=== PATIENT | female | born 1940 | race Caucasian/White ===

== ENCOUNTER 2018-05-23 08:50 | Observation (INO) | payer MEDICARE, SELFPAY ==
[2018-05-23] VITALS (12 sets, daily range): BP systolic 120–147; BP diastolic 65–86; PULSE 77–96; RESP 16–20; TEMP 36.4–36.7; O2SAT 96–100; BMI 34.3; BMI 37.3; BMI 37.7
--- NOTE | 2018-05-23 09:03 | EKG12_ITS ---
Test Reason : FALL Blood Pressure : / mmHG Vent. Rate : 099 BPM Atrial Rate : 099 BPM P-R Int : 174 ms QRS Dur : 080 ms QT Int : 334 ms P-R-T Axes : 058 045 013 degrees QTc Int : 428 ms Normal sinus rhythm with sinus arrhythmia Nonspecific T wave abnormality Abnormal ECG Confirmed by JOYCE WILSON ([id number]), senior editor GOLDIE WEEKS ([id number]) on 05/28/2018 9:00:21 AM Referred By: VICTOR MANUEL Confirmed By:JOYCE WILSON
--- NOTE | 2018-05-23 09:31 | RAD_ITS ---
STUDY: X-RAY - PELVIS AND RIGHT HIP REASON FOR EXAM: Female, 77 years old. Right hip pain following a fall. TECHNIQUE: Radiological exam, hip, unilateral, with pelvis when performed; 2 or 3 views. COMPARISON: None. FINDINGS: There is a non-specific bowel gas pattern. There are atherosclerotic vascular calcifications of the pelvic arteries. A filter is seen in the inferior vena cava. Normal bilateral iliac wings, sacroiliac joints and visualized sacrum. Normal bilateral superior and inferior pubic rami. Normal pubic symphysis. Normal bilateral ischial tuberosities. Normal visualized femoral head. There is osteoarthritic spur formation of the acetabular rim. There is moderate articular joint space narrowing of the hip. RAD/HIP, UNI W/ Pelvis 2-3 Views IMPRESSION: Osteoarthritis of the right hip. No fracture or dislocation is seen. Electronically Signed: Guero Pelaez MD at 10:38 EDT Tel [phone], Service support ,
--- NOTE | 2018-05-23 09:31 | CT_ITS ---
STUDY: CT CHEST WITHOUT CONTRAST REASON FOR EXAM: Female, 77 years old. Left-sided chest wall pain following a fall. The patient has a history of Sjogren syndrome. RADIATION DOSAGE (If Supplied By Facility): CTDIvol = ( 19.72 ) mGy, DLP = ( 689.78 ) mGycm TECHNIQUE: Transaxial imaging was performed without the administration of intravenous contrast material. Multiplanar coronal and sagittal images were reformatted. Individualized dose optimization techniques were used for this CT. COMPARISON: Comparison is made with prior study dated May 08, 2017. FINDINGS: There is evidence of volume loss in the right hemithorax. There now is evidence of increased linear markings with areas of confluence in the right mid lung suggestive of a scarring. Increased markings are also seen at both lung bases suggestive of scarring with mild degree of pleural thickening. There is no demonstrated pleural abnormality. There are calcifications of the coronary arteries. There are multiple small lymph nodes within the mediastinum, which are normal in size and morphology most compatible with reactive lymph hyperplasia. Normal hilar regions. Normal unenhanced pulmonary arteries. There is atherosclerotic calcification of the aortic arch. There are multi-level degenerative changes of the thoracic spine. Increased kyphosis. A colostomy is seen in the left upper quadrant. CT/Chest without Contrast IMPRESSION: Volume loss in the right hemithorax with increased linear markings with areas of confluence in the right midlung and both lower lobes suggestive of scarring. Electronically Signed: Guero Pelaez MD at 10:37 EDT Tel [phone], Service support ,
--- NOTE | 2018-05-23 09:34 | ED.VISSUMM ---
- ER Visit Summary Date of Service: 05/23/18 Chief Complaint: Fall History of Present Illness: The patient is a 77 F who states that at 040 0 hours this morning she was attempting to get out of bed when she fell. She is not exactly sure why she fell. She reports that her assisted her up. He left to go get coffee which is his normal routine and she developed worsening pain in the left back into her left chest and called the ambulance. Fire department states that when they entered the house the carbon monoxide detectors were going off as was the patient's. She reports that she has been nauseated all week. She denies any headache. She states her has not had any complaints. Once family arrives they confirmed that they have spoken with the fire department and are investigating appropriately and a new heater will be being installed today.. Patient did not complain of any other injuries to me but did tell family that she had right hip pain. Patient is currently lying on her right hip. She does not believe she hit her head but is not sure. Physical Examination: Afebrile vital signs are stable noted HR 96 and Bp 147/86 Gen: Well-nourished well-developed obese patient appears nauseated holding an emesis bag Head: Normocephalic atraumatic Eyes: Perrl EOMI ENT: TMs clear no rhinorrhea moist mucous membranes (specifically no giraldo red lips) Neck: Supple no lymphadenopathy no JVD nontender CVS: Regular rate rhythm no murmurs normal S1-S2 Respiratory: No distress clear to auscultation bilaterally left anterior mid to lower chest wall tenderness. Abdomen: Soft nontender nondistended normal bowel sounds no masses Back: Left mid thoracic ecchymosis along the ribs. Extremity: Nontender no edema Skin: Normal color no rash Neuro: alert orientated ?3 CN II-XII intact normal strength sensation reflexes gait cerebellar Psych: Normal affect normal mood Test Results: Carbon monoxide level was at 9. Slight elevation of troponin at 0.17. CT the chest demonstrates 3 nondisplaced rib fractures on the left. No associated pneumo or hemothorax. Emergency Department Course and Treatment: Patient has been receiving supplemental oxygen. Nausea is improving. The patient received pain medication. I think the bump in troponin is most likely due to the carbon monoxide displacing oxygen and its subsequent delivery to the heart. Our plan is admission into the hospital. Trend troponins. Pain management. Cardiology evaluation. Impression: 1. Mechanical fall at home 2. Left rib fractures x3 3. Carbon monoxide poisoning This note was generated with [employer] dictation software. It may contain incorrect words, spelling, and punctuation that were not noted in review of the chart prior to signing ED Disposition - Plan for ED Patient: Chief Complaint: Fall Referrals: Zayda Peace PA [Primary Care Provider] -
[2018-05-23] MEDS: Ondansetron 4 MG/2 ML Vial IV (09:49)
[2018-05-23] MEDS: Morphine 2 MG/ML Syringe IV ×4 (09:49→22:20)
[2018-05-23 10:37] LABS: Absolute Lymphocyte Count 1.33 X10^3/ul (0.83-4.51); Absolute Neutrophil Count 4.9 X10^3/uL (2.0-7.7); Basophil# 0.02 X10^3/uL; Basophil% 0.3 % (0-1); Eosinophil# 0.03 X10^3/uL; Eosinophils% 0.4 % (0-5); Hematocrit 41.9 % (37-47); Hemoglobin 13.6 g/dl (12.0-15.0); Lymphocyte # 1.33 X10^3/ul (4.0); Lymphocyte % 19.7 % (19-41); Mean Corp Hgb Conc 32.5 g/gl (32-36); Mean Corpuscular Hgb 29.7 pg (27.0-32.0); Mean Corpuscular Volume 91.5 fL (81-99); Mean Platelet Vol. 10.8 fl (6.2-12.0); Monocyte# 0.47 X10^3/uL; Neutrophil # 4.88 X10^3/uL (2.7-7.7); Neutrophil % 72.3 % (47-70); Platelet Count 172 K/mm3 (150-450); RBC Distribution Width CV 13.2 % (11.6-14.6); RBC Distribution Width SD 43.9 fl (35.1-43.9); Red Blood Count 4.58 M/mm3 (4.2-5.4); White Blood Count 6.8 K/mm3 (4.4-11.0)
[2018-05-23 10:39] LABS: POSITIVE COUNT NO; POSITIVE DIFFERENTIAL NO; POSITIVE MORPHOLOGY NO
[2018-05-23 10:59] LABS: CPK Total, Creatine Kinase 99 U/L (26-192)
[2018-05-23 11:01] LABS: AST(SGOT) 23 U/L (15-37); Alanine Aminotransfer ALT/SGPT 16 U/L (13-56); Albumin, Serum 2.9 g/dL (3.2-5.0); Alkaline Phosphatase 86 U/L (45-117); Anion Gap 8 (5-15); BUN 11 mg/dL (7-18); BUN/Creat Ratio 10.3 RATIO (10-20); Calcium,Total 8.6 mg/dL (8.5-10.1); Chloride 108 mmol/L (98-107); Creatinine, Serum 1.07 mg/dL (0.55-1.02); EST Glomerular Filtration Rate 53 mL/min (>60); Est Glom Filt Rate - Afr Amer 64 mL/min (>60); Estimated Creatinine Clearance 42.53 ml/min; Glucose 120 mg/dL (74-106); Potassium 3.9 mmol/L (3.5-5.1); Protein, Total 5.9 g/dL (6.4-8.2); Sodium Level 138 mmol/L (136-145)
[2018-05-23] MEDS: Morphine 4 MG/ML Syringe IV (12:25)
--- NOTE | 2018-05-23 12:38 | ED.RN ---
ATTEMPTED TO GET PT'S MEDICATION LIST FROM PT'S PHARMACY, [facility]. NO ANSWER, STAFF CURRENTLY ON LUNCH BREAK.
--- NOTE | 2018-05-23 13:30 | VDLE_ITS ---
[id number] VL^VDU^Venous Duplex US - Rickey Extrem [id number] [facility] Venous Doppler [address] [place] [address] Ordering Physician: Chaz Morris TAG_ENDED TAG_START Name: JENNIFER TREJO Study Date: 05/23/2018 02:21 PM Patient Location: U^[id number]^1 : 1940 Gender: Female Age: 77 yrs TAG_ENDED Reason For Study: LEG SWELLING RIGHT LEFT GSV is normal. GSV is normal. CFV is compressible, spontaneous, phasic, CFV is compressible, spontaneous, phasic, competent and demonstrates normal competent, and demonstrates normal augmentation. augmentation. FV is compressible, spontaneous, phasic, FV is compressible, spontaneous, phasic, competent and demonstrates normal competent and demonstrates normal augmentation. augmentation. POP V is compressible, spontaneous, phasic, POP V is compressible, spontaneous, phasic, competent and demonstrates normal competent and demonstrates normal augmentation. augmentation. T/P Trunk is compressible. T/P Trunk is compressible. PTV is compressible. PTV is compressible. RT PerV is compressible. LT PerV is compressible. Procedure Exam performed portable in patient room. A preliminary report was called and/or faxed to [facility]. <> Interpretation Summary No evidence for acute deep venous thrombosis bilateral lower extremities with patent and compressible bilateral great saphenous veins. [facility] TAG_ENDED Ordering Physician: Chaz Morris Referring Physician: Alli Peace Performed By: Anastasiya Salazar RVT
--- NOTE | 2018-05-23 13:34 | EKG12_ITS ---
Test Reason : ADMISSION Blood Pressure : / mmHG Vent. Rate : 075 BPM Atrial Rate : 075 BPM P-R Int : 174 ms QRS Dur : 086 ms QT Int : 416 ms P-R-T Axes : 048 009 027 degrees QTc Int : 464 ms Normal sinus rhythm Nonspecific T wave abnormality Abnormal ECG When compared with ECG of 23-MAY-2018 09:15, MANUAL COMPARISON REQUIRED, DATA IS UNCONFIRMED Confirmed by JOYCE WILSON ([id number]), editor city GOLDIE WEEKS ([id number]) on 05/28/2018 12:47:04 PM Referred By: FRANSISCO Confirmed By:JOYCE WILSON
--- NOTE | 2018-05-23 13:34 | ECHOD_ITS ---
[id number] ECHO^ECHOD^Echo Complete [id number] [facility] Echocardiogram [facility] [id number] Ordering Physician: Chaz Morris TAG_ENDED TAG[facility]START Name: JENNIFER TREJO Study Date: 05/23/2018 03:07 PM BP: 141/67 mmHg Patient Location: [facility]^[id number]^1 BSA: 1.8 m2 : 1940 Gender: Female Height: 61 in Age: 77 yrs Weight: 175 lb History: CAD, HLD, Raynaud's Syndrome, Dyspnea, GERD, TIA, lupus TAG_ENDED Reason For Study: ELEVATED TROPONIN Procedure This was a 2D Doppler, Color Flow transthoracic echocardiogram. The study was technically difficult. Pt was in supine position. Pt has broken ribs on left side and could not tolerate any pressure for imaging. Parasternal images acquired from subcostal window. Exam performed portable in patient room. Left Ventricle Based upon the 2D echocardiographic images obtained there appears to be grossly normal left ventricular size, wall motion, and systolic function. The estimated ejection fraction is 60 %. Unable to assess diastolic dysfunction. TAG_START TAG_ENDED Right Ventricle Based upon the 2D echocardiographic images obtained there appears to be grossly normal right ventricular size and systolic function. Atria Normal left atrium. Normal right atrium. No doppler evidence for ASD. Mitral Valve There is no mitral annular calcification. Normal mitral valve. Trivial mitral valve insufficiency. Tricuspid Valve The tricuspid valve is not well visualized. Aortic Valve The aortic valve is not well visualized. Trivial aortic valve insufficiency. Pulmonic Valve The pulmonic valve is not well visualized. Great Vessels Borderline enlarged aortic root. Pericardium/Pleural No pericardial effusion. MMode/2D Measurements & Calculations Ao root diam: 3.8 cm LVAd ap4: 30.8 cm2 SV(MOD-sp4): 58.9 ml EDV(MOD-sp4): 92.9 ml EDV(sp4-el): 96.5 ml LVAs ap4: 16.3 cm2 ESV(MOD-sp4): 34.0 ml ESV(sp4-el): 35.0 ml EF(MOD-sp4): 63.4 % EF(sp4-el): 63.8 % SV(sp4-el): 61.5 ml Doppler Measurements & Calculations MV E max andres: 58.2 cm/sec MV dec time: 0.33 sec Ao V2 max: 120.8 cm/sec MV A max andres: 75.6 cm/sec Ao max P.8 mmHg MV E/A: 0.77 AI max andres: 462.4 cm/sec AI max P.5 mmHg AI dec slope: 372.6 cm/sec2 AI P1/2t: 363.5 msec Pediatric Measurements & Calculations Lat Peak E' Andres: 8.1 cm/sec Med Peak E' Andres: 4.6 cm/sec Interpretation Summary The study was technically difficult. Based upon the 2D echocardiographic images obtained there appears to be grossly normal left ventricular size, wall motion, and systolic function. The estimated ejection fraction is 60 %. Trivial mitral valve insufficiency. Trivial aortic valve insufficiency. Borderline enlarged aortic root. Unable to assess diastolic dysfunction. TAG_START TAG_ENDED Ordering Physician: Chaz Morris Referring Physician: TATIANA BELLO Performed By: Camila Delgado RDCS, RVT
--- NOTE | 2018-05-23 13:43 | PCM.HP.STD ---
Problem List (1) Chest pain Status: Acute Qualifiers: Chest pain type: chest pain on breathing Qualified Code(s): R07.1 - Chest pain on breathing; R07.81 - Pleurodynia (2) Carbon monoxide poisoning Status: Acute Qualifiers: Encounter type: initial encounter Injury intent: accidental or unintentional Qualified Code(s): T58.91XA - Toxic effect of carbon monoxide from unspecified source, accidental (unintentional), initial encounter (3) Rib fractures Status: Acute Qualifiers: Encounter type: initial encounter Laterality: left (4) Elevated troponin Status: Acute (5) Pneumothorax Status: Acute Qualifiers: Pneumothorax type: traumatic Encounter type: initial encounter Qualified Code(s): S27.0XXA - Traumatic pneumothorax, initial encounter (6) Conjunctivitis Status: Acute Qualifiers: Conjunctivitis type: acute Acute conjunctivitis type: bacterial Laterality: bilateral Qualified Code(s): H10.33 - Unspecified acute conjunctivitis, bilateral (7) CAD (coronary artery disease) Status: Acute Qualifiers: Coronary Disease-Associated Artery/Lesion type: seminole artery [place] vs. transplanted heart: seminole heart Associated angina: with unspecified angina Qualified Code(s): I25.119 - Atherosclerotic heart disease of seminole coronary artery with unspecified angina pectoris (8) Raynauds disease Status: Chronic Qualifiers: Raynaud?s-associated gangrene presence: without gangrene Qualified Code(s): I73.00 - Raynaud's syndrome without gangrene (9) Hyperlipidemia Status: Chronic Qualifiers: Hyperlipidemia type: unspecified Qualified Code(s): E78.5 - Hyperlipidemia, unspecified (10) Benign essential hypertension Status: Chronic (11) GERD (gastroesophageal reflux disease) Status: Chronic Qualifiers: Esophagitis presence: esophagitis presence not specified Qualified Code(s): K21.9 - Gastro-esophageal reflux disease without esophagitis (12) History of pulmonary embolism Status: Chronic (13) Rheumatoid arthritis Status: Chronic Qualifiers: Rheumatoid factor presence: unspecified presence (14) Sjogren's syndrome Status: Chronic Qualifiers: Sjogren's organ involvement: unspecified organ involvement Qualified Code(s): M35.00 - Sicca syndrome, unspecified (15) Fibromyalgia Status: Chronic (16) S/P IVC filter Status: Chronic (17) Systemic lupus erythematosus Status: Chronic Qualifiers: Systemic lupus erythematosus type: unspecified History of Present Illness Date of Admission: 05/23/18 Chief Complaint: Chest pain headaches nausea no vomiting The patient is a 77 year old F [is a 77-year-old female with known history of hypertension, chronic kidney disease, DVT PE with an IVC filter, connective tissue disorders with SLE and raynaud's rheumatoid arthritis, Sjogrens syndrome chronically on steroids who for the past 24 hours after their carbon monoxide detector went off, patient's family has been having headaches nausea she has not vomited due to a Haroldo fundoplication, and fell earlier today. Patient fell striking her left side and was gotten up by her who then proceeded to get coffee, patient had increasing pain shortness of breath headaches nausea and activated EMS. While in the [facility] CT showed patient had a rib fracture of the sixth and seventh on the left side with a small pneumothorax, elevated carboxyhemoglobin, and elevated troponin. Patient is not still in extreme amount of pain currently 8 out of 10 constant increases with deep breaths decreases with pain medications only. Patient has no dyspnea on exertion no diaphoresis, also complains of lower extremity swelling, but no other events at this time. We are asked to admit for further evaluation and care of patient's elevated troponins chest pain carbon monoxide poisoning. 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 Past Medical History Past Medical History (Chronic Problems): Chronic Problems (Last Updated 05/23/18 @ 13:54 by Chaz Morris MD) Raynauds disease (Chronic) Hyperlipidemia (Chronic) Benign essential hypertension (Chronic) GERD (gastroesophageal reflux disease) (Chronic) History of pulmonary embolism (Chronic) Restless legs (Chronic) Rheumatoid arthritis (Chronic) Sjogren's syndrome (Chronic) Fibromyalgia (Chronic) S/P IVC filter (Chronic) Systemic lupus erythematosus (Chronic) History of TIAs (Chronic) Medical History: Medical History (Last Updated 05/23/18 @ 13:54 by Chaz Morris MD) Raynauds disease (Chronic) I73.00 Hyperlipidemia (Chronic) E78.5 Dyspnea (Acute) R06.00 Chest pain (Acute) R07.9 Benign essential hypertension (Chronic) I10 GERD (gastroesophageal reflux disease) (Chronic) K21.9 History of pulmonary embolism (Chronic) Z86.711 Restless legs (Chronic) Rheumatoid arthritis (Chronic) M06.9 Sjogren's syndrome (Chronic) M35.00 Fibromyalgia (Chronic) Systemic lupus erythematosus (Chronic) M32.9 Acute right hemiparesis (Resolved) G81.90 Acute ischemic stroke (Suspected) I63.9 History of TIAs (Chronic) Ileostomy in place Z93.2 Alzheimer's dementia G30.9 History of echocardiogram Onset Date: ~04/2017 Z92.89 EF 65% Dementia F03.90 History of deep vein thrombosis Z86.718 History of hysterectomy Z98.890, Z90.710 Raynaud's phenomenon (Inactive) Allergies ampicillin Allergy (Verified 05/08/17 15:18) Rash buprenorphine HCl [From Buprenex] Allergy (Verified 05/08/17 15:18) Other codeine Allergy (Verified 05/08/17 15:18) Anaphylaxis gold Au 198 Allergy (Verified 05/08/17 15:18) Rash guaifenesin Allergy (Verified 05/08/17 15:18) Other promethazine HCl [From Phenergan] Allergy (Verified 05/08/17 15:18) Shortness of breath Sulfa (Sulfonamide Antibiotics) Allergy (Verified 05/08/17 15:18) Rash sulindac [From Clinoril] Allergy (Verified 05/08/17 15:18) Rash tetracycline [Tetracycline] Allergy (Verified 05/08/17 15:18) Rash thiopental Allergy (Verified 05/08/17 15:18) Rash trimethoprim [From Proloprim] Allergy (Verified 05/08/17 15:18) Rash oxycodone HCl [From OxyContin] Adverse Reaction (Verified 05/08/17 15:18) Other NALDECON Allergy (Uncoded 05/08/17 15:18) Rash SULPHATED OIL Allergy (Uncoded 05/08/17 15:18) Other TAPE Allergy (Uncoded 05/08/17 15:18) Rash Home Medications: Ambulatory Orders Medication Instructions Recorded Atorvastatin Calcium [Lipitor] 40 mg PO QHS 06/10/16 Cholecalciferol (VIT D3) [Vitamin 2,000 unit PO DAILY 06/10/16 D3] Duloxetine HCl 90 mg PO DAILY 06/10/16 Melatonin 5 mg PO QHS 06/10/16 Potassium Chloride [K-Tab ER] 20 meq PO DAILY 06/10/16 Sucralfate 1 gm PO ACHS 06/10/16 traZODone [Desyrel] 100 mg PO QHS 06/10/16 Oxybutynin [Ditropan] 5 mg PO DAILY 05/08/17 Prednisone 5 mg PO DAILY 05/08/17 Albuterol Inhaler [Ventolin Hfa] 1 - 2 puff INHALATION Q4H PRN PRN 05/10/17 #1 inhaler Aspirin [Aspirin, Baby] 81 mg PO DAILY@0800 #30 tab.chew 05/10/17 Nitroglycerin [Nitrostat] 0.4 mg SUBLINGUAL Q5M PRN #10 tab 05/10/17 omeprazole 20 mg capsule,delayed 40 mg PO QDAY cap 07/11/17 release amlodipine 5 mg tablet 5 mg PO DAILY #90 tab 02/27/18 Surgical History: Surgical History (Last Updated 05/23/18 @ 13:54 by Chaz Morris MD) S/P IVC filter (Chronic) Z95.828 History of Krish fundoplication Z98.890 History of appendectomy Z98.890, Z90.49 History of cardiac catheterization Onset Date: ~04/2017 Z98.890 Mild CAD History of cholecystectomy Z98.890, Z90.49 History of herniorrhaphy Z98.890, Z87.19 Surgical History: appendectomy, cholecystectomy, herniorrhaphy, hysterectomy, - - Ileostomy bag in place Psychiatric History: No pertinent psych hx [employer] History: No pertinent [employer] history Smoking Status: Never smoker Alcohol: None Drugs: None - *Family History Maternal History Items: Diabetes, Hypertension Paternal History Items: Hypertension, No pertinent history Review of Systems Constitutional: Reports: Malaise, Weakness, Fatigue. Denies: Anorexia, Chills, Fever, Night Sweats, Weight Change Eyes: Reports: Blurred vision, Conjunctivae Inflammation, Eyelid Inflammation. Denies: Cataracts, Double vision, Drainage, Pain, Redness, Vision Change HEENT: Reports: Head Aches. Denies: Sinus Congestion, Sinus Drainage Cardiovascular: Reports: Edema. Denies: Palpitations Respiratory: Reports: Shortness of Breath. Denies: Cough, Sputum production Gastrointestinal: Denies: Abdominal Pain, Nausea, Vomiting Genitourinary: Denies: Dysuria Musculoskeletal: Denies: Joint Pain, Joint Tenderness Skin: Reports: Dryness Neurological: Denies: Numbness, Tingling, Focal weakness Psychiatric: Denies: Anxiety, Depression, Homicidal Ideations, Suicidal Ideations Hematologic/ Lymphatic: Denies: Easy Bruising, Easy Bleeding VTE Information - Inpt Only VTE Present on Admission: Yes VTE Mechan Device Prophylaxis: SCD's VTE Pharm Prophylaxis ordered?: Yes Patient Problems: Active and Suspected Problems (Last Updated 05/23/18 @ 13:54 by Chaz Morris MD) Carbon monoxide poisoning (Acute) Rib fractures (Acute) Elevated troponin (Acute) Pneumothorax (Acute) Conjunctivitis (Acute) Subjective: Patient is a morbidly obese white female in no apparent respiratory distress - Physical Exam General: Alert, Oriented x3, Cooperative HEENT: Atraumatic, PERRLA, EOMI, - - Conjunctivitis right eye left greater than left Oral: Moist Mucosa, No Gingival or Mucosal Lesions/ Ulcerations Neck: No JVD, Negative Carotid Bruits, Trachea Midline Lungs: No rhonchi, No wheeze, Diminished, - - Decreased ability to take a deep breath secondary to pain, pain on palpitation diminished at bilateral bases Cardiovascular: Regular rate, Normal S1, Normal S2, Murmur - Systolic, - - Redness to palpation on the fifth 6 intercostal space patient will not allow further examination Abdomen: Soft, Non Tender, Non-Distended, - - As of ileostomy with gas Extremities: No clubbing, No cyanosis, Edema Skin: No rashes, - - Appears to be red and flushed Musculoskeletal: No Tenderness to Palpation of Joints or Extremities Lymphatic: No Cervical, Supraclavicular, or Inguinal Adenopathy Neurological: Cranial nerves II-XII grossly intact, Neuro grossly intact Psych/Mental Status: Normal Affect, Appropriate, Alert and oriented to time, place, person, mood and affect Vital Signs Temp Pulse Resp BP Pulse Ox 97.5 F L 88 16 141/67 H 98 05/23/18 08:50 05/23/18 13:10 05/23/18 13:10 05/23/18 13:10 05/23/18 13:10 Oxygen Flow Rate (L/min) 3 Oxygen Delivery Method Room Air Weight: 89.5 kg Body Mass Index (BMI) 37.3 Finger Stick Blood Glucose 114 Laboratory Tests Past 24 Hrs 10/25/18 10/25/18 10/25/18 10:30 10:30 10:30 WBC 6.8 RBC 4.58 Hgb 13.6 Hct 41.9 MCV 91.5 MCH 29.7 MCHC 32.5 RDW 13.2 RDW Differential 43.9 Plt Count 172 MPV 10.8 Immature Gran % (Auto) 0.300 Neut % (Auto) 72.3 H Lymph % (Auto) 19.7 [place] % (Auto) 7.0 Eos % (Auto) 0.4 Baso % (Auto) 0.3 Absolute Neuts (auto) 4.9 Absolute Lymphs (auto) 1.33 Total Counted Not Reportable VBG Carboxyhemoglobin Sodium 138 Potassium 3.9 Chloride 108 H Carbon Dioxide 22.0 Anion Gap 8 BUN 11 Creatinine 1.07 H Estim Creat Clear Calc 42.53 Est GFR (MDRD) Af Amer 64 Est GFR (MDRD) Non-Af 53 L BUN/Creatinine Ratio 10.3 Glucose 120 H Calcium 8.6 Total Bilirubin 0.50 AST 23 ALT 16 Alkaline Phosphatase 86 Total Creatine Kinase 99 Troponin I 0.174 H Total Protein 5.9 L Albumin 2.9 L Globulin 3.0 Albumin/Globulin Ratio 1.0 05/23/18 10:30 WBC RBC Hgb Hct MCV MCH MCHC RDW RDW Differential Plt Count MPV Immature Gran % (Auto) Neut % (Auto) Lymph % (Auto) [place] % (Auto) Eos % (Auto) Baso % (Auto) Absolute Neuts (auto) Absolute Lymphs (auto) Total Counted VBG Carboxyhemoglobin 9.0 H Sodium Potassium Chloride Carbon Dioxide Anion Gap BUN Creatinine Estim Creat Clear Calc Est GFR (MDRD) Af Amer Est GFR (MDRD) Non-Af BUN/Creatinine Ratio Glucose Calcium Total Bilirubin AST ALT Alkaline Phosphatase Total Creatine Kinase Troponin I Total Protein Albumin Globulin Albumin/Globulin Ratio Assessment/Plan All Active Problems (Last Updated 05/23/18 @ 13:54 by Chaz Morris MD) CAD (coronary artery disease) (Acute) Diastolic dysfunction (Acute) Carbon monoxide poisoning (Acute) Rib fractures (Acute) Elevated troponin (Acute) Pneumothorax (Acute) Conjunctivitis (Acute) Dyspnea (Acute) Chest pain (Acute) Acute right hemiparesis (Resolved) (1) Chest pain Patient is a 77-year-old with chest pain history of connective tissue disorder and elevated troponin with carbon monoxide poisoning. Given these 3 factors will have to treat as possible cardiac even though there is rib fractures, will check cardiac enzymes times 3-week EKGs, get echocardiogram, give aspirin oxygen nitro morphine as needed for the pain, will hold off on full anticoagulation as there is no reasonable explanation for patient's chest pain i.e. rib fractures and trend troponins. Will consult cardiology if troponins continue upward trend may need to anticoagulate. Will check a lipid profile in the a.m. await cardiology's recommendations. (2) Carbon monoxide poisoning Patient was already given high flow oxygen upon entering in the [facility], will continue oxygen check a carboxyhemoglobin in the evening to make sure the trend is going down and monitor. Primary problem of furnace being taken care of. (3) Rib fractures She has left hip rib fractures will give incentive spirometry, and pain medications has tolerated oxycodone in the past (4) Elevated troponin Ischemia? We will trend out, patient was having chest pain only after she fell, unclear if this is cardiac in nature versus secondary to trauma versus some other etiology as above. (5) Pneumothorax Small pneumothorax seen on CT Will repeat chest x-ray in the a.m., continue oxygen therapy (6) Conjunctivitis We will give erythromycin and eyedrops (7) CAD (coronary artery disease) Unclear patient had a normal echocardiogram last year about this time be aware patient does have a history of connective tissue disorders, postmenopausal, and chronic steroids outside the room possibility. Monitor. (8) Raynauds disease Continue steroids (9) Hyperlipidemia Check lipid profile continue Lipitor (10) Benign essential hypertension PRN labetalol reassess once patient is further out of initiating event. (11) GERD (gastroesophageal reflux disease) Continue PPI (12) History of pulmonary embolism Be aware checking lower extremity Dopplers (13) Rheumatoid arthritis Be aware continue steroid (14) Sjogren's syndrome be Aware (15) Fibromyalgia Be aware (16) S/P IVC filter Be aware (17) Systemic lupus erythematosus Be aware CODE STATUS full DVT prophylaxis heparin and SCDs Disposition patient admitted to the hospital for further evaluation and care, unclear if patient is having demand ischemia versus traumatic elevation in troponin monitor recommendations of cardiology Chart is dictated with rotating field assembler software. Errors may occur in dictation that may change providers meaning. This note was generated with [employer] dictation software. It may contain incorrect words, spelling, and punctuation that were not noted in checking the note before signing. Code Visit Inpatient E&M: 77929 Init Hosp L3
--- NOTE | 2018-05-23 13:47 | HP.PCM_ITS ---
Problem List (1) Chest pain Status: Acute Qualifiers: Chest pain type: chest pain on breathing Qualified Code(s): R07.1 - Chest pain on breathing; R07.81 - Pleurodynia (2) Carbon monoxide poisoning Status: Acute Qualifiers: Encounter type: initial encounter Injury intent: accidental or unintentional Qualified Code(s): T58.91XA - Toxic effect of carbon monoxide from unspecified source, accidental (unintentional), initial encounter (3) Rib fractures Status: Acute Qualifiers: Encounter type: initial encounter Laterality: left (4) Elevated troponin Status: Acute (5) Pneumothorax Status: Acute Qualifiers: Pneumothorax type: traumatic Encounter type: initial encounter Qualified Code(s): S27.0XXA - Traumatic pneumothorax, initial encounter (6) Conjunctivitis Status: Acute Qualifiers: Conjunctivitis type: acute Acute conjunctivitis type: bacterial Laterality: bilateral Qualified Code(s): H10.33 - Unspecified acute con junctivitis, bilateral (7) CAD (coronary artery disease) Status: Acute Qualifiers: Coronary Disease-Associated Artery/Lesion type: [place] artery [place] vs. transplanted heart: [place] heart Associated angina: with unspecified angina Qualified Code(s): I25.119 - Atherosclerotic heart disease of [place] coronary artery with unspecified angina pectoris (8) Raynauds disease Status: Chronic Qualifiers: Raynaud?s-associated gangrene presence: without gangrene Qualified Code(s): I73.00 - Raynaud's syndrome without gangrene (9) Hyperlipidemia Status: Chronic Qualifiers: Hyperlipidemia type: unspecified Qualified Code(s): E78.5 - Hyperlipidemia, unspecified (10) Benign essential hypertension Status: Chronic (11) GERD (gastroesophageal reflux disease) Status: Chronic Qualifiers: Esophagitis presence: esophagitis presence not specified Qualified Code(s): K21.9 - Gastro-esophageal reflux disease without esophagitis (12) History of pulmonary embolism Status: Chronic (13) Rheumatoid arthritis Status: Chronic Qualifiers: Rheumatoid factor presence: unspecified presence (14) Sjogren's syndrome Status: Chronic Qualifiers: Sjogren's organ involvement: unspecified organ involvement Qualified Code(s): M35.00 - Sicca syndrome, unspecified (15) Fibromyalgia Status: Chronic (16) S/P IVC filter Status: Chronic (17) Systemic lupus erythematosus Status: Chronic Qualifiers: Systemic lupus erythematosus type: unspecified History of Present Illness Date of Admission: 05/23/18 Chief Complaint: Chest pain headaches nausea no vomiting The patient is a 77 year old F [is a 77-year-old female with known history of hypertension, chronic kidney disease, DVT PE with an IVC filter, connective tissue disorders with SLE and raynaud's rheumatoid arthritis, Sjogrens syndrome chronically on steroids who for the past 24 hours after their carbon monoxide detector went off, patient's family has been having headaches nausea she has not vomited due to a Haroldo fundoplication, and fell earlier today. Patient fell striking her left side and was gotten up by her who then proceeded to get coffee, patient had increasing pain shortness of breath headaches nausea and activated EMS. While in the [facility] CT showed patient had a rib fracture of the sixth and seventh on the left side with a small pneumothorax, elevated carboxyhemoglobin, and elevated troponin. Patient is not still in extreme amount of pain currently 8 out of 10 constant increases with deep breaths decreases with pain medications only. Patient has no dyspnea on exertion no diaphoresis, also complains of lower extremity swelling, but no other events at this time. We are asked to admit for further evaluation and care of patient's elevated troponins chest pain carbon monoxide poisoning. 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 Past Medical History Past Medical History (Chronic Problems): Chronic Problems (Last Updated 05/23/18 @ 13:54 by Chaz Morris MD) Raynauds disease (Chronic) Hyperlipidemia (Chronic) Benign essential hypertension (Chronic) GERD (gastroesophageal reflux disease) (Chronic) History of pulmonary embolism (Chronic) Restless legs (Chronic) Rheumatoid arthritis (Chronic) Sjogren's syndrome (Chronic) Fibromyalgia (Chronic) S/P IVC filter (Chronic) Systemic lupus erythematosus (Chronic) History of TIAs (Chronic) Medical History: Medical History (Last Updated 05/23/18 @ 13:54 by Chaz Morris MD) Raynauds disease (Chronic) I73.00 Hyperlipidemia (Chronic) E78.5 Dyspnea (Acute) R06.00 Chest pain (Acute) R07.9 Benign essential hypertension (Chronic) I10 GERD (gastroesophageal reflux disease) (Chronic) K21.9 History of pulmonary embolism (Chronic) Z86.711 Restless legs (Chronic) Rheumatoid arthritis (Chronic) M06.9 Sjogren's syndrome (Chronic) M35.00 Fibromyalgia (Chronic) Systemic lupus erythematosus (Chronic) M32.9 Acute right hemiparesis (Resolved) G81.90 Acute ischemic stroke (Suspected) I63.9 History of TIAs (Chronic) Ileostomy in place Z93.2 Alzheimer's dementia G30.9 History of echocardiogram Onset Date: ~04/2017 Z92.89 EF 65% Dementia F03.90 History of deep vein thrombosis Z86.718 History of hysterectomy Z98.890, Z90.710 Raynaud's phenomenon (Inactive) Allergies ampicillin Allergy (Verified 05/08/17 15:18) Rash buprenorphine HCl [From Buprenex] Allergy (Verified 05/08/17 15:18) Other codeine Allergy (Verified 05/08/17 15:18) Anaphylaxis gold Au 198 Allergy (Verified 05/08/17 15:18) Rash guaifenesin Allergy (Verified 05/08/17 15:18) Other promethazine HCl [From Phenergan] Allergy (Verified 05/08/17 15:18) Shortness of breath Sulfa (Sulfonamide Antibiotics) Allergy (Verified 05/08/17 15:18) Rash sulindac [From Clinoril] Allergy (Verified 05/08/17 15:18) Rash tetracycline [Tetracycline] Allergy (Verified 05/08/17 15:18) Rash thiopental Allergy (Verified 05/08/17 15:18) Rash trimethoprim [From Proloprim] Allergy (Verified 05/08/17 15:18) Rash oxycodone HCl [From OxyContin] Adverse Reaction (Verified 05/08/17 15:18) Other NALDECON Allergy (Uncoded 05/08/17 15:18) Rash SULPHATED OIL Allergy (Uncoded 05/08/17 15:18) Other TAPE Allergy (Uncoded 05/08/17 15:18) Rash Home Medications: Ambulatory Orders Medication Instructions Recorded Atorvastatin Calcium [Lipitor] 40 mg PO QHS 06/10/16 Cholecalciferol (VIT D3) [Vitamin 2,000 unit PO DAILY 06/10/16 D3] Duloxetine HCl 90 mg PO DAILY 06/10/16 Melatonin 5 mg PO QHS 06/10/16 Potassium Chloride [K-Tab ER] 20 meq PO DAILY 06/10/16 Sucralfate 1 gm PO ACHS 06/10/16 traZODone [Desyrel] 100 mg PO QHS 06/10/16 Oxybutynin [Ditropan] 5 mg PO DAILY 05/08/17 Prednisone 5 mg PO DAILY 05/08/17 Albuterol Inhaler [Ventolin Hfa] 1 - 2 puff INHALATION Q4H PRN PRN 05/10/17 #1 inhaler Aspirin [Aspirin, Baby] 81 mg PO DAILY@0800 #30 tab.chew 05/10/17 Nitroglycerin [Nitrostat] 0.4 mg SUBLINGUAL Q5M PRN #10 tab 05/10/17 omeprazole 20 mg capsule,delayed 40 mg PO QDAY cap 07/11/17 release amlodipine 5 mg tablet 5 mg PO DAILY #90 tab 02/27/18 Surgical History: Surgical History (Last Updated 05/23/18 @ 13:54 by Chaz Morris MD) S/P IVC filter (Chronic) Z95.828 History of Krish fundoplication Z98.890 History of appendectomy Z98.890, Z90.49 History of cardiac catheterization Onset Date: ~04/2017 Z98.890 Mild CAD History of cholecystectomy Z98.890, Z90.49 History of herniorrhaphy Z98.890, Z87.19 Surgical History: appendectomy, cholecystectomy, herniorrhaphy, hysterectomy, - - Ileostomy bag in place Psychiatric History: No 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 Denies: Anorexia, Chills, Fever, Night Sweats, Weight Change Eyes: Reports: Blurred vision, Conjunctivae Inflammation, Eyelid Inflammation. Denies: Cataracts, Double vision, Drainage, Pain, Redness, Vision Change HEENT: Reports: Head Aches. Denies: Sinus Congestion, Sinus Drainage Cardiovascular: Reports: Edema. Denies: Palpitations Respiratory: Reports: Shortness of Breath. Denies: Cough, Sputum production Gastrointestinal: Denies: Abdominal Pain, Nausea, Vomiting Genitourinary: Denies: Dysuria Musculoskeletal: Denies: Joint Pain, Joint Tenderness Skin: Reports: Dryness Neurological: Denies: Numbness, Tingling, Focal weakness Psychiatric: Denies: Anxiety, Depression, Homicidal Ideations, Suicidal Ideations Hematologic/ Lymphatic: Denies: Easy Bruising, Easy Bleeding VTE Information - Inpt Only VTE Present on Admission: Yes VTE Mechan Device Prophylaxis: SCD's VTE Pharm Prophylaxis ordered?: Yes Patient Problems: Active and Suspected Problems (Last Updated 05/23/18 @ 13:54 by Chaz Morris MD) Carbon monoxide poisoning (Acute) Rib fractures (Acute) Elevated troponin (Acute) Pneumothorax (Acute) Conjunctivitis (Acute) Subjective: Patient is a morbidly obese white female in no apparent respiratory distress - Physical Exam General: Alert, Oriented x3, Cooperative HEENT: Atraumatic, PERRLA, EOMI, - - Conjunctivitis right eye left greater than left Oral: Moist Mucosa, No Gingival or Mucosal Lesions/ Ulcerations Neck: No JVD, Negative Carotid Bruits, Trachea Midline Lungs: No rhonchi, No wheeze, Diminished, - - Decreased ability to take a deep breath secondary to pain, pain on palpitation diminished at bilateral bases Cardiovascular: Regular rate, Normal S1, Normal S2, Murmur - Systolic, - - Redness to palpation on the fifth 6 intercostal space patient will not allow further examination Abdomen: Soft, Non Tender, Non-Distended, - - As of ileostomy with gas Extremities: No clubbing, No cyanosis, Edema Skin: No rashes, - - Appears to be red and flushed Musculoskeletal: No Tenderness to Palpation of Joints or Extremities Lymphatic: No Cervical, Supraclavicular, or Inguinal Adenopathy Neurological: Cranial nerves II-XII grossly intact, Neuro grossly intact Psych/Mental Status: Normal Affect, Appropriate, Alert and oriented to time, place, person, mood and affect Vital Signs Temp Pulse Resp BP Pulse Ox 97.5 F L 88 16 141/67 H 98 05/23/18 08:50 05/23/18 13:10 05/23/18 13:10 05/23/18 13:10 05/23/18 13:10 Oxygen Flow Rate (L/min) 3 Oxygen Delivery Method Room Air Weight: 89.5 kg Body Mass Index (BMI) 37.3 Finger Stick Blood Glucose 114 Laboratory Tests Past 24 Hrs 05/23/18 05/23/1805/23/18 10:30 10:30 10:30 WBC 6.8 RBC 4.58 Hgb 13.6 Hct 41.9 MCV 91.5 MCH 29.7 MCHC 32.5 RDW 13.2 RDW Differential 43.9 Plt Count 172 MPV 10.8 Immature Gran % (Auto) 0.300 Neut % (Auto) 72.3 H Lymph % (Auto) 19.7 Hood % (Auto) 7.0 Eos % (Auto) 0.4 Baso % (Auto) 0.3 Absolute Neuts (auto) 4.9 Absolute Lymphs (auto) 1.33 Total Counted Not Reportable VBG Carboxyhemoglobin Sodium 138 Potassium 3.9 Chloride 108 H Carbon Dioxide 22.0 Anion Gap 8 BUN 11 Creatinine 1.07 H Estim Creat Clear Calc 42.53 Est GFR (MDRD) Af Amer 64 Est GFR (MDRD) Non-Af 53 L BUN/Creatinine Ratio 10.3 Glucose 120 H Calcium 8.6 Total Bilirubin 0.50 AST 23 ALT 16 Alkaline Phosphatase 86 Total Creatine Kinase 99 Troponin I 0.174 H Total Protein 5.9 L Albumin 2.9 L Globulin 3.0 Albumin/Globulin Ratio 1.0 05/23/18 10:30 WBC RBC Hgb Hct MCV MCH MCHC RDW RDW Differential Plt Count MPV Immature Gran % (Auto) Neut % (Auto) Lymph % (Auto) Hood % (Auto) Eos % (Auto) Baso % (Auto) Absolute Neuts (auto) Absolute Lymphs (auto) Total Counted VBG Carboxyhemoglobin 9.0 H Sodium Potassium Chloride Carbon Dioxide Anion Gap BUN Creatinine Estim Creat Clear Calc Est GFR (MDRD) Af Amer Est GFR (MDRD) Non-Af BUN/Creatinine Ratio Glucose Calcium Total Bilirubin AST ALT Alkaline Phosphatase Total Creatine Kinase Troponin I Total Protein Albumin Globulin Albumin/Globulin Ratio Assessment/Plan All Active Problems (Last Updated 05/23/18 @ 13:54 by Chaz Morris MD) CAD (coronary artery disease) (Acute) Diastolic dysfunction (Acute) Carbon monoxide poisoning (Acute) Rib fractures (Acute) Elevated troponin (Acute) Pneumothorax (Acute) Conjunctivitis (Acute) Dyspnea (Acute) Chest pain (Acute) Acute right hemiparesis (Resolved) (1) Chest pain Patient is a 77-year-old with chest pain history of connective tissue disorder and elevated troponin with carbon monoxide poisoning. Given these 3 factors will have to treat as possible cardiac even though there is rib fractures, will check cardiac enzymes times 3-week EKGs, get echocardiogram, give aspirin oxygen nitro morphine as needed for the pain, will hold off on full anticoagulation as there is no reasonable explanation for patient's chest pain i.e. rib fractures and trend troponins. Will consult cardiology if troponins continue upward trend may need to anticoagulate. Will check a lipid profile in the a.m. await cardiology's recommendations. (2) Carbon monoxide poisoning Patient was already given high flow oxygen upon entering in the EC, will continue oxygen check a carboxyhemoglobin in the evening to make sure the trend is going down and monitor. Primary problem of furnace being taken care of. (3) Rib fractures She has left hip rib fractures will give incentive spirometry, and pain medications has tolerated oxycodone in the past (4) Elevated troponin Ischemia? We will trend out, patient was having chest pain only after she fell, unclear if this is cardiac in nature versus secondary to trauma versus some other etiology as above. (5) Pneumothorax Small pneumothorax seen on CT Will repeat chest x-ray in the a.m., continue oxygen therapy (6) Conjunctivitis We will give erythromycin and eyedrops (7) CAD (coronary artery disease) Unclear patient had a normal echocardiogram last year about this time be aware patient does have a history of connective tissue disorders, postmenopausal, and chronic steroids outside the room possibility. Monitor. (8) Raynauds disease Continue steroids (9) Hyperlipidemia Check lipid profile continue Lipitor (10) Benign essential hypertension PRN labetalol reassess once patient is further out of initiating event. (11) GERD (gastroesophageal reflux disease) Continue PPI (12) History of pulmonary embolism Be aware checking lower extremity Dopplers (13) Rheumatoid arthritis Be aware continue steroid (14) Sjogren's syndrome be Aware (15) Fibromyalgia Be aware (16) S/P IVC filter Be aware (17) Systemic lupus erythematosus Be aware CODE STATUS full DVT prophylaxis heparin and SCDs Disposition patient admitted to the hospital for further evaluation and care, unclear if patient is having demand ischemia versus traumatic elevation in troponin monitor recommendations of cardiology Chart is dictated with first officer and flight instructor software. Errors may occur in dictation that may change providers meaning. This note was generated with [employer] dictation software. It may contain incorrect words, spelling, and punctuation that were not noted in checking the note before signing. Code Visit Inpatient E&M: 70306 Init Hosp L3
[2018-05-23] MEDS: 0.9% Normal Saline 1,000 ML 125 ML IV (14:38)
[2018-05-23] MEDS: Heparin Injection (Vial) 5,000 UNIT/ML VIAL 5000 UNIT SC ×2 (15:26→21:34)
--- NOTE | 2018-05-23 16:08 | NURSING ---
Patient's peripheral IV infiltrated. This RN spoke with Dr. Beckwith and yonatan senior MD to place midline. Spoke to patient and granddaughter both parties are agreeable.
[2018-05-23] MEDS: oxyCODONE 5 MG Tablet PO ×2 (16:36→20:38)
[2018-05-23] MEDS: Erythromycin Base 1 OPTH.TUBE 1 APPLIC EACH EYE ×2 (16:46→21:30)
[2018-05-23] MEDS: Sucralfate 1 GM Tablet PO ×2 (16:49→21:31)
[2018-05-23 17:00] LABS: Bedside Glucose 107 mg/dL (70-110)
--- NOTE | 2018-05-23 19:34 | EKG12_ITS ---
Test Reason : SCHEDULED Blood Pressure : / mmHG Vent. Rate : 085 BPM Atrial Rate : 085 BPM P-R Int : 150 ms QRS Dur : 078 ms QT Int : 358 ms P-R-T Axes : -10 012 -08 degrees QTc Int : 426 ms Normal sinus rhythm Nonspecific T wave abnormality Abnormal ECG When compared with ECG of 23-MAY-2018 15:02, MANUAL COMPARISON REQUIRED, DATA IS UNCONFIRMED Confirmed by JOYCE WILSON ([id number]), editor book GOLDIE WEEKS ([id number]) on 05/28/2018 12:47:43 PM Referred By: CRYSTAL Confirmed By:JOYCE WILSON
[2018-05-23] MEDS: MELATONIN 10 MG TABLET 5 MG PO (21:30)
[2018-05-23] MEDS: traZODone 100 MG Tablet PO (21:31)
[2018-05-23] MEDS: Atorvastatin Calcium 40 MG Tablet PO (21:34)
[2018-05-23 21:45] LABS: Bedside Glucose 122 mg/dL (70-110)
[2018-05-24] VITALS (10 sets, daily range): BP systolic 103–133; BP diastolic 43–66; PULSE 66–118; RESP 17–18; TEMP 36.4–36.8; O2SAT 95–99
[2018-05-24] MEDS: 0.9% Normal Saline 1,000 ML 125 ML IV ×2 (00:24→08:44)
--- NOTE | 2018-05-24 04:00 | EKG12_ITS ---
Test Reason : MORNING EKG Blood Pressure : / mmHG Vent. Rate : 078 BPM Atrial Rate : 078 BPM P-R Int : 154 ms QRS Dur : 074 ms QT Int : 406 ms P-R-T Axes : -11 019 043 degrees QTc Int : 462 ms Sinus rhythm with Premature atrial complexes Nonspecific T wave abnormality Abnormal ECG When compared with ECG of 23-MAY-2018 19:33, MANUAL COMPARISON REQUIRED, DATA IS UNCONFIRMED Confirmed by JOYCE WILSON ([id number]), videotape editor GOLDIE WEEKS ([id number]) on 05/28/2018 12:49:04 PM Referred By: CRYSTAL Confirmed By:JOYCE WILSON
[2018-05-24] MEDS: Morphine 2 MG/ML Syringe IV ×2 (04:04→16:22)
--- NOTE | 2018-05-24 05:35 | RAD_ITS ---
STUDY: X-RAY CHEST REASON FOR EXAM: Female, 77 years old. Chest pain. TECHNIQUE: Single AP portable view of the chest. COMPARISON: Comparison is made with prior study dated May 08, 2017. FINDINGS: EKG electrodes are seen. Mild degree of increased markings at the left lung base with blunting of left costophrenic angle. This may represent either atelectasis and/or early infiltrate. Follow-up is recommended. There is borderline cardiomegaly. Normal mediastinum and regina. Normal visualized pulmonary arteries. There is atherosclerotic calcification of the aortic arch with tortuosity. Normal visualized thoracic spine. Prior left rotator cuff surgery. There is no demonstrated abnormality of the visualized soft tissue structures of the upper abdomen. RAD/Chest 1 View (Portable) IMPRESSION: Increased markings at the left lung base with blunting of left costophrenic angle. Follow-up is recommended. Electronically Signed: Guero Pelaez MD at 9:50 EDT Tel [phone], Service support ,
[2018-05-24] MEDS: Aspirin 81 MG TAB.CHEW PO (05:59)
[2018-05-24] MEDS: amLODIPine 5 MG Tablet PO (05:59)
[2018-05-24] MEDS: 0.9% NaCl Peripheral Flush Adult/Peds IV ×3 (05:59→16:23)
[2018-05-24] MEDS: Sucralfate 1 GM Tablet PO ×4 (05:59→20:27)
[2018-05-24 06:51] LABS: Bedside Glucose 84 mg/dL (70-110)
[2018-05-24 07:45] LABS: Hematocrit 37.3 % (37-47); Hemoglobin 11.8 g/dl (12.0-15.0); Mean Corp Hgb Conc 31.6 g/gl (32-36); Mean Corpuscular Hgb 29.7 pg (27.0-32.0); Mean Platelet Vol. 12.2 fl (6.2-12.0); Platelet Count 170 K/mm3 (150-450); RBC Distribution Width SD 43.5 fl (35.1-43.9); Red Blood Count 3.97 M/mm3 (4.2-5.4); White Blood Count 5.2 K/mm3 (4.4-11.0)
[2018-05-24 07:46] LABS: Prothrombin Time (Protime)PT. 13.6 SECONDS (11.7-14.9)
[2018-05-24 07:47] LABS: Partial Thromboplast Time 32.8 Seconds (24.1-36.2)
[2018-05-24 07:59] LABS: Scan Indicated on CBC? Y/N NO
[2018-05-24 08:12] LABS: Anion Gap 7 (5-15); BUN 13 mg/dL (7-18); BUN/Creat Ratio 12.7 RATIO (10-20); Calcium,Total 7.8 mg/dL (8.5-10.1); Chloride 107 mmol/L (98-107); Cholesterol 76 mg/dL (200); Creatinine, Serum 1.02 mg/dL (0.55-1.02); EST Glomerular Filtration Rate 56 mL/min (>60); Est Glom Filt Rate - Afr Amer 68 mL/min (>60); Estimated Creatinine Clearance 35.96 ml/min; Glucose 93 mg/dL (74-106); High Density Lipoprotein 34 mg/dL; Magnesium 1.4 mg/dL (1.6-2.6); Phosphorus 4.1 mg/dL (2.5-4.9); Potassium 3.8 mmol/L (3.5-5.1); Sodium Level 138 mmol/L (136-145); Triglycerides 101 mg/dL; Very Low Density Lipoprotein 20 mg/dL (5-40)
[2018-05-24] MEDS: oxyCODONE 5 MG Tablet PO ×3 (08:39→20:27)
--- NOTE | 2018-05-24 10:26 | NURSING ---
Was consulted to see pt for ileostomy. Pt is currently off the unit.
[2018-05-24] MEDS: DULoxetine Hcl 30 MG Capsule 90 MG PO (12:26)
[2018-05-24] MEDS: Polyethylene Glycol 3350 17 GM PACKET PO (12:26)
[2018-05-24] MEDS: Pantoprazole Sodium 40 MG Tablet PO (12:27)
[2018-05-24] MEDS: predniSONE 5 MG Tablet PO (12:27)
[2018-05-24] MEDS: Tolterodine Tartrate 2 MG CAP.SA PO (12:27)
[2018-05-24] MEDS: Erythromycin Base 1 OPTH.TUBE 1 APPLIC EACH EYE ×2 (12:28→16:38)
--- NOTE | 2018-05-24 12:49 | STRESSREP ---
Stress Test Report Date: 05/24/2018 Procedure: Pharmacologic stress nuclear imaging study Indications: Chest pain; abnormal cardiac enzymes Consent: Per the patient Procedure: The patient underwent pharmacologic (Regadenoson) evaluation with a peak heart rate of 93 beats per minute (64 predicted maximal heart rate) and a peak blood pressure of 108/60 mmHg. The baseline ECG demonstrated normal sinus rhythm. The peak pharmacologic ECG demonstrated no obvious ECG changes. There were no cardiac dysrhythmias pretest, during pharmacologic infusion, or recovery. There was no complaint of chest discomfort during pharmacologic infusion or recovery. The examination was discontinued secondary to completion of protocol. Impression: 1. Pharmacologic (Regadenoson) evaluation 2. Peak pharmacologic ECG with no obvious ECG changes. 3. There were no cardiac dysrhythmias pretest, during pharmacologic infusion, or recovery. 4. Nuclear images pending Myocardial perfusion imaging study: Technique: The patient was injected with 14.1 millicuries of technetium 99m Cardiolite and subsequently rest SPECT Cardiolite nuclear imaging was obtained in the horizontal long, vertical long, and short axis views. The patient underwent pharmacologic (Regadenoson) evaluation with a peak heart rate of 93 beats per minute (64 % percent predicted maximal heart rate) and a peak blood pressure of 108/60 mmHg. The patient was injected with 44.2 millicuries of technetium 99m Cardiolite and subsequently stress SPECT Cardiolite nuclear imaging was obtained in the horizontal long, vertical long, and short axis views. A gated Cardiolite study at peak stress was obtained. Interpretation: Rest and stress SPECT Cardiolite nuclear imaging status post realignment, normalization, pre-attenuation correction, and post attenuation correction demonstrate on pre-attenuation correction images the appearance of diminished absence of myocardial perfusion/tracer uptake in the basal to distal inferior segments without significant change between rest and stress. Status post attenuation correction the resting images demonstrate an area of diminished tracer uptake in the distal anterior and anteroapical segments which subsequently status post stress appears to improve and/or normalize. The post attenuation stress images demonstrate relative uniform tracer uptake and myocardial perfusion appearing within normal limits. There is end systolic thickening and brightening. The gated Cardiolite study demonstrates myocardial thickening and inward wall motion. The reported LVEF is 74 %. Impression: 1. Rest and stress SPECT currently nuclear imaging pre-attenuation correction demonstrate myocardial perfusion changes potentially compatible with an area of previous myocardial injury/infarction involving portions of the basal to distal inferior segments, although, contribution from soft tissue attenuation/artifact cannot necessarily be excluded. Status post attenuation correction there is notation of diminished tracer uptake in the distal anterior and anteroapical segments at rest which appear to improve/normalize following stress appearing compatible shifting soft tissue attenuation/artifact. There are no myocardial perfusion changes considered diagnostic for associated stress-induced myocardial ischemia. 2. The gated Cardiolite study reports an LVEF of 74 %. This note was generated with [employer] software. It may contain incorrect words, spelling, and punctuation that were not noted in checking the note before signing.
[2018-05-24 12:51] LABS: Bedside Glucose 78 mg/dL (70-110)
--- NOTE | 2018-05-24 15:11 | CASEMGMT ---
ODIN ZHANG INITIAL REVIEW ASSESSMENT D/C PLAN: Home w/[facility] shelter, PT and OT. Face to Face with patient for initial transition planning/care coordination assessment. ODIN ZHANG introduced self and role at [facility]. Care providers, pharmacy, and demographics verified. PCP: lAli Peace Specialists: Sees kidney specialist and accreditation manager. Unsure of names. Preferred Pharmacy: [facility], [facility] in [place] Insurance: [employer] [facility] Prescription Benefit: [place] [facility] H[facility] Living Will/HPOA: has both LW and HPOA. HPOA is her , Missael. Copies not found on e-chart. LNOK: Living Arrangements: Lives with in a one-story house. 3 steps to enter. has a basement in the home but she does not go down into the basement. Pt states prior to becoming ill this past week, she was able to do all of her own personal ADL's, meals, and some light housekeeping. Sates she has cd mixer helper to come with cleaning. Granddaughter, Anu, @ bedside and states she is moving in with pt and her grandfather soon. Transportation: DME: Pt has shower chair/tub bench, raised toilet seat, cane, lift chair, rails/grab bars, hand held shower, walker, W/C, and medical alert button. Pt denies needing any other DME. HHC: Pt has used [facility] in the past and is agreeable them again. Call placed to ABHIJIT Mckeon, @ [facility] and referral made. Linda states they are able to accept pt with Start of Care being Sunday. Pt, , and granddaughter all made aware start of care would be Sunday and they are all agreeable. SNF: Has never been to a SNF and states does not want to go to a SNF. Pt's plans on D/C: Wishes to return home w/[facility]. Pt and family deny having any further questions or concerns at this time. CM to follow for any further discharge planning needs that may arise. Alexa BENZ RN, CM
[2018-05-24] MEDS: Heparin Injection (Vial) 5,000 UNIT/ML VIAL 5000 UNIT SC (16:21)
--- NOTE | 2018-05-24 16:58 | DCINST_ITS ---
- Discharge Diagnoses Current Active Problems: Current Active and Chronic Problems (Last Updated 05/23/18 @ 13:54 by Chaz Morris MD) Carbon monoxide poisoning (Acute) Rib fractures (Acute) Elevated troponin (Acute) Pneumothorax (Acute) Conjunctivitis (Acute) You will use the following diet at home:: Cardiac Your food should be the consistency of: Regular Your liquids should be the consistency of: Regular/Thin Discharge Activity: Return to Normal Activity May resume sexual activity in: No Restrictions Call your doctor if you observe: Fever of 101 or Higher, Shortness of breath, Dizziness, Fainting spells, Chest pain Allergies/Adverse Reactions: Allergies ampicillin Allergy (Verified 05/08/17 15:18) Rash buprenorphine HCl [From Buprenex] Allergy (Verified 05/08/17 15:18) Other codeine Allergy (Verified 05/08/17 15:18) Anaphylaxis gold Au 198 Allergy (Verified 05/08/17 15:18) Rash guaifenesin Allergy (Verified 05/08/17 15:18) Other promethazine HCl [From Phenergan] Allergy (Verified 05/08/17 15:18) Shortness of breath Sulfa (Sulfonamide Antibiotics) Allergy (Verified 05/08/17 15:18) Rash sulindac [From Clinoril] Allergy (Verified 05/08/17 15:18) Rash tetracycline [Tetracycline] Allergy (Verified 05/08/17 15:18) Rash thiopental Allergy (Verified 05/08/17 15:18) Rash trimethoprim [From Proloprim] Allergy (Verified 05/08/17 15:18) Rash oxycodone HCl [From OxyContin] Adverse Reaction (Verified 05/08/17 15:18) Other NALDECON Allergy (Uncoded 05/08/17 15:18) Rash SULPHATED OIL Allergy (Uncoded 05/08/17 15:18) Other TAPE Allergy (Uncoded 05/08/17 15:18) Rash Medications to take at Discharge RX: Atorvastatin Calcium [Lipitor] 40 mg PO QHS 06/10/16 RX: Cholecalciferol (VIT D3) [Vitamin D3] 2,000 unit PO DAILY 06/10/16 RX: Duloxetine HCl 90 mg PO DAILY 06/10/16 RX: Melatonin 5 mg PO QHS 06/10/16 RX: Potassium Chloride [K-Tab ER] 20 meq PO DAILY 06/10/16 RX: Sucralfate 1 gm PO ACHS 06/10/16 RX: traZODone [Desyrel] 100 mg PO QHS 06/10/16 RX: Oxybutynin [Ditropan] 5 mg PO DAILY 05/08/17 RX: Albuterol Inhaler [Ventolin Hfa] 1 - 2 puff INHALATION Q4H PRN PRN #1 inhaler 05/10/17 RX: Aspirin [Aspirin, Baby] 81 mg PO DAILY@0800 #30 tab.chew 05/10/17 omeprazole 20 mg capsule,delayed release 40 mg PO QDAY cap 07/11/17 amlodipine 5 mg tablet 5 mg PO DAILY #90 tab 02/27/18 Primary Care Physician: Zayda Peace PA [Primary Care Provider] - Please follow up with your Primary Care Physician in: 1 week Test Results: Test results from this visit will be discussed in further detail at your follow- up appointment, if applicable.
--- NOTE | 2018-05-24 17:02 | PCM.DC.SUM ---
Discharge Date and Diagnosis - Problem List Patient Problems: Active and Suspected Problems (Last Updated 05/23/18 @ 13:54 by Chaz Morris MD) Carbon monoxide poisoning (Acute) Rib fractures (Acute) Elevated troponin (Acute) Pneumothorax (Acute) Conjunctivitis (Acute) Date of Admission: 05/23/18 Date of Discharge: 05/24/18 - Primary Discharge Diagnosis Active and Suspected Problems (Last Updated 05/23/18 @ 13:54 by Chaz Morris MD) Carbon monoxide poisoning (Acute) Rib fractures (Acute) Elevated troponin (Acute) Pneumothorax (Acute) Conjunctivitis (Acute) - Secondary Discharge Diagnosis Chronic Problems (Last Updated 05/23/18 @ 13:54 by Chaz Morris MD) Raynauds disease (Chronic) Hyperlipidemia (Chronic) Benign essential hypertension (Chronic) GERD (gastroesophageal reflux disease) (Chronic) History of pulmonary embolism (Chronic) Restless legs (Chronic) Rheumatoid arthritis (Chronic) Sjogren's syndrome (Chronic) Fibromyalgia (Chronic) S/P IVC filter (Chronic) Systemic lupus erythematosus (Chronic) History of TIAs (Chronic) Hospital Course and Treatment Imaging Results: 05/24/18 09:09 Nuclear Stress Test - Chemical [NM] Routine 05/25/18 05:55 Chest 1 View (Portable) [RAD] AM (NON MEDS) atient Name: JENNIFER TREJO Date of : 1940 Patient Status: Observation Attending Provider: Chaz Morris Date: 05/24/18 12:49 Initialization Date: 05/24/18 12:49 Stress Test Report Date: 05/24/2018 Procedure: Pharmacologic stress nuclear imaging study Indications: Chest pain; abnormal cardiac enzymes Consent: Per the patient Procedure: The patient underwent pharmacologic (Regadenoson) evaluation with a peak heart rate of 93 beats per minute (64 predicted maximal heart rate) and a peak blood pressure of 108/60 mmHg. The baseline ECG demonstrated normal sinus rhythm. The peak pharmacologic ECG demonstrated no obvious ECG changes. There were no cardiac dysrhythmias pretest, during pharmacologic infusion, or recovery. There was no complaint of chest discomfort during pharmacologic infusion or recovery. The examination was discontinued secondary to completion of protocol. Impression: 1. Pharmacologic (Regadenoson) evaluation 2. Peak pharmacologic ECG with no obvious ECG changes. 3. There were no cardiac dysrhythmias pretest, during pharmacologic infusion, or recovery. 4. Nuclear images pending Myocardial perfusion imaging study: Technique: The patient was injected with 14.1 millicuries of technetium 99m Cardiolite and subsequently rest SPECT Cardiolite nuclear imaging was obtained in the horizontal long, vertical long, and short axis views. The patient underwent pharmacologic (Regadenoson) evaluation with a peak heart rate of 93 beats per minute (64 % percent predicted maximal heart rate) and a peak blood pressure of 108/60 mmHg. The patient was injected with 44.2 millicuries of technetium 99m Cardiolite and subsequently stress SPECT Cardiolite nuclear imaging was obtained in the horizontal long, vertical long, and short axis views. A gated Cardiolite study at peak stress was obtained. Interpretation: Rest and stress SPECT Cardiolite nuclear imaging status post realignment, normalization, pre-attenuation correction, and post attenuation correction demonstrate on pre-attenuation correction images the appearance of diminished absence of myocardial perfusion/tracer uptake in the basal to distal inferior segments without significant change between rest and stress. Status post attenuation correction the resting images demonstrate an area of diminished tracer uptake in the distal anterior and anteroapical segments which subsequently status post stress appears to improve and/or normalize. The post attenuation stress images demonstrate relative uniform tracer uptake and myocardial perfusion appearing within normal limits. There is end systolic thickening and brightening. The gated Cardiolite study demonstrates myocardial thickening and inward wall motion. The reported LVEF is 74 %. Impression: 1. Rest and stress SPECT currently nuclear imaging pre-attenuation correction demonstrate myocardial perfusion changes potentially compatible with an area of previous myocardial injury/infarction involving portions of the basal to distal inferior segments, although, contribution from soft tissue attenuation/artifact cannot necessarily be excluded. Status post attenuation correction there is notation of diminished tracer uptake in the distal anterior and anteroapical segments at rest which appear to improve/normalize following stress appearing compatible shifting soft tissue attenuation/artifact. There are no myocardial perfusion changes considered diagnostic for associated stress-induced myocardial ischemia. 2. The gated Cardiolite study reports an LVEF of 74 %. This note was generated with [employer]ogen[employer] software. It may contain incorrect words, spelling, and punctuation that were not noted in checking the note before signing. [facility] Cardiovascular Services [address] [place] [id number] Echo Complete 05/23/18 0546 MR#: [id number] Acct: [id number] Name: JENNIFER TREJO Rep #: [id number] : 1940 77 From: Chaz Camejo MD Attending Dr: Chaz Morris MD Status: ADM IN Ordering Dr: Chaz Morris MD Date: 05/23/18 Location: [facility] Sex: F C Admitted: 05/23/18 [id number] ECHO^ECHOD^Echo Complete [id number] TAG_START Cardiovascular Services Echocardiogram [address] [place], [place] [id number] Ordering Physician: Chaz Morris TAG_ENDED TAG_START Name: JENNIFER TREJO Study Date: 05/23/2018 03:07 PM BP: 141/67 mmHg Patient Location: [facility]^[id number]^1 BSA: 1.8 m2 : 1940 Gender: Female Height: 61 in Age: 77 yrs Weight: 175 lb History: CAD, HLD, Raynaud's Syndrome, Dyspnea, GERD, TIA, lupus TAG_ENDED Reason For Study: ELEVATED TROPONIN Procedure This was a 2D Doppler, Color Flow transthoracic echocardiogram. The study was technically difficult. Pt was in supine position. Pt has broken ribs on left side and could not tolerate any pressure for imaging. Parasternal images acquired from subcostal window. Exam performed portable in patient room. Left Ventricle Based upon the 2D echocardiographic images obtained there appears to be grossly normal left ventricular size, wall motion, and systolic function. The estimated ejection fraction is 60 %. Unable to assess diastolic dysfunction. TAG_START TAG_ENDED Right Ventricle Based upon the 2D echocardiographic images obtained there appears to be grossly normal right ventricular size and systolic function. Atria Normal left atrium. Normal right atrium. No doppler evidence for ASD. Mitral Valve There is no mitral annular calcification. Normal mitral valve. Trivial mitral valve insufficiency. Tricuspid Valve The tricuspid valve is not well visualized. Aortic Valve The aortic valve is not well visualized. Trivial aortic valve insufficiency. Pulmonic Valve The pulmonic valve is not well visualized. Great Vessels Borderline enlarged aortic root. Pericardium/Pleural No pericardial effusion. MMode/2D Measurements & Calculations Ao root diam: 3.8 cm LVAd ap4: 30.8 cm2 SV(MOD-sp4): 58.9 ml EDV(MOD-sp4): 92.9 ml EDV(sp4-el): 96.5 ml LVAs ap4: 16.3 cm2 ESV(MOD-sp4): 34.0 ml ESV(sp4-el): 35.0 ml EF(MOD-sp4): 63.4 % EF(sp4-el): 63.8 % SV(sp4-el): 61.5 ml Doppler Measurements & Calculations MV E max andres: 58.2 cm/sec MV dec time: 0.33 sec Ao V2 max: 120.8 cm/sec MV A max andres: 75.6 cm/sec Ao max P.8 mmHg MV E/A: 0.77 AI max andres: 462.4 cm/sec AI max P.5 mmHg AI dec slope: 372.6 cm/sec2 AI P1/2t: 363.5 msec Pediatric Measurements & Calculations Lat Peak E' Andres: 8.1 cm/sec Med Peak E' Andres: 4.6 cm/sec Interpretation Summary The study was technically difficult. Based upon the 2D echocardiographic images obtained there appears to be grossly normal left ventricular size, wall motion, and systolic function. The estimated ejection fraction is 60 %. Trivial mitral valve insufficiency. Trivial aortic valve insufficiency. Borderline enlarged aortic root. Unable to assess diastolic dysfunction. TAG_START TAG_ENDED Ordering Physician: Chaz Morris Referring Physician: TATIANA PEACE Performed By: Camila Delgado, RDCS, RVT 05/23/18 1800 Date Chaz Camejo MD CC: Zayda Peace; Chaz Morris MD ~ Date Dictated: 05/23/18 1507 Date Transcribed: 05/23/181799 Electrical Designer Drafter: Signed Consultations 05/23/18 13:30 Consult: Onc/Wound/rn icu Routine Comment: Operations: None Procedures: 2-D Echocardiogram, Stress test Summary of Care Provided: The patient is a 77-year-old female with known history of hypertension, chronic kidney disease, DVT PE with an IVC filter, connective tissue disorders with SLE and raynaud's rheumatoid arthritis, Sjogrens syndrome chronically on steroids who for the past 24 hours after their carbon monoxide detector went off, patient's family has been having headaches nausea she has not vomited due to a Haroldo fundoplication, and fell earlier today. Patient fell striking her left side and was gotten up by her who then proceeded to get coffee, patient had increasing pain shortness of breath headaches nausea and activated EMS. Patient has rib fractures which likely caused chest pain however also had elevated troponins that trended downward discussed with signaler Dr. George wished a dobutamine stress test which was done please see above. Did also echocardiogram, patient's pain has alleviated and will discharge patient's patient is hypomagnesemic will give magnesium for 4 g, patient also had a furnace replaced at home. Patient has been tolerating oxycodone and morphine while here. Follow-up with PCP as possible Medications reviewed with the patient. Risks, benefits, alternatives, side effects, potential complications and dangers of medications discussed. Patient wishes to utilize these agents despite risk. A signed medical consent/advisement form regarding narcotic medications and a side medication agreement are located in the patient's chart. Chart is dictated with supervisor audit clerks software. Errors may occur in dictation that may change providers meaning. This note was generated with [employer] (formerly [employer]) dictation software. It may contain incorrect words, spelling, and punctuation that were not noted in checking the note before signing. Patient Problems: Active and Suspected Problems (Last Updated 05/23/18 @ 13:54 by Chaz Morris MD) Carbon monoxide poisoning (Acute) Rib fractures (Acute) Elevated troponin (Acute) Pneumothorax (Acute) Conjunctivitis (Acute) Subjective: Patient doing well no nausea patient pain is controlled with oxycodone, patient wishes to be discharged home to talk to case management will send patient home with home health. - Physical Exam General: Alert, Oriented x3, Cooperative HEENT: Atraumatic, PERRLA, EOMI, - - Positive conjunctivitis Oral: Moist Mucosa, No Gingival or Mucosal Lesions/ Ulcerations Neck: Supple, No JVD, Trachea Midline Lungs: No rhonchi, No wheeze, No rales, - - Palpable wall pain Cardiovascular: Regular rate, Normal S1, Normal S2 Abdomen: Soft, Non Tender, Non-Distended Extremities: No clubbing, No cyanosis, No edema Skin: No rashes, No breakdown Musculoskeletal: No Tenderness to Palpation of Joints or Extremities, No Muscle Wasting Lymphatic: No Cervical, Supraclavicular, or Inguinal Adenopathy Neurological: Cranial nerves II-XII grossly intact, Neuro grossly intact Psych/Mental Status: Normal Affect, Appropriate, Alert and oriented to time, place, person, mood and affect Vital Signs Temp Pulse Resp BP Pulse Ox 97.5 F L 79 17 115/43 L 96 05/24/18 16:15 05/24/18 16:15 05/24/18 16:15 05/24/18 16:15 05/24/18 16:15 Oxygen Flow Rate (L/min) 2 Oxygen Delivery Method Room Air Weight: 89.5 kg Body Mass Index (BMI) 37.3 Finger Stick Blood Glucose 114 Intake and Output for Last 24 Hours 05/22/18 05/23/18 05/24/18 23:59 23:59 23:59 Intake Total 1251 / 1251 1058 / 1058 Output Total 500 / 500 Balance 751 / 751 1058 / 1058 Laboratory Tests Past 24 Hrs 05/23/18 05/23/18 05/23/18 16:11 18:20 18:20 WBC RBC Hgb Hct MCV MCH MCHC RDW RDW Differential Plt Count MPV PT INR APTT VBG Carboxyhemoglobin 4.0 H Sodium Potassium Chloride Carbon Dioxide Anion Gap BUN Creatinine Estim Creat Clear Calc Est GFR (MDRD) Af Amer Est GFR (MDRD) Non-Af BUN/Creatinine Ratio Glucose Calcium Phosphorus Magnesium Troponin I 0.106 H 0.173 H Triglycerides Cholesterol LDL Cholesterol VLDL Cholesterol HDL Cholesterol 05/24/18 05/24/18 05/24/18 06:22 06:22 06:22 WBC 5.2 RBC 3.97 L Hgb 11.8 L Hct 37.3 MCV 94.0 MCH 29.7 MCHC 31.6 L RDW 13.0 RDW Differential 43.5 Plt Count 170 MPV 12.2 H PT 13.6 INR 1.0 APTT 32.8 VBG Carboxyhemoglobin Sodium 138 Potassium 3.8 Chloride 107 Carbon Dioxide 24.0 Anion Gap 7 BUN 13 Creatinine 1.02 Estim Creat Clear Calc 35.96 Est GFR (MDRD) Af Amer 68 Est GFR (MDRD) Non-Af 56 L BUN/Creatinine Ratio 12.7 Glucose 93 Calcium 7.8 L Phosphorus 4.1 Magnesium 1.4 L Troponin I Triglycerides 101 Cholesterol 76 LDL Cholesterol 22 VLDL Cholesterol 20 HDL Cholesterol 34 L POC Glucose 05/24/18 05/24/18 05/23/18 12:41 06:39 21:28 POC Glucose 78 84 122 H Discharge Diet: No Restrictions - Cardiac diet Discharge Activity: Return to Normal Activity May resume sexual activity in: No Restrictions Call your doctor if you observe: Fever of 101 or Higher, Shortness of breath, Dizziness, Fainting spells, Chest pain Home Medications: Medications to take at Discharge RX: Atorvastatin Calcium [Lipitor] 40 mg PO QHS 06/10/16 RX: Cholecalciferol (VIT D3) [Vitamin D3] 2,000 unit PO DAILY 06/10/16 RX: Duloxetine HCl 90 mg PO DAILY 06/10/16 RX: Melatonin 5 mg PO QHS 06/10/16 RX: Potassium Chloride [K-Tab ER] 20 meq PO DAILY 06/10/16 RX: Sucralfate 1 gm PO ACHS 06/10/16 RX: traZODone [Desyrel] 100 mg PO QHS 06/10/16 RX: Oxybutynin [Ditropan] 5 mg PO DAILY 05/08/17 RX: Albuterol Inhaler [Ventolin Hfa] 1 - 2 puff INHALATION Q4H PRN PRN #1 inhaler 05/10/17 RX: Aspirin [Aspirin, Baby] 81 mg PO DAILY@0800 #30 tab.chew 05/10/17 omeprazole 20 mg capsule,delayed release 40 mg PO QDAY cap 07/11/17 amlodipine 5 mg tablet 5 mg PO DAILY #90 tab 02/27/18 RX: Docusate Sodium [Colace] 200 mg PO BID PRN PRN #60 capsule 05/24/18 RX: Erythromycin Ophthalmic 1 applic EACH EYE 4X/DAY 7 Days #1 opth.tube 05/24/18 RX: Oxycodone [Oxyir] 5 mg PO Q4H PRN PRN 7 Days #10 tablet 05/24/18 Following Prescrptions Were Given to Patient: RX: Oxycodone [Oxyir] 5 mg PO Q4H PRN PRN 7 Days #10 tablet PRN Reason: Severe Pain (6-05/08) RX: Docusate Sodium [Colace] 200 mg PO BID PRN PRN #60 capsule PRN Reason: Constipation RX: Erythromycin Ophthalmic 1 applic EACH EYE 4X/DAY 7 Days #1 opth.tube Primary Care Physician: Zayda Peace PA [Primary Care Provider] - Please follow up with your Primary Care Physician in: 1 week Disposition: Home with Home Health Patient Condition:: Good Medical Necessity - Tobacco Use Smoking Status: Never smoker Meaningful Use Info Meaningful Use Diagnoses (Choose all that apply): None applicable Code Visit Inpatient E&M: 41735 Disch Hosp
[2018-05-24 17:05] LABS: Bedside Glucose 122 mg/dL (70-110)
--- NOTE | 2018-05-24 17:07 | DS.PCM_ITS ---
Discharge Date and Diagnosis - Problem List Patient Problems: Active and Suspected Problems (Last Updated 05/23/18 @ 13:54 by Chaz Morris MD) Carbon monoxide poisoning (Acute) Rib fractures (Acute) Elevated troponin (Acute) Pneumothorax (Acute) Conjunctivitis (Acute) Date of Admission: 05/23/18 Date of Discharge: 05/24/18 - Primary Discharge Diagnosis Active and Suspected Problems (Last Updated 05/23/18 @ 13:54 by Chaz Morris MD) Carbon monoxide poisoning (Acute) Rib fractures (Acute) Elevated troponin (Acute) Pneumothorax (Acute) Conjunctivitis (Acute) - Secondary Discharge Diagnosis Chronic Problems (Last Updated 05/23/18 @ 13:54 by Chaz Morris MD) Raynauds disease (Chronic) Hyperlipidemia (Chronic) Benign essential hypertension (Chronic) GERD (gastroesophageal reflux disease) (Chronic) History of pulmonary embolism (Chronic) Restless legs (Chronic) Rheumatoid arthritis (Chronic) Sjogren's syndrome (Chronic) Fibromyalgia (Chronic) S/P IVC filter (Chronic) Systemic lupus erythematosus (Chronic) History of TIAs (Chronic) Hospital Course and Treatment Imaging Results: 05/24/18 09:09 Nuclear Stress Test - Chemical [NM] Routine 05/25/18 05:55 Chest 1 View (Portable) [RAD] AM (NON MEDS) atient Name: JENNIFER TREJO Date of : 1940 Patient Status: Observation Attending Provider: Chaz Morris Date: 05/24/18 12:49 Initialization Date: 05/24/18 12:49 Stress Test Report Date: 05/24/2018 Procedure: Pharmacologic stress nuclear imaging study Indications: Chest pain; abnormal cardiac enzymes Consent: Per the patient Procedure: The patient underwent pharmacologic (Regadenoson) evaluation with a peak heart rate of 93 beats per minute (64 predicted maximal heart rate) and a peak blood pressure of 108/60 mmHg. The baseline ECG demonstrated normal sinus rhythm. The peak pharmacologic ECG demonstrated no obvious ECG changes. There were no cardiac dysrhythmias pretest, during pharmacologic infusion, or recovery. There was no complaint of chest discomfort during pharmacologic infusion or recovery. The examination was discontinued secondary to completion of protocol. Impression: 1. Pharmacologic (Regadenoson) evaluation 2. Peak pharmacologic ECG with no obvious ECG changes. 3. There were no cardiac dysrhythmias pretest, during pharmacologic infusion, or recovery. 4. Nuclear images pending Myocardial perfusion imaging study: Technique: The patient was injected with 14.1 millicuries of technetium 99m Cardiolite and subsequently rest SPECT Cardiolite nuclear imaging was obtained in the horizontal long, vertical long, and short axis views. The patient underwent pharmacologic (Regadenoson) evaluation with a peak heart rate of 93 beats per minute (64 % percent predicted maximal heart rate) and a peak blood pressure of 108/60 mmHg. The patient was injected with 44.2 millicuries of technetium 99m Cardiolite and subsequently stress SPECT Cardiolite nuclear imaging was obtained in the horizontal long, vertical long, and short axis views. A gated Cardiolite study at peak stress was obtained. Interpretation: Rest and stress SPECT Cardiolite nuclear imaging status post realignment, normalization, pre-attenuation correction, and post attenuation correction demonstrate on pre-attenuation correction images the appearance of diminished absence of myocardial perfusion/tracer uptake in the basal to distal inferior segments without significant change between rest and stress. Status post at tenuation correction the resting images demonstrate an area of diminished tracer uptake in the distal anterior and anteroapical segments which subsequently status post stress appears to improve and/or normalize. The post attenuation stress images demonstrate relative uniform tracer uptake and myocardial perfusion appearing within normal limits. There is end systolic thickening and brightening. The gated Cardiolite study demonstrates myocardial thickening and inward wall motion. The reported LVEF is 74 %. Impression: 1. Rest and stress SPECT currently nuclear imaging pre-attenuation correction demonstrate myocardial perfusion changes potentially compatible with an area of previous myocardial injury/infarction involving portions of the basal to distal inferior segments, although, contribution from soft tissue attenuation/artifact cannot necessarily be excluded. Status post attenuation correction there is notation of diminished tracer uptake in the distal anterior and anteroapical segments at rest which appear to improve/normalize following stress appearing compatible shifting soft tissue attenuation/artifact. There are no myocardial perfusion changes considered diagnostic for associated stress-induced myocardial ischemia. 2. The gated Cardiolite study reports an LVEF of 74 %. This note was generated with eBureauation software. It may contain incorrect words, spelling, and punctuation that were not noted in checking the note before signing. [facility] Cardiovascular Services [address] [place] [address] Echo Complete 05/23/18 1507 MR#: [id number] Acct: [id number] Name: JENNIFER TREJO Rep #: [id number] : 1940 77 From: Chaz Camejo MD Attending Dr: Chaz Morris MD Status: ADM IN Ordering Dr: Chaz Morris MD Date: 05/23/18 Location: [facility] Sex: F C Admitted: 05/23/18 [id number] ECHO^ECHOD^Echo Complete [id number] TAG_START Cardiovascular Services Echocardiogram [address] [place], [place] [address] Ordering Physician: Chaz Morris TAG_ENDED TAG_START Name: JENNIFER TREJO Study Date: 05/23/2018 03:07 PM BP: 141/67 mmHg Patient Location: [facility]^[id number] BSA: 1.8 m2 : 1940 Gender: Female Height: 61 in Age: 77 yrs Weight: 175 lb History: CAD, HLD, Raynaud's Syndrome, Dyspnea, GERD, TIA, lupus TAG_ENDED Reason For Study: ELEVATED TROPONIN Procedure This was a 2D Doppler, Color Flow transthoracic echocardiogram. The study was technically difficult. Pt was in supine position. Pt has broken ribs on left side and could not tolerate any pressure for imaging. Parasternal images acquired from subcostal window. Exam performed portable in patient room. Left Ventricle Based upon the 2D echocardiographic images obtained there appears to be grossly normal left ventricular size, wall motion, and systolic function. The estimated ejection fraction is 60 %. Unable to assess diastolic dysfunction. TAG_START TAG_ENDED Right Ventricle Based upon the 2D echocardiographic images obtained there appears to be grossly normal right ventricular size and systolic function. Atria Normal left atrium. Normal right atrium. No doppler evidence for ASD. Mitral Valve There is no mitral annular calcification. Normal mitral valve. Trivial mitral valve insufficiency. Tricuspid Valve The tricuspid valve is not well visualized. Aortic Valve The aortic valve is not well visualized. Trivial aortic valve insufficiency. Pulmonic Valve The pulmonic valve is not well visualized. Great Vessels Borderline enlarged aortic root. Pericardium/Pleural No pericardial effusion. MMode/2D Measurements & Calculations Ao root diam: 3.8 cm LVAd ap4: 30.8 cm2 SV(MOD-sp4): 58.9 ml EDV(MOD-sp4): 92.9 ml EDV(sp4-el): 96.5 ml LVAs ap4: 16.3 cm2 ESV(MOD-sp4): 34.0 ml ESV(sp4-el): 35.0 ml EF(MOD-sp4): 63.4 % EF(sp4-el): 63.8 % SV(sp4-el): 61.5 ml Doppler Measurements & Calculations MV E max andres: 58.2 cm/sec MV dec time: 0.33 sec Ao V2 max: 120.8 cm/sec MV A max andres: 75.6 cm/sec Ao max P.8 mmHg MV E/A: 0.77 AI max andres: 462.4 cm/sec AI max P.5 mmHg AI dec slope: 372.6 cm/sec2 AI P1/2t: 363.5 msec Pediatric Measurements & Calculations Lat Peak E' Andres: 8.1 cm/sec Med Peak E' Andres: 4.6 cm/sec Interpretation Summary The study was technically difficult. Based upon the 2D echocardiographic images obtained there appears to be grossly normal left ventricular size, wall motion, and systolic function. The estimated ejection fraction is 60 %. Trivial mitral valve insufficiency. Trivial aortic valve insufficiency. Borderline enlarged aortic root. Unable to assess diastolic dysfunction. 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 Patient fell striking her left side and was gotten up by her who then proceeded to get coffee, patient had increasing pain shortness of breath headaches nausea and activated EMS. Patient has rib fractures which likely caused chest pain however also had elevated troponins that trended downward discussed with manager basketball Dr. George wished a dobutamine stress test which was done please see above. Did also echocardiogram, patient's pain has alleviated and will discharge patient's patient is hypomagnesemic will give magnesium for 4 g, patient also had a furnace replaced at home. Patient has been tolerating oxycodone and morphine while here. Follow-up with PCP as possible Medications reviewed with the patient. Risks, benefits, alternatives, side effects, potential complications and dangers of medications discussed. Patient wishes to utilize these agents despite risk. A signed medical consent/advisement form regarding narcotic medications and a side medication agreement are located in the patient's chart. Chart is dictated with senior process engineer software. Errors may occur in dictation that may change providers meaning. This note was generated with LanternCRM dictation software. It may contain incorrect words, spelling, and punctuation that were not noted in checking the note before signing. Patient Problems: Active and Suspected Problems (Last Updated 05/23/18 @ 13:54 by Chaz Morris MD) Carbon monoxide poisoning (Acute) Rib fractures (Acute) Elevated troponin (Acute) Pneumothorax (Acute) Conjunctivitis (Acute) Subjective: Patient doing well no nausea patient pain is controlled with oxycodone, patient wishes to be discharged home to talk to case management will send patient home with home health. - Physical Exam General: Alert, Oriented x3, Cooperative HEENT: Atraumatic, PERRLA, EOMI, - - Positive conjunctivitis Oral: Moist Mucosa, No Gingival or Mucosal Lesions/ Ulcerations Neck: Supple, No JVD, Trachea Midline Lungs: No rhonchi, No wheeze, No rales, - - Palpable wall pain Cardiovascular: Regular rate, Normal S1, Normal S2 Abdomen: Soft, Non Tender, Non-Distended Extremities: No clubbing, No cyanosis, No edema Skin: No rashes, No breakdown Musculoskeletal: No Tenderness to Palpation of Joints or Extremities, No Muscle Wasting Lymphatic: No Cervical, Supraclavicular, or Inguinal Adenopathy Neurological: Cranial nerves II-XII grossly intact, Neuro grossly intact Psych/Mental Status: Normal Affect, Appropriate, Alert and oriented to time, place, person, mood and affect Vital Signs Temp Pulse Resp BP Pulse Ox 97.5 F L 79 17 115/43 L 96 05/24/18 16:15 05/24/18 16:15 05/24/18 16:15 05/24/18 16:15 05/24/18 16:15 Oxygen Flow Rate (L/min) 2 Oxygen Delivery Method Room Air Weight: 89.5 kg Body Mass Index (BMI) 37.3 Finger Stick Blood Glucose 114 Intake and Output for Last 24 Hours 05/22/18 05/23/18 05/24/18 23:59 23:59 23:59 Intake Total 1251 / 1251 1058 / 1058 Output Total 500 / 500 Balance 751 / 751 1058 / 1058 Laboratory Tests Past 24 Hrs 05/23/18 05/23/18 05/23/18 16:11 18:20 18:20 WBC RBC Hgb Hct MCV MCH MCHC RDW RDW Differential Plt Count MPV PT INR APTT VBG Carboxyhemoglobin 4.0 H Sodium Potassium Chloride Carbon Dioxide Anion Gap BUN Creatinine Estim Creat Clear Calc Est GFR (MDRD) Af Amer Est GFR (MDRD) Non-Af BUN/Creatinine Ratio Glucose Calcium Phosphorus Magnesium Troponin I 0.106 H 0.173 H Triglycerides Cholesterol LDL Cholesterol VLDL Cholesterol HDL Cholesterol 05/24/18 05/24/18 05/24/18 06:22 06:22 06:22 WBC 5.2 RBC 3.97 L Hgb 11.8 L Hct 37.3 MCV 94.0 MCH 29.7 MCHC 31.6 L RDW 13.0 RDW Differential 43.5 Plt Count 170 MPV 12.2 H PT 13.6 INR 1.0 APTT 32.8 VBG Carboxyhemoglobin Sodium 138 Potassium 3.8 Chloride 107 Carbon Dioxide 24.0 Anion Gap 7 BUN 13 Creatinine 1.02 Estim Creat Clear Calc 35.96 Est GFR (MDRD) Af Amer 68 Est GFR (MDRD) Non-Af 56 L BUN/Creatinine Ratio 12.7 Glucose 93 Calcium 7.8 L Phosphorus 4.1 Magnesium 1.4 L Troponin I Triglycerides 101 Cholesterol 76 LDL Cholesterol 22 VLDL Cholesterol 20 HDL Cholesterol 34 L POC Glucose 05/24/18 05/24/18 05/23/18 12:41 06:39 21:28 POC Glucose 78 84 122 H Discharge Diet: No Restrictions - Cardiac diet Discharge Activity: Return to Normal Activity May resume sexual activity in: No Restrictions Call your doctor if you observe: Fever of 101 or Higher, Shortness of breath, Dizziness, Fainting spells, Chest pain Home Medications: Medications to take at Discharge RX: Atorvastatin Calcium [Lipitor] 40 mg PO QHS 06/10/16 RX: Cholecalciferol (VIT D3) [Vitamin D3] 2,000 unit PO DAILY 06/10/16 RX: Duloxetine HCl 90 mg PO DAILY 06/10/16 RX: Melatonin 5 mg PO QHS 06/10/16 RX: Potassium Chloride [K-Tab ER] 20 meq PO DAILY 11/12/16 RX: Sucralfate 1 gm PO ACHS 06/10/16 RX: traZODone [Desyrel] 100 mg PO QHS 06/10/16 RX: Oxybutynin [Ditropan] 5 mg PO DAILY 05/08/17 RX: Albuterol Inhaler [Ventolin Hfa] 1 - 2 puff INHALATION Q4H PRN PRN #1 inhaler 05/10/17 RX: Aspirin [Aspirin, Baby] 81 mg PO DAILY@0800 #30 tab.chew 05/10/17 omeprazole 20 mg capsule,delayed release 40 mg PO QDAY cap 07/11/17 amlodipine 5 mg tablet 5 mg PO DAILY #90 tab 02/27/18 RX: Docusate Sodium [Colace] 200 mg PO BID PRN PRN #60 capsule 05/24/18 RX: Erythromycin Ophthalmic 1 applic EACH EYE 4X/DAY 7 Days #1 opth.tube 05/24/18 RX: Oxycodone [Oxyir] 5 mg PO Q4H PRN PRN 7 Days #10 tablet 05/24/18 Following Prescrptions Were Given to Patient: RX: Oxycodone [Oxyir] 5 mg PO Q4H PRN PRN 7 Days #10 tablet PRN Reason: Severe Pain (6-05/08) RX: Docusate Sodium [Colace] 200 mg PO BID PRN PRN #60 capsule PRN Reason: Constipation RX: Erythromycin Ophthalmic 1 applic EACH EYE 4X/DAY 7 Days #1 opth.tube Primary Care Physician: Zayda Peace PA [Primary Care Provider] - Please follow up with your Primary Care Physician in: 1 week Disposition: Home with Home Health Patient Condition:: Good Medical Necessity - Tobacco Use Smoking Status: Never smoker Meaningful Use Info Meaningful Use Diagnoses (Choose all that apply): None applicable Code Visit Inpatient E&M: 94081 Disch Hosp
[2018-05-24] MEDS: traZODone 100 MG Tablet PO (20:27)
[2018-05-24] MEDS: Atorvastatin Calcium 40 MG Tablet PO (20:27)
[2018-05-24] MEDS: MELATONIN 10 MG TABLET 5 MG PO (20:27)
--- NOTE | 2018-05-27 13:12 | CASEMGMT ---
Patient was set up with [facility], but they are out of network. SW called patient's daughter, Brenda as SW could not get a hold of patient or her and no option to leave messages. MENDOZA explained [facility] was set up, but they are out of network so SW is going to call [facility] with referral. She thanked SW for the call and assistance. MENDOZA called [facility] and spoke with Darcy. They will take the referral. MENDOZA faxed information. Plan: [facility] was canceled as they are out of network with patient's insurance. Home health was set up through [facility]. Edwina JONES MSW
== END 2018-05-24 20:40 | disposition home health service (06) ==
LOC: ED 09:38 → PCU 14:59
PROVIDERS: Admitting Provider Internal Medicine; Emergency Provider Emergency Medicine; Family Provider Physician Assistant; PCP Physician Assistant; Visit Provider Internal Medicine
DX: T58.91XA Toxic effect of carbon monoxide from unspecified source, accidental (unintentional), initial encounter (principal); S22.42XA Multiple fractures of ribs, left side, initial encounter for closed fracture; W06.XXXA Fall from bed, initial encounter; Y93.89 Activity, other specified; Y92.009 Unspecified place in unspecified non-institutional (private) residence as the place of occurrence of the external cause; R11.0 Nausea; R07.1 Chest pain on breathing; H10.33 Unspecified acute conjunctivitis, bilateral; I25.119 Atherosclerotic heart disease of native coronary artery with unspecified angina pectoris; I73.00 Raynaud's syndrome without gangrene; K21.9 Gastro-esophageal reflux disease without esophagitis; E78.5 Hyperlipidemia, unspecified; M35.00 Sjogren syndrome, unspecified; M32.9 Systemic lupus erythematosus, unspecified; M06.9 Rheumatoid arthritis, unspecified; M79.7 Fibromyalgia; I12.9 Hypertensive chronic kidney disease with stage 1 through stage 4 chronic kidney disease, or unspecified chronic kidney disease; N18.9 Chronic kidney disease, unspecified; Z79.52 Long term (current) use of systemic steroids; Z79.899 Other long term (current) drug therapy; Z79.82 Long term (current) use of aspirin; G25.81 Restless legs syndrome; Z86.711 Personal history of pulmonary embolism; Z86.718 Personal history of other venous thrombosis and embolism; G30.9 Alzheimer's disease, unspecified; F02.80 Dementia in other diseases classified elsewhere, unspecified severity, without behavioral disturbance, psychotic disturbance, mood disturbance, and anxiety; E66.01 Morbid (severe) obesity due to excess calories; Z68.37 Body mass index [BMI] 37.0-37.9, adult; Z71.3 Dietary counseling and surveillance
CPT/HCPCS: 36415; 71045; 71250; 73502; 78452; 80048; 80053; 80061; 82375; 82550; 82962; 83735; 84100; 84484; 85025; 85027; 85610; 85730; 93005; 93017; 93306; 93970; 96361; 96372; 96374; 96375; 96376; 97162; 97165; 99218; 99285; A9500; J7030; A4216; G0378; G8978; G8979; G8987; G8988; J2405; J2785

== ENCOUNTER 2018-11-29 16:43 | Observation (INO) | payer MEDICARE, SELFPAY ==
[2018-11-29] VITALS (7 sets, daily range): BP systolic 150–174; BP diastolic 74–92; PULSE 63–91; RESP 16–22; TEMP 36.4–36.5; O2SAT 96–98; BMI 34.0; BMI 34.4
--- NOTE | 2018-11-29 17:06 | CT_ITS ---
STUDY: CT BRAIN WITHOUT CONTRAST REASON FOR EXAM: Female, 78 years old. Headache RADIATION DOSAGE (If Supplied By Facility): CTDIvol = ( 44.99 ) mGy, DLP = ( 745.49 ) mGycm TECHNIQUE: Transaxial CT imaging of the brain was performed without administration of intravenous contrast material. Individualized dose optimization techniques were used for this CT. COMPARISON: 06/10/2016 FINDINGS: There is no acute bleed or infarct. There are stable chronic ischemic and atrophic changes. The ventricles are normal in configuration. There is no hydrocephalus. The visualized paranasal sinuses are clear. The mastoid air cells are well aerated. There is no skull fracture. CT/Brain/Head without Contrast IMPRESSION: Stable chronic ischemic and atrophic changes. No acute intracranial abnormality. Electronically Signed: Damian Laureano, at 18:23 EDT Tel , Service support ,
--- NOTE | 2018-11-29 17:06 | EKG12_ITS ---
Test Reason : CP Blood Pressure : / mmHG Vent. Rate : 064 BPM Atrial Rate : 064 BPM P-R Int : 168 ms QRS Dur : 086 ms QT Int : 456 ms P-R-T Axes : 049 017 018 degrees QTc Int : 470 ms Normal sinus rhythm Nonspecific T wave abnormality Prolonged QT Abnormal ECG Confirmed by CATRACHITA ARROYO, RADHA ([id number]), multimedia editor NOLVIA MARTÍNEZ ([id number]) on 12/03/2018 1:20:47 PM Referred By: Marlo Rios Confirmed By:RADHA DOMÍNGUEZ MD
--- NOTE | 2018-11-29 17:13 | ED.VISSUMM ---
- ER Visit Summary Date of Service: 11/29/18 Chief Complaint: General weakness and fatigue History of Present Illness: The patient is a 78 F who presents with general weakness and fatigue that began today. Patient states she has had a headache for approximately 3 weeks. Patient states her headache started as a throbbing sensation over the right temporal area then progressed to the frontal area and then to the occipital area. Patient admits to some blurred vision over the past couple weeks. Patient states today she feels weak all over. Patient states she was having difficulty writing today. Patient states she feels fatigued with minimal exertion. Physical Examination: Vital signs are stable. Patient is afebrile. Patient is in acute distress. Cranial nerves II through XII are intact. Strength is 5/5 bilaterally in the upper and lower extremities. There are no sensory deficits noted. Pupils are equal, round, and reactive to light bilaterally. There is a mild effusion behind the right tympanic membrane. There is no erythema. The left tympanic membrane is clear. Neck is supple. Trachea is midline. There is no JVD noted. Heart was regular rate and rhythm. Lungs are clear and equal bilaterally. Abdomen is soft. Bowel sounds are normal. There is no tenderness. Test Results: EKG showed normal sinus rhythm with a rate of 72. There are no acute ST or T wave changes. This was unchanged compared to previous EKG dated 05/24/2018. CBC was normal. Potassium was slightly low at 3.3. Urinalysis does show evidence of urinary tract infection. Troponin was 0.064. CT scan of the brain does not show any acute intracranial abnormality. Chest x-ray does not show any acute cardiopulmonary process. Urine culture was ordered. Emergency Department Course and Treatment: Patient was given aspirin. Patient was started on Rocephin for the urinary tract infection. Patient states she was still feeling weak. Case was discussed with the hospitalist. Patient will be admitted for elevated troponin and urinary tract infection. Patient and family understood and were agreeable with the plan. All questions were answered. Disposition: Admit to hospital Impression: 1. Elevated troponin 2. Urinary tract infection This note was generated with Amvonaation software. It may contain incorrect words, spelling, and punctuation that were not noted in review of the chart prior to signing ED Disposition - Plan for ED Patient: Disposition: Acute Care Hospital [facility] Diagnosis: Elevated troponin, Urinary tract infection Referrals: Zayda Peace PA [Primary Care Provider] -
--- NOTE | 2018-11-29 17:14 | PCA ---
NO OLD EKG
--- NOTE | 2018-11-29 17:17 | ED.DCSUM_ITS ---
- ER Visit Summary Date of Service: 11/29/18 Chief Complaint: General weakness and fatigue History of Present Illness: The patient is a 78 F who presents with general weakness and fatigue that began today. Patient states she has had a headache for approximately 3 weeks. Patient states her headache started as a throbbing sensation over the right temporal area then progressed to the frontal area and then to the occipital area. Patient admits to some blurred vision over the past couple weeks. Patient states today she feels weak all over. Patient states she was having difficulty writing today. Patient states she feels fatigued with minimal exertion. Physical Examination: Vital signs are stable. Patient is afebrile. Patient is in acute distress. Cranial nerves II through XII are intact. Strength is 5/5 bilaterally in the upper and lower extremities. There are no sensory deficits noted. Pupils are equal, round, and reactive to light bilaterally. There is a mild effusion behind the right tympanic membrane. There is no erythema. The left tympanic membrane is clear. Neck is supple. Trachea is midline. There is no JVD noted. Heart was regular rate and rhythm. Lungs are clear and equal bilaterally. Abdomen is soft. Bowel sounds are normal. There is no te nderness. Test Results: EKG showed normal sinus rhythm with a rate of 72. There are no acute ST or T wave changes. This was unchanged compared to previous EKG dated 05/24/2018. CBC was normal. Potassium was slightly low at 3.3. Urinalysis does show evidence of urinary tract infection. Troponin was 0.064. CT scan of the brain does not show any acute intracranial abnormality. Chest x-ray does not show any acute cardiopulmonary process. Urine culture was ordered. Emergency Department Course and Treatment: Patient was given aspirin. Patient was started on Rocephin for the urinary tract infection. Patient states she was still feeling weak. Case was discussed with the hospitalist. Patient will be admitted for elevated troponin and urinary tract infection. Patient and family understood and were agreeable with the plan. All questions were answered. Disposition: Admit to hospital Impression: 1. Elevated troponin 2. Urinary tract infection This note was generated with LinguaNext dictation software. It may contain incorrect words, spelling, and punctuation that were not noted in review of the chart prior to signing ED Disposition - Plan for ED Patient: Disposition: Acute Care Hospital [facility] Diagnosis: Elevated troponin, Urinary tract infection Referrals: Zayda Peace PA [Primary Care Provider] -
[2018-11-29 17:44] LABS: Red Blood Cells-Urine 0 SEEN /hpf (0-5)
[2018-11-29 17:45] LABS: Color, Urine Yellow (Yellow); Glucose, Dipstick Normal (Normal); Ketone-Dipstick 5 mg/dl (Negative); Leukocyte Esterase-Dipstick 500 /ul (Negative); Nitrite-Dipstick Positive (Negative); Occult Blood-Urine 10 /ul (Negative); Protein-Dipstick 30 mg/dl (Negative); Urine Clarity Sl. Cloudy (Clear); Urine Urobilinogen 1 mg/dl (Normal)
[2018-11-29 17:49] LABS: Urine Bilirubin Dipstick 1 mg/dL (Negative)
[2018-11-29 18:06] LABS: Bacteria 1+ /hpf (None Seen); Hyaline Cast 0-5 SEEN /lpf (0-5); Mucous, Urine 1+ /hpf (<or=2+); Renal Epithelial Cells 10-25 SEEN /hpf (0-5); Squamous Epithelial Cells - UA 0-5 SEEN /hpf (5-10); White Blood Cells 25-50 SEEN /hpf (0-5)
[2018-11-29 18:07] LABS: Absolute Lymphocyte Count 1.64 X10^3/ul (0.83-4.51); Absolute Neutrophil Count 4.1 X10^3/uL (2.0-7.7); Basophil# 0.03 X10^3/uL; Basophil% 0.5 % (0-1); Eosinophil# 0.12 X10^3/uL; Eosinophils% 1.8 % (0-5); Hematocrit 38.5 % (37-47); Hemoglobin 12.5 g/dl (12.0-15.0); Lymphocyte # 1.64 X10^3/ul (4.0); Lymphocyte % 25.1 % (19-41); Mean Corp Hgb Conc 32.5 g/gl (32-36); Mean Corpuscular Hgb 29.8 pg (27.0-32.0); Mean Corpuscular Volume 91.9 fL (81-99); Mean Platelet Vol. 11.1 fl (6.2-12.0); Monocyte# 0.57 X10^3/uL; Monocyte% 8.7 % (0-10); Neutrophil # 4.13 X10^3/uL (2.7-7.7); Neutrophil % 63.3 % (47-70); Platelet Count 185 K/mm3 (150-450); RBC Distribution Width CV 14.1 % (11.6-14.6); RBC Distribution Width SD 46.7 fl (35.1-43.9); Red Blood Count 4.19 M/mm3 (4.2-5.4); White Blood Count 6.5 K/mm3 (4.4-11.0)
--- NOTE | 2018-11-29 18:07 | RAD_ITS ---
STUDY: X-RAY CHEST REASON FOR EXAM: Female, 78 years old. Weakness TECHNIQUE: Frontal and lateral views of the chest COMPARISON: 05/24/2018 FINDINGS: The lungs are clear. There are no pleural effusions. There is no pneumothorax. The heart is stable in size. The visualized osseous structures are within normal limits. RAD/Chest PA and Lateral IMPRESSION: No acute thoracic pathology. Electronically Signed: Damian Laureano, at 18:24 EDT Tel , Service support ,
--- NOTE | 2018-11-29 18:07 | ED.RN ---
julissa rubin, called [facility] for pt's med list, she only had 3 recent medications on file, and pt's doctors office is closed.
[2018-11-29 18:08] LABS: POSITIVE COUNT NO; POSITIVE DIFFERENTIAL NO; POSITIVE MORPHOLOGY NO
[2018-11-29 18:23] LABS: ALB/GLOB Ratio 1.1 RATIO (0.9-2.4); AST(SGOT) 18 U/L (15-37); Alanine Aminotransfer ALT/SGPT 12 U/L (13-56); Albumin, Serum 3.4 g/dL (3.2-5.0); Alkaline Phosphatase 98 U/L (45-117); Anion Gap 7 (5-15); BUN 17 mg/dL (7-18); BUN/Creat Ratio 14.5 RATIO (10-20); Calcium,Total 8.7 mg/dL (8.5-10.1); Chloride 110 mmol/L (98-107); Creatinine, Serum 1.17 mg/dL (0.55-1.02); EST Glomerular Filtration Rate 48 mL/min (>60); Est Glom Filt Rate - Afr Amer 58 mL/min (>60); Estimated Creatinine Clearance 30.87 ml/min; Globulin 3.2 g/dL (2.2-4.2); Glucose 111 mg/dL (74-106); Potassium 3.3 mmol/L (3.5-5.1); Protein, Total 6.6 g/dL (6.4-8.2); Sodium Level 141 mmol/L (136-145)
--- NOTE | 2018-11-29 19:28 | PCM.HP.STD ---
Problem List (1) Generalized weakness Status: Acute (2) Stroke-like symptoms Status: Acute (3) Headache Status: Acute (4) Acute cystitis Status: Acute History of Present Illness Date of Admission: 11/29/18 Chief Complaint: clumpsy feeling of left hand The patient is a 78 year old F with a significant history of hypertension; fibromyalgia; SLE; rheumatic arthritis; multiple TIAs; who presented to the emergency department with clumsiness of her left hand. 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 She reported that she has had problem grasping/holding papers a problem on the same day of presentation. Associated with her symptoms is tingling of the left hand. She reports blurry vision going for a couple of days. Associated with her symptoms is nausea. Further, she reports ongoing generalized weakness that worsened on the same day of admission. Further she reports of a headache going on for about 3 weeks. Headache was initially at the right temporal area but it moved across the entire head. The headache is a continuous with episodic increase in intensity. The headache can go as high as 10 out of 10. She has been taking some ibuprofen at home. Ibuprofen take the edge off but it does not take her pain away completely. Also she has a chronic low back pain which has increased on the same day of admission. At the emergency department troponin was found to be elevated in the intermediate range. EKG was unchanged from a previous. Her urine was found to be abnormal but she denies any urinal symptoms. Past Medical History Past Medical History (Chronic Problems): Chronic Problems (Last Reviewed 11/29/18 @ 20:31 by Marlo Rios MD) Raynauds disease (Chronic) Hyperlipidemia (Chronic) Benign essential hypertension (Chronic) GERD (gastroesophageal reflux disease) (Chronic) History of pulmonary embolism (Chronic) Restless legs (Chronic) Rheumatoid arthritis (Chronic) Sjogren's syndrome (Chronic) Fibromyalgia (Chronic) S/P IVC filter (Chronic) Systemic lupus erythematosus (Chronic) History of TIAs (Chronic) Medical History: Medical History (Last Reviewed 11/29/18 @ 20:31 by Marlo Rios MD) Raynauds disease (Chronic) I73.00 Hyperlipidemia (Chronic) E78.5 Dyspnea (Acute) R06.00 Chest pain (Acute) R07.9 Benign essential hypertension (Chronic) I10 GERD (gastroesophageal reflux disease) (Chronic) K21.9 History of pulmonary embolism (Chronic) Z86.711 Restless legs (Chronic) Rheumatoid arthritis (Chronic) M06.9 Sjogren's syndrome (Chronic) M35.00 Fibromyalgia (Chronic) Systemic lupus erythematosus (Chronic) M32.9 Acute right hemiparesis (Resolved) G81.90 Acute ischemic stroke (Suspected) I63.9 History of TIAs (Chronic) Alzheimer's dementia G30.9 History of echocardiogram Onset Date: ~04/2017 Z92.89 EF 65% Ileostomy in place Z93.2 Dementia F03.90 History of deep vein thrombosis Z86.718 History of hysterectomy Z98.890, Z90.710 Raynaud's phenomenon (Inactive) Allergies ampicillin Allergy (Verified 11/29/18 16:45) Rash buprenorphine HCl [From Buprenex] Allergy (Verified 11/29/18 16:45) Other codeine Allergy (Verified 11/29/18 16:45) Anaphylaxis gold Au 198 Allergy (Verified 11/29/18 16:45) Rash guaifenesin Allergy (Verified 11/29/18 16:45) Other promethazine HCl [From Phenergan] Allergy (Verified 11/29/18 16:45) Shortness of breath Sulfa (Sulfonamide Antibiotics) Allergy (Verified 11/29/18 16:45) Rash sulindac [From Clinoril] Allergy (Verified 11/29/18 16:45) Rash tetracycline [Tetracycline] Allergy (Verified 11/29/18 16:45) Rash thiopental Allergy (Verified 11/29/18 16:45) Rash trimethoprim [From Proloprim] Allergy (Verified 11/29/18 16:45) Rash oxycodone HCl [From OxyContin] Adverse Reaction (Verified 11/29/18 16:45) Other NALDECON Allergy (Uncoded 11/29/18 16:45) Rash SULPHATED OIL Allergy (Uncoded 11/29/18 16:45) Other TAPE Allergy (Uncoded 11/29/18 16:45) Rash Home Medications: Ambulatory Orders Medication Instructions Recorded Docusate Sodium [Colace] 200 mg PO BID PRN PRN #60 capsule 05/24/18 Magnesium Oxide [Mag-Ox 400] 400 mg PO DAILY 11/29/18 Prednisone 5 mg PO DAILY 05/03/19 Ranitidine [Zantac] 150 mg PO BID 11/29/18 Surgical History: Surgical History (Last Reviewed 11/29/18 @ 20:31 by Marlo Rios MD) S/P IVC filter (Chronic) Z95.828 History of Krish fundoplication Z98.890 History of appendectomy Z98.890, Z90.49 History of cardiac catheterization Onset Date: ~04/2017 Z98.890 Mild CAD History of cholecystectomy Z98.890, Z90.49 History of herniorrhaphy Z98.890, Z87.19 Surgical History: appendectomy, cholecystectomy, herniorrhaphy, hysterectomy, - - Ileostomy bag in place Psychiatric History: No pertinent psych hx USED [employer] History: No 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 Denies: Chills, Fever, Weight Change HEENT: Denies: Head Aches, Sinus Congestion, Sinus Drainage Cardiovascular: Denies: Chest Pain, Palpitations Respiratory: Denies: Cough, Shortness of breath at rest, Sputum production Gastrointestinal: Reports: Nausea. Denies: Abdominal Pain, Vomiting Genitourinary: Denies: Dysuria Musculoskeletal: Denies: Joint Pain, Joint Tenderness Skin: Denies: Rash, Wounds Neurological: Reports: Headaches, Tingling - Left hand. Denies: Focal weakness, Numbness Psychiatric: Denies: Anxiety, Depression, Homicidal Ideations, Suicidal Ideations Hematologic/ Lymphatic: Denies: Easy Bruising, Easy Bleeding VTE Information - Inpt Only VTE Present on Admission: No VTE Mechan Device Prophylaxis: None VTE Pharm Prophylaxis ordered?: Yes Patient Problems: Active and Suspected Problems (Last Reviewed 11/29/18 @ 20:31 by Marlo Rios MD) Elevated troponin (Acute) Urinary tract infection (Acute) Generalized weakness (Acute) Stroke-like symptoms (Acute) Headache (Acute) Acute cystitis (Acute) - Physical Exam General: Alert, Oriented x3, Cooperative HEENT: Atraumatic, PERRLA, EOMI, Normocephalic Neck: Supple, No JVD, Negative Carotid Bruits Lungs: Clear to auscultation, Normal air movement Cardiovascular: Regular rate, No murmurs Abdomen: Bowel Sounds Present, Soft, Non Tender, - - Ileostomy pouch in place. Extremities: No edema, Capillary Refill Less than 3 Seconds Skin: No rashes, No breakdown Musculoskeletal: No Tenderness to Palpation of Joints or Extremities Neurological: Cranial nerves II-XII grossly intact, - - Left upper and left lower extremity strength 4 out of 5. Strength in right extremities 5 out of 5. No dysmetria. Deep tendon reflexes are not hyperactive. Psych/Mental Status: Normal Affect, Appropriate Vital Signs Temp Pulse Resp BP Pulse Ox 97.7 F L 75 22 H 150/77 H 97 11/29/18 16:45 11/29/18 17:36 11/29/18 17:36 11/29/18 17:36 11/29/18 17:36 Oxygen Delivery Method Room Air Weight: 81.647 kg Body Mass Index (BMI) 34.0 Finger Stick Blood Glucose 114 Laboratory Tests Past 24 Hrs 11/29/18 11/29/18 11/29/18 17:30 17:55 17:55 WBC 6.5 RBC 4.19 L Hgb 12.5 Hct 38.5 MCV 91.9 MCH 29.8 MCHC 32.5 RDW 14.1 RDW Differential 46.7 H Plt Count 185 MPV 11.1 Immature Gran % (Auto) 0.600 Neut % (Auto) 63.3 Lymph % (Auto) 25.1 [place] % (Auto) 8.7 Eos % (Auto) 1.8 Baso % (Auto) 0.5 Absolute Neuts (auto) 4.1 Absolute Lymphs (auto) 1.64 Total Counted Not Reportable Sodium 141 Potassium 3.3 L Chloride 110 H Carbon Dioxide 24.0 Anion Gap 7 BUN 17 Creatinine 1.17 H Estim Creat Clear Calc 30.87 Est GFR (MDRD) Af Amer 58 L Est GFR (MDRD) Non-Af 48 L BUN/Creatinine Ratio 14.5 Glucose 111 H Calcium 8.7 Total Bilirubin 0.60 AST 18 ALT 12 L Alkaline Phosphatase 98 Troponin I 0.064 H Total Protein 6.6 Albumin 3.4 Globulin 3.2 Albumin/Globulin Ratio 1.1 Urine Color Yellow Urine Clarity Sl. Cloudy Urine pH 5.0 Ur Specific [place] 1.020 Urine Protein 30 H Urine Glucose (UA) Normal Urine Ketones 5 H Urine Occult Blood 10 H Urine Nitrite Positive H Urine Bilirubin 1 H Urine Urobilinogen 1 H Ur Leukocyte Esterase 500 H Urine RBC 0 SEEN Urine WBC 25-50 SEEN Ur Squamous Epith Cells 0-5 SEEN Ur Renal Epithelial Cell 10-25 SEEN Urine Bacteria 1+ Hyaline Casts 0-5 SEEN Urine Mucus 1+ Assessment/Plan All Active Problems (Last Reviewed 11/29/18 @ 20:31 by Marlo Rios MD) CAD (coronary artery disease) (Acute) Diastolic dysfunction (Acute) Carbon monoxide poisoning (Acute) Rib fractures (Acute) Elevated troponin (Acute) Pneumothorax (Acute) Conjunctivitis (Acute) Urinary tract infection (Acute) Generalized weakness (Acute) Stroke-like symptoms (Acute) Headache (Acute) Acute cystitis (Acute) Dyspnea (Acute) Chest pain (Acute) Acute right hemiparesis (Resolved) The patient is a 78 year old F with a significant history of hypertension; fibromyalgia; SLE; rheumatic arthritis; multiple TIAs; who presented to the emergency department with clumsiness of her left hand; headache; increase in her lower back pain back; increase in her generalized weakness; and was found to have mild decreased strength in her left extremities; abnormal urinalysis; and elevated troponin. Strokelike symptoms CT of the head was unremarkable -Check Hba1c, Lipid level Physical therapy, occupational therapy and speech therapy to work with patient. N.p.o. until bedside swallow eval. Daily aspirin. Permissive hypertension for 24 hours ending 11/30/2018 at 1159. Control blood pressure with labetalol for systolic blood pressure of more than 220 or diastolic blood pressure of more than 120. MRI/MRA of head; brain; and neck. Echocardiogram ordered. Headache PRN tylenol ordered. CT head unremarkable MRI/MRA of head and neck per stroke protocol ordered. Acute cystitis Patient with no urinary symptoms. However because of a presenting symptoms of weakness and strokelike symptoms we will continue Rocephin that was started at the emergency department. Urine culture ordered from ED; follow. Hypokalemia Replaced Trend BMP Generalized weakness Likely due to debility or cystitis PT and OT to work with patient TSH ordered. Treatment for cystitis. Elevated troponin Troponin on admission was 0.064 EKG showed SR with QTc mild prolong at 475 Probable demand ischemia; no chest pain; Trend troponin Of note her previous troponin on 05/23/2018 was elevated at 0.174 (highest) Low back pain PRN Tylenol ordered. Ileostomy Patient with an ileostomy. Wound Nurse consult. DVT prophylaxis Subcutaneous heparin. Code Visit OBSV E&M: 65043 Initial observation care L3
[2018-11-29] MEDS: Ceftriaxone 1 GM/50 ML BAG IV (20:13)
[2018-11-29] MEDS: Aspirin 81 MG TAB.CHEW 324 MG PO (20:14)
--- NOTE | 2018-11-29 21:15 | EKG12_ITS ---
Test Reason : NUMB/TING Blood Pressure : / mmHG Vent. Rate : 072 BPM Atrial Rate : 072 BPM P-R Int : 154 ms QRS Dur : 086 ms QT Int : 434 ms P-R-T Axes : 045 006 015 degrees QTc Int : 475 ms Normal sinus rhythm Nonspecific T wave abnormality Prolonged QT Abnormal ECG Confirmed by CATRACHITA ARROYO, RADHA ([id number]), food expeditor NOLVIA MARTÍNEZ ([id number]) on 12/03/2018 1:21:54 PM Referred By: Marlo Rios Confirmed By:RADHA DOMÍNGUEZ MD
--- NOTE | 2018-11-29 22:01 | ECHOD_ITS ---
Reason For Study: TIA/CVA Procedure This was a 2D Doppler, Color Flow transthoracic echocardiogram. The study was technically difficult. PT scanned is supine positon, unable to lie in left lateral decubitus position. Exam performed portable in patient room. Left Ventricle Normal size and thickness. The estimated ejection fraction is 60 %. Stage 2 diastolic dysfunction. Right Ventricle Normal right ventricle. Atria The left atrium is mildly enlarged. Normal right atrium. Mitral Valve The mitral valve is structurally normal. No prolapse or stenosis seen. Mild (1+) mitral valve insufficiency. Tricuspid Valve Normal tricuspid valve. Aortic Valve Not well visulaized in short axis. Mild (1+) aortic valve insufficiency. Pulmonic Valve The pulmonic valve is not well visualized. Great Vessels Not well visualized. Pericardium/Pleural No pericardial effusion. MMode/2D Measurements & Calculations LVIDd: 4.2 cm IVSd: 0.95 cm Ao root diam: 2.7 cm LVIDs: 2.8 cm LVPWd: 0.97 cm RVDd: 3.0 cm FS: 32.4 % LAV(MOD-bp): 66.7 ml LA A4 area: 19.3 cm2 RA A4 area: 8.2 cm2 LAV(MOD-bp) Indexed: 36.9 ml/m2 LAV(MOD-sp2): 68.9 ml LAV(MOD-sp4): 61.2 ml Time Measurements MV dec time: 0.17 sec Doppler Measurements & Calculations MV E max andres: 79.5 cm/sec Lat Peak E' Andres: 3.8 cm/sec Med Peak E' Andres: 6.2 cm/sec MV A max andres: 105.2 cm/sec E/E' lat: 21.0 E/E' med: 12.8 MV E/A: 0.76 Ao V2 max: 150.2 cm/sec AI max andres: 456.3 cm/sec LV V1 max: 108.1 cm/sec Ao max P.0 mmHg AI max P.3 mmHg LV V1 max P.7 mmHg AI dec slope: 252.6 cm/sec2 AI P1/2t: 529.0 msec TR max andres: 233.4 cm/sec TR max P.8 mmHg Interpretation Summary The estimated ejection fraction is 60 %. Stage 2 diastolic dysfunction. Mild (1+) mitral valve insufficiency. Mild (1+) aortic valve insufficiency. Ordering Physician: Marlo Rios Referring Physician: Alli Peace Performed By: Elizabeth Denise, YESENIA, RVT
[2018-11-29 22:48] LABS: Thyroid Stim Hormone (TSH) 3.13 uIU/mL (0.358-3.74)
[2018-11-29] MEDS: Rizatriptan Benzoate 10 MG Tablet PO (23:42)
[2018-11-29] MEDS: Famotidine 20 MG Tablet PO (23:43)
[2018-11-29] MEDS: Heparin Injection (Vial) 5,000 UNIT/ML VIAL 5000 UNIT SC (23:48)
[2018-11-30] VITALS (14 sets, daily range): BP systolic 133–162; BP diastolic 70–95; PULSE 56–104; RESP 16–18; TEMP 36.3–36.9; O2SAT 94–99; BMI 34.4
[2018-11-30 07:07] LABS: Hemoglobin A1c 5.7 % (4.2-6.3)
[2018-11-30 07:11] LABS: Anion Gap 7 (5-15); BUN 13 mg/dL (7-18); BUN/Creat Ratio 12.4 RATIO (10-20); Calcium,Total 8.6 mg/dL (8.5-10.1); Chloride 114 mmol/L (98-107); Cholesterol 124 mg/dL (200); Creatinine, Serum 1.05 mg/dL (0.55-1.02); EST Glomerular Filtration Rate 54 mL/min (>60); Est Glom Filt Rate - Afr Amer 66 mL/min (>60); Glucose 86 mg/dL (74-106); High Density Lipoprotein 35 mg/dL; Potassium 3.8 mmol/L (3.5-5.1); Sodium Level 144 mmol/L (136-145); Triglycerides 125 mg/dL; Very Low Density Lipoprotein 25 mg/dL (5-40)
--- NOTE | 2018-11-30 07:25 | MRI_ITS ---
STUDY: MRI BRAIN WITHOUT CONTRAST REASON FOR EXAM: Female, 78 years old. CVA -- saleem, left sided weakness started yesterday. TECHNIQUE: Standardized multiplanar fat and water weighted pulse sequences were obtained. COMPARISON: 11/29/2018 CT of the head FINDINGS: There is mild cerebral atrophy with widening of the extra-axial spaces and ventricular dilatation. There are a limited number of small white matter hyperintensities, distributed throughout the deep white matter tracts of the cerebral hemispheres, consistent with mild chronic white matter ischemic changes. There is 1 cm right cerebellar restricted diffusion with drop in signal on the ABC map, consistent acute infarct. There corresponds FLAIR hyperintensity, suggesting greater than 6 hours duration. There is corresponds to hypodensity on the prior CT. Normal bilateral basal ganglia. Normal thalami. There is no extra-axial fluid accumulation. Normal flow voids within the major intracranial circulation suggesting patency by spin echo criteria. Normal sella turcica, pituitary gland, infundibular stalk, optic chiasm and hypothalamus. Normal tectal plate and pineal gland. Normal midbrain, adán and medulla. Normal cerebellum. Normal basal cisterns. MRI/Brain without Contrast IMPRESSION: Acute small right cerebellar infarct. N.B. : The above information has been verbally conveyed by Adonay Deleon MD to Yolanda Rhodes RN, on 11/30/2018 14:40:13 (ET). Electronically Signed: Adonay Deleon MD at 14:48 EDT Tel , Service support ,
--- NOTE | 2018-11-30 07:26 | MRI_ITS ---
STUDY: MRA NECK WITHOUT CONTRAST REASON FOR EXAM: Female, 78 years old. CVA -- saleem, left sided weakness started yesterday. TECHNIQUE: Source images were obtained, MIPs were performed. The study was performed unenhanced. COMPARISON: None. FINDINGS: RIGHT CAROTID ARTERIES: Antegrade flow within the right common carotid artery (CCA). Antegrade flow within the right carotid bulb. Antegrade flow within the right internal carotid (ICA) artery. Antegrade flow within the visualized cervical portion of the right internal carotid artery. LEFT CAROTID ARTERIES: Antegrade flow within the left common carotid artery (CCA). Antegrade flow within the left common carotid bulb. Antegrade flow within the origin of the left internal carotid (ICA) artery. Antegrade flow within the visualized cervical portion of the left internal carotid artery. VERTEBRAL ARTERIES: Antegrade flow within the bilateral vertebral artery. MRI/MRA Neck without Contrast IMPRESSION: No demonstrated occlusion or significant stenosis Electronically Signed: Adonay Deleon MD at 15:06 EDT Tel , Service support ,
--- NOTE | 2018-11-30 07:26 | MRI_ITS ---
STUDY: MRA OF THE HEAD WITHOUT CONTRAST REASON FOR EXAM: Female, 78 years old. CVA -- saleem, left sided weakness started yesterday. TECHNIQUE: 3-D [id number] (TOF) imaging was performed with MIPs. The study was performed unenhanced. COMPARISON: None. FINDINGS: Normal bilateral petrous carotid arteries. Normal right cavernous carotid artery with a normal supraclinoid bifurcation. Normal left cavernous carotid artery with a normal supraclinoid bifurcation. Normal right A1 segments of the anterior cerebral artery. Normal left A1 segments of the anterior cerebral artery. Normal intact anterior communicating artery (ACOM). Normal bilateral A2 segments of the anterior cerebral arteries. Normal right M1 and M2 segments of the middle cerebral arteries, with a normal M1 bifurcation. Normal left M1 and M2 segments of the middle cerebral arteries, with a normal M1 bifurcation. There is a persistent origin of the right posterior cerebral artery with absence of the P1 segment of the right posterior cerebral artery. There is a persistent origin of the left posterior cerebral artery with absence of the P1 segment of the left posterior cerebral artery. Small bilateral vertebral arteries. Small basilar artery with a normal basilar bifurcation. Normal bilateral posterior cerebral arteries. MRI/MRA Head ONLY without Contrast IMPRESSION: No demonstrated occlusion or significant stenosis. Electronically Signed: Adonay Deleon MD at 14:21 EDT Tel , Service support ,
[2018-11-30] MEDS: Magnesium Oxide 400 MG Tablet PO (09:11)
[2018-11-30] MEDS: Heparin Injection (Vial) 5,000 UNIT/ML VIAL 5000 UNIT SC ×2 (09:12→21:29)
[2018-11-30] MEDS: Aspirin 81 MG TAB.CHEW PO (09:12)
[2018-11-30] MEDS: predniSONE 5 MG Tablet PO (09:12)
[2018-11-30] MEDS: Famotidine 20 MG Tablet PO ×2 (09:12→21:30)
[2018-11-30] MEDS: Acetaminophen/Butalbital/Caffe 1 Tablet 2 TABLET PO (12:00)
[2018-11-30] MEDS: Clopidogrel Bisulfate 75 MG Tablet PO (16:44)
--- NOTE | 2018-11-30 17:40 | PCM.PROGNOTE ---
Patient Problems: Active and Suspected Problems (Last Reviewed 11/29/18 @ 20:31 by Marlo Rios MD) Acute right cerebellar stroke (Acute) Urinary tract infection (Acute) Generalized weakness (Acute) Stroke-like symptoms (Acute) Headache (Acute) Acute cystitis (Acute) Subjective: Patient was seen and examined today, I spent some time talking with the patient and her and granddaughter who was in the room today. Patient's imaging studies finally resulted this afternoon-MRI of the brain shows an acute right cerebellar stroke which is small. Patient states that she had a history of TIAs in the past but stopped taking aspirin. Patient's echocardiogram showed a normal EF and no evidence of thrombus today. PT and OT notes indicate the patient would benefit from continued physical therapy. I contacted neurology concerning the patient and they will probably see her tomorrow, I have placed the patient on Lipitor 80 mg nightly and Plavix daily in addition to her baby aspirin. - Physical Exam General: Alert, Oriented x3, Cooperative, No apparent distress, Well developed HEENT: Atraumatic, PERRLA, EOMI, Normocephalic Oral: Moist Mucosa Neck: Supple, No JVD, Negative Carotid Bruits, Trachea Midline, Thyroid Normal Size and Texture Lungs: Clear to auscultation, Normal air movement, No rhonchi, No wheeze, No rales Cardiovascular: Regular rate, Regular Rhythm, Normal S1, Normal S2, No murmurs, No Ectopic Activity, PMI Normal, No rub noted, No Gallop Abdomen: Bowel Sounds Present, Soft, Non Tender, Non-Distended, No hernias noted Extremities: No clubbing, No cyanosis, No edema, Capillary Refill Less than 3 Seconds Skin: No rashes, No breakdown Musculoskeletal: No Tenderness to Palpation of Joints or Extremities Neurological: Cranial nerves II-XII grossly intact, Neuro grossly intact, Sensory exam intact to light touch and pain, Coordination normal Psych/Mental Status: Normal Affect, Appropriate, Alert and oriented to time, place, person, mood and affect Vital Signs Temp Pulse Resp BP Pulse Ox 98.0 F 80 16 151/75 H 96 11/30/18 13:30 11/30/18 15:00 11/30/18 13:30 11/30/18 13:30 11/30/18 13:30 Oxygen Delivery Method Room Air Weight: 82.7 kg Body Mass Index (BMI) 34.4 Finger Stick Blood Glucose 114 Intake and Output for Last 24 Hours 11/28/18 11/29/18 11/30/18 23:59 23:59 23:59 Intake Total 360 / 360 Balance 360 / 360 Microbiology Past 72 Hours 11/29/18 17:30 Urine Culture - Preliminary Urine, Clean Catch Gram negative michael Laboratory Tests Past 24 Hrs 11/29/18 11/29/18 11/29/18 17:30 17:55 17:55 WBC 6.5 RBC 4.19 L Hgb 12.5 Hct 38.5 MCV 91.9 MCH 29.8 MCHC 32.5 RDW 14.1 RDW Differential 46.7 H Plt Count 185 MPV 11.1 Immature Gran % (Auto) 0.600 Neut % (Auto) 63.3 Lymph % (Auto) 25.1 [place] % (Auto) 8.7 Eos % (Auto) 1.8 Baso % (Auto) 0.5 Absolute Neuts (auto) 4.1 Absolute Lymphs (auto) 1.64 Total Counted Not Reportable Sodium 141 Potassium 3.3 L Chloride 110 H Carbon Dioxide 24.0 Anion Gap 7 BUN 17 Creatinine 1.17 H Estim Creat Clear Calc 30.87 Est GFR (MDRD) Af Amer 58 L Est GFR (MDRD) Non-Af 48 L BUN/Creatinine Ratio 14.5 Glucose 111 H Hemoglobin A1c Calcium 8.7 Total Bilirubin 0.60 AST 18 ALT 12 L Alkaline Phosphatase 98 Troponin I 0.064 H Total Protein 6.6 Albumin 3.4 Globulin 3.2 Albumin/Globulin Ratio 1.1 Triglycerides Cholesterol LDL Cholesterol VLDL Cholesterol HDL Cholesterol TSH Urine Color Yellow Urine Clarity Sl. Cloudy Urine pH 5.0 Ur Specific [place] 1.020 Urine Protein 30 H Urine Glucose (UA) Normal Urine Ketones 5 H Urine Occult Blood 10 H Urine Nitrite Positive H Urine Bilirubin 1 H Urine Urobilinogen 1 H Ur Leukocyte Esterase 500 H Urine RBC 0 SEEN Urine WBC 25-50 SEEN Ur Squamous Epith Cells 0-5 SEEN Ur Renal Epithelial Cell 10-25 SEEN Urine Bacteria 1+ Hyaline Casts 0-5 SEEN Urine Mucus 1+ 11/29/18 11/29/18 11/30/18 17:55 22:22 01:30 WBC RBC Hgb Hct MCV MCH MCHC RDW RDW Differential Plt Count MPV Immature Gran % (Auto) Neut % (Auto) Lymph % (Auto) [place] % (Auto) Eos % (Auto) Baso % (Auto) Absolute Neuts (auto) Absolute Lymphs (auto) Total Counted Sodium Potassium Chloride Carbon Dioxide Anion Gap BUN Creatinine Estim Creat Clear Calc Est GFR (MDRD) Af Amer Est GFR (MDRD) Non-Af BUN/Creatinine Ratio Glucose Hemoglobin A1c Calcium Total Bilirubin AST ALT Alkaline Phosphatase Troponin I 0.069 H 0.058 H Total Protein Albumin Globulin Albumin/Globulin Ratio Triglycerides Cholesterol LDL Cholesterol VLDL Cholesterol HDL Cholesterol TSH 3.13 Urine Color Urine Clarity Urine pH Ur Specific [place] Urine Protein Urine Glucose (UA) Urine Ketones Urine Occult Blood Urine Nitrite Urine Bilirubin Urine Urobilinogen Ur Leukocyte Esterase Urine RBC Urine WBC Ur Squamous Epith Cells Ur Renal Epithelial Cell Urine Bacteria Hyaline Casts Urine Mucus 11/30/18 11/30/18 05:40 05:40 WBC RBC Hgb Hct MCV MCH MCHC RDW RDW Differential Plt Count MPV Immature Gran % (Auto) Neut % (Auto) Lymph % (Auto) [place] % (Auto) Eos % (Auto) Baso % (Auto) Absolute Neuts (auto) Absolute Lymphs (auto) Total Counted Sodium 144 Potassium 3.8 Chloride 114 H Carbon Dioxide 23.0 Anion Gap 7 BUN 13 Creatinine 1.05 H Estim Creat Clear Calc 34.40 Est GFR (MDRD) Af Amer 66 Est GFR (MDRD) Non-Af 54 L BUN/Creatinine Ratio 12.4 Glucose 86 Hemoglobin A1c 5.7 Calcium 8.6 Total Bilirubin AST ALT Alkaline Phosphatase Troponin I Total Protein Albumin Globulin Albumin/Globulin Ratio Triglycerides 125 Cholesterol 124 LDL Cholesterol 64 VLDL Cholesterol 25 HDL Cholesterol 35 L TSH Urine Color Urine Clarity Urine pH Ur Specific [place] Urine Protein Urine Glucose (UA) Urine Ketones Urine Occult Blood Urine Nitrite Urine Bilirubin Urine Urobilinogen Ur Leukocyte Esterase Urine RBC Urine WBC Ur Squamous Epith Cells Ur Renal Epithelial Cell Urine Bacteria Hyaline Casts Urine Mucus Medical Necessity - Tobacco Use Smoking Status: Never smoker Tobacco Use: Non-smoker Assessment/Plan All Active Problems (Last Reviewed 11/29/18 @ 20:31 by Marlo Rios MD) Acute right cerebellar stroke (Acute) Carbon monoxide poisoning (Resolved) Rib fractures (Resolved) Pneumothorax (Resolved) Conjunctivitis (Resolved) Urinary tract infection (Acute) Generalized weakness (Acute) Stroke-like symptoms (Acute) Headache (Acute) Acute cystitis (Acute) Dyspnea (Resolved) Chest pain (Resolved) Acute right hemiparesis (Resolved) #1 acute right cerebellar ischemic stroke-again patient will be kept on Plavix, baby aspirin, and atorvastatin 80 mg daily, she will continue to be seen by PT and OT, neurology will see the patient tomorrow #2 acute cystitis-patient was changed to oral Keflex today, urine culture is growing out a gram-negative michael #3 restless leg syndrome-I placed the patient on a small dose of Neurontin at bedtime, she complains that she used to be on medicine for restless leg syndrome but she does not recall the name of the medication, she complained of restless leg syndrome last night. #4 cephalgia-patient complains of cephalgia located across her forehead and radiating from her neck forward, I think this is most likely a muscle tension headache, I gave the patient Fioricet this afternoon and it provided some relief, I have decided to try the patient on Flexeril as needed for headache. #5 hypokalemia-resolved #6 stage III chronic kidney disease #7 chronically elevated troponins-etiology unclear #8 history of rheumatoid arthritis #9 history of lupus #10 coronary artery disease-felt to be minimal by cardiology-underwent cardiac catheterization on 05/09/2017, [place] multivessel coronary artery disease with mild luminal irregularities Code Visit OBSV E&M: 46982 Subsequent observation care L3
[2018-11-30] MEDS: Atorvastatin Calcium 80 MG Tablet PO (21:29)
[2018-11-30] MEDS: Cephalexin 500 MG Capsule PO (21:29)
[2018-11-30] MEDS: Gabapentin 100 MG Capsule 200 MG PO (21:29)
[2018-12-01] VITALS (8 sets, daily range): BP systolic 144–188; BP diastolic 65–85; PULSE 52–83; RESP 16–18; TEMP 36.6–36.7; O2SAT 92–98; BMI 34.4
[2018-12-01] MEDS: Cephalexin 500 MG Capsule PO (05:31)
[2018-12-01] MEDS: Aspirin 81 MG TAB.CHEW PO (09:39)
[2018-12-01] MEDS: predniSONE 5 MG Tablet PO (09:39)
[2018-12-01] MEDS: Heparin Injection (Vial) 5,000 UNIT/ML VIAL 5000 UNIT SC (09:40)
[2018-12-01] MEDS: Clopidogrel Bisulfate 75 MG Tablet PO (09:42)
[2018-12-01] MEDS: Famotidine 20 MG Tablet PO (09:43)
[2018-12-01] MEDS: Magnesium Oxide 400 MG Tablet PO (09:43)
--- NOTE | 2018-12-01 12:24 | PCM.CONS.GEN ---
Reason for Consult Date of Consultation: 12/01/18 Reason for Consultation: stroke History of Present Illness: The patient is a 78 year old reports 3 weeks of nonspecific weakness, fevers, difficulty walking. now reports tired. unable to specify sx further per admit note:The patient is a 78 year old F with a significant history of hypertension; fibromyalgia; SLE; rheumatic arthritis; multiple TIAs; who presented to the emergency department with clumsiness of her left hand. 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 She reported that she has had problem grasping/holding papers a problem on the same day of presentation. Associated with her symptoms is tingling of the left hand. She reports blurry vision going for a couple of days. Associated with her symptoms is nausea. Further, she reports ongoing generalized weakness that worsened on the same day of admission. Further she reports of a headache going on for about 3 weeks. Headache was initially at the right temporal area but it moved across the entire head. The headache is a continuous with episodic increase in intensity. The headache can go as high as 10 out of 10. She has been taking some ibuprofen at home. Ibuprofen take the edge off but it does not take her pain away completely. Also she has a chronic low back pain which has increased on the same day of admission. At the emergency department troponin was found to be elevated in the intermediate range. EKG was unchanged from a previous. Her urine was found to be abnormal but she denies any urinal symptoms. Past Medical History Past Medical History (Chronic Problems): Chronic Problems (Last Reviewed 12/01/18 @ 12:26 by Andrews Louis MD) CAD (coronary artery disease) (Chronic) Diastolic dysfunction (Chronic) Elevated troponin (Chronic) Raynauds disease (Chronic) Hyperlipidemia (Chronic) Benign essential hypertension (Chronic) GERD (gastroesophageal reflux disease) (Chronic) History of pulmonary embolism (Chronic) Restless legs (Chronic) Rheumatoid arthritis (Chronic) Sjogren's syndrome (Chronic) Fibromyalgia (Chronic) S/P IVC filter (Chronic) Systemic lupus erythematosus (Chronic) History of TIAs (Chronic) Medical History: Medical History (Last Reviewed 12/01/18 @ 12:26 by Andrews Louis MD) Raynauds disease (Chronic) I73.00 Hyperlipidemia (Chronic) E78.5 Dyspnea (Resolved) R06.00 Chest pain (Resolved) R07.9 Benign essential hypertension (Chronic) I10 GERD (gastroesophageal reflux disease) (Chronic) K21.9 History of pulmonary embolism (Chronic) Z86.711 Restless legs (Chronic) Rheumatoid arthritis (Chronic) M06.9 Sjogren's syndrome (Chronic) M35.00 Fibromyalgia (Chronic) Systemic lupus erythematosus (Chronic) M32.9 Acute right hemiparesis (Resolved) G81.90 Acute ischemic stroke (Suspected) I63.9 History of TIAs (Chronic) Alzheimer's dementia G30.9 History of echocardiogram Onset Date: ~04/2017 Z92.89 EF 65% Ileostomy in place Z93.2 Dementia F03.90 History of deep vein thrombosis Z86.718 History of hysterectomy Z98.890, Z90.710 Raynaud's phenomenon (Inactive) Allergies ampicillin Allergy (Verified 11/29/18 16:45) Rash buprenorphine HCl [From Buprenex] Allergy (Verified 11/29/18 16:45) Other codeine Allergy (Verified 11/29/18 16:45) Anaphylaxis gold Au 198 Allergy (Verified 11/29/18 16:45) Rash guaifenesin Allergy (Verified 11/29/18 20:14) Rash promethazine HCl [From Phenergan] Allergy (Verified 11/29/18 16:45) Shortness of breath Sulfa (Sulfonamide Antibiotics) Allergy (Verified 11/29/18 16:45) Rash sulindac [From Clinoril] Allergy (Verified 11/29/18 16:45) Rash tetracycline [Tetracycline] Allergy (Verified 11/29/18 16:45) Rash thiopental Allergy (Verified 11/29/18 16:45) Rash trimethoprim [From Proloprim] Allergy (Verified 11/29/18 16:45) Rash oxycodone HCl [From OxyContin] Adverse Reaction (Verified 11/29/18 16:45) Other NALDECON Allergy (Uncoded 11/29/18 16:45) Rash SULPHATED OIL Allergy (Uncoded 11/29/18 16:45) Other TAPE Allergy (Uncoded 11/29/18 16:45) Rash Home Medications: Ambulatory Orders Medication Instructions Recorded Docusate Sodium [Colace] 200 mg PO BID PRN PRN #60 capsule 05/24/18 Magnesium Oxide [Mag-Ox 400] 400 mg PO DAILY 11/29/18 Prednisone 5 mg PO DAILY 11/29/18 Ranitidine [Zantac] 150 mg PO BID 11/29/18 Surgical History: Surgical History (Last Reviewed 12/01/18 @ 12:26 by Andrews Louis MD) S/P IVC filter (Chronic) Z95.828 History of Krish fundoplication Z98.890 History of appendectomy Z98.890, Z90.49 History of cardiac catheterization Onset Date: ~04/2017 Z98.890 Mild CAD History of cholecystectomy Z98.890, Z90.49 History of herniorrhaphy Z98.890, Z87.19 Surgical History: appendectomy, cholecystectomy, herniorrhaphy, hysterectomy, - - Ileostomy bag in place Psychiatric History: No pertinent psych hx 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 Lives: Spouse/ Significant Other Smoking Status: Never smoker Tobacco Use: Non-smoker Alcohol: Occasional - *Family History Maternal History Items: Diabetes, Hypertension Paternal History Items: Hypertension, No pertinent history Review of Systems Constitutional: Reports: Fever Eyes: Reports: Double vision Respiratory: Reports: Cough, Shortness of Breath Gastrointestinal: Denies: Abdominal Pain, Nausea, Vomiting Genitourinary: Denies: Dysuria Musculoskeletal: Reports: Back Pain Skin: Denies: Rash, Wounds Neurological: Reports: Double vision Patient Problems: Active and Suspected Problems (Last Reviewed 12/01/18 @ 12:26 by Andrews Louis MD) Acute right cerebellar stroke (Acute) Urinary tract infection (Acute) Generalized weakness (Acute) Stroke-like symptoms (Acute) Headache (Acute) Acute cystitis (Acute) - Physical Exam General: Alert, Oriented x3, Cooperative, No apparent distress HEENT: PERRLA, EOMI Neurological: Cranial nerves II-XII grossly intact Psych/Mental Status: Normal Affect, Alert and oriented to time, place, person, mood and affect Vital Signs Temp Pulse Resp BP Pulse Ox 36.7 C 79 18 155/65 H 98 12/01/18 09:20 12/01/18 09:20 12/01/18 09:20 12/01/18 09:20 12/01/18 09:20 Oxygen Delivery Method Room Air Weight: 82.7 kg Body Mass Index (BMI) 34.4 Finger Stick Blood Glucose 114 Intake and Output for Last 24 Hours 11/29/18 11/30/1812/01/19 23:59 23:59 23:59 Intake Total 720 / 720 120 / 120 Balance 720 / 720 120 / 120 Microbiology Past 72 Hours 11/29/18 17:30 Urine Culture - Preliminary Urine, Clean Catch Gram negative michael Current Home Med List Medication Instructions Recorded Confirmed Type Docusate Sodium [Colace] 200 mg PO BID PRN PRN #60 capsule 05/24/18 11/29/18 Rx Magnesium Oxide [Mag-Ox 400] 400 mg PO DAILY 11/29/18 11/29/18 History Prednisone 5 mg PO DAILY 11/29/18 11/29/18 History Ranitidine [Zantac] 150 mg PO BID 11/29/18 11/29/18 History Current Medications Generic Name Dose Route Start Last Admin Trade Name Freq PRN Reason Stop Dose Admin Acetaminophen 650 mg 11/29/18 22:01 Tylenol PO Q4H PRN PRN Headache/Temp>99F Acetaminophen 650 mg 11/29/18 22:01 Tylenol RECTAL Q4H PRN PRN Headache/Temp>99F Acetaminophen 650 mg 11/29/18 22:01 Tylenol Liquid NG Q4H PRN PRN Headache/Temp>99F Hydrocodone Bitart/Acetaminophen 1 tablet 12/01/18 10:18 [place] 5mg-325mg PO Q4H PRN PRN SEVERE PAIN (6-10/10) Aspirin 81 mg 11/30/18 08:00 12/01/18 09:39 Aspirin, Baby PO 81 mg DAILY@0800 [place] Administration Atorvastatin Calcium 80 mg 11/30/18 22:00 11/30/18 21:29 Lipitor PO 80 mg QHS [place] Administration Cephalexin 500 mg 11/30/18 22:00 12/01/18 05:31 Keflex PO 500 mg Q8 [place] Administration Clopidogrel Bisulfate 75 mg 11/30/18 16:00 12/01/18 09:42 Plavix PO 75 mg DAILY [place] Administration Cyclobenzaprine HCl 10 mg 11/30/18 15:26 11/30/18 21:30 Flexeril PO 10 mg TID PRN PRN Administration HEADACHE Dextrose 0 gm 11/29/18 22:01 D50w Syringe IV X1 PRN Hypoglycemia Protocol Docusate Sodium 200 mg 11/29/18 22:01 Colace PO BID PRN PRN Constipation Famotidine 20 mg 11/29/18 22:01 12/01/18 09:43 Pepcid PO 20 mg BID [place] Administration Gabapentin 200 mg 11/30/18 22:00 11/30/18 21:29 Neurontin PO 200 mg QHS [place] Administration Glucagon 1 mg 11/29/18 22:01 IM .X1 PRN Hypoglycemia Heparin Sodium (Porcine) 5,000 unit 11/29/18 22:01 12/01/18 09:40 Heparin Na SC 5,000 unit Q12 [place] Administration Magnesium Oxide 400 mg 11/30/18 10:00 12/01/18 09:43 Mag-Ox 400 PO 400 mg DAILY [place] Administration Prednisone 5 mg 11/30/18 08:00 12/01/18 09:39 PO 5 mg DAILYCM [place] Administration Sodium Chloride 5 - 15 ml 11/29/18 22:05 IV UD PRN SALINE FLUSH mri reviewed, acute small right cerebellar infarct, mra no stenosis (by report) Assessment/Plan All Active Problems (Last Reviewed 12/01/18 @ 12:26 by Andrews Louis MD) Acute right cerebellar stroke (Acute) Carbon monoxide poisoning (Resolved) Rib fractures (Resolved) Pneumothorax (Resolved) Conjunctivitis (Resolved) Urinary tract infection (Acute) Generalized weakness (Acute) Stroke-like symptoms (Acute) Headache (Acute) Acute cystitis (Acute) Dyspnea (Resolved) Chest pain (Resolved) Acute right hemiparesis (Resolved) acute right cerebellar infarct, likely asymptomatic, primary risk factor appears to be hypertension aggressive bp rx asa, no plavix statin outpt sleep study (history of untreated liya, last psg years ago) pt/ot/sp home vs rehab tele
--- NOTE | 2018-12-01 13:11 | PCM.DC ---
- Discharge Diagnoses Current Active Problems: Current Active and Chronic Problems (Last Reviewed 12/01/18 @ 12:26 by Andrews Louis MD) Acute right cerebellar stroke (Acute) Elevated troponin (Chronic) Urinary tract infection (Acute) Generalized weakness (Acute) Stroke-like symptoms (Acute) Headache (Acute) Acute cystitis (Acute) You will use the following diet at home:: No restrictions Your food should be the consistency of: Regular Your liquids should be the consistency of: Regular/Thin Discharge Activity: Return to Normal Activity Weight Bearing Status: Full weight bearing Allergies/Adverse Reactions: Allergies ampicillin Allergy (Verified 11/29/18 16:45) Rash buprenorphine HCl [From Buprenex] Allergy (Verified 11/29/18 16:45) Other codeine Allergy (Verified 11/29/18 16:45) Anaphylaxis gold Au 198 Allergy (Verified 11/29/18 16:45) Rash guaifenesin Allergy (Verified 11/29/18 20:14) Rash promethazine HCl [From Phenergan] Allergy (Verified 11/29/18 16:45) Shortness of breath Sulfa (Sulfonamide Antibiotics) Allergy (Verified 11/29/18 16:45) Rash sulindac [From Clinoril] Allergy (Verified 11/29/18 16:45) Rash tetracycline [Tetracycline] Allergy (Verified 11/29/18 16:45) Rash thiopental Allergy (Verified 11/29/18 16:45) Rash trimethoprim [From Proloprim] Allergy (Verified 11/29/18 16:45) Rash oxycodone HCl [From OxyContin] Adverse Reaction (Verified 11/29/18 16:45) Other NALDECON Allergy (Uncoded 11/29/18 16:45) Rash SULPHATED OIL Allergy (Uncoded 11/29/18 16:45) Other TAPE Allergy (Uncoded 11/29/18 16:45) Rash Medications to take at Discharge Docusate Sodium [Colace] 200 mg PO BID PRN PRN #60 capsule 05/24/18 Magnesium Oxide [Mag-Ox 400] 400 mg PO DAILY 11/29/18 Prednisone 5 mg PO DAILY 11/29/18 Ranitidine [Zantac] 150 mg PO BID 11/29/18 Aspirin [Aspirin, Baby] 81 mg PO DAILY@0800 tab.chew 12/01/18 Atorvastatin Calcium [Lipitor] 80 mg PO QHS #30 tablet 12/01/18 Cephalexin [Keflex] 500 mg PO Q8 #18 capsule 12/01/18 Gabapentin [Neurontin] 200 mg PO QHS #60 capsule 12/01/18 Hydrocodone Bitart/Apap 5-325 [[place] 5/325] 1 tablet PO Q4H PRN PRN 7 Days #20 tablet 12/01/18 Valsartan [Diovan] 160 mg PO DAILY #30 tablet 12/01/18 The following prescriptions were given: Hydrocodone Bitart/Apap 5-325 [[place] 5/325] 1 tablet PO Q4H PRN PRN 7 Days #20 tablet PRN Reason: Severe Pain (-05/08) Atorvastatin Calcium [Lipitor] 80 mg PO QHS #30 tablet Cephalexin [Keflex] 500 mg PO Q8 #18 capsule Gabapentin [Neurontin] 200 mg PO QHS #60 capsule Valsartan [Diovan] 160 mg PO DAILY #30 tablet Primary Care Physician: Zayda Peace PA [Primary Care Provider] - Please follow up with your Primary Care Physician in: in 1-2 weeks Test Results: Test results from this visit will be discussed in further detail at your follow-up appointment, if applicable. Please Follow Up With: Td Pineda MD When: in 3 weeks
--- NOTE | 2018-12-01 13:18 | DCINST_ITS ---
- Discharge Diagnoses Current Active Problems: Current Active and Chronic Problems (Last Reviewed 12/01/18 @ 12:26 by Andrews Louis MD) Acute right cerebellar stroke (Acute) Elevated troponin (Chronic) Urinary tract infection (Acute) Generalized weakness (Acute) Stroke-like symptoms (Acute) Headache (Acute) Acute cystitis (Acute) You will use the following diet at home:: No restrictions Your food should be the consistency of: Regular Your liquids should be the consistency of: Regular/Thin Discharge Activity: Return to Normal Activity Weight Bearing Status: Full weight bearing Allergies/Adverse Reactions: Allergies ampicillin Allergy (Verified 11/29/18 16:45) Rash buprenorphine HCl [From Buprenex] Allergy (Verified 11/29/18 16:45) Other codeine Allergy (Verified 11/29/18 16:45) Anaphylaxis gold Au 198 Allergy (Verified 11/29/18 16:45) Rash guaifenesin Allergy (Verified 11/29/18 20:14) Rash promethazine HCl [From Phenergan] Allergy (Verified 11/29/18 16:45) Shortness of breath Sulfa (Sulfonamide Antibiotics) Allergy (Verified 11/29/18 16:45) Rash sulindac [From Clinoril] Allergy (Verified 11/29/18 16:45) Rash tetracycline [Tetracycline] Allergy (Verified 11/29/18 16:45) Rash thiopental Allergy (Verified 11/29/18 16:45) Rash trimethoprim [From Proloprim] Allergy (Verified 11/29/18 16:45) Rash oxycodone HCl [From OxyContin] Adverse Reaction (Verified 11/29/18 16:45) Other NALDECON Allergy (Uncoded 11/29/18 16:45) Rash SULPHATED OIL Allergy (Uncoded 11/29/18 16:45) Other TAPE Allergy (Uncoded 11/29/18 16:45) Rash Medications to take at Discharge Docusate Sodium [Colace] 200 mg PO BID PRN PRN #60 capsule 05/24/18 Magnesium Oxide [Mag-Ox 400] 400 mg PO DAILY 11/29/18 Prednisone 5 mg PO DAILY 11/29/18 Ranitidine [Zantac] 150 mg PO BID 11/29/18 Aspirin [Aspirin, Baby] 81 mg PO DAILY@0800 tab.chew 12/01/18 Atorvastatin Calcium [Lipitor] 80 mg PO QHS #30 tablet 12/01/18 Cephalexin [Keflex] 500 mg PO Q8 #18 capsule 12/01/18 Gabapentin [Neurontin] 200 mg PO QHS #60 capsule 12/01/18 Hydrocodone Bitart/Apap 5-325 [[place] 5/325] 1 tablet PO Q4H PRN PRN 7 Days #20 tablet 12/01/18 Valsartan [Diovan] 160 mg PO DAILY #30 tablet 12/01/18 The following prescriptions were given: Hydrocodone Bitart/Apap 5-325 [[place] 5/325] 1 tablet PO Q4H PRN PRN 7 Days #20 tablet PRN Reason: Severe Pain (-05/08) Atorvastatin Calcium [Lipitor] 80 mg PO QHS #30 tablet Cephalexin [Keflex] 500 mg PO Q8 #18 capsule Gabapentin [Neurontin] 200 mg PO QHS #60 capsule Valsartan [Diovan] 160 mg PO DAILY #30 tablet Primary Care Physician: Zayda Peace PA [Primary Care Provider] - Please follow up with your Primary Care Physician in: in 1-2 weeks Test Results: Test results from this visit will be discussed in further detail at your follow- up appointment, if applicable. Please Follow Up With: Td Pineda MD When: in 3 weeks
--- NOTE | 2018-12-01 18:18 | PCM.DC.SUM ---
Discharge Date and Diagnosis - Problem List Patient Problems: Active and Suspected Problems (Last Reviewed 12/01/18 @ 12:26 by Andrews Louis MD) Acute right cerebellar stroke (Acute) Date of Admission: 11/29/18 Date of Discharge: 12/01/18 - Primary Discharge Diagnosis Active and Suspected Problems (Last Reviewed 12/01/18 @ 12:26 by Andrews Louis MD) #1 acute right cerebellar stroke #2 hypertension #3 cephalgia-tension type #4 restless leg syndrome #5 acute xoqitvhj-jtbj-axknxmwc bacterial #6 elevated troponin-chronic #7 hypokalemia #8 chronic kidney disease stage III - Secondary Discharge Diagnosis Chronic Problems (Last Reviewed 12/01/18 @ 12:26 by Andrews Louis MD) CAD (coronary artery disease) (Chronic) Diastolic dysfunction (Chronic) Elevated troponin (Chronic) Raynauds disease (Chronic) Hyperlipidemia (Chronic) Benign essential hypertension (Chronic) GERD (gastroesophageal reflux disease) (Chronic) History of pulmonary embolism (Chronic) Restless legs (Chronic) Rheumatoid arthritis (Chronic) Sjogren's syndrome (Chronic) Fibromyalgia (Chronic) S/P IVC filter (Chronic) Systemic lupus erythematosus (Chronic) History of TIAs (Chronic) Hospital Course and Treatment Consultations 11/29/18 22:01 Consult: Onc/Wound/unit director Routine Comment: Reason for Consult:: ileostomy Operations: None Procedures: 2-D Echocardiogram Summary of Care Provided: The patient is a 78 year old F was seen in the emergency room at [facility] with a chief complaint of generalized weakness and fatigue, she also complained of a headache. Patient complained of feeling fatigued with minimal exertion. Patient did not describe any focal motor deficits. Work-up in the emergency room included labs which showed a slightly low potassium at 3.3, urinalysis indicated the patient could have a urinary tract infection, troponin was elevated at 0.064, EKG showed a normal sinus rhythm without any ST or T wave changes, CT of the brain did not show any acute intracranial abnormality, chest x-ray was unremarkable. Patient was given aspirin, she was given IV Rocephin, patient was placed in observation status on PCU due to her elevated troponin, echocardiogram was obtained, and patient had further imaging studies to rule out stroke. Patient's echocardiogram showed a normal EF and no evidence of thrombus, patient's follow-up troponins were all elevated in the same range-it was noted that she also had elevated troponins at a previous hospitalization, the etiology of the elevated troponins are unknown. Patient's imaging studies revealed the presence of an acute right cerebellar infarction. Patient was seen by PT and OT, it was recommended that patient have follow-up PT and OT evaluation as an outpatient which the patient was instructed to arrange with her PCP. Patient was placed on a statin and seen in consultation by neurology, neurology recommended placing the patient on aspirin and not aspirin and Plavix for outpatient treatment. Patient did not want to go to a rehab facility, she wanted to be discharged home. On examination she appeared in good health and spirits. Vital signs as documented. Skin warm and dry and without overt rashes. Neck without JVD. Lungs clear. Heart exam notable for regular rhythm, normal sounds and absence of murmurs, rubs or gallops. Abdomen unremarkable and without evidence of organomegaly, masses, or abdominal aortic enlargement. Extremities nonedematous. Neuro: Cranial nerves II through XII are grossly intact, no focal motor deficits were noted, sensation to light touch and pinprick is intact. Psych: Patient is alert and oriented x3, she does not appear anxious or depressed On 12/01/2018, patient was seen and examined and felt to be in stable condition for discharge home Patient Problems: Active and Suspected Problems (Last Reviewed 12/01/18 @ 12:26 by Andrews Louis MD) Acute right cerebellar stroke (Acute) - Physical Exam Vital Signs Temp Pulse Resp BP Pulse Ox 97.9 F 83 16 146/85 H 92 12/01/18 13:20 12/01/18 13:20 12/01/18 13:20 12/01/18 13:20 12/01/18 13:20 Oxygen Delivery Method Room Air Weight: 82.7 kg Body Mass Index (BMI) 34.4 Finger Stick Blood Glucose 114 Intake and Output for Last 24 Hours 11/29/18 11/30/18 12/01/18 23:59 23:59 23:59 Intake Total 720 / 720 120 / 120 Balance 720 / 720 120 / 120 Microbiology Past 72 Hours 11/29/18 17:30 Urine Culture - Preliminary Urine, Clean Catch Gram negative michael Discharge Activity: Return to Normal Activity Weight Bearing Status: Full weight bearing Home Medications: Medications to take at Discharge Docusate Sodium [Colace] 200 mg PO BID PRN PRN #60 capsule 05/24/18 Magnesium Oxide [Mag-Ox 400] 400 mg PO DAILY 11/29/18 Prednisone 5 mg PO DAILY 11/29/18 Ranitidine [Zantac] 150 mg PO BID 11/29/18 Aspirin [Aspirin, Baby] 81 mg PO DAILY@0800 tab.chew 12/01/18 Atorvastatin Calcium [Lipitor] 80 mg PO QHS #30 tablet 12/01/18 Cephalexin [Keflex] 500 mg PO Q8 #18 capsule 12/01/18 Gabapentin [Neurontin] 200 mg PO QHS #60 capsule 12/01/18 Hydrocodone Bitart/Apap 5-325 [[place] 5/325] 1 tablet PO Q4H PRN PRN 7 Days #20 tablet 12/01/18 Valsartan [Diovan] 160 mg PO DAILY #30 tablet 12/01/18 Following Prescrptions Were Given to Patient: Hydrocodone Bitart/Apap 5-325 [[place] 5/325] 1 tablet PO Q4H PRN PRN 7 Days #20 tablet PRN Reason: Severe Pain (-05/08) Atorvastatin Calcium [Lipitor] 80 mg PO QHS #30 tablet Cephalexin [Keflex] 500 mg PO Q8 #18 capsule Gabapentin [Neurontin] 200 mg PO QHS #60 capsule Valsartan [Diovan] 160 mg PO DAILY #30 tablet Primary Care Physician: Zayda Peace PA [Primary Care Provider] - Please follow up with your Primary Care Physician in: in 1-2 weeks Please Follow Up With: Td Pineda MD When: in 3 weeks Please Follow Up With: Zayda Peace PA Disposition: Home Minutes spent on discharge:: 32 Patient Condition:: Stable Medical Necessity - Tobacco Use Smoking Status: Never smoker Tobacco Use: Non-smoker Meaningful Use Info Meaningful Use Diagnoses (Choose all that apply): Ischemic CVA - CVA Therapy Assessed for PT,OT and/or ST?: Yes - Ischemic Stroke Antithrombotic order at d/c?: Yes Dx of Atrial fib/flutter?: No Anticoagulant at discharge?: No Reason anticoagulant not ordered: Treatment not Indicated Statins at discharge?: Yes Primary Dx Acute Ischemic CVA?: Yes IV tPA ordered during stay?: No Reason IV t-PA not ordered: Treatment not Indicated Code Visit OBSV E&M: 56433 Observation care discharge
--- NOTE | 2018-12-01 18:25 | DS.PCM_ITS ---
Discharge Date and Diagnosis - Problem List Patient Problems: Active and Suspected Problems (Last Reviewed 12/01/18 @ 12:26 by Andrews Louis MD) Acute right cerebellar stroke (Acute) Date of Admission: 11/29/18 Date of Discharge: 12/01/18 - Primary Discharge Diagnosis Active and Suspected Problems (Last Reviewed 12/01/18 @ 12:26 by Andrews Louis MD) #1 acute right cerebellar stroke #2 hypertension #3 cephalgia-tension type #4 restless leg syndrome #5 acute tdmngwvp-qwwe-rekhghwt bacterial #6 elevated troponin-chronic #7 hypokalemia #8 chronic kidney disease stage III - Secondary Discharge Diagnosis Chronic Problems (Last Reviewed 12/01/18 @ 12:26 by Andrews Louis MD) CAD (coronary artery disease) (Chronic) Diastolic dysfunction (Chronic) Elevated troponin (Chronic) Raynauds disease (Chronic) Hyperlipidemia (Chronic) Benign essential hypertension (Chronic) GERD (gastroesophageal reflux disease) (Chronic) History of pulmonary embolism (Chronic) Restless legs (Chronic) Rheumatoid arthritis (Chronic) Sjogren's syndrome (Chronic) Fibromyalgia (Chronic) S/P IVC filter (Chronic) Systemic lupus erythematosus (Chronic) History of TIAs (Chronic) Hospital Course and Treatment Consultations 11/29/18 22:01 Consult: Onc/Wound/condenser tester Routine Comment: Reason for Consult:: ileostomy Operations: None Procedures: 2-D Echocardiogram Summary of Care Provided: The patient is a 78 year old F was seen in the emergency room at [facility] with a chief complaint of generalized weakness and fatigue, she also complained of a headache. Patient complained of feeling fatigued with minimal exertion. Patient did not describe any focal motor deficits. Work-up in the emergency room included labs which showed a slightly low potassium at 3.3, urinalysis indicated the patient could have a urinary tract infection, trop onin was elevated at 0.064, EKG showed a normal sinus rhythm without any ST or T wave changes, CT of the brain did not show any acute intracranial abnormality, chest x-ray was unremarkable. Patient was given aspirin, she was given IV Rocephin, patient was placed in observation status on PCU due to her elevated troponin, echocardiogram was obtained, and patient had further imaging studies to rule out stroke. Patient's echocardiogram showed a normal EF and no evidence of thrombus, patient's follow-up troponins were all elevated in the same range- it was noted that she also had elevated troponins at a previous hospitalization, the etiology of the elevated troponins are unknown. Patient's imaging studies revealed the presence of an acute right cerebellar infarction. Patient was seen by PT and OT, it was recommended that patient have follow-up PT and OT evaluation as an outpatient which the patient was instructed to arrange with her PCP. Patient was placed on a statin and seen in consultation by neurology, neurology recommended placing the patient on aspirin and not aspirin and Plavix for outpatient treatment. Patient did not want to go to a rehab facility, she wanted to be discharged home. On examination she appeared in good health and spirits. Vital signs as documented. Skin warm and dry and without overt rashes. Neck without JVD. Lungs clear. Heart exam notable for regular rhythm, normal sounds and absence of murmurs, rubs or gallops. Abdomen unremarkable and without evidence of organomegaly, masses, or abdominal aortic enlargement. Extremities nonedematous. Neuro: Cranial nerves II through XII are grossly intact, no focal motor deficits were noted, sensation to light touch and pinprick is intact. Psych: Patient is alert and oriented x3, she does not appear anxious or depressed On 12/01/2018, patient was seen and examined and felt to be in stable condition for discharge home Patient Problems: Active and Suspected Problems (Last Reviewed 12/01/18 @ 12:26 by Andrews Louis MD) Acute right cerebellar stroke (Acute) - Physical Exam Vital Signs Temp Pulse Resp BP Pulse Ox 97.9 F 83 16 146/85 H 92 12/01/18 13:20 12/01/18 13:20 12/01/18 13:20 12/01/18 13:20 12/01/18 13:20 Oxygen Delivery Method Room Air Weight: 82.7 kg Body Mass Index (BMI) 34.4 Finger Stick Blood Glucose 114 Intake and Output for Last 24 Hours 11/29/18 11/30/18 12/01/18 23:59 23:59 23:59 Intake Total 720 / 720 120 / 120 Balance 720 / 720 120 / 120 Microbiology Past 72 Hours 11/29/18 17:30 Urine Culture - Preliminary Urine, Clean Catch Gram negative michael Discharge Activity: Return to Normal Activity Weight Bearing Status: Full weight bearing Home Medications: Medications to take at Discharge Docusate Sodium [Colace] 200 mg PO BID PRN PRN #60 capsule 05/24/18 Magnesium Oxide [Mag-Ox 400] 400 mg PO DAILY 11/29/18 Prednisone 5 mg PO DAILY 11/29/18 Ranitidine [Zantac] 150 mg PO BID 11/29/18 Aspirin [Aspirin, Baby] 81 mg PO DAILY@0800 tab.chew 12/01/18 Atorvastatin Calcium [Lipitor] 80 mg PO QHS #30 tablet 12/01/18 Cephalexin [Keflex] 500 mg PO Q8 #18 capsule 12/01/18 Gabapentin [Neurontin] 200 mg PO QHS #60 capsule 12/01/18 Hydrocodone Bitart/Apap 5-325 [[place] 5/325] 1 tablet PO Q4H PRN PRN 7 Days #20 tablet 12/01/18 Valsartan [Diovan] 160 mg PO DAILY #30 tablet 12/01/18 Following Prescrptions Were Given to Patient: Hydrocodone Bitart/Apap 5-325 [[place] 5/325] 1 tablet PO Q4H PRN PRN 7 Days #20 tablet PRN Reason: Severe Pain (-05/08) Atorvastatin Calcium [Lipitor] 80 mg PO QHS #30 tablet Cephalexin [Keflex] 500 mg PO Q8 #18 capsule Gabapentin [Neurontin] 200 mg PO QHS #60 capsule Valsartan [Diovan] 160 mg PO DAILY #30 tablet Primary Care Physician: Zayda Peace PA [Primary Care Provider] - Please follow up with your Primary Care Physician in: in 1-2 weeks Please Follow Up With: Td Pineda MD When: in 3 weeks Please Follow Up With: Zayda Peace PA Disposition: Home Minutes spent on discharge:: 32 Patient Condition:: Stable Medical Necessity - Tobacco Use Smoking Status: Never smoker Tobacco Use: Non-smoker Meaningful Use Info Meaningful Use Diagnoses (Choose all that apply): Ischemic CVA - CVA Therapy Assessed for PT,OT and/or ST?: Yes - Ischemic Stroke Antithrombotic order at d/c?: Yes Dx of Atrial fib/flutter?: No Anticoagulant at discharge?: No Reason anticoagulant not ordered: Treatment not Indicated Statins at discharge?: Yes Primary Dx Acute Ischemic CVA?: Yes IV tPA ordered during stay?: No Reason IV t-PA not ordered: Treatment not Indicated Code Visit OBSV E&M: 62129 Observation care discharge
== END 2018-12-01 13:18 | disposition home or self-care (01) ==
LOC: ED 19:37 → PCU 20:59
PROVIDERS: Admitting Provider Hospitalist; Emergency Provider Emergency Medicine; Family Provider Physician Assistant; PCP Physician Assistant; Referring Provider Hospitalist; Visit Provider Internal Medicine
DX: I63.9 Cerebral infarction, unspecified (principal); M06.9 Rheumatoid arthritis, unspecified; M32.9 Systemic lupus erythematosus, unspecified; M79.7 Fibromyalgia; I73.00 Raynaud's syndrome without gangrene; E78.5 Hyperlipidemia, unspecified; K21.9 Gastro-esophageal reflux disease without esophagitis; G25.81 Restless legs syndrome; E87.6 Hypokalemia; N30.00 Acute cystitis without hematuria; N18.3 Chronic kidney disease, stage 3 (moderate); I12.9 Hypertensive chronic kidney disease with stage 1 through stage 4 chronic kidney disease, or unspecified chronic kidney disease; M35.00 Sjogren syndrome, unspecified; G30.9 Alzheimer's disease, unspecified; F02.80 Dementia in other diseases classified elsewhere, unspecified severity, without behavioral disturbance, psychotic disturbance, mood disturbance, and anxiety; Z79.899 Other long term (current) drug therapy; Z79.52 Long term (current) use of systemic steroids; Z86.711 Personal history of pulmonary embolism; Z86.718 Personal history of other venous thrombosis and embolism; Z93.2 Ileostomy status; I25.10 Atherosclerotic heart disease of native coronary artery without angina pectoris; G89.29 Other chronic pain; M54.5 Low back pain
CPT/HCPCS: 36415; 70450; 70544; 70547; 70551; 71046; 80048; 80053; 80061; 81001; 83036; 84443; 84484; 85025; 87077; 87086; 87088; 87186; 92526; 92610; 93005; 93306; 96365; 96366; 96372; 97162; 97166; 97530; 97535; 99218; 99285; J7050; A4216; G0378

== ENCOUNTER 2019-03-24 12:22 | Observation (INO) | payer MEDICARE, SELFPAY ==
[2018-12-01 00:29] VITALS: BMI 34.4
[2019-03-24] VITALS (26 sets, daily range): BP systolic 139–244; BP diastolic 60–128; PULSE 50–81; RESP 14–18; TEMP 36.5–36.8; O2SAT 91–100; BMI 32.3; BMI 31.6; BMI 31.7
--- NOTE | 2019-03-24 12:30 | CM.ED ---
SOCIAL WORK THIS WORKER RESPONDED TO STROKE TEAM. PATIENT'S GRANDDAUGHTER IN ROOM. INTRODUCED ROLE. SUPPORT PROVIDED. THIS WORKER TO REMAIN AVAILABLE FOR NEEDS. EVIN HWANG, FURNITURE MOVER, SHOVEL ENGINEER.
--- NOTE | 2019-03-24 12:32 | EKG12_ITS ---
Test Reason : NEURO S/SX Blood Pressure : / mmHG Vent. Rate : 062 BPM Atrial Rate : 062 BPM P-R Int : 160 ms QRS Dur : 080 ms QT Int : 468 ms P-R-T Axes : 034 007 007 degrees QTc Int : 475 ms Normal sinus rhythm Nonspecific T-Wave Abnormality Confirmed by GUILLE ARROYO, DARÍO ([id number]), clinical editor NOLVIA MARTÍNEZ ([id number]) on 03/26/2019 11:55:03 AM Referred By: IGLESIA Confirmed By:DARÍO HAN MD
--- NOTE | 2019-03-24 12:32 | CT_ITS ---
STUDY: CT BRAIN WITHOUT CONTRAST REASON FOR EXAM: Female, 78 years old. Increasing confusion. RADIATION DOSAGE (If Supplied By Facility): CTDIvol = ( 44.99 ) mGy, DLP = ( 745.49 ) mGycm TECHNIQUE: Transaxial CT imaging of the brain was performed without administration of intravenous contrast material. Individualized dose optimization techniques were used for this CT. COMPARISON: Comparison is made with prior examination of November 29, 2018. FINDINGS: Normal soft tissue structures. Normal calvarium. There is mild cerebral atrophy with widening of the extra-axial spaces and ventricular dilatation. There are areas of decreased attenuation within the white matter tracts of the supratentorial brain, consistent with microvascular disease changes. Normal basal ganglia and thalami. Normal brainstem. Normal cerebellum. There is no intracranial hemorrhage. There are no findings of an acute ischemic infarction. Atherosclerotic calcification of the cavernous portions of the internal carotid arteries bilaterally. Normal visualized paranasal sinuses. CT/Brain/Head without Contrast IMPRESSION: Chronic involutional changes of the brain. N.B. : The above information has been verbally conveyed by Guero Pelaez to Chaz Karlosheidy on 03/24/2019 12:48:46 (ET). Electronically Signed: Guero Pelaez, at 12:49 EDT , Service support ,
--- NOTE | 2019-03-24 13:45 | RAD_ITS ---
STUDY: X-RAY CHEST REASON FOR EXAM: Female, 78 years old. Right-sided weakness. TECHNIQUE: Single AP portable view of the chest. COMPARISON: Comparison is made with prior study dated November 29, 2018. FINDINGS: EKG electrodes are seen. The lungs are clear and expanded. There is no demonstrated pleural abnormality. Normal size heart. Normal mediastinum and regina. Normal visualized pulmonary arteries. There is atherosclerotic tortuosity of the aortic arch and descending thoracic aorta. Normal visualized thoracic spine. There is degenerative osteoarthritis of the bilateral shoulders. Metallic anchor seen overlying the left humeral head. There is no demonstrated abnormality of the visualized soft tissue structures of the upper abdomen. RAD/Chest 1 View IMPRESSION: No acute abnormality is seen. Electronically Signed: Guero Pelaez, at 14:29 EDT , Service support ,
--- NOTE | 2019-03-24 14:55 | ED.RN ---
multiple attempts by nursing to get iv site. unsuccessful. pt also attempted with ultrasound. access clinician coming to put a picc line in.
--- NOTE | 2019-03-24 15:34 | CHAPLAIN ---
Type of Pastoral Visit ___ Initial Visit ___ Follow-up Visit ___ On-call Visit ___ General Patient Visit ___ Spiritual Assessment ___ Family Conference ___ Bereavement _x__ Rapid Response ___ Code Blue ___ Other (describe below) Pastoral Care Referral From ___ Patient ___ Family ___ Nurse ___ Physician ___ Jewelry Finisher ___ Machine Operator _x__ Other (describe below) Sacrament/Intervention ___ Active listening ___ Anointing ___ Church ___ Bereavement ___ Communion ___ Arely exploration ___ ___ Life review _x__ Prayer ___ Reconciliation ___ Sacrament of Sick _x__ Supportive presence ___ Wedding ___ Other (describe below) Pastoral Comments met with granddaughter of patient and offered support; reply was just say a prayer; remained in area for a few minutes to observe how situation would progress and then left
[2019-03-24] MEDS: cloNIDine HCl 0.1 MG Tablet PO (15:49)
--- NOTE | 2019-03-24 16:03 | ED.VIS.GEN ---
History of Present Illness Chief Complaint: Neuro S/Sx Informant: Family Onset: - - Woke up with this Narrative: Patient has had chronic recurrent symptoms in the past. She arrives to the emergency department, told to come to the bedside right away since this could be a stroke. When I started evaluated her she and minimal responsiveness, she stared at me but would not respond. I tried to elicit painful stimuli and she did respond and withdrew to pain. Per her granddaughter who was in the room apparently she has weakness of her lower extremities as well as upper extremities and some confusion. This is chronic and recurrent for her. There has been no recent trauma. Past Medical History - Allergies and Home Meds Allergies/Adverse Reactions: Allergies ampicillin Allergy (Verified 11/29/18 16:45) Rash buprenorphine HCl [From Buprenex] Allergy (Verified 11/29/18 16:45) Other codeine Allergy (Verified 11/29/18 16:45) Anaphylaxis gold Au 198 Allergy (Verified 11/29/18 16:45) Rash guaifenesin Allergy (Verified 11/29/18 20:14) Rash promethazine HCl [From Phenergan] Allergy (Verified 11/29/18 16:45) Shortness of breath Sulfa (Sulfonamide Antibiotics) Allergy (Verified 11/29/18 16:45) Rash sulindac [From Clinoril] Allergy (Verified 11/29/18 16:45) Rash tetracycline [Tetracycline] Allergy (Verified 11/29/18 16:45) Rash thiopental Allergy (Verified 11/29/18 16:45) Rash trimethoprim [From Proloprim] Allergy (Verified 11/29/18 16:45) Rash oxycodone HCl [From OxyContin] Adverse Reaction (Verified 11/29/18 16:45) Other NALDECON Allergy (Uncoded 11/29/18 16:45) Rash SULPHATED OIL Allergy (Uncoded 11/29/18 16:45) Other TAPE Allergy (Uncoded 11/29/18 16:45) Rash Primary Care Physician: Zayda Peace PA [Primary Care Provider] - Past Medical History: - - [facility], see [facility] for past medical history Surgical History: appendectomy, cholecystectomy, herniorrhaphy, hysterectomy, - - Ileostomy bag in place Lives: Spouse/ Significant Other Smoking Status: Never smoker - Family History Maternal Family History: Reports: Diabetes, Hypertension Paternal Family History: Reports: Hypertension, No pertinent history Review of Systems ROS: Unable to Obtain - Due to patient's acuity I cannot obtain review of systems initially. Physical Exam Vital Signs/Narrative: Vital Signs Temp Pulse Resp BP Pulse Ox 03/24/19 15:45 73 18 219/105 H 98 03/24/19 15:30 59 L 18 206/106 H 96 03/24/19 15:15 58 L 18 224/89 H 91 03/24/19 15:04 57 L 14 227/87 H 94 03/24/19 15:00 57 L 18 227/87 H 96 03/24/19 14:30 58 L 17 219/90 H 94 03/24/19 13:59 98.0 F 71 18 219/104 H 94 03/24/19 13:30 98.0 F 63 18 237/96 H 99 03/24/19 13:11 97.7 F L 67 18 237/96 H 99 03/24/19 13:10 98 03/24/19 12:57 71 18 196/128 H 03/24/19 12:36 74 18 229/120 H 98 03/24/19 12:23 97.8 F 81 18 169/106 H 93 General: Well nourished, - - She was slow to respond, when asked her name she told me she did not know how, when asked her her granddaughters names told me she did not know but she knew I was holding a pen and a cell phone in my hand Head: Normocephalic Eyes: Perrl ENT: Moist mucous membranes Cardiovascular: Regular rate Respiratory: No distress, CTA bilaterally Abdomen: Soft, Nontender Back: Nontender, Normal Inspection Skin: Normal color Neurological: - - Patient responded to some of the questions and some of them she told me she did not know. She could not lift either of her arms up, and when I let it fall against resistance she would not let them fall against her face. She would not lift her legs up. She did withdraw to pain quite well. Diagnostic/Tx/Re-eval - Rhythm Strip Rhythm Strip: Sinus Rhythm Rate: 62 Ectopy: None - EKG Initial EKG Interpretation: Sinus Rhythm, - - Normal VT interval. Normal QTc interval. Normal ST segments without any signs of ischemia. Interpreted by emergency doctor - Medical Decision Making A stroke team was called, however patient is unlikely to have a stroke, she has a difficult NIH since she cannot lift either arms or legs and she could not follow direction, this is likely a diffuse encephalopathy, she did have hypertension which I treated, because we could not get an IV A PICC line was placed in the meantime p.o. medications were given after patient passed a swallow eval. I agree with the stroke neurologist over video conference is that this is unlikely to be a stroke and patient does not meet TPA criteria since she had a wake-up stroke. I will admit for further work-up. She is given p.o. medications for her blood pressure however this only slightly improved, I will give her IV antihypertensives as well as analgesics aAdmit stable condition ED Disposition - Plan for ED Patient: Diagnosis: Encephalopathy acute Referrals: Zayda Peace PA [Primary Care Provider] -
--- NOTE | 2019-03-24 16:14 | ED.VIS.STROK ---
History of Present Illness Chief Complaint: Neuro S/Sx Informant: Family Past Medical History - Allergies and Home Meds Allergies/Adverse Reactions: Allergies ampicillin Allergy (Verified 11/29/18 16:45) Rash buprenorphine HCl [From Buprenex] Allergy (Verified 11/29/18 16:45) Other codeine Allergy (Verified 11/29/18 16:45) Anaphylaxis gold Au 198 Allergy (Verified 11/29/18 16:45) Rash guaifenesin Allergy (Verified 11/29/18 20:14) Rash promethazine HCl [From Phenergan] Allergy (Verified 11/29/18 16:45) Shortness of breath Sulfa (Sulfonamide Antibiotics) Allergy (Verified 11/29/18 16:45) Rash sulindac [From Clinoril] Allergy (Verified 11/29/18 16:45) Rash tetracycline [Tetracycline] Allergy (Verified 11/29/18 16:45) Rash thiopental Allergy (Verified 11/29/18 16:45) Rash trimethoprim [From Proloprim] Allergy (Verified 11/29/18 16:45) Rash oxycodone HCl [From OxyContin] Adverse Reaction (Verified 11/29/18 16:45) Other NALDECON Allergy (Uncoded 11/29/18 16:45) Rash SULPHATED OIL Allergy (Uncoded 11/29/18 16:45) Other TAPE Allergy (Uncoded 11/29/18 16:45) Rash Primary Care Physician: Zayda Peace PA [Primary Care Provider] - Surgical History: appendectomy, cholecystectomy, herniorrhaphy, hysterectomy, - - Ileostomy bag in place Lives: Spouse/ Significant Other Smoking Status: Never smoker - Family History Maternal Family History: Reports: Diabetes, Hypertension Paternal Family History: Reports: Hypertension, No pertinent history STROKE Vital Signs/Narrative: Vital Signs Temp Pulse Resp BP Pulse Ox 03/24/19 15:45 73 18 219/105 H 98 03/24/19 15:30 59 L 18 206/106 H 96 03/24/19 15:15 58 L 18 224/89 H 91 03/24/19 15:04 57 L 14 227/87 H 94 03/24/19 15:00 57 L 18 227/87 H 96 03/24/19 14:30 58 L 17 219/90 H 94 03/24/19 13:59 98.0 F 71 18 219/104 H 94 03/24/19 13:30 98.0 F 63 18 237/96 H 99 03/24/19 13:11 97.7 F L 67 18 237/96 H 99 03/24/19 13:10 98 03/24/19 12:57 71 18 196/128 H 03/24/19 12:36 74 18 229/120 H 98 03/24/19 12:23 97.8 F 81 18 169/106 H 93 - NIHSS Initial 1a Level of Consciousness: 1 1b LOC Questions (Score 2 if aphasic/stupor): 2 1c LOC Commands (Only score 1st attempt): 2 2 Best Gaze (If aphasic, use reflexive mvmts.): 0 3 Visual: 0 4 Facial Palsy: 0 5 Motor Arm Right (UN = amputation/fusion): 3 5 Motor Arm Left: 3 6 Motor Leg Right: 3 7 Limb ataxia (Only + if out of proportion): UN 8 Sensory (Aphasia/stupor=0 or 1, coma=2): 1 9 Best Language: 1 10 Dysarthria (mute, coma=2, intubated=UN): UN 11 Extinction and Inattention (only scored if +): 0 Total Score: 16 ED Disposition - Plan for ED Patient: Referrals: Zayda Peace PA [Primary Care Provider] -
[2019-03-24 16:57] LABS: Absolute Lymphocyte Count 2.24 X10^3/uL (0.83-4.51); Absolute Neutrophil Count 3.6 X10^3/uL (2.0-7.7); Basophil# 0.05 X10^3/uL; Basophil% 0.8 % (0-1); Eosinophil# 0.05 X10^3/uL; Eosinophils% 0.8 % (0-5); Hematocrit 37.7 % (37-47); Hemoglobin 12.5 g/dL (12.0-15.0); Lymphocyte # 2.24 X10^3/ul (4.0); Lymphocyte % 34.5 % (19-41); Mean Corp Hgb Conc 33.2 g/dL (32-36); Mean Corpuscular Hgb 30.4 pg (27.0-32.0); Mean Corpuscular Volume 91.7 fL (81-99); Mean Platelet Vol. 10.8 fl (6.2-12.0); Monocyte# 0.52 X10^3/uL; NRBC Flagged by Analyzer 0 % (0-5); Neutrophil % 55.4 % (47-70); Platelet Count 195 K/mm3 (150-450); RBC Distribution Width CV 12.7 % (11.6-14.6); RBC Distribution Width SD 42.5 fl (35.1-43.9); Red Blood Count 4.11 M/mm3 (4.2-5.4); White Blood Count 6.5 K/mm3 (4.4-11.0)
[2019-03-24] MEDS: oxyCODONE 5 MG Tablet PO (17:06)
[2019-03-24] MEDS: hydrALAZINE 20 MG/ML Vial 10 MG IV (17:07)
[2019-03-24 17:11] LABS: International Normalized Ratio 1.1; Prothrombin Time (Protime)PT. 13.6 SECONDS (11.7-14.9)
[2019-03-24 17:12] LABS: Partial Thromboplast Time 26.5 Seconds (24.1-36.2)
[2019-03-24 17:13] LABS: Erythrocyte Sedimentation Rate 3 mm/hr (0-30)
[2019-03-24 17:14] LABS: Anion Gap 6 (5-15); BUN 13 mg/dL (7-18); Calcium,Total 8.8 mg/dL (8.5-10.1); Chloride 109 mmol/L (98-107); EST Glomerular Filtration Rate 57 mL/min (>60); Est Glom Filt Rate - Afr Amer 69 mL/min (>60); Estimated Creatinine Clearance 39.59 ml/min; Glucose 87 mg/dL (74-106); Potassium 3.6 mmol/L (3.5-5.1); Sodium Level 142 mmol/L (136-145)
--- NOTE | 2019-03-24 17:52 | HP.PCM_ITS ---
<Kulwant Shannon - Last Filed: 03/24/19 17:52> Problem List (1) Acute metabolic encephalopathy Status: Acute (2) History of CVA (cerebrovascular accident) Status: Chronic (3) CKD (chronic kidney disease), stage III Status: Chronic (4) Raynauds disease Status: Chronic Qualifiers: Raynaud?s-associated gangrene presence: without gangrene Qualified Code(s): I73.00 - Raynaud's syndrome without gangrene (5) Hyperlipidemia Status: Chronic Qualifiers: Hyperlipidemia type: unspecified Qualified Code(s): E78.5 - Hyperlipidemia, unspecified (6) Benign essential hypertension Status: Chronic (7) GERD (gastroesophageal reflux disease) Status: Chronic Qualifiers: Esophagitis presence: esophagitis presence not specified Qualified Code(s): K21.9 - Gastro-esophageal reflux disease without esophagitis (8) History of pulmonary embolism Status: Chronic (9) Fibromyalgia Status: Chronic (10) S/P IVC filter Status: Chronic (11) Systemic lupus erythematosus Status: Chronic Qualifiers: Systemic lupus erythematosus type: unspecified History of Present Illness Date of Admission: 03/24/19 Chief Complaint: confusion The patient is a 78 year old F admitted in November with a small acute right cerebellar infarct, prior TIAs, HTN, HLD SLE, dementia, DVTs/PEs, who presents to the ER with increased confusion. This was most prominent this morning, however it began yesterday. Yesterday the patient states she just did not feel right, and at one point was with a friend and told her she did not think her house was actually her house. This morning she woke up very confused. The grand daughter who lives with her says the patient did not even know who she was. She was saying words that did not makes any sense, and also made statements such as that she was running late for work despite not working in years. She was also ve ry weak. She could hardly stand and was falling into the bed when she tried to walk. She had difficulty standing and maintaining her balance. She came to the ER and was found very confused and a stroke alert was called. She was unable to follow commands and the ER physician and telestroke felt that there was not an acute stroke and that it was more likely encephalopathy. The patient appears A/O x3 currently and seems lucid. She does admit that she has been feeling unwell lately, with complaints of chills, urinary urgency, and frequency. She has mild SOB at rest as well. [] Past Medical History Past Medical History (Chronic Problems): Chronic Problems (Last Updated 03/24/19 @ 17:13 by Cassy Cruz MD) History of CVA (cerebrovascular accident) (Chronic) CKD (chronic kidney disease), stage III (Chronic) CAD (coronary artery disease) (Chronic) Elevated troponin (Chronic) Raynauds disease (Chronic) Hyperlipidemia (Chronic) Benign essential hypertension (Chronic) GERD (gastroesophageal reflux disease) (Chronic) History of pulmonary embolism (Chronic) Restless legs (Chronic) Rheumatoid arthritis (Chronic) Sjogren's syndrome (Chronic) Fibromyalgia (Chronic) S/P IVC filter (Chronic) Systemic lupus erythematosus (Chronic) History of TIAs (Chronic) Medical History: Medical History (Last Updated 03/24/19 @ 17:13 by Cassy Cruz MD) Raynauds disease (Chronic) I73.00 Hyperlipidemia (Chronic) E78.5 Benign essential hypertension (Chronic) I10 GERD (gastroesophageal reflux disease) (Chronic) K21.9 History of pulmonary embolism (Chronic) Z86.711 Restless legs (Chronic) Rheumatoid arthritis (Chronic) M06.9 Sjogren's syndrome (Chronic) M35.00 Fibromyalgia (Chronic) Systemic lupus erythematosus (Chronic) M32.9 History of TIAs (Chronic) Alzheimer's dementia G30.9 History of echocardiogram Onset Date: ~04/2017 Z92.89 EF 65% Ileostomy in place Z93.2 Dementia F03.90 History of deep vein thrombosis Z86.718 History of hysterectomy Z98.890, Z90.710 Raynaud's phenomenon (Inactive) Allergies ampicillin Allergy (Verified 11/29/18 16:45) Rash buprenorphine HCl [From Buprenex] Allergy (Verified 11/29/18 16:45) Other codeine Allergy (Verified 11/29/18 16:45) Anaphylaxis gold Au 198 Allergy (Verified 11/29/18 16:45) Rash guaifenesin Allergy (Verified 11/29/18 20:14) Rash promethazine HCl [From Phenergan] Allergy (Verified 11/29/18 16:45) Shortness of breath Sulfa (Sulfonamide Antibiotics) Allergy (Verified 11/29/18 16:45) Rash sulindac [From Clinoril] Allergy (Verified 11/29/18 16:45) Rash tetracycline [Tetracycline] Allergy (Verified 11/29/18 16:45) Rash thiopental Allergy (Verified 11/29/18 16:45) Rash trimethoprim [From Proloprim] Allergy (Verified 11/29/18 16:45) Rash oxycodone HCl [From OxyContin] Adverse Reaction (Verified 11/29/18 16:45) Other NALDECON Allergy (Uncoded 11/29/18 16:45) Rash SULPHATED OIL Allergy (Uncoded 11/29/18 16:45) Other TAPE Allergy (Uncoded 11/29/18 16:45) Rash Home Medications: Ambulatory Orders Medication Instructions Recorded Magnesium Oxide [Mag-Ox 400] 400 mg PO DAILY 11/29/18 Prednisone 5 mg PO DAILY 11/29/18 Ranitidine [Zantac] 150 mg PO BID 11/29/18 Cholecalciferol (Vitamin D3) 2,000 unit PO DAILY 03/24/19 [Vitamin D3] Duloxetine HCl 30 mg PO DAILY 03/24/19 Duloxetine HCl 60 mg PO DAILY 03/24/19 Gabapentin [Neurontin] 300 mg PO QHS 03/24/19 Sucralfate 1 gm PO 4X/DAY 03/24/19 Surgical History: Surgical History (Last Reviewed 12/01/18 @ 12:26 by Andrews Louis MD) S/P IVC filter (Chronic) Z95.828 History of Krish fundoplication Z98.890 History of appendectomy Z98.890, Z90.49 History of cardiac catheterization Onset Date: ~04/2017 Z98.890 Mild CAD History of cholecystectomy Z98.890, Z90.49 History of herniorrhaphy Z98.890, Z87.19 Surgical History: appendectomy, cholecystectomy, herniorrhaphy, hysterectomy, - - Ileostomy bag in place Psychiatric History: No pertinent psych hx 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 Denies: Fever, Weight Change HEENT: Denies: Head Aches, Sinus Congestion, Sinus Drainage Cardiovascular: Denies: Chest Pain, Chest Pressure, Heaviness, Light Headedness, Palpitations, Syncope Respiratory: Reports: Shortness of Breath. Denies: Cough, Shortness of breath at rest, Sputum production Gastrointestinal: Denies: Abdominal Pain, Diarrhea, Nausea, Vomiting Genitourinary: Reports: Frequency, Urgency. Denies: Dysuria Musculoskeletal: Denies: Joint Pain, Joint Tenderness Skin: Denies: Lesions, Rash, Skin Changes, Wounds Neurological: Reports: Balance problems, Confusion, Incoordination. Denies: Difficulty swallowing, Focal weakness, Numbness, Tingling Psychiatric: Denies: Anxiety, Depression, Homicidal Ideations, Suicidal Ideations Hematologic/ Lymphatic: Denies: Easy Bruising, Easy Bleeding VTE Information - Inpt Only VTE Present on Admission: No VTE Mechan Device Prophylaxis: None VTE Pharm Prophylaxis ordered?: Yes Patient Problems: Active and Suspected Problems (Last Updated 03/24/19 @ 17:13 by Cassy Cruz MD) Acute metabolic encephalopathy (Acute) Encephalopathy acute (Acute) - Physical Exam General: Alert, Oriented x3, Cooperative HEENT: Atraumatic, PERRLA, EOMI, Normocephalic Neck: Supple, No JVD, Negative Carotid Bruits Lungs: Clear to auscultation, Normal air movement Cardiovascular: Regular rate, No murmurs Abdomen: Bowel Sounds Present, Soft, Non Tender Extremities: No edema, Capillary Refill Less than 3 Seconds Skin: No rashes, No breakdown Musculoskeletal: No Tenderness to Palpation of Joints or Extremities Neurological: Cranial nerves II-XII grossly intact Psych/Mental Status: Normal Affect, Appropriate, Alert and oriented to time, place, person, mood and affect Vital Signs Temp Pulse Resp BP Pulse Ox 97.9 F 54 L 18 194/103 H 98 03/24/19 17:00 03/24/19 17:00 03/24/19 17:00 03/24/19 17:00 03/24/19 17:00 Oxygen Flow Rate (L/min) 2 Oxygen Delivery Method Nasal Cannula Weight: 182 lb 12.211 oz Body Mass Index (BMI) 32.3 Finger Stick Blood Glucose 109 Laboratory Tests Past 24 Hrs 03/24/19 03/24/19 03/24/19 14:15 16:40 16:40 WBC 6.5 RBC 4.11 L Hgb 12.5 Hct 37.7 MCV 91.7 MCH 30.4 MCHC 33.2 RDW Std Deviation 42.5 RDW Coeff of Elmer 12.7 Plt Count 195 MPV 10.8 Immature Gran % (Auto) 0.500 Neut % (Auto) 55.4 Lymph % (Auto) 34.5 Grant % (Auto) 8.0 Eos % (Auto) 0.8 Baso % (Auto) 0.8 Absolute Neuts (auto) 3.6 Absolute Lymphs (auto) 2.24 Nucleated RBC % 0 ESR PT 13.6 INR 1.1 APTT 26.5 Sodium Cancelled Potassium Cancelled Chloride Cancelled Carbon Dioxide Cancelled Anion Gap Cancelled BUN Cancelled Creatinine Cancelled Estim Creat Clear Calc Cancelled Est GFR (MDRD) Af Amer Cancelled Est GFR (MDRD) Non-Af Cancelled BUN/Creatinine Ratio Cancelled Glucose Cancelled Calcium Cancelled Troponin I Cancelled 03/24/19 03/24/19 16:40 16:40 WBC RBC Hgb Hct MCV MCH MCHC RDW Std Deviation RDW Coeff of Elmer Plt Count MPV Immature Gran % (Auto) Neut % (Auto) Lymph % (Auto) Grant % (Auto) Eos % (Auto) Baso % (Auto) Absolute Neuts (auto) Absolute Lymphs (auto) Nucleated RBC % ESR 3 PT INR APTT Sodium 142 Potassium 3.6 Chloride 109 H Carbon Dioxide 27.0 Anion Gap 6 BUN 13 Creatinine 1.00 Estim Creat Clear Calc 39.59 Est GFR (MDRD) Af Amer 69 Est GFR (MDRD) Non-Af 57 L BUN/Creatinine Ratio 13.0 Glucose 87 Calcium 8.8 Troponin I 0.027 Assessment/Plan All Active Problems (Last Updated 03/24/19 @ 17:13 by Cassy Cruz MD) Acute metabolic encephalopathy (Acute) Encephalopathy acute (Acute) Acute right cerebellar stroke (Acute) 1. Acute metabolic encephalopathy - improved. She recently (November) has had a pos terior cerebellar infarct. She presents with confusion, ataxia, weakness, falls. Will check MRI brain. Defer repeat imaging of the vessels, defer repeat echo since these were all done in November. Consult Neuro. PT/OT/ST evals. Check UA and culture as she has urinary symptoms including frequency and urgency, and also reports chills. She has mild SOB at rest, however CXR is negative and lungs are clear. 2. Hypertensive urgency - restart home meds. Patient and granddaughter report good compliance at home. PRN IV hydralazine. -there appears to be a somewhat widened mediastinum on chest xray, however on further review with the ER physicians, it appears more rotated on imaging not consistent with anyeurysm. CTA two years prior did not show aneurysm, some tortuosity was seen. -EKG is unremarkable 3. Hx CVA in November acute small right cerebellar - aspirin, statin. 4. Hx PE/DVT - not on OAC. Has IVC filter. 5. Hx SLE - daily prednisone 6. CKDIII - stable 7. GERD - zantac DVT ppx: lovenox DC planning: PTOT This patient was seen by Kulwant Shannon PA-C under the supervision of Dr. Cruz. <Cassy Cruz - Last Filed: 03/24/19 19:04> History of Present Illness The patient is a 78 year old F [] Past Medical History Medical History: Medical History (Last Updated 03/24/19 @ 17:13 by Cassy Cruz MD) Raynauds disease (Chronic) I73.00 Hyperlipidemia (Chronic) E78.5 Benign essential hypertension (Chronic) I10 GERD (gastroesophageal reflux disease) (Chronic) K21.9 History of pulmonary embolism (Chronic) Z86.711 Restless legs (Chronic) Rheumatoid arthritis (Chronic) M06.9 Sjogren's syndrome (Chronic) M35.00 Fibromyalgia (Chronic) Systemic lupus erythematosus (Chronic) M32.9 History of TIAs (Chronic) Alzheimer's dementia G30.9 History of echocardiogram Onset Date: ~04/2017 Z92.89 EF 65% Ileostomy in place Z93.2 Dementia F03.90 History of deep vein thrombosis Z86.718 History of hysterectomy Z98.890, Z90.710 Raynaud's phenomenon (Inactive) Allergies ampicillin Allergy (Verified 11/29/18 16:45) Rash buprenorphine HCl [From Buprenex] Allergy (Verified 11/29/18 16:45) Other codeine Allergy (Verified 11/29/18 16:45) Anaphylaxis gold Au 198 Allergy (Verified 11/29/18 16:45) Rash guaifenesin Allergy (Verified 11/29/18 20:14) Rash promethazine HCl [From Phenergan] Allergy (Verified 11/29/18 16:45) Shortness of breath Sulfa (Sulfonamide Antibiotics) Allergy (Verified 11/29/18 16:45) Rash sulindac [From Clinoril] Allergy (Verified 11/29/18 16:45) Rash tetracycline [Tetracycline] Allergy (Verified 11/29/18 16:45) Rash thiopental Allergy (Verified 11/29/18 16:45) Rash trimethoprim [From Proloprim] Allergy (Verified 11/29/18 16:45) Rash oxycodone HCl [From OxyContin] Adverse Reaction (Verified 11/29/18 16:45) Other NALDECON Allergy (Uncoded 11/29/18 16:45) Rash SULPHATED OIL Allergy (Uncoded 11/29/18 16:45) Other TAPE Allergy (Uncoded 11/29/18 16:45) Rash Surgical History: Surgical History (Last Reviewed 12/01/18 @ 12:26 by Andrews Louis MD) S/P IVC filter (Chronic) Z95.828 History of Krish fundoplication Z98.890 History of appendectomy Z98.890, Z90.49 History of cardiac catheterization Onset Date: ~04/2017 Z98.890 Mild CAD History of cholecystectomy Z98.890, Z90.49 History of herniorrhaphy Z98.890, Z87.19 - Physical Exam Vital Signs Temp Pulse Resp BP Pulse Ox 97.9 F 70 18 181/108 H 98 03/24/19 18:36 03/24/19 18:36 03/24/19 18:36 03/24/19 18:36 03/24/19 18:30 Oxygen Flow Rate (L/min) 2 Oxygen Delivery Method Nasal Cannula Weight: 178 lb 14.4 oz Body Mass Index (BMI) 31.6 Finger Stick Blood Glucose 109 Laboratory Tests Past 24 Hrs 03/24/19 03/24/19 03/24/19 14:15 16:40 16:40 WBC 6.5 RBC 4.11 L Hgb 12.5 Hct 37.7 MCV 91.7 MCH 30.4 MCHC 33.2 RDW Std Deviation 42.5 RDW Coeff of Elmer 12.7 Plt Count 195 MPV 10.8 Immature Gran % (Auto) 0.500 Neut % (Auto) 55.4 Lymph % (Auto) 34.5 Grant % (Auto) 8.0 Eos % (Auto) 0.8 Baso % (Auto) 0.8 Absolute Neuts (auto) 3.6 Absolute Lymphs (auto) 2.24 Nucleated RBC % 0 ESR PT 13.6 INR 1.1 APTT 26.5 Sodium Cancelled Potassium Cancelled Chloride Cancelled Carbon Dioxide Cancelled Anion Gap Cancelled BUN Cancelled Creatinine Cancelled Estim Creat Clear Calc Cancelled Est GFR (MDRD) Af Amer Cancelled Est GFR (MDRD) Non-Af Cancelled BUN/Creatinine Ratio Cancelled Glucose Cancelled Calcium Cancelled Troponin I Cancelled 03/24/19 03/24/19 16:40 16:40 WBC RBC Hgb Hct MCV MCH MCHC RDW Std Deviation RDW Coeff of Elmer Plt Count MPV Immature Gran % (Auto) Neut % (Auto) Lymph % (Auto) Grant % (Auto) Eos % (Auto) Baso % (Auto) Absolute Neuts (auto) Absolute Lymphs (auto) Nucleated RBC % ESR 3 PT INR APTT Sodium 142 Potassium 3.6 Chloride 109 H Carbon Dioxide 27.0 Anion Gap 6 BUN 13 Creatinine 1.00 Estim Creat Clear Calc 39.59 Est GFR (MDRD) Af Amer 69 Est GFR (MDRD) Non-Af 57 L BUN/Creatinine Ratio 13.0 Glucose 87 Calcium 8.8 Troponin I 0.027 Assessment/Plan Hospitalist note: I am seeing this patient in conjunction with Kulwant Shannon. I independently seen and examined the patient. History and physical, laboratory data and imaging studies reviewed and I concur with the above admission and work-up plan. Patient presented to the emergency department because of confusion and generalized weakness. The patient herself was aware until this morning after she woke up from sleep. She mentioned that she did not feel right since yesterday, slept from 11:30 PM last night until 11 AM this morning. After she woke up, she mentioned that she did not know where she is at, was confused and she fell when she was going to the bathroom. The patient's daughter mentioned that the patient was confused, generally weak both upper and lower extremities and she was talking very slowly. Reportedly, patient has been having difficulty standing and maintaining her balance. Upon arrival to ED, patient was confused and stroke alert was called. Patient was not following commands initially and was not responding appropriately. When I saw the patient, patient was alert and oriented x2, was disoriented to time. She complains of urinary urgency and frequency. She denies any chest pain but reported mild shortness of breath. She denies abdominal pain, nausea or vomiting. In the emergency department, her blood pressure was high elevated, other vital signs were stable. Her routine blood work was unremarkable. EKG revealed normal sinus rhythm, no acute ischemic changes or cardiac arrhythmias. Troponin was negative. Chest x-ray showed no acute findings. CT scan brain showed no acute infarct or hemorrhage. She is being admitted for hypertensive urgency with transient encephalopathy and plan is to rule out acute stroke. - Physical Exam General: Alert, Oriented x2, Cooperative, No apparent distress. HEENT: Atraumatic, PERRLA, EOMI. Neck: Supple, No JVD, Negative Carotid Bruits, Trachea Midline, Thyroid Normal. Lungs: Clear to auscultation, Normal air movement, diminished, no rhonchi, No wheeze, No rales. Cardiovascular: Regular rate, Regular Rhythm, Normal S1, Normal S2, PMI Normal. Abdomen: Bowel Sounds Present, Soft, Non Tender, Non-Distended, No Hepato- splenomegaly. Extremities: No clubbing, No cyanosis, No edema Skin: No rashes, No breakdown Neurological: Cranial nerves are intact, normal power and tone of all limbs. Assessment and plan: #1 acute encephalopathy: Likely because of an elevated blood pressure, metabolic. CT scan brain showed no acute findings. Patient had a recent history of small acute right cerebellar stroke back on Nov, 2018. Full stroke work-up done at that time and reviewed. EKG was unremarkable. She has no focal deficit on physical exam. Stroke team was called and patient was not a candidate for TPA. At this time, her mental status improved, she is alert and oriented x2. Blood pressure still elevated. Plan: Admit to PCU for observation, monitoring, NIH stroke scale, MRI brain, neurology consult, treat high blood pressure, IV fluids, urinalysis, urine culture, PT OT evaluation and treatment. #2 hypertensive urgency: Blood pressure was more than 20 systolic and more than 100 diastolic. She received IV hydralazine and clonidine in the ED. Blood pressure started to improve. Is unclear if the patient is taking any blood pressure meds at this time. We will need to clarify with the patient's pharmacy and PCP. Plan: Start IV hydralazine PRN, resume home medications if patient takes any antihypertensive medications, if not we will need to start oral antihypertensives. #3 other chronic medical problems: Stable, continue current medication as above. This note was generated with [employer] dictation software. It may contain incorrect words, spelling, and punctuation that were not noted in checking the note before signing. Code Visit OBSV E&M: [id number] Initial observation care L3
[2019-03-24] MEDS: Morphine 4 MG/ML Syringe IV (18:20)
[2019-03-24] MEDS: Metoclopramide 10 MG/2 ML Vial 5 MG IV (18:21)
--- NOTE | 2019-03-24 19:08 | MRI_ITS ---
STUDY: MRI BRAIN WITHOUT CONTRAST REASON FOR EXAM: Female, 78 years old. Confusion and headaches x2 weeks TECHNIQUE: Standardized multiplanar fat and water weighted pulse sequences were obtained. COMPARISON: CT brain March 24, 2019 and MR brain November 30, 2018 FINDINGS: There is mild cerebral atrophy with widening of the extra-axial spaces and ventricular dilatation. There are a limited number of small white matter hyperintensities, distributed throughout the deep white matter tracts of the cerebral hemispheres, consistent with mild chronic white matter ischemic changes. There is no evidence for recent intracranial ischemia or other cause of cytotoxic edema on diffusion weighted imaging (DWI). Normal bilateral basal ganglia. Normal thalami. There is no extra-axial fluid accumulation. Normal flow voids within the major intracranial circulation suggesting patency by spin echo criteria. Normal sella turcica, pituitary gland, infundibular stalk, optic chiasm and hypothalamus. Normal tectal plate and pineal gland. Normal midbrain, adán and medulla. Normal cerebellum. Normal basal cisterns. Normal bilateral temporal bones. Normal bilateral internal auditory canals. No demonstrated orbital abnormality, within the constraints of a routine brain study. Normal visualized paranasal sinuses. Normal calvarium and skull base. Normal visualized soft tissue structures. Normal visualized upper cervical spine. MRI/Brain without Contrast IMPRESSION: Involutional changes of the brain, as described above. Electronically Signed: Jordin Khoury MD at 21:17 EDT , Service support ,
--- NOTE | 2019-03-24 21:11 | NURSING ---
Pt has IV fluids ordered. She has a PICC line that was inserted in ED. There is no documentation stating that PICC line is okay to use. This RN called ED and spoke with Jonelle. She states she will ask around about verification that PICC line is okay to use.
[2019-03-24] MEDS: 0.9% Normal Saline 1,000 ML 75 ML IV (21:23)
[2019-03-24] MEDS: Nystatin Powder 15gm Bottle 1 APPLIC TOPICAL (23:08)
[2019-03-24] MEDS: Ketorolac 15 MG/ML Vial IV (23:10)
[2019-03-24 23:56] LABS: Bacteria 0 SEEN /hpf (None Seen); Mucous, Urine 0 SEEN /hpf (<or=2+); Red Blood Cells-Urine 0 SEEN /hpf (0-5); Squamous Epithelial Cells - UA 0 SEEN /hpf (5-10); White Blood Cells 0 SEEN /hpf (0-5)
[2019-03-25] VITALS (8 sets, daily range): BP systolic 138–168; BP diastolic 68–103; PULSE 57–93; RESP 15–19; TEMP 36.6–37; O2SAT 94
[2019-03-25 00:37] LABS: Color, Urine Yellow (Yellow); Glucose, Dipstick Normal (Normal); Ketone-Dipstick Negative (Negative); Leukocyte Esterase-Dipstick Negative /ul (Negative); Nitrite-Dipstick Negative (Negative); Occult Blood-Urine Negative /ul (Negative); Protein-Dipstick Negative (Negative); Urine Bilirubin Dipstick Negative (Negative); Urine Clarity Clear (Clear); Urine Urobilinogen Normal (Normal)
--- NOTE | 2019-03-25 01:34 | NURSING ---
Pt reports blurred vision and numbness to bilateral feet. Neither of these are new for patient.
[2019-03-25] MEDS: Nystatin Powder 15gm Bottle 1 APPLIC TOPICAL (05:23)
--- NOTE | 2019-03-25 06:11 | EKG12_ITS ---
Test Reason : ARRYTH Blood Pressure : / mmHG Vent. Rate : 062 BPM Atrial Rate : 062 BPM P-R Int : 168 ms QRS Dur : 078 ms QT Int : 426 ms P-R-T Axes : 044 020 -05 degrees QTc Int : 432 ms Normal sinus rhythm Nonspecific T wave abnormality Abnormal ECG Confirmed by GUILLE ARROYO, DARÍO ([id number]), video tape editor ADELINE BAE ([id number]) on 04/01/2019 12:04:10 PM Referred By: MARIAMA Confirmed By:DARÍO HAN MD
--- NOTE | 2019-03-25 07:29 | NURSING ---
Hematoma to PICC insertion area seems to have increased in size overnight. The hematoma was marked with skin marker this morning so that change can be seen if the hematoma increases in size.
[2019-03-25 10:06] LABS: Bedside Glucose 109 mg/dL (70-110)
[2019-03-25] MEDS: DULoxetine Hcl 30 MG Capsule PO (10:13)
[2019-03-25] MEDS: Famotidine 20 MG Tablet PO (10:13)
[2019-03-25] MEDS: amLODIPine 10 MG Tablet PO (10:13)
[2019-03-25] MEDS: Magnesium Oxide 400 MG Tablet PO (10:13)
[2019-03-25] MEDS: Enoxaparin 40 MG/0.4 ML Syringe SC (10:14)
[2019-03-25] MEDS: DULoxetine Hcl 60 MG Capsule PO (10:14)
[2019-03-25] MEDS: predniSONE 5 MG Tablet PO (10:14)
[2019-03-25] MEDS: hydrALAZINE 20 MG/ML Vial 10 MG IV (10:21)
--- NOTE | 2019-03-25 10:30 | PCM.CONS.GEN ---
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 History is obtained from the patient, and medical records documentation. Per documentation patient started having confusion 2 days ago 03/23/2019, was confused when she woke up yesterday 03/24/2019, per documentation patient did not recognize her granddaughter, was saying words did not make any sense, had generalized weakness and was later brought to the ED for further evaluation. In the ED per documentation stroke alert was called, but ED and [facility] tele-stroke decided that this was less likely to be acute stroke and that she was not a TPA candidate, and it felt like it was more likely to be encephalopathy, admission patient's systolic blood pressure was high greater than 200 systolic. She did present is alert awake and alert is oriented to time place and person, denies any dizziness, focal motor weakness, visual disturbances, speech disturbances, or sensory loss. She does complain of mild dull headache. Denies any vision loss, temporal tenderness or jaw claudication. Per patient she lives with her , uses cane or walker to ambulate, denies any frequent falls, does not drive and may need some assistance for her ADLs. Per patient she does not take aspirin at baseline. MRI brain done on admission did not show any acute stroke. MRA head/neck done in November 2018 was reported to show any hemodynamically significant stenosis or occlusion. [] Past Medical History Past Medical History (Chronic Problems): Chronic Problems (Last Reviewed 03/25/19 @ 09:53 by Aly Jose DO) History of CVA (cerebrovascular accident) (Chronic) CKD (chronic kidney disease), stage III (Chronic) CAD (coronary artery disease) (Chronic) Elevated troponin (Chronic) Raynauds disease (Chronic) Hyperlipidemia (Chronic) Benign essential hypertension (Chronic) GERD (gastroesophageal reflux disease) (Chronic) History of pulmonary embolism (Chronic) Restless legs (Chronic) Rheumatoid arthritis (Chronic) Sjogren's syndrome (Chronic) Fibromyalgia (Chronic) S/P IVC filter (Chronic) Systemic lupus erythematosus (Chronic) History of TIAs (Chronic) Medical History: Medical History (Last Reviewed 03/25/19 @ 09:53 by Aly Jose DO) Raynauds disease (Chronic) I73.00 Hyperlipidemia (Chronic) E78.5 Benign essential hypertension (Chronic) I10 GERD (gastroesophageal reflux disease) (Chronic) K21.9 History of pulmonary embolism (Chronic) Z86.711 Restless legs (Chronic) Rheumatoid arthritis (Chronic) M06.9 Sjogren's syndrome (Chronic) M35.00 Fibromyalgia (Chronic) Systemic lupus erythematosus (Chronic) M32.9 History of TIAs (Chronic) Alzheimer's dementia G30.9 History of echocardiogram Onset Date: ~04/2017 Z92.89 EF 65% Ileostomy in place Z93.2 Dementia F03.90 History of deep vein thrombosis Z86.718 History of hysterectomy Z98.890, Z90.710 Raynaud's phenomenon (Inactive) Allergies ampicillin Allergy (Verified 11/29/18 16:45) Rash buprenorphine HCl [From Buprenex] Allergy (Verified 11/29/18 16:45) Other codeine Allergy (Verified 11/29/18 16:45) Anaphylaxis gold Au 198 Allergy (Verified 11/29/18 16:45) Rash guaifenesin Allergy (Verified 11/29/18 20:14) Rash promethazine HCl [From Phenergan] Allergy (Verified 11/29/18 16:45) Shortness of breath Sulfa (Sulfonamide Antibiotics) Allergy (Verified 11/29/18 16:45) Rash sulindac [From Clinoril] Allergy (Verified 11/29/18 16:45) Rash tetracycline [Tetracycline] Allergy (Verified 11/29/18 16:45) Rash thiopental Allergy (Verified 11/29/18 16:45) Rash trimethoprim [From Proloprim] Allergy (Verified 11/29/18 16:45) Rash oxycodone HCl [From OxyContin] Adverse Reaction (Verified 11/29/18 16:45) Other NALDECON Allergy (Uncoded 11/29/18 16:45) Rash SULPHATED OIL Allergy (Uncoded 11/29/18 16:45) Other TAPE Allergy (Uncoded 11/29/18 16:45) Rash Home Medications: Ambulatory Orders Medication Instructions Recorded Prednisone 5 mg PO DAILY 11/29/18 Cholecalciferol (Vitamin D3) 2,000 unit PO DAILY 03/24/19 [Vitamin D3] Gabapentin [Neurontin] 300 mg PO QHS 03/24/19 Acetaminophen [Tylenol Tablet] 650 mg PO Q6H PRN PRN tab 03/25/19 Amlodipine [Norvasc] 5 mg PO DAILY #30 tab 03/25/19 Aspirin [Aspirin, Baby] 81 mg PO DAILY@0800 #30 tab.chew 03/25/19 Donepezil HCl [Aricept] 5 mg PO QHS #30 tab 03/25/19 Duloxetine Hcl [Cymbalta] 120 mg PO DAILY #60 capsule. 03/25/19 Losartan Potassium [Cozaar] 50 mg PO DAILY #30 tab 03/25/19 Omeprazole 40 mg PO DAILY #30 capsule. 03/25/19 Surgical History: Surgical History (Last Reviewed 12/01/18 @ 12:26 by Andrews Louis MD) S/P IVC filter (Chronic) Z95.828 History of Krish fundoplication Z98.890 History of appendectomy Z98.890, Z90.49 History of cardiac catheterization Onset Date: ~04/2017 Z98.890 Mild CAD History of cholecystectomy Z98.890, Z90.49 History of herniorrhaphy Z98.890, Z87.19 Surgical History: appendectomy, cholecystectomy, herniorrhaphy, hysterectomy, - - Ileostomy bag in place Psychiatric History: No pertinent psych hx [employer]ENDANT History: No pertinent [employer] ATTENDANT history Lives: Spouse/ Significant Other Smoking Status: Never smoker Alcohol: None Drugs: None - *Family History Maternal History Items: Diabetes, Hypertension Paternal History Items: Hypertension, No pertinent history Review of Systems Constitutional: Reports: - - Complete ROS negative except as documented in HPI Patient Problems: Active and Suspected Problems (Last Reviewed 03/25/19 @ 09:53 by Aly Jose DO) Acute metabolic encephalopathy (Acute) Confusion (Acute) Encephalopathy acute (Acute) - Physical Exam General: Alert HEENT: Normocephalic Neck: Supple Lungs: Normal air movement Cardiovascular: Normal S1, Normal S2 Abdomen: Bowel Sounds Present Extremities: No cyanosis Neurological: - - Conscious, awake, CN II through XII grossly intact, power 5 x 5 both upper and lower extremities, no sensory loss, no cerebellar signs, reflexes + B/L B/S/T/K/A, gait deferred Psych/Mental Status: Normal Affect Vital Signs Temp Pulse Resp BP Pulse Ox 98.2 F 76 17 168/103 H 94 03/25/19 10:08 03/25/19 10:21 03/25/19 10:08 03/25/19 10:21 03/25/19 10:08 Oxygen Flow Rate (L/min) 2 Oxygen Delivery Method Room Air Weight: 81.148 kg Body Mass Index (BMI) 31.6 Finger Stick Blood Glucose 109 Intake and Output for Last 24 Hours 03/23/19 03/24/19 03/25/19 23:59 23:59 23:59 Intake Total 0 / 0 0 / 0 Output Total 0 / 0 Balance 0 / 0 0 / 0 Laboratory Tests Past 24 Hrs 03/24/19 03/24/19 03/24/19 14:15 16:40 16:40 WBC 6.5 RBC 4.11 L Hgb 12.5 Hct 37.7 MCV 91.7 MCH 30.4 MCHC 33.2 RDW Std Deviation 42.5 RDW Coeff of Elmer 12.7 Plt Count 195 MPV 10.8 Immature Gran % (Auto) 0.500 Neut % (Auto) 55.4 Lymph % (Auto) 34.5 [place] % (Auto) 8.0 Eos % (Auto) 0.8 Baso % (Auto) 0.8 Absolute Neuts (auto) 3.6 Absolute Lymphs (auto) 2.24 Nucleated RBC % 0 ESR PT 13.6 INR 1.1 APTT 26.5 Sodium Cancelled Potassium Cancelled Chloride Cancelled Carbon Dioxide Cancelled Anion Gap Cancelled BUN Cancelled Creatinine Cancelled Estim Creat Clear Calc Cancelled Est GFR (MDRD) Af Amer Cancelled Est GFR (MDRD) Non-Af Cancelled BUN/Creatinine Ratio Cancelled Glucose Cancelled Calcium Cancelled Troponin I Cancelled Urine Color Urine Clarity Urine pH Ur Specific [place] Urine Protein Urine Glucose (UA) Urine Ketones Urine Occult Blood Urine Nitrite Urine Bilirubin Urine Urobilinogen Ur Leukocyte Esterase Urine RBC Urine WBC Ur Squamous Epith Cells Urine Bacteria Urine Mucus 03/24/19 03/24/19 03/24/19 16:40 16:40 23:35 WBC RBC Hgb Hct MCV MCH MCHC RDW Std Deviation RDW Coeff of Elmer Plt Count MPV Immature Gran % (Auto) Neut % (Auto) Lymph % (Auto) [place] % (Auto) Eos % (Auto) Baso % (Auto) Absolute Neuts (auto) Absolute Lymphs (auto) Nucleated RBC % ESR 3 PT INR APTT Sodium 142 Potassium 3.6 Chloride 109 H Carbon Dioxide 27.0 Anion Gap 6 BUN 13 Creatinine 1.00 Estim Creat Clear Calc 39.59 Est GFR (MDRD) Af Amer 69 Est GFR (MDRD) Non-Af 57 L BUN/Creatinine Ratio 13.0 Glucose 87 Calcium 8.8 Troponin I 0.027 Urine Color Yellow Urine Clarity Clear Urine pH 7.0 Ur Specific [place] 1.010 Urine Protein Negative Urine Glucose (UA) Normal Urine Ketones Negative Urine Occult Blood Negative Urine Nitrite Negative Urine Bilirubin Negative Urine Urobilinogen Normal Ur Leukocyte Esterase Negative Urine RBC 0 SEEN Urine WBC 0 SEEN Ur Squamous Epith Cells 0 SEEN Urine Bacteria 0 SEEN Urine Mucus 0 SEEN POC Glucose 03/24/19 12:29 POC Glucose 109 Assessment/Plan All Active Problems (Last Reviewed 03/25/19 @ 09:53 by Aly Jose DO) Acute metabolic encephalopathy (Acute) Confusion (Acute) Encephalopathy acute (Acute) Acute right cerebellar stroke (Acute) The patient is a 78 year old F with PMH HTN, HLD, 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 History is obtained from the patient, and medical records documentation. Per documentation patient started having confusion 2 days ago 03/23/2019, was confused when she woke up yesterday 03/24/2019, per documentation patient did not recognize her granddaughter, was saying words did not make any sense, had generalized weakness and was later brought to the ED for further evaluation. In the ED per documentation stroke alert was called, but ED and [facility] tele-stroke decided that this was less likely to be acute stroke and that she was not a TPA candidate, and it felt like it was more likely to be encephalopathy, admission patient's systolic blood pressure was high greater than 200 systolic. She did present is alert awake and alert is oriented to time place and person, denies any dizziness, focal motor weakness, visual disturbances, speech disturbances, or sensory loss. She does complain of mild dull headache. Denies any vision loss, temporal tenderness or jaw claudication. Per patient she lives with her , uses cane or walker to ambulate, denies any frequent falls, does not drive and may need some assistance for her ADLs. Per patient she does not take aspirin at baseline. MRI brain done on admission did not show any acute stroke. MRA head/neck done in November 2018 was reported to show any hemodynamically significant stenosis or occlusion. Impression Hypertensive urgency Hypertensive encephalopathy History of right cerebellar stroke in November 2018 Plan ?MRI brain no acute stroke ?Aspirin and statin as patient had a small cerebellar stroke in November 2018, MRA head neck at that time did not show any hemodynamically segment stenosis or occlusion. At present patient has no focal neurological deficits. ?Better blood pressure control, goal blood pressure less than 130/80 mmHg. Defer to the hospitalist for further management ?Patient counseled to be compliant with aspirin and statin medication at home ?TTE done in November 2018 reported to show EF 60%, LA mildly enlarged. ?Stroke risk factors discussed and stroke education provided ?Labs reviewed, UA negative ?PT/OT/ST ?Fall precautions ?GI/DVT prophylaxis ?Further dementia work-up as outpatient ?Further medical management per hospitalist team ?Please call with questions if any ?Follow-up with neurology as outpatient in 4 to 6 weeks ?Thank you for allowing us to participate in patient's care and management This note has been generated using Sharet[employer] dictation software. It may contain incorrect words, spellings and punctuation is that were not noted in the review of the note prior to signing. Code Visit Inpatient E&M: 87394 Init Hosp L3
--- NOTE | 2019-03-25 11:17 | PCM.DC ---
- Discharge Diagnoses Current Active Problems: Current Active and Chronic Problems (Last Reviewed 03/25/19 @ 09:53 by Aly Jose DO) Acute metabolic encephalopathy (Acute) History of CVA (cerebrovascular accident) (Chronic) CKD (chronic kidney disease), stage III (Chronic) Confusion (Acute) Encephalopathy acute (Acute) You will use the following diet at home:: Cardiac Your food should be the consistency of: Regular Your liquids should be the consistency of: Regular/Thin Discharge Activity: May Not Drive Allergies/Adverse Reactions: Allergies ampicillin Allergy (Verified 11/29/18 16:45) Rash buprenorphine HCl [From Buprenex] Allergy (Verified 11/29/18 16:45) Other codeine Allergy (Verified 11/29/18 16:45) Anaphylaxis gold Au 198 Allergy (Verified 11/29/18 16:45) Rash guaifenesin Allergy (Verified 11/29/18 20:14) Rash promethazine HCl [From Phenergan] Allergy (Verified 11/29/18 16:45) Shortness of breath Sulfa (Sulfonamide Antibiotics) Allergy (Verified 11/29/18 16:45) Rash sulindac [From Clinoril] Allergy (Verified 11/29/18 16:45) Rash tetracycline [Tetracycline] Allergy (Verified 11/29/18 16:45) Rash thiopental Allergy (Verified 11/29/18 16:45) Rash trimethoprim [From Proloprim] Allergy (Verified 11/29/18 16:45) Rash oxycodone HCl [From OxyContin] Adverse Reaction (Verified 11/29/18 16:45) Other NALDECON Allergy (Uncoded 11/29/18 16:45) Rash SULPHATED OIL Allergy (Uncoded 11/29/18 16:45) Other TAPE Allergy (Uncoded 11/29/18 16:45) Rash Medications to take at Discharge Prednisone 5 mg PO DAILY 11/29/18 Cholecalciferol (Vitamin D3) [Vitamin D3] 2,000 unit PO DAILY 03/24/19 Gabapentin [Neurontin] 300 mg PO QHS 03/24/19 Acetaminophen [Tylenol Tablet] 650 mg PO Q6H PRN PRN tablet 03/25/19 Amlodipine [Norvasc] 5 mg PO DAILY #30 tab 03/25/19 Aspirin [Aspirin, Baby] 81 mg PO DAILY@0800 #30 tab.chew 03/25/19 Donepezil HCl [Aricept] 5 mg PO QHS #30 tab 03/25/19 Duloxetine Hcl [Cymbalta] 120 mg PO DAILY #60 capsule. 03/25/19 Losartan Potassium [Cozaar] 50 mg PO DAILY #30 tab 03/25/19 Omeprazole 40 mg PO DAILY #30 capsule. 03/25/19 The following prescriptions were given: Donepezil HCl [Aricept] 5 mg PO QHS #30 tab Transmission Status: Pending to [place] [address] Aspirin [Aspirin, Baby] 81 mg PO DAILY@0800 #30 tab.chew Transmission Status: Pending to [place] [address] Losartan Potassium [Cozaar] 50 mg PO DAILY #30 tab Transmission Status: Pending to [place] [address] Duloxetine Hcl [Cymbalta] 120 mg PO DAILY #60 capsule. Transmission Status: Pending to [place] [address] Amlodipine [Norvasc] 5 mg PO DAILY #30 tab Transmission Status: Pending to [place] [address] Omeprazole 40 mg PO DAILY #30 capsule. Transmission Status: Pending to [place] [address] Primary Care Physician: Zayda Peace PA [Primary Care Provider] - Please follow up with your Primary Care Physician in: 1-2 weeks Test Results: Test results from this visit will be discussed in further detail at your follow-up appointment, if applicable. Proposed Discharge Date: 03/25/19
[2019-03-25] MEDS: Acetaminophen 325 MG Tablet 650 MG PO (11:56)
[2019-03-25] MEDS: Sucralfate 1 GM Tablet PO (11:58)
[2019-03-25] MEDS: Losartan Potassium 50 MG Tablet PO (12:39)
[2019-03-25] MEDS: Ondansetron 4 MG/2 ML Vial IV (12:42)
--- NOTE | 2019-03-25 13:26 | CASEMGMT ---
PT/OT/ST are recommending [facility] for pt at this time. This RN CM to room to speak with pt and pt is agreeable to [facility] at this time. In-network list of [facility] agencies provided to pt at this time and pt would like [facility] at this time. Call to Linda at [facility] and she states they can take pt at this time for intermediate, PT/OT, ST. Order placed in [facility] at this time. Pt updated at this time, voices understanding. SStaten RN CM
--- NOTE | 2019-03-25 14:07 | DS.PCM_ITS ---
Discharge Date and Diagnosis - Problem List Patient Problems: Active and Suspected Problems (Last Reviewed 03/25/19 @ 09:53 by Aly Jose DO) Acute metabolic encephalopathy (Acute) Confusion (Acute) Encephalopathy acute (Acute) Date of Admission: 03/24/19 Date of Discharge: 03/25/19 - Primary Discharge Diagnosis Active and Suspected Problems (Last Reviewed 03/25/19 @ 09:53 by Aly Jose DO) Acute metabolic encephalopathy 2/2 hypertensive urgency Dementia Prior stroke and TIAs Hx DVT/PE SLE HLD - Secondary Discharge Diagnosis Chronic Problems (Last Reviewed 03/25/19 @ 09:53 by Aly Jose DO) History of CVA (cerebrovascular accident) (Chronic) CKD (chronic kidney disease), stage III (Chronic) CAD (coronary artery disease) (Chronic) Elevated troponin (Chronic) Raynauds disease (Chronic) Hyperlipidemia (Chronic) Benign essential hypertension (Chronic) GERD (gastroesophageal reflux disease) (Chronic) History of pulmonary embolism (Chronic) Restless legs (Chronic) Rheumatoid arthritis (Chronic) Sjogren's syndrome (Chronic) Fibromyalgia (Chronic) S/P IVC filter (Chronic) Systemic lupus erythematosus (Chronic) History of TIAs (Chronic) Hospital Course and Treatment Imaging Results: CT/Brain/Head without Contrast IMPRESSION: Chronic involutional changes of the brain. N.B. : The above information has been verbally conveyed by Guero Pelaez to Chaz Madera on 03/24/2019 12:48:46 (ET). RAD/Chest 1 View IMPRESSION: No acute abnormality is seen. MRI/Brain without Contrast IMPRESSION: Involutional changes of the brain, as described above. Consults: Edwin - Neuro Operations: None Procedures: None Summary of Care Provided: Hospital Course: The patient is a 78 year old F with pmhx of stroke this past November, with hx of DVT/PE, dementia, HTN, HLD, SLE, who presented to the ER with c/o confusion and falling at home. She started being confused the day prior, not recognizing her own home. The next morning she was unable to stand without falling, did not know her own name, and was not making sense to her grand daughter, making comments such as thinking that she needed to go to work (has not worked in years). She came to the ER and was found to have severe HTN 229/120. Stroke alert was called, CT brain was negative, and she was not felt to have acute stroke and that this was encephalopathy. She was treated with IV hydralazine for blood p ressure and admitted to the PCU on tele. She was started on norvasc which greatly improved her BP. She had an MRI of the brain that was negative. Neuro was consulted and felt that this was likely encephalopathy 2/2 severe HTN. Her symptoms were resolved the following morning. Her blood pressure medications were adjusted - diovan 50 mg daily and norvasc 5 mg daily started. She later admitted to frequent confused episodes at home, increasing lately. She does not know where she is, what her name is, who her family is, etc. She admits to being told in the past she has been diagnosed with dementia. She was started on baby aspirin daily, aricept, atorvastatin, omeprazole, and cymbalta was increased, in addition to the blood pressure medications. She was discharged home in stable condition and will need follow up with her PCP in 1-2 weeks. This patient was seen by Kulwant Shannon PA-C under the supervision of Dr. Jose. [] Patient Problems: Active and Suspected Problems (Last Reviewed 03/25/19 @ 09:53 by Aly Jose DO) Acute metabolic encephalopathy (Acute) Confusion (Acute) Encephalopathy acute (Acute) - Physical Exam General: Alert, Oriented x3, Cooperative HEENT: Atraumatic, PERRLA, EOMI, Normocephalic Neck: Supple, No JVD, Negative Carotid Bruits Lungs: Clear to auscultation, Normal air movement Cardiovascular: Regular rate, No murmurs Abdomen: Bowel Sounds Present, Soft, Non Tender Extremities: No edema, Capillary Refill Less than 3 Seconds Skin: No rashes, No breakdown Musculoskeletal: No Tenderness to Palpation of Joints or Extremities Neurological: Cranial nerves II-XII grossly intact Psych/Mental Status: Normal Affect, Appropriate, Alert and oriented to time, place, person, mood and affect Vital Signs Temp Pulse Resp BP Pulse Ox 98 F 85 15 166/96 H 94 03/25/19 11:59 03/25/19 11:59 03/25/19 11:59 03/25/19 11:59 03/25/19 11:59 Oxygen Flow Rate (L/min) 2 Oxygen Delivery Method Room Air Weight: 178 lb 14.4 oz Body Mass Index (BMI) 31.6 Finger Stick Blood Glucose 109 Intake and Output for Last 24 Hours 03/23/19 03/24/19 03/25/19 23:59 23:59 23:59 Intake Total 0 / 0 1480 / 1480 Output Total 0 / 0 Balance 0 / 0 1480 / 1480 Laboratory Tests Past 24 Hrs 03/24/19 03/24/19 03/24/19 14:15 16:40 16:40 WBC 6.5 RBC 4.11 L Hgb 12.5 Hct 37.7 MCV 91.7 MCH 30.4 MCHC 33.2 RDW Std Deviation 42.5 RDW Coeff of Elmer 12.7 Plt Count 195 MPV 10.8 Immature Gran % (Auto) 0.500 Neut % (Auto) 55.4 Lymph % (Auto) 34.5 [place] % (Auto) 8.0 Eos % (Auto) 0.8 Baso % (Auto) 0.8 Absolute Neuts (auto) 3.6 Absolute Lymphs (auto) 2.24 Nucleated RBC % 0 ESR PT 13.6 INR 1.1 APTT 26.5 Sodium Cancelled Potassium Cancelled Chloride Cancelled Carbon Dioxide Cancelled Anion Gap Cancelled BUN Cancelled Creatinine Cancelled Estim Creat Clear Calc Cancelled Est GFR (MDRD) Af Amer Cancelled Est GFR (MDRD) Non-Af Cancelled BUN/Creatinine Ratio Cancelled Glucose Cancelled Calcium Cancelled Troponin I Cancelled Urine Color Urine Clarity Urine pH Ur Specific [place] Urine Protein Urine Glucose (UA) Urine Ketones Urine Occult Blood Urine Nitrite Urine Bilirubin Urine Urobilinogen Ur Leukocyte Esterase Urine RBC Urine WBC Ur Squamous Epith Cells Urine Bacteria Urine Mucus 03/24/19 03/24/19 03/24/19 16:40 16:40 23:35 WBC RBC Hgb Hct MCV MCH MCHC RDW Std Deviation RDW Coeff of Elmer Plt Count MPV Immature Gran % (Auto) Neut % (Auto) Lymph % (Auto) [place] % (Auto) Eos % (Auto) Baso % (Auto) Absolute Neuts (auto) Absolute Lymphs (auto) Nucleated RBC % ESR 3 PT INR APTT Sodium 142 Potassium 3.6 Chloride 109 H Carbon Dioxide 27.0 Anion Gap 6 BUN 13 Creatinine 1.00 Estim Creat Clear Calc 39.59 Est GFR (MDRD) Af Amer 69 Est GFR (MDRD) Non-Af 57 L BUN/Creatinine Ratio 13.0 Glucose 87 Calcium 8.8 Troponin I 0.027 Urine Color Yellow Urine Clarity Clear Urine pH 7.0 Ur Specific [place] 1.010 Urine Protein Negative Urine Glucose (UA) Normal Urine Ketones Negative Urine Occult Blood Negative Urine Nitrite Negative Urine Bilirubin Negative Urine Urobilinogen Normal Ur Leukocyte Esterase Negative Urine RBC 0 SEEN Urine WBC 0 SEEN Ur Squamous Epith Cells 0 SEEN Urine Bacteria 0 SEEN Urine Mucus 0 SEEN POC Glucose 03/24/19 12:29 POC Glucose 109 Discharge Diet: Low fat/ Low Cholesterol, 2000 mg Sodium Diet Discharge Activity: May Not Drive Home Medications: Medications to take at Discharge Prednisone 5 mg PO DAILY 11/29/18 Cholecalciferol (Vitamin D3) [Vitamin D3] 2,000 unit PO DAILY 03/24/19 Gabapentin [Neurontin] 300 mg PO QHS 03/24/19 Acetaminophen [Tylenol Tablet] 650 mg PO Q6H PRN PRN tab 03/25/19 Amlodipine [Norvasc] 5 mg PO DAILY #30 tab 03/25/19 Aspirin [Aspirin, Baby] 81 mg PO DAILY@0800 #30 tab.chew 03/25/19 Donepezil HCl [Aricept] 5 mg PO QHS #30 tab 03/25/19 Duloxetine Hcl [Cymbalta] 120 mg PO DAILY #60 capsule. 03/25/19 Losartan Potassium [Cozaar] 50 mg PO DAILY #30 tab 03/25/19 Omeprazole 40 mg PO DAILY #30 capsule. 03/25/19 Following Prescrptions Were Given to Patient: Donepezil HCl [Aricept] 5 mg PO QHS #30 tab Transmission Status: Received by [facility] [facility] - [id number] Aspirin [Aspirin, Baby] 81 mg PO DAILY@0800 #30 tab.chew Transmission Status: Received by [facility] [facility] - [id number] Losartan Potassium [Cozaar] 50 mg PO DAILY #30 tab Transmission Status: Received by [facility] [facility] [id number] Duloxetine Hcl [Cymbalta] 120 mg PO DAILY #60 capsule. Transmission Status: Received by [place] [id number] Amlodipine [Norvasc] 5 mg PO DAILY #30 tab Transmission Status: Received by [id number] Omeprazole 40 mg PO DAILY #30 capsule.dr Transmission Status: Received by [facility] [id number] Primary Care Physician: Zayda Peace PA [Primary Care Provider] - Please follow up with your Primary Care Physician in: 1-2 weeks Disposition: Home Minutes spent on discharge:: 35 Patient Condition:: Stable Medical Necessity - Tobacco Use Smoking Status: Never smoker Meaningful Use Info Meaningful Use Diagnoses (Choose all that apply): None applicable
--- NOTE | 2019-03-25 14:41 | PHA.DC.MR ---
Pharmacy Service has performed discharge medication reconciliation for this patient. The patient's discharge medication list was reviewed for discrepancies and discrepancies were resolved. Home Medications Prednisone 5 mg PO DAILY 11/29/18 Cholecalciferol (Vitamin D3) [Vitamin D3] 2,000 unit PO DAILY 03/24/19 Gabapentin [Neurontin] 300 mg PO QHS 03/24/19 Acetaminophen [Tylenol Tablet] 650 mg PO Q6H PRN PRN tab 03/25/19 Amlodipine [Norvasc] 5 mg PO DAILY #30 tab 03/25/19 Aspirin [Aspirin, Baby] 81 mg PO DAILY@0800 #30 tab.chew 03/25/19 Atorvastatin Calcium [Lipitor] 40 mg PO QHS #30 tab 03/25/19 Donepezil HCl [Aricept] 5 mg PO QHS #30 tab 03/25/19 Duloxetine Hcl [Cymbalta] 120 mg PO DAILY #60 capsule. 03/25/19 Losartan Potassium [Cozaar] 50 mg PO DAILY #30 tab 03/25/19 Omeprazole 40 mg PO DAILY #30 capsule. 03/25/19 NOTE: Also contacted [facility] at the provider's request to notify them of medication changes. The patient has advanced/severe dementia per provider, and is unable to manage medications. Informed [facility] of updated medication list, and requested they utilize pill packs if possible. Additionally, faxed medication list to [facility] with medications patient no longer is takign so [facility] does not continue to fill those medications.
== END 2019-03-25 11:18 | disposition home health service (06) ==
LOC: ED 12:39 → PCU 18:16
PROVIDERS: Admitting Provider Hospitalist; Emergency Provider Emergency Medicine; Family Provider Physician Assistant; PCP Physician Assistant; Visit Provider Internal Medicine
DX: G93.41 Metabolic encephalopathy (principal); R29.716 NIHSS score 16; I73.00 Raynaud's syndrome without gangrene; E78.5 Hyperlipidemia, unspecified; I12.9 Hypertensive chronic kidney disease with stage 1 through stage 4 chronic kidney disease, or unspecified chronic kidney disease; N18.3 Chronic kidney disease, stage 3 (moderate); M79.7 Fibromyalgia; K21.9 Gastro-esophageal reflux disease without esophagitis; M32.9 Systemic lupus erythematosus, unspecified; M06.9 Rheumatoid arthritis, unspecified; I25.10 Atherosclerotic heart disease of native coronary artery without angina pectoris; G25.81 Restless legs syndrome; G30.9 Alzheimer's disease, unspecified; F02.80 Dementia in other diseases classified elsewhere, unspecified severity, without behavioral disturbance, psychotic disturbance, mood disturbance, and anxiety; R39.15 Urgency of urination; R35.0 Frequency of micturition; I16.0 Hypertensive urgency; M35.00 Sjogren syndrome, unspecified; R06.02 Shortness of breath; Z79.899 Other long term (current) drug therapy; Z86.711 Personal history of pulmonary embolism; Z86.718 Personal history of other venous thrombosis and embolism; Z79.52 Long term (current) use of systemic steroids; R47.89 Other speech disturbances
CPT/HCPCS: 36569; 36592; 70450; 70551; 71045; 80048; 81001; 82962; 84484; 85025; 85610; 85652; 85730; 87086; 87088; 92523; 92610; 93005; 96361; 96372; 96374; 96375; 96376; 97162; 97166; 99218; 99285; J7030; A4216; G0378; J2405

== ENCOUNTER 2019-04-08 17:29 | Emergency (ER) | payer MEDICARE, SELFPAY ==
[2019-03-24 18:50] VITALS: BMI 31.6
[2019-04-08 17:30] VITALS: BP 169/78; PULSE 80; RESP 16; TEMP 36.6; O2SAT 98; BMI 34.5
[2019-04-08 18:13] VITALS: BP 149/75; PULSE 81; RESP 14; O2SAT 98
[2019-04-08 18:16] VITALS: BP 145/79; PULSE 80; RESP 16; TEMP 36.7; O2SAT 98
--- NOTE | 2019-04-08 18:24 | ED.DCSUM_ITS ---
History of Present Illness Chief Complaint: Weakness Informant: Patient, Significant Other Onset: Today Context: Sudden Onset Timing: Continuous Quality: Generalized weakness Location: Generalized Current Severity: Mild Maximum Severity: Mild Worsened by: Activity causes fatigue Relieved by: Nothing Associated Symptoms: No constitutional symptoms, no respiratory symptoms and no urinary symptoms Narrative: Patient is an elderly woman who presents with generalized weakness. She was seen by mid-level Kobi today and diagnosed with urinary tract infection. She was prescribed nitrofurantoin. She denies fever, chills or night sweats. She denies flank pain. She does complain of central low back pain. She denies cough, shortness of breath or difficulty breathing. She denies nausea, vomiting or diarrhea. She does report bruising easily. She is on prednisone and aspirin. She states was recently admitted to the hospital. Prior similar symptoms: No Recent Illness/Hospitalization: Yes - Past Medical History (1) Acute right cerebellar stroke Status: Acute (2) CAD (coronary artery disease) Status: Chronic (3) CKD (chronic kidney disease), stage III Status: Chronic (4) Fibromyalgia Status: Chronic (5) GERD (gastroesophageal reflux disease) Status: Chronic (6) History of TIAs Status: Chronic (7) History of pulmonary embolism Status: Chronic (8) Hyperlipidemia Status: Chronic (9) Raynauds disease Status: Chronic (10) Rheumatoid arthritis Status: Chronic (11) S/P IVC filter Status: Chronic (12) Sjogren's syndrome Status: Chronic (13) Systemic lupus erythematosus Status: Chronic Past Medical History - Allergies and Home Meds Allergies/Adverse Reactions: Allergies ampicillin Allergy (Verified 04/08/19 17:33) Rash buprenorphine HCl [From Buprenex] Allergy (Verified 04/08/19 17:33) Other codeine Allergy (Verified 04/08/19 17:33) Anaphylaxis gold Au 198 Allergy (Verified 04/08/19 17:33) Rash guaifenesin Allergy (Verified 04/08/19 17:33) Rash promethazine HCl [From Phenergan] Allergy (Verified 04/08/19 17:33) Shortness of breath Sulfa (Sulfonamide Antibiotics) Allergy (Verified 04/08/19 17:33) Rash sulindac [From Clinoril] Allergy (Verified 04/08/19 17:33) Rash tetracycline [Tetracycline] Allergy (Verified 04/08/19 17:33) Rash thiopental Allergy (Verified 04/08/19 17:33) Rash trimethoprim [From Proloprim] Allergy (Verified 04/08/19 17:33) Rash oxycodone HCl [From OxyContin] Adverse Reaction (Verified 04/08/19 17:33) Other NALDECON Allergy (Uncoded 04/08/19 17:33) Rash SULPHATED OIL Allergy (Uncoded 04/08/19 17:33) Other TAPE Allergy (Uncoded 04/08/19 17:33) Rash Primary Care Physician: Zayda Peace PA [Primary Care Provider] - Prior records reviewed: Yes Surgical History: appendectomy, cholecystectomy, herniorrhaphy, hysterectomy, - - Ileostomy bag in place Lives: Spouse/ Significant Other Smoking Status: Never smoker Alcohol: None Drugs: None - Family History Maternal Family History: Reports: Diabetes, Hypertension Paternal Family History: Reports: Hypertension, No pertinent history Review of Systems General: Reports: Malaise Eyes: Denies: Visual changes - bilaterally, Diplopia ENT: Denies: Rhinorrhea, Sore throat Cardiovascular: Denies: Chest pain, Palpitations Respiratory: Denies: Dyspnea, Cough, Dyspnea on exertion Gastrointestinal: Denies: Abdominal pain, Nausea, Vomiting, Diarrhea, Melena, Hematochezia Genitourinary: Reports: Frequency. Denies: Dysuria, Hematuria Musculoskeletal: Denies: Myalgias, Arthralgias, Back pain, Swelling, Extremity Pain Skin: Denies: Rash, Wounds Neurological: Reports: Weakness Hematologic: Reports: Easy bruising. Denies: Easy bleeding Allergy: Denies: Uticaria, Swelling of the mouth, Swelling of the tongue Physical Exam Vital Signs/Narrative: Vital Signs Temp Pulse Resp BP Pulse Ox 04/08/19 18:16 98.0 F 80 16 145/79 H 98 04/08/19 18:13 81 14 149/75 H 98 04/08/19 17:30 98 F 80 16 169/78 H 98 Inital Vital Signs reviewed: Yes General: Well nourished, Well developed, No Acute Distress Head: Normocephalic, Atraumatic Eyes: Perrl, EOMI ENT: Moist mucous membranes, No rhinorrhea Neck: Supple, Nontender Cardiovascular: Regular rate, Regular rhythm, No murmurs Respiratory: No distress, CTA bilaterally, Chest nontender Abdomen: Soft, Nondistended, Normal bowel sounds, Tender - Tenderness suprapubic Back: Nontender, Normal Inspection. Negative for: CVA tenderness Extremities: Nontender, No edema Skin: Normal color, No rash Neurological: Alert, Oriented x3, Cranial nerves II-XII grossly intact, Normal Strength, Normal Sensation Psychological: Normal affect, Normal Mood Diagnostic/Tx/Re-eval Laboratory Results 04/08/19 04/08/19 04/08/19 18:09 18:09 18:48 WBC 11.3 H RBC 4.52 Hgb 13.5 Hct 40.8 MCV 90.3 MCH 29.9 MCHC 33.1 RDW Std Deviation 42.3 RDW Coeff of Elmer 12.8 Plt Count 283 MPV 11.2 Immature Gran % (Auto) 1.700 H Neut % (Auto) 74.1 H Lymph % (Auto) 16.0 L Dupage % (Auto) 7.4 Eos % (Auto) 0.4 Baso % (Auto) 0.4 Absolute Neuts (auto) 8.4 H Absolute Lymphs (auto) 1.81 Nucleated RBC % 0 Sodium 140 Potassium 3.1 L Chloride 108 H Carbon Dioxide 25.0 Anion Gap 7 BUN 22 H Creatinine 1.26 H Estim Creat Clear Calc 28.66 Est GFR (MDRD) Af Amer 53 L Est GFR (MDRD) Non-Af 44 L BUN/Creatinine Ratio 17.5 Glucose 144 H Calcium 8.5 Urine Color Yellow Urine Clarity Sl. Cloudy Urine pH 6.0 Ur Specific Webster 1.015 Urine Protein 15 H Urine Glucose (UA) Normal Urine Ketones 5 H Urine Occult Blood Negative Urine Nitrite Negative Urine Bilirubin Negative Urine Urobilinogen Normal Ur Leukocyte Esterase 500 H Urine RBC 0 SEEN Urine WBC 25-50 SEEN Ur Squamous Epith Cells 0-5 SEEN Amorphous Sediment 1+ URATE Urine Bacteria 0 SEEN Urine Mucus 0 SEEN White count is slightly elevated. There is no shift. Electrolyte panel was marked for glucose 144 and potassium 3.1. Urine reveals pyuria with 25-50 WBCs; however, there is no bacteria. Since patient is reporting frequency there may be no bacteria. She did receive a dose of Rocephin in the department. She was instructed to take the antibiotics that she was prescribed until gone. This wou ld explain her generalized weakness. Since she does not have a fever, is not tachycardic and white count is less than 12,000 will discharge to home - Medical Decision Making Since patient has multiple autoimmune disorders and on immune suppressive meds blood work was obtained as well as UA. She received 1 g of Rocephin since she has no history of allergy to penicillin per her recollection. Reviewing her records indicates she may have a allergy to ampicillin will determine if she does or does not prior to ordering Rocephin. ED Disposition - Plan for ED Patient: Disposition: Home or Assisted Living Diagnosis: Acute cystitis, Generalized weakness Instructions: Urinary Tract Infections in Women Referrals: Zayda Peace PA [Primary Care Provider] - 3-5 Days if not improving Additional Instructions: Take antibiotics your prescribed by physician assistant portfolio manager Donovan Finn until gone. If you develop fever, vomiting or become significantly worse return to the emergency department otherwise follow-up with Doonvan Peace
[2019-04-08 18:35] LABS: Anion Gap 7 (5-15); BUN 22 mg/dL (7-18); BUN/Creat Ratio 17.5 RATIO (10-20); Calcium,Total 8.5 mg/dL (8.5-10.1); Chloride 108 mmol/L (98-107); Creatinine, Serum 1.26 mg/dL (0.55-1.02); EST Glomerular Filtration Rate 44 mL/min (>60); Est Glom Filt Rate - Afr Amer 53 mL/min (>60); Estimated Creatinine Clearance 28.66 ml/min; Glucose 144 mg/dL (74-106); Potassium 3.1 mmol/L (3.5-5.1); Sodium Level 140 mmol/L (136-145)
[2019-04-08 18:56] LABS: Bacteria 0 SEEN /hpf (None Seen); Mucous, Urine 0 SEEN /hpf (<or=2+); Red Blood Cells-Urine 0 SEEN /hpf (0-5)
[2019-04-08 18:58] LABS: Color, Urine Yellow (Yellow); Glucose, Dipstick Normal (Normal); Ketone-Dipstick 5 mg/dl (Negative); Leukocyte Esterase-Dipstick 500 /ul (Negative); Nitrite-Dipstick Negative (Negative); Occult Blood-Urine Negative /ul (Negative); Protein-Dipstick 15 mg/dl (Negative); Specific Gravity, Urine 1.015 (1.002-1.030); Urine Bilirubin Dipstick Negative (Negative); Urine Clarity Sl. Cloudy (Clear); Urine Urobilinogen Normal (Normal)
[2019-04-08 18:58] LABS: Absolute Lymphocyte Count 1.81 X10^3/uL (0.83-4.51); Absolute Neutrophil Count 8.4 X10^3/uL (2.0-7.7); Basophil# 0.04 X10^3/uL; Basophil% 0.4 % (0-1); Eosinophil# 0.05 X10^3/uL; Eosinophils% 0.4 % (0-5); Hematocrit 40.8 % (37-47); Hemoglobin 13.5 g/dL (12.0-15.0); Lymphocyte # 1.81 X10^3/ul (4.0); Mean Corp Hgb Conc 33.1 g/dL (32-36); Mean Corpuscular Hgb 29.9 pg (27.0-32.0); Mean Corpuscular Volume 90.3 fL (81-99); Mean Platelet Vol. 11.2 fl (6.2-12.0); Monocyte# 0.83 X10^3/uL; Monocyte% 7.4 % (0-10); NRBC Flagged by Analyzer 0 % (0-5); Neutrophil # 8.37 X10^3/uL (2.7-7.7); Neutrophil % 74.1 % (47-70); Platelet Count 283 K/mm3 (150-450); RBC Distribution Width CV 12.8 % (11.6-14.6); RBC Distribution Width SD 42.3 fl (35.1-43.9); Red Blood Count 4.52 M/mm3 (4.2-5.4); White Blood Count 11.3 K/mm3 (4.4-11.0)
[2019-04-08 19:00] VITALS: BP 149/79; PULSE 82; RESP 16; TEMP 36.8; O2SAT 97
[2019-04-08 19:11] LABS: Amorphous Sediment 1+ URATE; Squamous Epithelial Cells - UA 0-5 SEEN /hpf (5-10); White Blood Cells 25-50 SEEN /hpf (0-5)
[2019-04-08] MEDS: Ceftriaxone 1 GM/50 ML BAG IV (19:15)
[2019-04-08 20:04] VITALS: BP 156/74; PULSE 65; RESP 22; TEMP 36.7; O2SAT 95
== END 2019-04-08 20:05 | disposition home or self-care (01) ==
PROVIDERS: Emergency Provider Emergency Medicine; Family Provider Physician Assistant; PCP Physician Assistant
DX: N30.00 Acute cystitis without hematuria (principal); R53.1 Weakness; I25.10 Atherosclerotic heart disease of native coronary artery without angina pectoris; K21.9 Gastro-esophageal reflux disease without esophagitis; E78.5 Hyperlipidemia, unspecified; M79.7 Fibromyalgia; I73.00 Raynaud's syndrome without gangrene; M32.9 Systemic lupus erythematosus, unspecified; N18.3 Chronic kidney disease, stage 3 (moderate); M06.9 Rheumatoid arthritis, unspecified; M35.00 Sjogren syndrome, unspecified; Z86.73 Personal history of transient ischemic attack (TIA), and cerebral infarction without residual deficits; Z86.711 Personal history of pulmonary embolism; Z79.899 Other long term (current) drug therapy; Z79.82 Long term (current) use of aspirin; Z79.52 Long term (current) use of systemic steroids
CPT/HCPCS: 80048; 81001; 85025; 99283; J7040; A4216

== ENCOUNTER 2019-04-10 14:38 | Emergency (ER) | payer MEDICARE, SELFPAY ==
[2019-04-10 14:39] VITALS: BP 165/97; PULSE 76; RESP 18; TEMP 36.8; O2SAT 96; BMI 34.4
--- NOTE | 2019-04-10 15:19 | ED.VISSUMM ---
- ER Visit Summary Date of Service: 04/10/19 Chief Complaint: Headache and hypertension History of Present Illness: The patient is a 78 F who presents with a headache and elevated blood pressure that she noticed today. Patient states home health aid came out to take her blood pressure and it was 160s over 98. Patient states she has pain in her right temporal area. Patient admits to some blurred vision out of her right eye. Patient states she is also been unsteady on her feet. Patient admits to subjective fevers and chills. Patient denies any chest pain or shortness of breath. Patient admits to nausea but denies any vomiting. Patient states she was recently treated for urinary tract infection. Patient states she is currently on antibiotics for that. Physical Examination: Vital signs are stable except for slightly elevated blood pressure 165/97. Patient is afebrile. Patient is in no acute distress. Pupils are equal, round, and reactive to light bilaterally. Extraocular muscles are intact. There is mild nystagmus with lateral gaze. Cranial nerves II through XII are intact. Strength is 5/5 bilateral knee upper and lower extremities. There are no sensory deficits noted. Heart was regular rate and rhythm. Lungs are clear and equal bilaterally. Abdomen is soft. Bowel sounds are normal. There is mild suprapubic tenderness. There is no rebound or guarding noted. Test Results: CBC was normal. Basic metabolic profile showed a potassium of 3.2. Sed rate was 4. Emergency Department Course and Treatment: Patient was given IV fluids and Valium here. Patient states her dizziness has improved but her headache is still there. Patient was given a dose of morphine. Patient wants to go home. Patient was instructed to get plenty of rest. Patient was instructed to follow-up with her primary care physician in 5 to 7 days. Patient understood and was agreeable with the plan. All questions were answered. Disposition: Discharge home Impression: Headache This note was generated with [employer] dictation software. It may contain incorrect words, spelling, and punctuation that were not noted in review of the chart prior to signing ED Disposition - Plan for ED Patient: Disposition: Home or Assisted Living Diagnosis: Headache Instructions: HEADACHE, Unspecified Referrals: Zayda Peace PA [Primary Care Provider] - 5-7 Days
[2019-04-10] MEDS: diazePAM 5 MG Tablet 2.5 MG PO (15:45)
--- NOTE | 2019-04-10 16:06 | CT_ITS ---
STUDY: CT BRAIN WITHOUT CONTRAST REASON FOR EXAM: Female, 78 years old. Headache. History of hypertension and prior stroke. History of seizures. RADIATION DOSAGE (If Supplied By Facility): CTDIvol = ( 60.81 ) mGy, DLP = ( 1044.28 ) mGycm TECHNIQUE: Transaxial CT imaging of the brain was performed without administration of intravenous contrast material. Individualized dose optimization techniques were used for this CT. COMPARISON: CT of the head, March 24, 2019. MRI of the brain, March 24, 2019. FINDINGS: Normal soft tissue structures. Normal calvarium. There is mild cerebral atrophy with widening of the extra-axial spaces and ventricular dilatation. There are areas of decreased attenuation within the white matter tracts of the supratentorial brain, consistent with microvascular disease changes. Normal basal ganglia and thalami. Normal brainstem. Normal cerebellum. There is no intracranial hemorrhage. There are no findings of an acute ischemic infarction. Normal visualized paranasal sinuses. CT/Brain/Head without Contrast IMPRESSION: Chronic involutional changes without evidence of acute intracranial or calvarial abnormality. There is no major interval change. Electronically Signed: Rishi Elder DO at 16:24 EDT Tel [phone], Service support ,
[2019-04-10 16:19] LABS: Absolute Lymphocyte Count 2.22 X10^3/uL (0.83-4.51); Absolute Neutrophil Count 7.6 X10^3/uL (2.0-7.7); Basophil# 0.09 X10^3/uL; Basophil% 0.8 % (0-1); Eosinophil# 0.04 X10^3/uL; Eosinophils% 0.4 % (0-5); Hematocrit 44.1 % (37-47); Hemoglobin 14.3 g/dL (12.0-15.0); Lymphocyte # 2.22 X10^3/ul (4.0); Lymphocyte % 20.8 % (19-41); Mean Corp Hgb Conc 32.4 g/dL (32-36); Mean Corpuscular Hgb 29.4 pg (27.0-32.0); Mean Corpuscular Volume 90.6 fL (81-99); Monocyte# 0.52 X10^3/uL; Monocyte% 4.9 % (0-10); NRBC Flagged by Analyzer 0 % (0-5); Neutrophil % 71.4 % (47-70); Platelet Count 297 K/mm3 (150-450); RBC Distribution Width CV 12.7 % (11.6-14.6); RBC Distribution Width SD 41.9 fl (35.1-43.9); Red Blood Count 4.87 M/mm3 (4.2-5.4); White Blood Count 10.7 K/mm3 (4.4-11.0)
[2019-04-10 16:31] LABS: Erythrocyte Sedimentation Rate 4 mm/hr (0-30)
[2019-04-10 16:39] LABS: ALB/GLOB Ratio 1.2 RATIO (0.9-2.4); AST(SGOT) 16 U/L (15-37); Alanine Aminotransfer ALT/SGPT 19 U/L (13-56); Albumin, Serum 3.8 g/dL (3.2-5.0); Alkaline Phosphatase 95 U/L (45-117); Anion Gap 7 (5-15); BUN 16 mg/dL (7-18); BUN/Creat Ratio 14.2 RATIO (10-20); Calcium,Total 8.8 mg/dL (8.5-10.1); Chloride 104 mmol/L (98-107); Creatinine, Serum 1.13 mg/dL (0.55-1.02); EST Glomerular Filtration Rate 50 mL/min (>60); Est Glom Filt Rate - Afr Amer 60 mL/min (>60); Estimated Creatinine Clearance 31.96 ml/min; Globulin 3.2 g/dL (2.2-4.2); Glucose 136 mg/dL (74-106); Potassium 3.2 mmol/L (3.5-5.1); Sodium Level 138 mmol/L (136-145)
[2019-04-10 17:08] VITALS: BP 170/85; PULSE 59; RESP 14; O2SAT 99
[2019-04-10 18:12] VITALS: BP 161/88; PULSE 89; RESP 16; O2SAT 97
== END 2019-04-10 18:13 | disposition home or self-care (01) ==
PROVIDERS: Emergency Provider Emergency Medicine; Family Provider Physician Assistant; PCP Physician Assistant
DX: R51 Headache (principal); R68.83 Chills (without fever); H53.8 Other visual disturbances; R11.0 Nausea; R26.81 Unsteadiness on feet; I12.0 Hypertensive chronic kidney disease with stage 5 chronic kidney disease or end stage renal disease; N18.6 End stage renal disease; M32.9 Systemic lupus erythematosus, unspecified; M35.00 Sjogren syndrome, unspecified; M79.7 Fibromyalgia; Z87.440 Personal history of urinary (tract) infections; Z79.82 Long term (current) use of aspirin; Z79.899 Other long term (current) drug therapy
CPT/HCPCS: 70450; 80053; 85025; 85652; 99284; A4216

== ENCOUNTER 2019-10-31 21:57 | Inpatient (IN) | payer MEDICARE, SELFPAY ==
[2019-10-30 13:06] VITALS: BMI 34.9
[2019-10-31] VITALS (11 sets, daily range): BP systolic 148–162; BP diastolic 74–82; PULSE 60–80; RESP 13–18; TEMP 36.4–36.5; O2SAT 93–98; BMI 34.2
--- NOTE | 2019-10-31 22:02 | EKG12_ITS ---
Test Reason : NEURO SX Blood Pressure : / mmHG Vent. Rate : 064 BPM Atrial Rate : 064 BPM P-R Int : 178 ms QRS Dur : 086 ms QT Int : 426 ms P-R-T Axes : 038 011 033 degrees QTc Int : 439 ms Sinus rhythm with Premature atrial complexes Otherwise normal ECG Confirmed by SARAH ARROYO, SHREYAS ([id number]), purchase request editor GOLDIE WEEKS ([id number]) on 11/04/2019 2:22:42 PM Referred By: Marlo Rios Confirmed By:LATRICIA SMITH MD
--- NOTE | 2019-10-31 22:02 | CT_ITS ---
STUDY: CT BRAIN WITHOUT CONTRAST REASON FOR EXAM: Female, 79 years old. NEURO SX RADIATION DOSAGE (If Supplied By Facility): CTDIvol = ( 44.99 ) mGy, DLP = ( 762.36 ) mGycm TECHNIQUE: Transaxial CT imaging of the brain was performed without administration of intravenous contrast material. Individualized dose optimization techniques were used for this CT. COMPARISON: April 10, 2019 FINDINGS: Normal soft tissue structures. Normal calvarium. Normal size ventricles and extra-axial spaces for the patient''s age. Normal white matter tracts of the cerebral hemispheres. Normal basal ganglia and thalami. Normal brainstem. Normal cerebellum. There is no intracranial hemorrhage. There are no findings of an acute ischemic infarction. Normal visualized paranasal sinuses. CT/Brain/Head without Contrast IMPRESSION: Stable age-related changes of the brain. N.B. : The above information has been verbally conveyed by Jd Merritt DO to Dr. Curt Montesinos MD, on 10/31/2019 22:18:50 (ET). Electronically Signed: Jd Merritt DO at 22:19 EDT Tel [phone], Service support ,
--- NOTE | 2019-10-31 22:03 | CT_ITS ---
STUDY: CTA HEAD AND NECK WITH CONTRAST REASON FOR EXAM: Female, 79 years old. STROKE SX RADIATION DOSAGE (If Supplied By Facility): CTDIvol = ( 24.32 ) mGy, DLP = ( 687 ) mGycm TECHNIQUE: CT angiography was performed with a multi-detector CT scanner. Data acquisition was obtained from the skull base through the vertex following intravenous administration of 100ML ISOVUE 370. MIP images were reconstructed from the axial data set. Post-processing of the angiographic images was performed, with multiplanar reformation and 3D reconstruction. Individualized dose optimization techniques were used for this CT. COMPARISON: No relevant priors. FINDINGS: Normal bilateral petrous carotid arteries. Mild calcifications at the right cavernous carotid artery with a normal supraclinoid bifurcation. Mild calcifications at the left cavernous carotid artery with a normal supraclinoid bifurcation. Normal right A1 segments of the anterior cerebral artery. Normal left A1 segments of the anterior cerebral artery. Normal intact anterior communicating artery (ACOM). Normal bilateral A2 segments of the anterior cerebral arteries. Normal right M1 and M2 segments of the middle cerebral arteries, with a normal M1 bifurcation. Normal left M1 and M2 segments of the middle cerebral arteries, with a normal M1 bifurcation. Normal right posterior communicating artery (PCOM). Normal left posterior communicating artery (PCOM). Normal bilateral vertebral arteries. Normal basilar artery without bifurcation with the posterior cerebral arteries. The visualized bilateral superior cerebellar (SCA) arteries are normal. Nonvisualization of the proximal segment of the posterior cerebral arteries. There is no demonstrated aneurysm of the [place]. There is no demonstrated abnormality of the visualized brain. AORTIC ARCH: Mildly calcified visualized aortic arch. Normal origins of the brachiocephalic, left common carotid, and left subclavian arteries. RIGHT CAROTID ARTERIES: Normal right common carotid artery (CCA). Mild calcifications at the right common carotid bulb. Normal origin of the right internal carotid (ICA) artery without a hemodynamically significant stenosis. Normal visualized cervical portion of the right internal carotid artery. Normal origin of the right external carotid artery (ECA). LEFT CAROTID ARTERIES: Normal left common carotid artery (CCA). Mild calcifications at the left common carotid bulb. Normal origin of the left internal carotid (ICA) artery without a hemodynamically significant stenosis. Normal visualized cervical portion of the left internal carotid artery. Normal origin of the left external carotid artery (ECA). VERTEBRAL ARTERIES: Normal bilateral vertebral arteries. CT/CTA Head AND Neck W/ Contrast IMPRESSION: Mild calcifications at the carotid bulb with no hemodynamically significant stenosis. Nonvisualization of proximal segment of the posterior cerebral arteries likely a normal variant. No aneurysm at the [place]. Electronically Signed: Jd Merritt DO at 23:09 EDT Tel [phone], Service support ,
--- NOTE | 2019-10-31 22:20 | CM.ED ---
Social Work Responding to Stroke Alert. Per staff, patient family is outside and appears to be coping well. No social media content specialist needs identified at this time. Mami Gomez MSW, KAREN
--- NOTE | 2019-10-31 22:25 | RAD_ITS ---
STUDY: X-RAY CHEST REASON FOR EXAM: Female, 79 years old. STROKE ALERT, PT HAVING RIGHT SIDE WEAKNESS AND SOB TECHNIQUE: Frontal view COMPARISON: March 24, 2019 FINDINGS: The lungs are clear and expanded. There is no demonstrated pleural abnormality. Normal size heart. Normal mediastinum and regina. Normal visualized pulmonary arteries. Normal visualized aortic arch and descending thoracic aorta. Normal visualized thoracic spine. Normal visualized ribs, clavicles, and shoulders. There is no demonstrated abnormality of the visualized soft tissue structures of the upper abdomen. RAD/Chest 1 View IMPRESSION: Normal x-ray examination of the chest. Electronically Signed: Jd Merritt DO at 22:40 EDT Tel [phone], Service support ,
[2019-10-31 22:28] LABS: Absolute Neutrophil Count 4.3 X10^3/uL (2.0-7.7); Basophil# 0.04 X10^3/uL; Basophil% 0.6 % (0-1); Eosinophil# 0.02 X10^3/uL; Eosinophils% 0.3 % (0-5); Hematocrit 36.5 % (37-47); Hemoglobin 11.7 g/dL (12.0-15.0); Lymphocyte % 23.9 % (19-41); Mean Corp Hgb Conc 32.1 g/dL (32-36); Mean Corpuscular Volume 93.6 fL (81-99); Mean Platelet Vol. 11.1 fl (6.2-12.0); Monocyte# 0.39 X10^3/uL; Monocyte% 6.2 % (0-10); NRBC Flagged by Analyzer 0 % (0-5); Neutrophil # 4.26 X10^3/uL (2.7-7.7); Neutrophil % 67.9 % (47-70); Platelet Count 202 K/mm3 (150-450); RBC Distribution Width CV 13.5 % (11.6-14.6); White Blood Count 6.3 K/mm3 (4.4-11.0)
[2019-10-31 22:35] LABS: Prothrombin Time (Protime)PT. 13.1 SECONDS (11.7-14.9)
[2019-10-31 22:37] LABS: Partial Thromboplast Time 26.9 Seconds (24.1-36.2)
[2019-10-31 22:38] LABS: Anion Gap 7 (5-15); BUN 14 mg/dL (7-18); Chloride 107 mmol/L (98-107); Creatinine, Serum 1.27 mg/dL (0.55-1.02); EST Glomerular Filtration Rate 43 mL/min (>60); Est Glom Filt Rate - Afr Amer 53 mL/min (>60); Estimated Creatinine Clearance 33.38 ml/min; Glucose 134 mg/dL (74-106); Sodium Level 138 mmol/L (136-145)
--- NOTE | 2019-10-31 23:21 | ED.DCSUM_ITS ---
- ER Visit Summary Date of Service: 10/31/19 Chief Complaint: Weakness History of Present Illness: The patient is a 79 F with right arm weakness that started around 9:44 PM. The patient was eating dinner. She felt that she could not hold her fork and her arm felt weak. She also has numbness in her right arm. She has a history of stroke that affected her left side in the past. She is on aspirin but denies any other blood thinners. Physical Examination: Afebrile and vital signs unremarkable. NIH stroke scale is 6. She received a point because of her level of consciousness, 4 points because of her right arm weakness, and one point for her sensory. Otherwise exam was unremarkable. Test Results: EKG showed sinus rhythm at a rate of 64 with PACs. Hemoglobin 11.7, creatinine 1.27, glucose 134, coags normal, troponin normal. CT brain unremarkable. Chest x-ray normal. CTA head and neck showed no evidence of large vessel occlusion. Emergency Department Course and Treatment: I saw the patient shortly after arrival. I activated a stroke team. [facility] was consulted. Neurology saw the patient robot. They felt the patient required TPA. I agree. The checklist was completed and she had no contraindications. She was treated with TPA. Hospitalist was contacted and will admit for further care. Treatment Plan: As above Disposition: Admission Impression: Stroke, right arm weakness This note was generated with [employer] dictation software. It may contain incorrect words, spelling, and punctuation that were not noted in review of the chart prior to signing ED Disposition - Plan for ED Patient: Referrals: Zayda Peace PA [Primary Care Provider] -
--- NOTE | 2019-10-31 23:28 | PCM.HP.STD ---
Problem List (1) CVA (cerebral vascular accident) Status: Acute (2) Atherosclerotic heart disease of [place] coronary artery without angina pectoris Status: Chronic Qualifiers: [place] vs. transplanted heart: [place] heart Qualified Code(s): I25.10 - Atherosclerotic heart disease of [place] coronary artery without angina pectoris Comment: Mild; Left Main: mild calcification, angiographically normal; LAD: prox: Mild calcification, mild luminal irregularities;CX: prox: Mild luminal irregularities; RCA: angiographically normal per cath 05/09/17 (3) Diastolic dysfunction Status: Chronic (4) CKD (chronic kidney disease), stage III Status: Chronic (5) Hyperlipidemia Status: Chronic Qualifiers: Hyperlipidemia type: unspecified Qualified Code(s): E78.5 - Hyperlipidemia, unspecified (6) Benign essential hypertension Status: Chronic (7) GERD (gastroesophageal reflux disease) Status: Chronic Qualifiers: Esophagitis presence: esophagitis presence not specified Qualified Code(s): K21.9 - Gastro-esophageal reflux disease without esophagitis (8) History of pulmonary embolism Status: Chronic History of Present Illness Date of Admission: 10/31/19 Chief Complaint: right arm weakness The patient is a 79 year old F with a significant history of intertrigo; CVA with residual left-sided weakness; and rheumatoid arthritis who presented with right-sided weakness. Reportedly while eating dinner around 9:45 PM patient could not hold the fork with her right hand.. Her had to help patient to eat. Also patient reported numbness of her right arm. Further patient reports difficulty in speech. At baseline patient uses a walker or cane to walk. Patient reports that she was brought to emergency department with a family and with assistive device to help her walk. CT of the head at the emergency department did not show any acute abnormality. Stroke alert was called. Emergency department doctor discussed the case with tele-neurologist. Patient was in the TPA window and received a TPA bolus and drip at the emergency department. At the time of my evaluation patient reported improvement in her speech difficulty. Past Medical History Past Medical History (Chronic Problems): Chronic Problems (Last Reviewed 11/01/19 @ 01:[address] Marlo Rios MD) Atherosclerotic heart disease of [place] coronary artery without angina pectoris (Chronic ~05/09/17) Mild; Left Main: mild calcification, angiographically normal; LAD: prox: Mild calcification, mild luminal irregularities;CX: prox: Mild luminal irregularities; RCA: angiographically normal per cath 05/09/17 Diastolic dysfunction (Chronic) CKD (chronic kidney disease), stage III (Chronic) Hyperlipidemia (Chronic) Benign essential hypertension (Chronic) GERD (gastroesophageal reflux disease) (Chronic) History of pulmonary embolism (Chronic) Medical History: Medical History (Last Reviewed 11/01/19 @ 02:[address] Marlo Rios MD) Atherosclerotic heart disease of [place] coronary artery without angina pectoris (Chronic) Onset Date: ~05/09/17 I25.10 Mild; Left Main: mild calcification, angiographically normal; LAD: prox: Mild calcification, mild luminal irregularities;CX: prox: Mild luminal irregularities; RCA: angiographically normal per cath 05/09/17 Diastolic dysfunction (Chronic) I51.89 Hyperlipidemia (Chronic) E78.5 Benign essential hypertension (Chronic) I10 GERD (gastroesophageal reflux disease) (Chronic) K21.9 History of pulmonary embolism (Chronic) Z86.711 Acute right cerebellar stroke Alzheimer's dementia G30.9 History of DVT (deep vein thrombosis) Z86.718 History of echocardiogram Onset Date: ~04/2017 Z92.89 EF 65% Ileostomy in place Z93.2 Chronic back pain M54.9, G89.[address] Oswald West History of CVA (cerebrovascular accident) Z86.73 History of TIAs Raynauds disease I73.00 Restless legs Rheumatoid arthritis M06.[address] Jose Johns @ [facility] Systemic lupus erythematosus M32.9 Acute metabolic encephalopathy G93.41 Confusion R41.0 Dementia F03.90 Encephalopathy acute G93.40 History of deep vein thrombosis Z86.718 History of left heart catheterization (LHC) Z98.890 Raynaud's phenomenon (Inactive) Sjogren's syndrome (Inactive) M35.00 Allergies ampicillin Allergy (Verified 10/31/19 22:17) Rash buprenorphine HCl [From Buprenex] Allergy (Verified 10/31/19 22:17) Other codeine Allergy (Verified 10/31/19 22:17) Anaphylaxis gold Au 198 Allergy (Verified 10/31/19 22:17) Rash guaifenesin Allergy (Verified 10/31/19 22:17) Rash promethazine HCl [From Phenergan] Allergy (Verified 10/31/19 22:17) Shortness of breath Sulfa (Sulfonamide Antibiotics) Allergy (Verified 10/31/19 22:17) Rash sulindac [From Clinoril] Allergy (Verified 10/31/19 22:17) Rash tetracycline [Tetracycline] Allergy (Verified 10/31/19 22:17) Rash thiopental Allergy (Verified 10/31/19 22:17) Rash trimethoprim [From Proloprim] Allergy (Verified 10/31/19 22:17) Rash oxycodone HCl [From OxyContin] Adverse Reaction (Verified 10/31/19 22:17) Other NALDECON Allergy (Uncoded 10/31/19 22:17) Rash SULPHATED OIL Allergy (Uncoded 10/31/19 22:17) Other TAPE Allergy (Uncoded 10/31/19 22:17) Rash Home Medications: Ambulatory Orders Medication Instructions Recorded Prednisone 5 mg PO DAILY 11/29/18 Cholecalciferol (Vitamin D3) 2,000 unit PO DAILY 03/24/19 [Vitamin D3] Amlodipine [Norvasc] 5 mg PO DAILY #30 tab 03/25/19 Aspirin [Aspirin, Baby] 81 mg PO DAILY@0800 #30 tab.chew 03/25/19 Atorvastatin Calcium [Lipitor] 40 mg PO QHS #30 tab 03/25/19 Donepezil HCl [Aricept] 5 mg PO QHS #30 tab 03/25/19 Omeprazole 40 mg PO DAILY #30 capsule. 03/25/19 Mirabegron [Myrbetriq] 25 mg PO DAILY 04/08/19 albuterol sulfate 90 mcg/actuation 2 puff INHALATION Q6H PRN 10/16/19 aerosol inhaler clotrimazole 1 % topical cream 1 applic TOPICAL BID 10/16/19 desonide 0.05 % topical cream 1 applic TOPICAL BID PRN 10/16/19 duloxetine 60 mg capsule,delayed 60 mg PO DAILY cap 10/16/19 release ketoconazole 2 % topical cream 1 applic TOPICAL DAILY 10/16/19 losartan 100 mg tablet 100 mg PO DAILY 10/16/19 ondansetron 4 mg disintegrating 4 mg PO Q8H PRN 10/16/19 tablet gabapentin 300 mg capsule 300 mg PO TID cap 10/30/19 nitroglycerin 0.4 mg sublingual 0.4 mg SUBLINGUAL Q5-15M PRN #25 10/30/19 tablet tab trazodone 50 mg tablet 50 mg PO QHS PRN 10/30/19 Surgical History: Surgical History (Last Reviewed 11/01/19 @ 02:[address] Marlo Rios MD) History of Krish fundoplication Z98.890 S/P IVC filter Z95.828 History of appendectomy Z98.890, Z90.49 History of bilateral knee replacement Z96.653 History of cardiac catheterization Onset Date: ~04/2017 Z98.890 Mild CAD History of carpal tunnel surgery Z98.890 Bilateral History of cholecystectomy Z98.890, Z90.49 History of herniorrhaphy Z98.890, Z87.19 History of hysterectomy Z98.890, Z90.710 History of salpingo-oophorectomy Z90.79, Z90.721 Surgical History: appendectomy, cholecystectomy, herniorrhaphy, hysterectomy, - - Ileostomy bag in place Psychiatric History: No pertinent psych hx 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 Marlo Rios MD) Father CVA (cerebral vascular accident) History Items: Diabetes, Hypertension Paternal Family History: Family History (Last Reviewed 11/01/19 @ 02:[address] Marlo Rios MD) Father CVA (cerebral vascular accident) History Items: Hypertension, No pertinent history Review of Systems Constitutional: Denies: Chills, Fever, Weight Change HEENT: Denies: Head Aches, Sinus Congestion, Sinus Drainage Cardiovascular: Denies: Chest Pain, Palpitations Respiratory: Denies: Cough, Shortness of breath at rest, Sputum production Gastrointestinal: Denies: Abdominal Pain, Nausea, Vomiting Genitourinary: Denies: Dysuria Musculoskeletal: Denies: Joint Pain, Joint Tenderness Skin: Denies: Rash, Wounds Neurological: Reports: Change in Speech, Focal weakness, Numbness. Denies: Tingling Psychiatric: Denies: Anxiety, Depression, Homicidal Ideations, Suicidal Ideations Hematologic/ Lymphatic: Denies: Easy Bruising, Easy Bleeding VTE Information - Inpt Only VTE Present on Admission: No VTE Mechan Device Prophylaxis: SCD's VTE Pharm Prophylaxis ordered?: No Patient Problems: Active and Suspected Problems (Last Reviewed 11/01/19 @ 01:[address] Marlo Rios MD) CVA (cerebral vascular accident) (Acute) - Physical Exam Vitals/I&O's: Vital Signs Temp Pulse Resp BP Pulse Ox 97.5 F L 66 18 161/74 H 93 10/31/19 23:16 10/31/19 23:16 10/31/19 23:16 10/31/19 23:16 10/31/19 23:16 Oxygen Delivery Method Room Air Weight: 93.5 kg Body Mass Index (BMI) 34.2 Finger Stick Blood Glucose 171 General: Alert, Oriented x3, Cooperative HEENT: Atraumatic, EOMI, Normocephalic Neck: Supple, Trachea Midline Lungs: Clear to auscultation, Normal air movement Cardiovascular: Regular rate, Normal S1, Normal S2, No murmurs Abdomen: Bowel Sounds Present, Soft, Non Tender Extremities: No edema, Capillary Refill Less than 3 Seconds Skin: No rashes, No breakdown Musculoskeletal: No Tenderness to Palpation of Joints or Extremities Neurological: Cranial nerves II-XII grossly intact, - - Limited range of motion of right upper and right lower extremity. 0/5 strength in the right upper and right lower extremity. Unable to perform tvthav-py-molc test with fingers of right hand. Can perform bredom-le-winc test with fingers of the left hand. Unable to perform riek-ut-rvfu test with right leg. Able to perform ytef-ws-utci test with left leg. Sensory changes of the right upper extremity and right lower extremity. Psych/Mental Status: Normal Affect, Appropriate Laboratory Results 10/31/19 22:14: WBC 6.3, RBC 3.90 L, Hgb 11.7 L, Hct 36.5 L, MCV 93.6, MCH 30.0, MCHC 32.1, RDW Std Deviation 46.0 H, RDW Coeff of [place] 13.5, Plt Count 202, MPV 11.1, Immature Gran % (Auto) 1.100 H, Neut % (Auto) 67.9, Lymph % (Auto) 23.9, [place] % (Auto) 6.2, Eos % (Auto) 0.3, Baso % (Auto) 0.6, Absolute Neuts (auto) 4.3, Absolute Lymphs (auto) 1.50, Nucleated RBC % 0 10/31/19 22:14: PT 13.1, INR 1.0, APTT 26.9 10/31/19 22:14: Sodium 138, Potassium 4.0, Chloride 107, Carbon Dioxide 24.0, Anion Gap 7, BUN 14, Creatinine 1.27 H, Estim Creat Clear Calc 33.38, Est GFR (MDRD) Af Amer 53 L, Est GFR (MDRD) Non-Af 43 L, BUN/Creatinine Ratio 11.0, Glucose 134 H, Calcium 9.0, Troponin I < 0.015 Current Medications Acetaminophen (Tylenol) 650 mg PO .X1 PRN PRN Reason: Temp > 99.6 F Diphenhydramine HCl (Benadryl) 50 mg IV .X1 PRN PRN Reason: Allergic Reaction Stop: 11/02/19 22:31 Epinephrine HCl () 0.3 mg IM .X1 PRN PRN Reason: Allergic Reaction Stop: 11/02/19 22:31 Sodium Chloride () 1,000 mls @ 100 mls/hr IV .Q10H [place] Famotidine 20 mg/ Sodium (Chloride) 10 mls @ 300 mls/hr IV .X1 PRN PRN Reason: Allergic Reaction Stop: 11/02/19 22:31 Nicardipine/Dextrose (Cardene-Dex 20 Mg/200 Ml Soln) 20 mg in 200 mls @ 50 mls/hr IV .Q4H PRN; Protocol PRN Reason: See Instructions Alteplase, Recombinant 75.7 mg (/ N/A) 75.7 mls @ 75.7 mls/hr IV X1 ONE Stop: 10/31/19 23:39 Last Admin: 10/31/19 22:47 Dose: 75.7 mls/hr Documented by: Labetalol HCl (Trandate) 20 mg IV X1 PRN PRN Reason: BLOOD PRESSURE Methylprednisolone (Solu-Medrol) 125 mg IV .X1 PRN PRN Reason: Allergic Reaction Stop: 11/02/19 22:31 Assessment/Plan All Active Problems (Last Reviewed 11/01/19 @ 01:[address] Marlo Rios MD) CVA (cerebral vascular accident) (Acute) The patient is a 79 year old F with a significant history of intertrigo; CVA with residual left-sided weakness; rheumatoid arthritis who presented right-sided weakness; aphasia; and numbness of right upper and right lower extremity concerning for new CVA likely left MCA stroke. New CVA Although patient could not raise her right arm at all upon command, when asked to sit up for a posterior lung examination patient was seen to be moving her right arm minimally. Although patient could not raise her left leg upon command, when asked to do heel to ibarra test patient minimally moved her right leg. CT of the head showed stable age-related changes of the brain. -Check Hba1c, Lipid level Physical therapy, occupational therapy and speech therapy to work with patient. N.p.o. until bedside swallow eval. No antiplatelets in next 24 hours in the setting of receiving thrombolytic High intensity statin continued. Lipid profile and A1c ordered. Blood pressure management per TPA protocol with PRN labetalol and PRN nicardipine. Hold home anti-hypertensive medications. Echocardiogram and MRI of brain per tele-neurology's recommendation. Consider consulting neurology in the setting of patient receiving TPA Hypertension On presentation blood pressure was not within goal. Hold home blood pressure medications. Trend blood pressures. Blood pressure control as above. Rheumatoid arthritis and SLE Home prednisone continued. Intertrigo Home topical antifungals continued. CKD stage III Stable. Bandemia Bands of 1.1%. Reactive vs prednisone use DVT prophylaxis SCD per neurology recommendation. Inpatient E&M: 81424 Init Hosp L3
[2019-11-01] VITALS (38 sets, daily range): BP systolic 117–168; BP diastolic 54–95; PULSE 51–76; RESP 11–21; TEMP 36–36.6; O2SAT 93–100; BMI 39.6
[2019-11-01] MEDS: 0.9% Normal Saline 1,000 ML 100 ML IV ×3 (01:34→23:18)
[2019-11-01 01:46] LABS: Hemoglobin A1c 6.1 % (4.2-6.3)
[2019-11-01 04:08] LABS: Absolute Lymphocyte Count 1.94 X10^3/uL (0.83-4.51); Absolute Neutrophil Count 3.4 X10^3/uL (2.0-7.7); Basophil# 0.05 X10^3/uL; Basophil% 0.8 % (0-1); Eosinophil# 0.05 X10^3/uL; Eosinophils% 0.8 % (0-5); Hematocrit 34.9 % (37-47); Lymphocyte # 1.94 X10^3/ul (4.0); Lymphocyte % 32.6 % (19-41); Mean Corp Hgb Conc 31.5 g/dL (32-36); Mean Corpuscular Hgb 29.6 pg (27.0-32.0); Mean Corpuscular Volume 94.1 fL (81-99); Mean Platelet Vol. 10.9 fl (6.2-12.0); Monocyte# 0.51 X10^3/uL; Monocyte% 8.6 % (0-10); NRBC Flagged by Analyzer 0 % (0-5); Neutrophil # 3.36 X10^3/uL (2.7-7.7); Neutrophil % 56.4 % (47-70); Platelet Count 195 K/mm3 (150-450); RBC Distribution Width CV 13.4 % (11.6-14.6); RBC Distribution Width SD 46.2 fl (35.1-43.9); Red Blood Count 3.71 M/mm3 (4.2-5.4)
[2019-11-01 04:28] LABS: Anion Gap 6 (5-15); BUN 16 mg/dL (7-18); BUN/Creat Ratio 14.3 RATIO (10-20); Calcium,Total 8.3 mg/dL (8.5-10.1); Chloride 108 mmol/L (98-107); Cholesterol 110 mg/dL (200); Creatinine, Serum 1.12 mg/dL (0.55-1.02); EST Glomerular Filtration Rate 50 mL/min (>60); Est Glom Filt Rate - Afr Amer 61 mL/min (>60); Estimated Creatinine Clearance 30.21 ml/min; Glucose 134 mg/dL (74-106); High Density Lipoprotein 59 mg/dL; Potassium 3.8 mmol/L (3.5-5.1); Sodium Level 139 mmol/L (136-145); Triglycerides 64 mg/dL; Very Low Density Lipoprotein 13 mg/dL (5-40)
[2019-11-01] MEDS: Gabapentin 300 MG Capsule PO ×3 (06:42→21:15)
--- NOTE | 2019-11-01 08:37 | CON.PCM_ITS ---
Problem List (1) CVA (cerebral vascular accident) Status: Acute (2) Atherosclerotic heart disease of [place] coronary artery without angina pectoris Status: Chronic Qualifiers: [place] vs. transplanted heart: [place] heart Qualified Code(s): I25.10 - Atherosclerotic heart disease of [place] coronary artery without angina pectoris Comment: Mild; Left Main: mild calcification, angiographically normal; LAD: p charles: Mild calcification, mild luminal irregularities;CX: prox: Mild luminal irregularities; RCA: angiographically normal per cath 05/09/17 (3) Diastolic dysfunction Status: Chronic (4) CKD (chronic kidney disease), stage III Status: Chronic (5) Hyperlipidemia Status: Chronic Qualifiers: Hyperlipidemia type: unspecified Qualified Code(s): E78.5 - Hyperlipidemia, unspecified (6) Benign essential hypertension Status: Chronic (7) GERD (gastroesophageal reflux disease) Status: Chronic Qualifiers: Esophagitis presence: esophagitis presence not specified Qualified Code(s): K21.9 - Gastro-esophageal reflux disease without esophagitis (8) History of pulmonary embolism Status: Chronic Reason for Consult Date of Consultation: 11/01/19 Reason for Consultation: CVA with TPA History of Present Illness: The patient is a 79 year old F, with past medical history listed below, who presented to [facility] on 10/31/2019 secondary to an acute onset of right-sided weakness at approximately 9:44 PM. Patient was reportedly eating dinner and can no longer hold her fork. Patient was also reported to have right-sided numbness. Patient did have a history of CVA in the past, but this affected primarily left-sided symptoms. On evaluation in the ER, patient was noted to have an NIH stroke scale of 6. Laboratory work-up and CT of the head were unremarkable. CTA showed no large vessel occlusion. After consultation with the neurologist, patient was initiated on TPA and this was completed at 2351. Patient was transferred to the intensive care unit for further evaluation. Since being in the intensive care unit, patient has had some improvement in right upper extremity weakness. Patient is still reporting right-sided paresthesia. Patient denies any pain. No nausea or vomiting is been reported. Patient has not had any bleeding complications. Blood pressure has been in an acceptable range and no PRN medications have been needed. Review of systems otherwise negative from a constitutional, HEENT, respiratory, cardiovascular, GI, genitourinary, musculoskeletal, skin, neurologic, psychiatric and hematologic system unless stated above. Past Medical History Past Medical History (Chronic Problems): Chronic Problems (Last Reviewed 11/01/19 @ 02:[address] Marlo Rios MD) Atherosclerotic heart disease of [place] coronary artery without angina pectoris (Chronic ~05/09/17) Mild; Left Main: mild calcification, angiographically normal; LAD: prox: Mild calcification, mild luminal irregularities;CX: prox: Mild luminal irregularities; RCA: angiographically normal per cath 05/09/17 Diastolic dysfunction (Chronic) CKD (chronic kidney disease), stage III (Chronic) Hyperlipidemia (Chronic) Benign essential hypertension (Chronic) GERD (gastroesophageal reflux disease) (Chronic) History of pulmonary embolism (Chronic) Medical History: Medical History (Last Reviewed 11/01/19 @ 02:[address] Marlo Rios MD) Atherosclerotic heart disease of [place] coronary artery without angina pectoris (Chronic) Onset Date: ~05/09/17 I25.10 Mild; Left Main: mild calcification, angiographically normal; LAD: prox: Mild calcification, mild luminal irregularities;CX: prox: Mild luminal irregularities; RCA: angiographically normal per cath 05/09/17 Diastolic dysfunction (Chronic) I51.89 Hyperlipidemia (Chronic) E78.5 Benign essential hypertension (Chronic) I10 GERD (gastroesophageal reflux disease) (Chronic) K21.9 History of pulmonary embolism (Chronic) Z86.711 Acute right cerebellar stroke Alzheimer's dementia G30.9 History of DVT (deep vein thrombosis) Z86.718 History of echocardiogram Onset Date: ~04/2017 Z92.89 EF 65% Ileostomy in place Z93.2 Chronic back pain M54.9, G89.[address] Oswald Wset History of CVA (cerebrovascular accident) Z86.73 History of TIAs Raynauds disease I73.00 Restless legs Rheumatoid arthritis M06.[address] Jose Johns @ [facility] Systemic lupus erythematosus M32.9 Acute metabolic encephalopathy G93.41 Confusion R41.0 Dementia F03.90 Encephalopathy acute G93.40 History of deep vein thrombosis Z86.718 History of left heart catheterization (LHC) Z98.890 Raynaud's phenomenon (Inactive) Sjogren's syndrome (Inactive) M35.00 Allergies ampicillin Allergy (Verified 04/03/20 22:17) Rash buprenorphine HCl [From Buprenex] Allergy (Verified 10/31/19 22:17) Other codeine Allergy (Verified 10/31/19 22:17) Anaphylaxis gold Au 198 Allergy (Verified 10/31/19 22:17) Rash guaifenesin Allergy (Verified 10/31/19 22:17) Rash promethazine HCl [From Phenergan] Allergy (Verified 10/31/19 22:17) Shortness of breath Sulfa (Sulfonamide Antibiotics) Allergy (Verified 10/31/19 22:17) Rash sulindac [From Clinoril] Allergy (Verified 10/31/19 22:17) Rash tetracycline [Tetracycline] Allergy (Verified 10/31/19 22:17) Rash thiopental Allergy (Verified 10/31/19 22:17) Rash trimethoprim [From Proloprim] Allergy (Verified 10/31/19 22:17) Rash oxycodone HCl [From OxyContin] Adverse Reaction (Verified 10/31/19 22:17) Other NALDECON Allergy (Uncoded 10/31/19 22:17) Rash SULPHATED OIL Allergy (Uncoded 10/31/19 22:17) Other TAPE Allergy (Uncoded 10/31/19 22:17) Rash Home Medications: Ambulatory Orders Medication Instructions Recorded Prednisone 5 mg PO DAILY 11/29/18 Cholecalciferol (Vitamin D3) 2,000 unit PO DAILY 03/24/19 [Vitamin D3] Amlodipine [Norvasc] 5 mg PO DAILY #30 tab 03/25/19 Aspirin [Aspirin, Baby] 81 mg PO DAILY@0800 #30 tab.chew 03/25/19 Atorvastatin Calcium [Lipitor] 40 mg PO QHS #30 tab 03/25/19 Donepezil HCl [Aricept] 5 mg PO QHS #30 tab 03/25/19 Omeprazole 40 mg PO DAILY #30 capsule.dr 03/25/19 Mirabegron [Myrbetriq] 25 mg PO DAILY 04/08/19 albuterol sulfate 90 mcg/actuation 2 puff INHALATION Q6H PRN 10/16/19 aerosol inhaler clotrimazole 1 % topical cream 1 applic TOPICAL BID 10/16/19 desonide 0.05 % topical cream 1 applic TOPICAL BID PRN 10/16/19 duloxetine 60 mg capsule,delayed 60 mg PO DAILY cap 10/16/19 release ketoconazole 2 % topical cream 1 applic TOPICAL DAILY 10/16/19 losartan 100 mg tablet 100 mg PO DAILY 10/16/19 ondansetron 4 mg disintegrating 4 mg PO Q8H PRN 10/16/19 tablet gabapentin 300 mg capsule 300 mg PO TID cap 10/30/19 nitroglycerin 0.4 mg sublingual 0.4 mg SUBLINGUAL Q5-15M PRN #25 10/30/19 tablet tab trazodone 50 mg tablet 50 mg PO QHS PRN 10/30/19 Surgical History: Surgical History (Last Reviewed 11/01/19 @ 02:[address] Marlo Rios MD) History of Krish fundoplication Z98.890 S/P IVC filter Z95.828 History of appendectomy Z98.890, Z90.49 History of bilateral knee replacement Z96.653 History of cardiac catheterization Onset Date: ~04/2017 Z98.890 Mild CAD History of carpal tunnel surgery Z98.890 Bilateral History of cholecystectomy Z98.890, Z90.49 History of herniorrhaphy Z98.890, Z87.19 History of hysterectomy Z98.890, Z90.710 History of salpingo-oophorectomy Z90.79, Z90.721 Surgical History: appendectomy, cholecystectomy, herniorrhaphy, hysterectomy, - - Ileostomy bag in place Psychiatric History: No pertinent psych hx [employer]ING [employer]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 Marlo Rios MD) Father CVA (cerebral vascular accident) History Items: Diabetes, Hypertension Paternal Family History: Family History (Last Reviewed 11/01/19 @ 02:[address] Marlo Rios MD) Father CVA (cerebral vascular accident) History Items: Hypertension, No pertinent history Review of Systems Comment: See HPI Patient Problems: Active and Suspected Problems (Last Reviewed 11/01/19 @ 02:[address] Marlo richter MD) CVA (cerebral vascular accident) (Acute) Objective: Chest x-ray and CT of the head were personally reviewed and show no acute findings. Patient did have an echocardiogram in November 2018 showing an EF of 60% with stage II diastolic dysfunction. Patient had some mild valvular issues and the left atrium was mildly enlarged. RV was functioning appropriately, but PASP could not be estimated. No pulmonary function tests are available for review. - Physical Exam Vitals/I&O's: Vital Signs Temp Pulse Resp BP Pulse Ox 36.6 C 59 L 20 H 137/71 H 100 11/01/19 08:00 11/01/19 08:00 11/01/19 08:00 11/01/19 08:00 11/01/19 08:00 Oxygen Delivery Method Room Air Weight: 92 kg Body Mass Index (BMI) 39.6 Finger Stick Blood Glucose 171 Intake and Output for Last 24 Hours 10/30/19 10/31/19 11/01/19 23:59 23:59 23:59 Intake Total 75.7 / 75.7 678.33 / 678.33 Balance 75.7 / 75.7 678.33 / 678.33 General: Alert, Oriented x3, Cooperative, No apparent distress, - - Morbidly obese. No dysarthria or aphasia appreciated. HEENT: Atraumatic, PERRLA, EOMI, Normocephalic, - - Slight right facial droop Oral: Moist Mucosa, No Gingival or Mucosal Lesions/ Ulcerations, - - Carotid posterior pharynx Neck: Supple, No JVD, No Nodes, Trachea Midline Lungs: Clear to auscultation, Normal air movement, No rhonchi, No wheeze, No rales Cardiovascular: Regular Rhythm, Normal S1, Normal S2, No murmurs, Bradycardic, No rub noted, No Gallop Abdomen: Bowel Sounds Present, Soft, Non Tender, Non-Distended, Obese, - - C olostomy is clean, dry and intact Extremities: No clubbing, No cyanosis, Edema Skin: No rashes, No breakdown Musculoskeletal: No Tenderness to Palpation of Joints or Extremities Lymphatic: No Cervical, Supraclavicular, or Inguinal Adenopathy Neurological: - - Significant right upper extremity weakness, but reportedly improved to 3 out of 5. Some toe movement, but unable to hold leg above the bed. Decreased sensation noted on the right. Patient does have a possible rig ht-sided facial droop, but it is symmetric to the left Psych/Mental Status: Alert and oriented to time, place, person, mood and affect Laboratory Results 10/31/19 22:14: WBC 6.3, RBC 3.90 L, Hgb 11.7 L, Hct 36.5 L, MCV 93.6, MCH 30.0, MCHC 32.1, RDW Std Deviation 46.0 H, RDW Coeff of Elmer 13.5, Plt Count 202, MPV 11.1, Immature Gran % (Auto) 1.100 H, Neut % (Auto) 67.9, Lymph % (Auto) 23.9, Davidson % (Auto) 6.2, Eos % (Auto) 0.3, Baso % (Auto) 0.6, Absolute Neuts (auto) 4.3, Absolute Lymphs (auto) 1.50, Nucleated RBC % 0 10/31/19 22:14: PT 13.1, INR 1.0, APTT 26.9 10/31/19 22:14: Sodium 138, Potassium 4.0, Chloride 107, Carbon Dioxide 24.0, Anion Gap 7, BUN 14, Creatinine 1.27 H, Estim Creat Clear Calc 33.38, Est GFR (MDRD) Af Amer 53 L, Est GFR (MDRD) Non-Af 43 L, BUN/Creatinine Ratio 11.0, Glucose 134 H, Calcium 9.0, Troponin I < 0.015 10/31/19 22:14: Hemoglobin A1c 6.1 11/01/19 03:50: WBC 6.0, RBC 3.71 L, Hgb 11.0 L, Hct 34.9 L, MCV 94.1, MCH 29.6, MCHC 31.5 L, RDW Std Deviation 46.2 H, RDW Coeff of Elmer 13.4, Plt Count 195, MPV 10.9, Immature Gran % (Auto) 0.800, Neut % (Auto) 56.4, Lymph % (Auto) 32.6, Davidson % (Auto) 8.6, Eos % (Auto) 0.8, Baso % (Auto) 0.8, Absolute Neuts (auto) 3.4, Absolute Lymphs (auto) 1.94, Nucleated RBC % 0 11/01/19 03:50: Sodium 139, Potassium 3.8, Chloride 108 H, Carbon Dioxide 25.0, Anion Gap 6, BUN 16, Creatinine 1.12 H, Estim Creat Clear Calc 30.21, Est GFR (MDRD) Af Amer 61, Est GFR (MDRD) Non-Af 50 L, BUN/Creatinine Ratio 14.3, Glucose 134 H, Calcium 8.3 L, Triglycerides 64, Cholesterol 110, LDL Cholesterol 38, VLDL Cholesterol 13, HDL Cholesterol 59 Current Medications Acetaminophen (Tylenol) 650 mg PO .X1 PRN PRN Reason: Temp > 99.6 F Acetaminophen (Tylenol) 650 mg PO Q6H PRN PRN PRN Reason: Pain Score 1-10/Temp > 100.7 F Albuterol Sulfate (Ventolin Aerosols) 2.5 mg INHALATION Q2H PRN PRN PRN Reason: sob/wheezing Atorvastatin Calcium (Lipitor) 40 mg PO QHS PENDING SALE TO [facility] Cholecalciferol (Vitamin D (25mcg)) 2,000 unit PO DAILY PENDING SALE TO [facility] Dextrose (D50w Syringe) 0 gm IV X1 PRN; Protocol PRN Reason: Hypoglycemia Diphenhydramine HCl (Benadryl) 50 mg IV .X1 PRN PRN Reason: Allergic Reaction Stop: 11/02/19 22:31 Donepezil HCl (Aricept) 5 mg PO QHS PENDING SALE TO [facility] Duloxetine HCl (Cymbalta) 60 mg PO DAILY PENDING SALE TO [facility] Epinephrine HCl () 0.3 mg IM .X1 PRN PRN Reason: Allergic Reaction Stop: 11/02/19 22:31 Gabapentin (Neurontin) 300 mg PO TID PENDING SALE TO [facility] Last Admin: 11/01/19 06:42 Dose: 300 mg Documented by: Glucagon () 1 mg IM .X1 PRN PRN Reason: Hypoglycemia Hydrocortisone (Hytone) 1 applic TOPICAL BID PRN PRN; Protocol PRN Reason: skin irritation Sodium Chloride () 1,000 mls @ 100 mls/hr IV .Q10H PENDING SALE TO [facility] Last Infusion: 11/01/19 05:33 Dose: 100 mls/hr Documented by: Famotidine 20 mg/ Sodium (Chloride) 10 mls @ 300 mls/hr IV .X1 PRN PRN Reason: Allergic Reaction Stop: 11/02/19 22:31 Nicardipine/Dextrose (Cardene-Dex 20 Mg/200 Ml Soln) 20 mg in 200 mls @ 50 mls /hr IV .Q4H PRN; Protocol PRN Reason: See Instructions Sodium Chloride () 250 mls @ 15 mls/hr IV .[id number] PRN PRN Reason: Saline Flush Sodium Chloride () 250 mls @ 15 mls/hr IV .[id number] PRN PRN Reason: Additional IVPB Infusion Ketoconazole (Nizoral) 1 applic TOPICAL DAILY [place]; Protocol Labetalol HCl (Trandate) 20 mg IV X1 PRN PRN Reason: BLOOD PRESSURE Melatonin (Melatonin) 3 mg PO QHS PRN PRN PRN Reason: INSOMNIA Methylprednisolone (Solu-Medrol) 125 mg IV .X1 PRN PRN Reason: Allergic Reaction Stop: 11/02/19 22:31 Mirabegron (Myrbetriq) 25 mg PO DAILY [place] Ondansetron HCl (Zofran) 4 mg IV Q8H PRN PRN PRN Reason: NAUSEA/VOMITING Pantoprazole Sodium (Protonix) 40 mg PO DAILY [place] Prednisone () 5 mg PO DAILYCM [place] Sodium Chloride () 10 - 40 ml IV UD PRN PRN Reason: SALINE FLUSH Trazodone HCl (Desyrel) 50 mg PO QHS PRN PRN Reason: SLEEP Assessment/Plan Active and Suspected Problems (Last Reviewed 11/01/19 @ 02:[address] Marlo perez MD) CVA (cerebral vascular accident) (Acute) RECOMMENDATIONS: 1. Post TPA protocol 2. Arrange for aggressive PT/OT 3. Bedside swallow evaluation before p.o. intake 4. Repeat CT scan at 48 hours 5. Possibly add Plavix tomorrow if no intracranial complications IMPRESSIONS: 1. Probable new CVA Patient with new right upper extremity and right lower leg findings. Neurologic assessment is somewhat complicated secondary to history of previous CVA. Continue with TPA protocol. Repeat CAT scan will be required at approximately midnight. Patient will need an MRI. If this can be obtained at the same time, likely reasonable to not have a CT scan. We will hold antihypertensive medications for permissive hypertension. No signs of bleeding at this time. Anticipate transition to the floor tomorrow given late day administration of TPA. 2. RA/SLE/hypertension/CKD stage III/advanced age/morbid obesity/decreased mobility Complicates care, management, recovery and prognosis. Okay to continue with home prednisone therapy. Would hold antihypertensive medications to allow for permissive hypertension for 24 to 48 hours. Inpatient E&M: [id number] Init Hosp L3
[2019-11-01] MEDS: Ketoconazole Cream 1 APPLIC TOPICAL (09:29)
[2019-11-01] MEDS: Mirabegron 25 MG TAB.ER.24H PO (09:29)
[2019-11-01] MEDS: Pantoprazole Sodium 40 MG Tablet PO (09:29)
[2019-11-01] MEDS: predniSONE 5 MG Tablet PO (09:29)
[2019-11-01] MEDS: DULoxetine Hcl 60 MG Capsule PO (09:29)
--- NOTE | 2019-11-01 10:02 | CM.UR ---
RN CM Assessment Introduced role of RN CM to patient. Patient is alert and able to participate in RN CM Assessment. Care providers, pharmacy, and demographics verified. No family at bedside. Presentation: Right sided weakness. Admit Dx: CVA Re-Admit: no Barriers/Issues: vision--wears glasses. PCP: CONNIE Peace Preferred Pharmacy: [facility] for quick needs, [employer] mail order or [facility] Insurance: [employer] Rx Benefit: yes under [employer]. Denies trouble paying for medication costs. LNOK: mike eaton, . LW/HPOA: yes. States , Mike. None on file. Living Arrangements: lives in 1 story apartment with basement. States she does not go down to basement. Lives with . Granddaughter travels between [place] and [place] to care for her mother and her grandparents (this patient and her ). ADL?s: States helps her with shower and getting lower body dressed. States she or granddaughter does the cooking and cleaning. States she is independent with her medications. Sets up her own pill box weekly. States she manages the finances. Transportation: Patient does not drive. Her or granddaughter drive to her appts, etc. DME: Shower bench, handheld shower, walker, w/c, cane, grab bars, raised toilet seat and cpap. States she does not use her CPAP. Instructed on importance of compliance with cpap. DME co: Said got previous needs at [facility]. HHC: previously had [facility]. SNF: None Goal: She wants to go home from hospital. DC PLAN: Discussed with patient the possibility of needed rehab/SNF, especially since previous residual weakness on left side from stroke and now right sided weakness. Explained to be able to do as much as possible for herself. Explained we'll wait til therapy evaluates her and see what they recommend. States she will think about it. Flo Bearden RN, [facility].
--- NOTE | 2019-11-01 10:20 | PN_ITS ---
Patient Problems: Active and Suspected Problems (Last Reviewed 11/01/19 @ 02:[address] Marlo Rios MD) CVA (cerebral vascular accident) (Acute) Subjective: States that her speech problems after the TPA improved back to normal however she still has significant weakness in her right upper and lower extremity. Vitals/I&O's: Vital Signs Temp Pulse Resp BP Pulse Ox 97.7 F L 65 19 H 154/77 H 98 11/01/19 10:00 11/01/19 10:00 11/01/19 10:00 11/01/19 10:00 11/01/19 10:00 Oxygen Delivery Method Room Air Weight: 202 lb 13.204 oz Body Mass Index (BMI) 39.6 Finger Stick Blood Glucose 171 Intake and Output for Last 24 Hours 10/30/19 10/31/19 11/01/19 23:59 23:59 23:59 Intake Total 75.7 / 75.7 678.33 / 678.33 Balance 75.7 / 75.7 678.33 / 678.33 General: Alert, Oriented x3, Cooperative, No apparent distress HEENT: Atraumatic, PERRLA, EOMI, Normocephalic Oral: Moist Mucosa Neck: Supple, No JVD Lungs: Clear to auscultation, Normal air movement, No rhonchi, No wheeze, No rales Cardiovascular: Regular rate, Regular Rhythm, Normal S1, Normal S2, No murmurs Abdomen: Soft, Non Tender, Non-Distended, No Hepato-splenomegaly, - - Ileostomy is healthy Extremities: No edema, Capillary Refill Less than 3 Seconds Skin: No rashes, No breakdown Neurological: Cranial nerves II-XII grossly intact, - - She is unable to keep her right arm elevated, she does have a little bit of movement and it probably up to about 3 out of 5 in strength. Unable to lift her leg off the bed but she is able to move her toes. She does have decreased sensation on the right compared to the left. Psych/Mental Status: Normal Affect, Appropriate Laboratory Results 10/31/19 22:14: WBC 6.3, RBC 3.90 L, Hgb 11.7 L, Hct 36.5 L, MCV 93.6, MCH 30.0, MCHC 32.1, RDW Std Deviation 46.0 H, RDW Coeff of Elmer 13.5, Plt Count 202, MPV 11.1, Immature Gran % (Auto) 1.100 H, Neut % (Auto) 67.9, Lymph % (Auto) 23.9, [place] % (Auto) 6.2, Eos % (Auto) 0.3, Baso % (Auto) 0.6, Absolute Neuts (auto) 4.3, Absolute Lymphs (auto) 1.50, Nucleated RBC % 0 10/31/19 22:14: PT 13.1, INR 1.0, APTT 26.9 10/31/19 22:14: Sodium 138, Potassium 4.0, Chloride 107, Carbon Dioxide 24.0, Anion Gap 7, BUN 14, Creatinine 1.27 H, Estim Creat Clear Calc 33.38, Est GFR (MDRD) Af Amer 53 L, Est GFR (MDRD) Non-Af 43 L, BUN/Creatinine Ratio 11.0, Glu cose 134 H, Calcium 9.0, Troponin I < 0.015 10/31/19 22:14: Hemoglobin A1c 6.1 11/01/19 03:50: WBC 6.0, RBC 3.71 L, Hgb 11.0 L, Hct 34.9 L, MCV 94.1, MCH 29.6, MCHC 31.5 L, RDW Std Deviation 46.2 H, RDW Coeff of Elmer 13.4, Plt Count 195, MPV 10.9, Immature Gran % (Auto) 0.800, Neut % (Auto) 56.4, Lymph % (Auto) 32.6, [place] % (Auto) 8.6, Eos % (Auto) 0.8, Baso % (Auto) 0.8, Absolute Neuts (auto) 3.4, Absolute Lymphs (auto) 1.94, Nucleated RBC % 0 11/01/19 03:50: Sodium 139, Potassium 3.8, Chloride 108 H, Carbon Dioxide 25.0, Anion Gap 6, BUN 16, Creatinine 1.12 H, Estim Creat Clear Calc 30.21, Est GFR (MDRD) Af Amer 61, Est GFR (MDRD) Non-Af 50 L, BUN/Creatinine Ratio 14.3, Glucose 134 H, Calcium 8.3 L, Triglycerides 64, Cholesterol 110, LDL Cholesterol 38, VLDL Cholesterol 13, HDL Cholesterol 59 Current Medications Acetaminophen (Tylenol) 650 mg PO .X1 PRN PRN Reason: Temp > 99.6 F Acetaminophen (Tylenol) 650 mg PO Q6H PRN PRN PRN Reason: Pain Score 1-10/Temp > 100.7 F Albuterol Sulfate (Ventolin Aerosols) 2.5 mg INHALATION Q2H PRN PRN PRN Reason: sob/wheezing Atorvastatin Calcium (Lipitor) 40 mg PO QHS [facility] Cholecalciferol (Vitamin D (25mcg)) 2,000 unit PO DAILY [facility] Last Admin: 11/01/19 09:29 Dose: 2,000 unit Documented by: Dextrose (D50w Syringe) 0 gm IV X1 PRN; Protocol PRN Reason: Hypoglycemia Diphenhydramine HCl (Benadryl) 50 mg IV .X1 PRN PRN Reason: Allergic Reaction Stop: 11/02/19 22:31 Donepezil HCl (Aricept) 5 mg PO QHS [facility] Duloxetine HCl (Cymbalta) 60 mg PO DAILY [facility] Last Admin: 11/01/19 09:29 Dose: 60 mg Documented by: Epinephrine HCl () 0.3 mg IM .X1 PRN PRN Reason: Allergic Reaction Stop: 11/02/19 22:31 Gabapentin (Neurontin) 300 mg PO TID [facility] Last Admin: 11/01/19 06:42 Dose: 300 mg Documented by: Glucagon () 1 mg IM .X1 PRN PRN Reason: Hypoglycemia Hydrocortisone (Hytone) 1 applic TOPICAL BID PRN PRN; Protocol PRN Reason: skin irritation Sodium Chloride () 1,000 mls @ 100 mls/hr IV .Q10H [facility] Last Infusion: 11/01/19 05:33 Dose: 100 mls/hr Documented by: Famotidine 20 mg/ Sodium (Chloride) 10 mls @ 300 mls/hr IV .X1 PRN PRN Reason: Allergic Reaction Stop: 11/02/19 22:31 Nicardipine/Dextrose (Cardene-Dex 20 Mg/200 Ml Soln) 20 mg in 200 mls @ 50 mls/hr IV .Q4H PRN; Protocol PRN Reason: See Instructions Sodium Chloride () 250 mls @ 15 mls/hr IV .[id number] PRN PRN Reason: Saline Flush Sodium Chloride () 250 mls @ 15 mls/hr IV .[id number] PRN PRN Reason: Additional IVPB Infusion Ketoconazole (Nizoral) 1 applic TOPICAL DAILY [facility]; Protocol Last Admin: 11/01/19 09:29 Dose: 1 applicatio Documented by: Labetalol HCl (Trandate) 20 mg IV X1 PRN PRN Reason: BLOOD PRESSURE Melatonin (Melatonin) 3 mg PO QHS PRN PRN PRN Reason: INSOMNIA Methylprednisolone (Solu-Medrol) 125 mg IV .X1 PRN PRN Reason: Allergic Reaction Stop: 11/02/19 22:31 Mirabegron (Myrbetriq) 25 mg PO DAILY [facility] Last Admin: 11/01/19 09:29 Dose: 25 mg Documented by: Ondansetron HCl (Zofran) 4 mg IV Q8H PRN PRN PRN Reason: NAUSEA/VOMITING Pantoprazole Sodium (Protonix) 40 mg PO DAILY [facility] Last Admin: 11/01/19 09:29 Dose: 40 mg Documented by: Prednisone () 5 mg PO DAILYCM [facility] Last Admin: 11/01/19 09:29 Dose: 5 mg Documented by: Sodium Chloride () 10 - 40 ml IV UD PRN PRN Reason: SALINE FLUSH Trazodone HCl (Desyrel) 50 mg PO QHS PRN PRN Reason: SLEEP STROKE Vital Signs/Narrative: Vital Signs Temp Pulse Resp BP Pulse Ox 11/01/19 10:00 97.7 F L 65 19 H 154/77 H 98 11/01/19 09:00 97.7 F L 62 18 155/82 H 98 11/01/19 08:00 97.8 F 59 L 20 H 137/71 H 100 11/01/19 07:45 64 11/01/19 07:00 97.4 F L 60 18 157/89 H 98 Medical Necessity - Tobacco Use Smoking Status: Never smoker Tobacco Use: Non-smoker Assessment/Plan All Active Problems (Last Reviewed 11/01/19 @ 02:[address] Marlo Rios MD) CVA (cerebral vascular accident) (Acute) 1. 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 HTN/HLD/chronic diastolic dysfunction -We will continue with her home blood pressure medications tomorrow, she does have labetalol PRN for elevated blood pressure after TPA -Blood pressures currently stable -Continue with Lipitor 3. Anxiety/depression -Continue with Cymbalta -Stable 4. GERD -Stable -Continue with PPI 5. RA/lupus/Sjogren's -Disease have been stable with prednisone -Continue with her daily prednisone, can consider increasing her stress dosing purposes if necessary, however blood pressure is stable at present DVT: SCDs Inpatient E&M: [id number] Subs Hosp L2
--- NOTE | 2019-11-01 11:38 | CT_ITS ---
STUDY: CT BRAIN WITHOUT CONTRAST REASON FOR EXAM: Female, 79 years old. SEVERE HAYNES S/P TPA RADIATION DOSAGE (If Supplied By Facility): CTDIvol = ( 44.99 ) mGy, DLP = ( 779.24 ) mGycm TECHNIQUE: Transaxial CT imaging of the brain was performed without administration of intravenous contrast material. Individualized dose optimization techniques were used for this CT. COMPARISON: October 31, 2019 FINDINGS: Normal soft tissue structures. Normal calvarium. There is temporomandibular arthrosis. There is mild cerebral atrophy with widening of the extra-axial spaces and ventricular dilatation. There are areas of decreased attenuation within the white matter tracts of the supratentorial brain, consistent with microvascular disease changes. Normal basal ganglia and thalami. Normal brainstem. Normal cerebellum. There is no intracranial hemorrhage. There are no findings of an acute ischemic infarction. Normal visualized paranasal sinuses. CT/Brain/Head without Contrast IMPRESSION: Chronic involutional changes of the brain. Stable appearance. No hemorrhage. Electronically Signed: Gonzalez St MD at 12:36 EDT , Service support ,
[2019-11-01] MEDS: Acetaminophen 325 MG Tablet 650 MG PO (13:49)
[2019-11-01] MEDS: Atorvastatin Calcium 40 MG Tablet PO (21:15)
[2019-11-01] MEDS: Donepezil HCl 5 MG Tablet PO (21:15)
[2019-11-01] MEDS: MELATONIN 3 MG TABLET PO (21:17)
--- NOTE | 2019-11-01 23:51 | CT_ITS ---
STUDY: CT BRAIN WITHOUT CONTRAST REASON FOR EXAM: Female, 79 years old. 24 HOUR POST TPA RADIATION DOSAGE (If Supplied By Facility): CTDIvol = ( 44.99 ) mGy, DLP = ( 745.49 ) mGycm TECHNIQUE: Transaxial CT imaging of the brain was performed without administration of intravenous contrast material. Individualized dose optimization techniques were used for this CT. COMPARISON: 10/31/2019. FINDINGS: Normal soft tissue structures. Normal calvarium. There is mild cerebral atrophy with widening of the extra-axial spaces and ventricular dilatation. There are areas of decreased attenuation within the white matter tracts of the supratentorial brain, consistent with microvascular disease changes. Normal basal ganglia and thalami. Normal brainstem. Normal cerebellum. There is no intracranial hemorrhage. There are no findings of an acute ischemic infarction. Normal visualized paranasal sinuses. CT/Brain/Head without Contrast IMPRESSION: Chronic changes as described. No acute intracranial hemorrhage or space-occupying lesion. Overall stable study in the interval. Electronically Signed: Sirisha Cornejo MD at 1:38 EDT , Service support ,
[2019-11-02] VITALS (18 sets, daily range): BP systolic 124–156; BP diastolic 47–103; PULSE 54–68; RESP 16–20; TEMP 36.4–36.9; O2SAT 94–98; BMI 39.6
--- NOTE | 2019-11-02 00:44 | MRI_ITS ---
STUDY: MRI BRAIN WITHOUT CONTRAST REASON FOR EXAM: Female, 79 years old. post tpa TECHNIQUE: Standardized multiplanar fat and water weighted pulse sequences were obtained. COMPARISON: CT November 01, 2019. MRI March 23, 2019. FINDINGS: Normal size of the ventricles and extra-axial spaces for the patient''s age. There are a limited number of small white matter hyperintensities, distributed throughout the deep white matter tracts of the cerebral hemispheres, consistent with mild chronic white matter ischemic changes. There is no evidence for recent intracranial ischemia or other cause of cytotoxic edema on diffusion weighted imaging (DWI). Normal T2* images of the brain without demonstrated susceptibility artifact. There is no demonstrated hemosiderin stain. Normal bilateral basal ganglia. Normal thalami. There is no extra-axial fluid accumulation. Normal flow voids within the major intracranial circulation suggesting patency by spin echo criteria. There is enlargement of the sella turcica with increased CSF within the sella and flattening of the pituitary gland consistent with an empty sellar syndrome. Normal infundibular stalk, hypothalamus, and optic chiasm. Normal tectal plate and pineal gland. Normal midbrain, adán and medulla. Normal cerebellum. Normal basal cisterns. Normal bilateral temporal bones. Normal bilateral internal auditory canals. There are bilateral ocular lens implants with otherwise normal intraorbital contents. Normal visualized paranasal sinuses. Normal calvarium and skull base. Normal visualized soft tissue structures. Normal visualized upper cervical spine. MRI/Brain without Contrast IMPRESSION: Involutional changes of the brain, as described above. No acute infarct or hemorrhage. Electronically Signed: Gonzalez St MD at 12:12 EDT , Service support ,
[2019-11-02] MEDS: Gabapentin 300 MG Capsule PO ×3 (05:19→20:38)
--- NOTE | 2019-11-02 08:20 | PN_ITS ---
Subjective: Patient did okay overnight. Patient end up having [address] scans overnight secondary to the development of a headache. Patient has had some improvement in right-sided weakness and paresthesia per her report and nursing. Patient has remained hemodynamically stable on room air. MRI is scheduled for this morning. General: Alert, Oriented x3, Cooperative, No apparent distress, - - Morbidly obese. No conversational dyspnea. HEENT: Atraumatic, PERRLA, EOMI, Normocephalic, - - No scleral icterus or injection noted Oral: Moist Mucosa, No Gingival or Mucosal Lesions/ Ulcerations Neck: Supple, No JVD, No Nodes, Trachea Midline Lungs: Clear to auscultation, Normal air movement, No rhonchi, No wheeze, No rales Cardiovascular: Regular rate, Regular Rhythm, Normal S1, Normal S2, No murmurs, No rub noted, No Gallop Abdomen: Bowel Sounds Present, Soft, Non Tender, Non-Distended, Obese Extremities: No clubbing, No cyanosis, No edema, Capillary Refill Less than 3 Seconds Skin: - - No change from previous Musculoskeletal: No Tenderness to Palpation of Joints or Extremities Lymphatic: No Cervical, Supraclavicular, or Inguinal Adenopathy Neurological: - - Some improvement in right-sided weakness. Intermittently able to lift right leg and more movement of the right upper extremity noted, especially against gravity. Psych/Mental Status: Alert and oriented to time, place, person, mood and affect Vital Signs Temp Pulse Resp BP Pulse Ox 36.4 C L 60 19 H 155/80 H 95 11/02/19 03:00 11/02/19 07:29 11/02/19 07:00 11/02/19 07:00 11/02/19 07:00 Oxygen Delivery Method Room Air Weight: 92.5 kg Body Mass Index (BMI) 39.6 Finger Stick Blood Glucose 171 Intake and Output for Last 24 Hours 10/31/19 11/01/19 11/02/19 23:59 23:59 23:59 Intake Total 75.7 / 75.7 2678.33 / 3278.33 900 / 900 Output Total 100 / 400 1100 / 1100 Balance 75.7 / 75.7 2578.33 / 2878.33 -200 / -200 Labs (Last 48 Hours) 10/31/19 10/31/19 10/31/19 22:14 22:14 22:14 WBC 6.3 RBC 3.90 L Hgb 11.7 L Hct 36.5 L MCV 93.6 MCH 30.0 MCHC 32.1 RDW Std Deviation 46.0 H RDW Coeff of Elmer 13.5 Plt Count 202 MPV 11.1 Immature Gran % (Auto) 1.100 H Neut % (Auto) 67.9 Lymph % (Auto) 23.9 [place] % (Auto) 6.2 Eos % (Auto) 0.3 Baso % (Auto) 0.6 Absolute Neuts (auto) 4.3 Absolute Lymphs (auto) 1.50 Nucleated RBC % 0 PT 13.1 INR 1.0 APTT 26.9 Sodium 138 Potassium 4.0 Chloride 107 Carbon Dioxide 24.0 Anion Gap 7 BUN 14 Creatinine 1.27 H Estim Creat Clear Calc 33.38 Est GFR (MDRD) Af Amer 53 L Est GFR (MDRD) Non-Af 43 L BUN/Creatinine Ratio 11.0 Glucose 134 H Hemoglobin A1c Calcium 9.0 Troponin I < 0.015 Triglycerides Cholesterol LDL Cholesterol VLDL Cholesterol HDL Cholesterol 10/31/19 11/01/19 11/01/19 22:14 03:50 03:50 WBC 6.0 RBC 3.71 L Hgb 11.0 L Hct 34.9 L MCV 94.1 MCH 29.6 MCHC 31.5 L RDW Std Deviation 46.2 H RDW Coeff of Elmer 13.4 Plt Count 195 MPV 10.9 Immature Gran % (Auto) 0.800 Neut % (Auto) 56.4 Lymph % (Auto) 32.6 [place] % (Auto) 8.6 Eos % (Auto) 0.8 Baso % (Auto) 0.8 Absolute Neuts (auto) 3.4 Absolute Lymphs (auto) 1.94 Nucleated RBC % 0 PT INR APTT Sodium 139 Potassium 3.8 Chloride 108 H Carbon Dioxide 25.0 Anion Gap 6 BUN 16 Creatinine 1.12 H Estim Creat Clear Calc 30.21 Est GFR (MDRD) Af Amer 61 Est GFR (MDRD) Non-Af 50 L BUN/Creatinine Ratio 14.3 Glucose 134 H Hemoglobin A1c 6.1 Calcium 8.3 L Troponin I Triglycerides 64 Cholesterol 110 LDL Cholesterol 38 VLDL Cholesterol 13 HDL Cholesterol 59 Clinical Impression(s) from Imaging Studies Brain CT 11/01/19 11:38 IMPRESSION: Chronic involutional changes of the brain. Stable appearance. No hemorrhage. Electronically Signed: Gonzalez St MD at 12:36 EDT , Service support , Brain CT 11/01/19 23:51 IMPRESSION: Chronic changes as described. No acute intracranial hemorrhage or space-occupying lesion. Overall stable study in the interval. Electronically Signed: Sirisha Cornejo MD at 1:38 EDT , Service support , Medical Necessity - Tobacco Use Smoking Status: Never smoker Tobacco Use: Non-smoker Assessment/Plan All Active Problems (Last Reviewed 11/01/19 @ 02:[address] Marlo Rios MD) CVA (cerebral vascular accident) (Acute) RECOMMENDATIONS: 1. Post TPA protocol. 2. Arrange for aggressive PT/OT 3. Await MRI. 4. Okay to initiate DVT prophylaxis 5. Okay to add Plavix tomorrow 6. Hemodynamically stable on room air. Will sign off from a critical care perspective IMPRESSIONS: 1. Probable new CVA Patient with new right upper extremity and right lower leg findings. Neurologic assessment is somewhat complicated secondary to history of previous CVA. Continue with TPA/post stroke protocol. [place] CT scan did not show any bleed. MRI is scheduled for this morning. Okay to reinitiate antihypertensives from my perspective. Initiate DVT prophylaxis. No signs of bleeding at this time. 2. RA/SLE/hypertension/CKD stage III/advanced age/morbid obesity/decreased mobility Complicates care, management, recovery and prognosis. Okay to continue with home prednisone therapy. Okay to reinitiate antihypertensive medications from my perspective Inpatient E&M: [id number] Subs Hosp L2
[2019-11-02 08:34] LABS: Absolute Lymphocyte Count 2.14 X10^3/uL (0.83-4.51); Absolute Neutrophil Count 2.3 X10^3/uL (2.0-7.7); Basophil# 0.06 X10^3/uL; Basophil% 1.2 % (0-1); Eosinophil# 0.12 X10^3/uL; Eosinophils% 2.4 % (0-5); Hematocrit 35.3 % (37-47); Hemoglobin 11.2 g/dL (12.0-15.0); Lymphocyte # 2.14 X10^3/ul (4.0); Mean Corp Hgb Conc 31.7 g/dL (32-36); Mean Corpuscular Hgb 30.1 pg (27.0-32.0); Mean Corpuscular Volume 94.9 fL (81-99); Mean Platelet Vol. 11.3 fl (6.2-12.0); Monocyte# 0.41 X10^3/uL; Monocyte% 8.1 % (0-10); NRBC Flagged by Analyzer 0 % (0-5); Neutrophil # 2.33 X10^3/uL (2.7-7.7); Neutrophil % 45.7 % (47-70); Platelet Count 186 K/mm3 (150-450); RBC Distribution Width CV 13.6 % (11.6-14.6); RBC Distribution Width SD 46.7 fl (35.1-43.9); Red Blood Count 3.72 M/mm3 (4.2-5.4); White Blood Count 5.1 K/mm3 (4.4-11.0)
[2019-11-02] MEDS: DULoxetine Hcl 60 MG Capsule PO (10:32)
[2019-11-02] MEDS: Pantoprazole Sodium 40 MG Tablet PO (10:32)
[2019-11-02] MEDS: Enoxaparin 30 MG/0.3 ML Syringe SC (10:32)
[2019-11-02] MEDS: Ketoconazole Cream 1 APPLIC TOPICAL (10:32)
[2019-11-02] MEDS: Mirabegron 25 MG TAB.ER.24H PO (10:32)
[2019-11-02] MEDS: predniSONE 5 MG Tablet PO (10:33)
[2019-11-02] MEDS: 0.9% Normal Saline 1,000 ML 100 ML IV ×2 (11:17→20:35)
--- NOTE | 2019-11-02 14:22 | PN_ITS ---
Patient Problems: Active and Suspected Problems (Last Reviewed 11/01/19 @ 02:[address] Marlo Rios MD) CVA (cerebral vascular accident) (Acute) Subjective: Says she is doing well but better, she has more mobility in her right upper extremity. No further headaches. Vitals/I&O's: Vital Signs Temp Pulse Resp BP Pulse Ox 97.6 F L 66 16 145/77 H 98 11/02/19 12:00 11/02/19 13:23 11/02/19 13:23 11/02/19 13:23 11/02/19 13:23 Oxygen Delivery Method Room Air Weight: 203 lb 14.841 oz Body Mass Index (BMI) 39.6 Finger Stick Blood Glucose 171 Intake and Output for Last 24 Hours 10/31/19 11/01/19 11/02/19 23:59 23:59 23:59 Intake Total 75.7 / 75.7 2678.33 / 3278.33 2438.33 / 2438.33 Output Total 100 / 400 1450 / 1450 Balance 75.7 / 75.7 2578.33 / 2878.33 988.33 / 988.33 General: Alert, Oriented x3, Cooperative, No apparent distress HEENT: Atraumatic, PERRLA, EOMI, Normocephalic Oral: Moist Mucosa Neck: Supple, No JVD Lungs: Clear to auscultation, Normal air movement, No rhonchi, No wheeze, No rales Cardiovascular: Regular rate, Regular Rhythm, Normal S1, Normal S2, No murmurs Abdomen: Soft, Non Tender, Non-Distended, No Hepato-splenomegaly, - - Ileostomy is healthy Extremities: No edema, Capillary Refill Less than 3 Seconds Skin: No rashes, No breakdown Neurological: Cranial nerves II-XII grossly intact, - - She is unable to keep her right arm elevated, she does have a little bit of movement and it probably up to about 3 out of 5 in strength. Unable to lift her leg off the bed but she is able to move her toes. She does have decreased sensation on the right compared to the left. Psych/Mental Status: Normal Affect, Appropriate Laboratory Results 11/02/19 07:35: WBC 5.1, RBC 3.72 L, Hgb 11.2 L, Hct 35.3 L, MCV 94.9, MCH 30.1, MCHC 31.7 L, RDW Std Deviation 46.7 H, RDW Coeff of Elmer 13.6, Plt Count 186, MPV 11.3, Immature Gran % (Auto) 0.600, Neut % (Auto) 45.7 L, Lymph % (Auto) 42.0 H, [place] % (Auto) 8.1, Eos % (Auto) 2.4, Baso % (Auto) 1.2 H, Absolute Neuts (auto) 2.3, Absolute Lymphs (auto) 2.14, Nucleated RBC % 0 Current Medications Acetaminophen (Tylenol) 650 mg PO .X1 PRN PRN Reason: Temp > 99.6 F Acetaminophen (Tylenol) 650 mg PO Q6H PRN PRN PRN Reason: Pain Score 1-10/Temp > 100.7 F Last Admin: 11/01/19 13:49 Dose: 650 mg Documented by: Albuterol Sulfate (Ventolin Aerosols) 2.5 mg INHALATION Q2H PRN PRN PRN Reason: sob/wheezing Atorvastatin Calcium (Lipitor) 40 mg PO QHS [facility] Last Admin: 11/01/19 21:15 Dose: 40 mg Documented by: Cholecalciferol (Vitamin D (25mcg)) 2,000 unit PO DAILY [facility] Last Admin: 11/02/19 10:32 Dose: 2,000 unit Documented by: Dextrose (D50w Syringe) 0 gm IV X1 PRN; Protocol PRN Reason: Hypoglycemia Diphenhydramine HCl (Benadryl) 50 mg IV .X1 PRN PRN Reason: Allergic Reaction Stop: 11/02/19 22:31 Donepezil HCl (Aricept) 5 mg PO QHS [facility] Last Admin: 11/01/19 21:15 Dose: 5 mg Documented by: Duloxetine HCl (Cymbalta) 60 mg PO DAILY [facility] Last Admin: 11/02/19 10:32 Dose: 60 mg Documented by: Enoxaparin Sodium (Lovenox) 30 mg SC DAILY [facility] Last Admin: 11/02/19 10:32 Dose: 30 mg Documented by: Epinephrine HCl () 0.3 mg IM .X1 PRN PRN Reason: Allergic Reaction Stop: 11/02/19 22:31 Gabapentin (Neurontin) 300 mg PO TID [facility] Last Admin: 11/02/19 13:34 Dose: 300 mg Documented by: Glucagon () 1 mg IM .X1 PRN PRN Reason: Hypoglycemia Hydrocortisone (Hytone) 1 applic TOPICAL BID PRN PRN; Protocol PRN Reason: skin irritation Sodium Chloride () 1,000 mls @ 100 mls/hr IV .Q10H [facility] Last Admin: 11/02/19 11:17 Dose: 100 mls/hr Documented by: Famotidine 20 mg/ Sodium (Chloride) 10 mls @ 300 mls/hr IV .X1 PRN PRN Reason: Allergic Reaction Stop: 11/02/19 22:31 Nicardipine/Dextrose (Cardene-Dex 20 Mg/200 Ml Soln) 20 mg in 200 mls @ 50 mls/hr IV .Q4H PRN; Protocol PRN Reason: See Instructions Sodium Chloride () 250 mls @ 15 mls/hr IV .[id number] PRN PRN Reason: Saline Flush Sodium Chloride () 250 mls @ 15 mls/hr IV .[id number] PRN PRN Reason: Additional IVPB Infusion Ketoconazole (Nizoral) 1 applic TOPICAL DAILY [facility]; Protocol Last Admin: 11/02/19 10:32 Dose: 1 applicatio Documented by: Labetalol HCl (Trandate) 20 mg IV X1 PRN PRN Reason: BLOOD PRESSURE Melatonin (Melatonin) 3 mg PO QHS PRN PRN PRN Reason: INSOMNIA Last Admin: 11/01/19 21:17 Dose: 3 mg Documented by: Methylprednisolone (Solu-Medrol) 125 mg IV .X1 PRN PRN Reason: Allergic Reaction Stop: 11/02/19 22:31 Mirabegron (Myrbetriq) 25 mg PO DAILY [facility] Last Admin: 11/02/19 10:32 Dose: 25 mg Documented by: Nutritional Formula (Lactose Free) (Ensure Enlive) 120 ml PO 4X/DAY [facility] Last Admin: 11/02/19 13:34 Dose: Not Given Documented by: Ondansetron HCl (Zofran) 4 mg IV Q8H PRN PRN PRN Reason: NAUSEA/VOMITING Pantoprazole Sodium (Protonix) 40 mg PO DAILY [facility] Last Admin: 11/02/19 10:32 Dose: 40 mg Documented by: [facility] Last Admin: 11/02/19 10:33 Dose: 5 mg Documented by: Sodium Chloride () 10 - 40 ml IV UD PRN PRN Reason: SALINE FLUSH Trazodone HCl (Desyrel) 50 mg PO QHS PRN PRN Reason: SLEEP STROKE Vital Signs/Narrative: Vital Signs Temp Pulse Resp BP BP Pulse Ox 11/02/19 13:23 66 16 145/77 H 98 11/02/19 12:00 97.6 F L 66 20 H 148/83 H 98 11/02/19 11:24 65 Medical Necessity - Tobacco Use Smoking Status: Never smoker Tobacco Use: Non-smoker Assessment/Plan All Active Problems (Last Reviewed 11/01/19 @ 02:[address] Marlo Rios MD) CVA (cerebral vascular accident) (Acute) 1. Left-sided CVA/history of left-sided deficits from a right-sided s troke/dementia -We will continue with the post TPA order set, MRI this morning without a significant stroke -We will restart her aspirin and and Plavix starting tomorrow -Continue with her Lipitor -We will hold off on her echo, she had an echo a year ago when she had her right sided TIA/CVA, and the echo was unremarkable and given the coronavirus return to minimize exposure -Appreciate neurology input -Continue with donepezil -We will plan to discharge to the rehab unit if able otherwise to a long term facility 2. HTN/HLD/chronic diastolic dysfunction -We will continue with her home blood pressure medications tomorrow, she does have labetalol PRN for elevated blood pressure after TPA -Blood pressures currently stable -Continue with Lipitor 3. Anxiety/depression -Continue with Cymbalta -Stable 4. GERD -Stable -Continue with PPI 5. RA/lupus/Sjogren's -Disease have been stable with prednisone -Continue with her daily prednisone, can consider increasing her stress dosing purposes if necessary, however blood pressure is stable at present DVT: SCDs Inpatient E&M: [id number] Subs Hosp L2
--- NOTE | 2019-11-02 14:35 | NURSING ---
Report called to Jacqui RN on PCU
[2019-11-02 20:26] LABS: Bedside Glucose 171 mg/dL (70-110)
[2019-11-02] MEDS: Donepezil HCl 5 MG Tablet PO (20:37)
[2019-11-02] MEDS: Atorvastatin Calcium 40 MG Tablet PO (20:38)
[2019-11-02] MEDS: MELATONIN 3 MG TABLET PO (20:40)
[2019-11-02] MEDS: Acetaminophen 325 MG Tablet 650 MG PO (20:46)
[2019-11-03] MEDS: Hydrocortisone 2.5% Crm 1 APPLIC TOPICAL (00:22)
[2019-11-03 03:00] VITALS: PULSE 72
[2019-11-03 05:06] VITALS: BP 159/68; PULSE 62; RESP 18; TEMP 37.1; O2SAT 95
[2019-11-03] MEDS: Gabapentin 300 MG Capsule PO (05:09)
[2019-11-03] MEDS: 0.9% Normal Saline 1,000 ML 100 ML IV (05:11)
[2019-11-03 07:00] VITALS: PULSE 68
[2019-11-03] MEDS: Aspirin 81 MG TAB.CHEW PO (09:33)
[2019-11-03] MEDS: predniSONE 5 MG Tablet PO (09:33)
[2019-11-03] MEDS: Enoxaparin 30 MG/0.3 ML Syringe SC (09:33)
[2019-11-03] MEDS: DULoxetine Hcl 60 MG Capsule PO (09:33)
[2019-11-03] MEDS: Pantoprazole Sodium 40 MG Tablet PO (09:34)
[2019-11-03] MEDS: Clopidogrel Bisulfate 75 MG Tablet PO (09:34)
[2019-11-03] MEDS: Mirabegron 25 MG TAB.ER.24H PO (09:34)
[2019-11-03] MEDS: Ketoconazole Cream 1 APPLIC TOPICAL (09:34)
--- NOTE | 2019-11-03 10:56 | CASEMGMT ---
Addendum entered by Amarilis Rosario 11/03/19 13:08: Covid transfer tool faxed to [facility] at this time. Russ NEWBY CM Original Note: This RN CM to room to discuss discharge plan with pt at this time. Therapy is recommending [facility] PT/OT for pt at this time and pt is agreeable at this time. Pt has previously been with [facility] and pt would like the same at this time. Order placed for PT/OT at this time and message left with referral for Linda at [facility] at this time. Pt states has all needed equipment at home at this time. Pt states no further concerns/needs at this time. Pt states no concerns with going home at time of discharge. Russ NEWBY CM
[2019-11-03 11:05] VITALS: BP 155/67; PULSE 60; RESP 18; TEMP 36.8; O2SAT 99
--- NOTE | 2019-11-03 11:30 | PCM.DC ---
- Discharge Diagnoses Current Active Problems: Current Active and Chronic Problems (Last Reviewed 11/01/19 @ 02:[address] Marlo Rios MD) CVA (cerebral vascular accident) (Acute) You will use the following diet at home:: No restrictions Your food should be the consistency of: Regular Your liquids should be the consistency of: Regular/Thin Discharge Activity: Return to Normal Activity Weight Bearing Status: Full weight bearing Allergies/Adverse Reactions: Allergies ampicillin Allergy (Verified 10/31/19 22:17) Rash buprenorphine HCl [From Buprenex] Allergy (Verified 10/31/19 22:17) Other codeine Allergy (Verified 10/31/19 22:17) Anaphylaxis gold Au 198 Allergy (Verified 10/31/19 22:17) Rash guaifenesin Allergy (Verified 10/31/19 22:17) Rash promethazine HCl [From Phenergan] Allergy (Verified 10/31/19 22:17) Shortness of breath Sulfa (Sulfonamide Antibiotics) Allergy (Verified 10/31/19 22:17) Rash sulindac [From Clinoril] Allergy (Verified 10/31/19 22:17) Rash tetracycline [Tetracycline] Allergy (Verified 10/31/19 22:17) Rash thiopental Allergy (Verified 10/31/19 22:17) Rash trimethoprim [From Proloprim] Allergy (Verified 10/31/19 22:17) Rash oxycodone HCl [From OxyContin] Adverse Reaction (Verified 10/31/19 22:17) Other NALDECON Allergy (Uncoded 10/31/19 22:17) Rash SULPHATED OIL Allergy (Uncoded 10/31/19 22:17) Other TAPE Allergy (Uncoded 10/31/19 22:17) Rash Medications to take at Discharge Prednisone 5 mg PO DAILY 11/29/18 Cholecalciferol (Vitamin D3) [Vitamin D3] 2,000 unit PO DAILY 03/24/19 Amlodipine [Norvasc] 5 mg PO DAILY #30 tab 03/25/19 Aspirin [Aspirin, Baby] 81 mg PO DAILY@0800 #30 tab.chew 03/25/19 Atorvastatin Calcium [Lipitor] 40 mg PO QHS #30 tab 03/25/19 Omeprazole 40 mg PO DAILY #30 mima. 03/25/19 Mirabegron [Myrbetriq] 25 mg PO DAILY 04/08/19 albuterol sulfate 90 mcg/actuation aerosol inhaler 2 puff INHALATION Q6H PRN 10/16/19 clotrimazole 1 % topical cream 1 applic TOPICAL BID 10/16/19 desonide 0.05 % topical cream 1 applic TOPICAL BID PRN 10/16/19 duloxetine 60 mg capsule,delayed release 60 mg PO DAILY cap 10/16/19 ketoconazole 2 % topical cream 1 applic TOPICAL DAILY 10/16/19 losartan 100 mg tablet 100 mg PO DAILY 10/16/19 ondansetron 4 mg disintegrating tablet 4 mg PO Q8H PRN 10/16/19 gabapentin 300 mg capsule 300 mg PO TID cap 10/30/19 nitroglycerin 0.4 mg sublingual tablet 0.4 mg SUBLINGUAL Q5-15M PRN #25 tab 10/30/19 trazodone 50 mg tablet 50 mg PO QHS PRN 10/30/19 Aspirin [Aspirin, Baby] 81 mg PO DAILY@0800 tab.chew 11/03/19 Donepezil HCl [Aricept] 10 mg PO QHS #30 tab 11/03/19 The following prescriptions were given: Donepezil HCl [Aricept] 10 mg PO QHS #30 tab Transmission Status: Pending to [facility]/pharmacy #[id number] Primary Care Physician: Zayda Peace PA [Primary Care Provider] - Please follow up with your Primary Care Physician in: IN ONE TO TWO WEEKS Test Results: Test results from this visit will be discussed in further detail at your follow-up appointment, if applicable.
--- NOTE | 2019-11-03 14:45 | PCM.DC.SUM ---
Discharge Date and Diagnosis Date of Admission: 10/31/19 Date of Discharge: 11/03/19 - Primary Discharge Diagnosis #1 transient ischemic attack #2 Essential hypertension #3 Atherosclerotic heart disease #4 Stage III chronic kidney disease #5 Alzheimer's diseae An acute CVA was ruled out - Secondary Discharge Diagnosis Chronic Problems (Last Reviewed 11/01/19 @ 02:[address] 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) Mild; Left Main: mild calcification, angiographically normal; LAD: prox: Mild calcification, mild luminal irregularities;CX: prox: Mild luminal irregularities; RCA: angiographically normal per cath 05/09/17 Diastolic dysfunction (Chronic) CKD (chronic kidney disease), stage III (Chronic) Hyperlipidemia (Chronic) Benign essential hypertension (Chronic) GERD (gastroesophageal reflux disease) (Chronic) History of pulmonary embolism (Chronic) Hospital Course and Treatment Operations: None Summary of Care Provided: The patient is a 79 year old F was seen in the emergency room at [facility] with chief complaint of right arm weakness. Evaluation in the emergency room showed her NIH stroke score to be 6, tele-neurology was consulted and felt that the patient required TPA, this was administered and the patient was admitted to ICU. She was seen in consultation by critical care, she was transferred to PCU and an MRI of the head and neck as well as an MRI of the brain was obtained-no evidence of an acute stroke was noted to be present. Patient was seen in consultation by PT and OT as well as speech therapy. On 11/03/2019, patient was seen and examined: On examination she appeared in good health and spirits, she does not appear to be in any distress. Vital signs as documented. Skin warm and dry and without overt rashes. Neck without JVD, thyroid appears normal, trachea is midline, neck is supple. Lungs clear, normal air movement was noted. Heart exam notable for regular rhythm, normal sounds and absence of murmurs, rubs or gallops. Abdomen unremarkable and without evidence of organomegaly, masses, or abdominal aortic enlargement, bowel sounds are present in all 4 quadrants, no abdominal tenderness was noted. Extremities nonedematous, no cyanosis was noted, no clubbing was noted. Neuro: Cranial nerves II through XII are grossly intact, no focal motor deficits were noted, sensation to light touch and pinprick is intact, motor exam 5/5 throughout. Psych: Patient is alert and oriented x3, she does not appear anxious or depressed, she does not appear agitated. Patient was felt to have suffered a TIA, she was set up for outpatient PT and OT as well as speech therapy. On 11/03/2019, patient appears stable for discharge home-I talked at length with the patient's granddaughter who helps with her medical care at home. - Physical Exam Vitals/I&O's: Vital Signs Temp Pulse Resp BP Pulse Ox 98.2 F 60 18 155/67 H 99 11/03/19 11:05 11/03/19 11:05 11/03/19 11:05 11/03/19 11:05 11/03/19 11:05 Oxygen Delivery Method Room Air Weight: 92.1 kg Body Mass Index (BMI) 39.6 Finger Stick Blood Glucose 171 Intake and Output for Last 24 Hours 11/01/19 11/02/19 11/03/19 23:59 23:59 23:59 Intake Total 2678.33 / 3278.33 3848.33 / 3848.33 1575 / 1575 Output Total 100 / 400 2490 / 2490 625 / 625 Balance 2578.33 / 2878.33 1358.33 / 1358.33 950 / 950 Laboratory Results 10/31/19 21:59: POC Glucose 171 H Discharge Activity: Return to Normal Activity Weight Bearing Status: Full weight bearing Home Medications: Medications to take at Discharge Prednisone 5 mg PO DAILY 11/29/18 Cholecalciferol (Vitamin D3) [Vitamin D3] 2,000 unit PO DAILY 03/24/19 Amlodipine [Norvasc] 5 mg PO DAILY #30 tab 03/25/19 Aspirin [Aspirin, Baby] 81 mg PO DAILY@0800 #30 tab.chew 03/25/19 Atorvastatin Calcium [Lipitor] 40 mg PO QHS #30 tab 03/25/19 Omeprazole 40 mg PO DAILY #30 capsule. 03/25/19 Mirabegron [Myrbetriq] 25 mg PO DAILY 04/08/19 albuterol sulfate 90 mcg/actuation aerosol inhaler 2 puff INHALATION Q6H PRN 10/16/19 clotrimazole 1 % topical cream 1 applic TOPICAL BID 10/16/19 desonide 0.05 % topical cream 1 applic TOPICAL BID PRN 10/16/19 duloxetine 60 mg capsule,delayed release 60 mg PO DAILY cap 10/16/19 ketoconazole 2 % topical cream 1 applic TOPICAL DAILY 10/16/19 losartan 100 mg tablet 100 mg PO DAILY 10/16/19 ondansetron 4 mg disintegrating tablet 4 mg PO Q8H PRN 10/16/19 gabapentin 300 mg capsule 300 mg PO TID cap 10/30/19 nitroglycerin 0.4 mg sublingual tablet 0.4 mg SUBLINGUAL Q5-15M PRN #25 tab 10/30/19 trazodone 50 mg tablet 50 mg PO QHS PRN 10/30/19 Aspirin [Aspirin, Baby] 81 mg PO DAILY@0800 tab.chew 11/03/19 Donepezil HCl [Aricept] 10 mg PO QHS #30 tab 11/03/19 Following Prescrptions Were Given to Patient: Donepezil HCl [Aricept] 10 mg PO QHS #30 tab Transmission Status: Received by [facility]/pharmacy #[id number] Primary Care Physician: Zayda Peace PA [Primary Care Provider] - Please follow up with your Primary Care Physician in: IN ONE TO TWO WEEKS Disposition: Home with Home Health Minutes spent on discharge:: 31 Patient Condition:: Stable Medical Necessity - Tobacco Use Smoking Status: Never smoker Tobacco Use: Non-smoker Meaningful Use Info Meaningful Use Diagnoses (Choose all that apply): None applicable Inpatient E&M: 87470 Disch Hosp
== END 2019-11-03 12:37 | disposition home or self-care (01) | DRG 62 ==
LOC: ED 22:04 → ICU 23:58 → PCU 11-02 15:12
PROVIDERS: Family Medicine; Internal Medicine Critical Care Medicine; Admitting Provider Hospitalist; Emergency Provider Emergency Medicine; PCP Physician Assistant; Referring Provider Hospitalist; Visit Provider Internal Medicine
DX: G45.9 Transient cerebral ischemic attack, unspecified (principal); I69.354 Hemiplegia and hemiparesis following cerebral infarction affecting left non-dominant side; I13.0 Hypertensive heart and chronic kidney disease with heart failure and stage 1 through stage 4 chronic kidney disease, or unspecified chronic kidney disease; R47.01 Aphasia; M06.9 Rheumatoid arthritis, unspecified; M32.9 Systemic lupus erythematosus, unspecified; L30.4 Erythema intertrigo; M35.00 Sjogren syndrome, unspecified; E66.01 Morbid (severe) obesity due to excess calories; Z68.39 Body mass index [BMI] 39.0-39.9, adult; Z79.82 Long term (current) use of aspirin; I25.10 Atherosclerotic heart disease of native coronary artery without angina pectoris; E11.22 Type 2 diabetes mellitus with diabetic chronic kidney disease; N18.3 Chronic kidney disease, stage 3 (moderate); I50.9 Heart failure, unspecified; E78.5 Hyperlipidemia, unspecified; K21.9 Gastro-esophageal reflux disease without esophagitis; Z86.711 Personal history of pulmonary embolism; G30.9 Alzheimer's disease, unspecified; F02.80 Dementia in other diseases classified elsewhere, unspecified severity, without behavioral disturbance, psychotic disturbance, mood disturbance, and anxiety; Z86.718 Personal history of other venous thrombosis and embolism; M79.7 Fibromyalgia; G25.81 Restless legs syndrome; I73.00 Raynaud's syndrome without gangrene; Z79.899 Other long term (current) drug therapy; F32.9 Major depressive disorder, single episode, unspecified; F41.9 Anxiety disorder, unspecified; Z95.828 Presence of other vascular implants and grafts; E78.00 Pure hypercholesterolemia, unspecified
CPT/HCPCS: 70450; 70496; 70498; 70551; 71045; 80048; 80061; 82962; 83036; 84484; 85025; 85610; 85730; 92507; 92610; 93005; 97162; 97166; 97802; 99283; J2997; J7030; Q9967; A4216

== ENCOUNTER 2019-12-24 10:59 | Observation (INO) | payer MEDICARE, SELFPAY ==
[2019-11-02 23:17] VITALS: BMI 39.6
[2019-12-24] VITALS (9 sets, daily range): BP systolic 144–168; BP diastolic 76–113; PULSE 63–121; RESP 12–18; TEMP 36.1–36.9; O2SAT 92–98; BMI 36.1; BMI 37.1
--- NOTE | 2019-12-24 11:29 | CT_ITS ---
STUDY: CT BRAIN WITHOUT CONTRAST REASON FOR EXAM: Female, 79 years old. HEADACHE, INCREASED WEAKNESS, NAUSEA, ALZHEIMERS, DIM ENTIA, CVA RADIATION DOSAGE (If Supplied By Facility): CTDIvol = ( 44.99 ) mGy, DLP = ( 796.11 ) mGycm TECHNIQUE: Transaxial CT imaging of the brain was performed without administration of intravenous contrast material. Individualized dose optimization techniques were used for this CT. COMPARISON: Comparison is made with prior study dated November 02, 2019. FINDINGS: Normal soft tissue structures. Normal calvarium. There is mild cerebral atrophy with widening of the extra-axial spaces and ventricular dilatation. There are areas of decreased attenuation within the white matter tracts of the supratentorial brain, consistent with microvascular disease changes. Normal basal ganglia and thalami. Normal brainstem. Normal cerebellum. There is no intracranial hemorrhage. There are no findings of an acute ischemic infarction. Normal visualized paranasal sinuses. CT/Brain/Head without Contrast IMPRESSION: Chronic involutional changes of the brain. Electronically Signed: Guero Pelaez, at 12:30 EDT , Service support ,
--- NOTE | 2019-12-24 11:29 | EKG12_ITS ---
Test Reason : WEAKNESS Blood Pressure : / mmHG Vent. Rate : 072 BPM Atrial Rate : 072 BPM P-R Int : 156 ms QRS Dur : 078 ms QT Int : 392 ms P-R-T Axes : 039 002 047 degrees QTc Int : 429 ms Normal sinus rhythm Nonspecific T wave abnormality Abnormal ECG Confirmed by JOYCE WILSON ([id number]), scientific publications editor GOLDIE WEEKS ([id number]) on 12/29/2019 10:55:36 AM Referred By: Confirmed By:JOYCE WISLON
--- NOTE | 2019-12-24 11:35 | ED.DCSUM_ITS ---
- ER Visit Summary Date of Service: 12/24/19 Chief Complaint: Weakness, near syncope History of Present Illness: The patient is a 79 F presenting with weakness, near syncope. She states this started on Sunday. She feels that she may be dehydrated. She has not been able to eat or drink secondary to nausea. She denies vomiting or change in stool. When trying to stand she becomes very dizzy and nearly passes out. She called her doctor and was advised to come to the ED for evaluation. She denies fever or chills. She has mild shortness of breath. She complains of gradual onset headache since Sunday. She denies chest pain. Denies numbness or weakness. Denies vertigo. Denies other complaints. Physical Examination: Vitals are stable. Patient is afebrile. Alert no acute distress. HEENT exam dry mucous membranes Neck is supple. No meningismus Lungs are clear and equal bilaterally. Heart is regular rate and rhythm. Abdomen is soft nontender nondistended. Ileostomy Extremities are unremarkable. Skin is warm and dry. No focal neurologic deficit. Remainder of exam is unremarkable. Emergency Department Course and Treatment: Patient was given IV fluids, Zofran. CBC, chemistries unremarkable other than glucose 130, creatinine 1.14. Troponin negative. EKG is sinus rhythm rate of 72. Chest x-ray shows no acute process. CT head shows chronic changes. Patient has some improvement of her nausea but is unable to stand for orthostatic vital signs due to dizziness. Discussed with hospitalist for observation. Disposition: Observation Impression: Near syncope This note was generated with [employer] dictation software. It may contain incorrect words, spelling, and punctuation that were not noted in review of the chart prior to signing ED Disposition - Plan for ED Patient: Referrals: Zayda Peace PA [Primary Care Provider] -
[2019-12-24] MEDS: 0.9% Normal Saline 1,000 ML 1000 ML IV (12:04)
[2019-12-24] MEDS: Ondansetron 4 MG/2 ML Vial IV (12:04)
--- NOTE | 2019-12-24 12:18 | RAD_ITS ---
STUDY: X-RAY CHEST REASON FOR EXAM: Female, 79 years old. INCREASED WEAKNESS -- NAUSEA SINCE SUNDAY TECHNIQUE: Single AP portable view of the chest. COMPARISON: Comparison is made with prior study dated October 31, 2019. FINDINGS: EKG electrodes are seen. The lungs are clear and expanded. There is no demonstrated pleural abnormality. Normal size heart. Normal mediastinum and regina. Normal visualized pulmonary arteries. There is atherosclerotic tortuosity of the aortic arch and descending thoracic aorta. There are diffuse degenerative changes of the visualized thoracic spine. There is degenerative osteoarthritis of the bilateral shoulders. There is no demonstrated abnormality of the visualized soft tissue structures of the upper abdomen. RAD/Chest 1 View (Portable) IMPRESSION: No acute abnormality is seen. Electronically Signed: Guero Pelaez, at 12:45 EDT , Service support ,
[2019-12-24 12:19] LABS: Absolute Lymphocyte Count 1.42 X10^3/uL (0.83-4.51); Basophil# 0.05 X10^3/uL; Basophil% 0.6 % (0-1); Eosinophil# 0.05 X10^3/uL; Eosinophils% 0.6 % (0-5); Hematocrit 43.1 % (37-47); Hemoglobin 13.8 g/dL (12.0-15.0); Lymphocyte # 1.42 X10^3/ul (4.0); Lymphocyte % 17.5 % (19-41); Mean Corpuscular Hgb 29.5 pg (27.0-32.0); Mean Corpuscular Volume 92.1 fL (81-99); Mean Platelet Vol. 10.8 fl (6.2-12.0); Monocyte# 0.55 X10^3/uL; Monocyte% 6.8 % (0-10); NRBC Flagged by Analyzer 0 % (0-5); Neutrophil # 5.98 X10^3/uL (2.7-7.7); Neutrophil % 73.9 % (47-70); Platelet Count 193 K/mm3 (150-450); RBC Distribution Width CV 13.5 % (11.6-14.6); RBC Distribution Width SD 45.5 fl (35.1-43.9); Red Blood Count 4.68 M/mm3 (4.2-5.4); White Blood Count 8.1 K/mm3 (4.4-11.0)
[2019-12-24 12:37] LABS: AST(SGOT) 18 U/L (15-37); Alanine Aminotransfer ALT/SGPT 15 U/L (13-56); Albumin, Serum 3.4 g/dL (3.2-5.0); Alkaline Phosphatase 80 U/L (45-117); Anion Gap 9 (5-15); BUN 17 mg/dL (7-18); BUN/Creat Ratio 14.9 RATIO (10-20); Calcium,Total 9.5 mg/dL (8.5-10.1); Chloride 105 mmol/L (98-107); Creatinine, Serum 1.14 mg/dL (0.55-1.02); EST Glomerular Filtration Rate 49 mL/min (>60); Est Glom Filt Rate - Afr Amer 59 mL/min (>60); Estimated Creatinine Clearance 29.68 ml/min; Globulin 3.3 g/dL (2.2-4.2); Glucose 130 mg/dL (74-106); Lipase 108 U/L (73-393); Potassium 3.6 mmol/L (3.5-5.1); Protein, Total 6.7 g/dL (6.4-8.2); Sodium Level 139 mmol/L (136-145)
--- NOTE | 2019-12-24 12:50 | ED.RN ---
pt has no urge to urinate at this time, still feeling weak to perform orthostatic vitals.
--- NOTE | 2019-12-24 13:22 | NURSING ---
DR SHARON ROBLEDO
--- NOTE | 2019-12-24 13:29 | NURSING ---
PCU NEAR SYNCOPE MATTHEW
--- NOTE | 2019-12-24 13:59 | ED.RN ---
called granddaughter for patient update, number for PCU given.
[2019-12-24] MEDS: 0.9% Normal Saline 1,000 ML 100 ML IV (14:05)
--- NOTE | 2019-12-24 15:06 | HP.PCM_ITS ---
History of Present Illness Date of Admission: 12/24/19 Chief Complaint: Near Syncope The patient is a 79 year old F with a PMH as below who presents with weakness and near syncope. She said that it started on Sunday. She called her doctor today and he recommended she present to the ER since she is continued to have on going symptoms. She says that she has not been eating or drinking very well because of nausea she has not had any emesis, that she has been dry heaving. She also becomes very dizzy when she stands up and she nearly passes out but she denies having any loss of consciousness or any type of fall. She has no fevers or chills and denies any chest pain or vertigo. No focal weakness, numbness or any other signs of stroke, she notes that she has had a stroke in the past and this does not feel like that, she has chronic left leg weakness but that is unchanged from baseline from her previous stroke a liter of fluid and blood pressure was stable and she was not tachycardic she was too dizzy to be able to do any orthostatic vital signs at that time. CT scan of the brain was unremarkable and her chest x-ray was normal. Her lab work was also unremarkable, and her kidney function is at baseline. Past Medical History Past Medical History (Chronic Problems): Chronic Problems (Last Reviewed 11/01/19 @ 02:[address] 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 Marlo Rios MD) Atherosclerotic heart disease of [place] coronary artery without angina pectoris (Chronic) Onset Date: ~05/09/17 I25.10 Mild; Left Main: mild calcification, angiographically normal; LAD: prox: Mild calcification, mild luminal irregularities;CX: prox: Mild luminal irregularities; RCA: angiographically normal per cath 05/09/17 Diastolic dysfunction (Chronic) I51.89 Hyperlipidemia (Chronic) E78.5 Benign essential hypertension (Chronic) I10 GERD (gastroesophageal reflux disease) (Chronic) K21.9 History of pulmonary embolism (Chronic) Z86.711 Acute right cerebellar stroke Alzheimer's dementia G30.9 History of DVT (deep vein thrombosis) Z86.718 History of echocardiogram Onset Date: ~04/2017 Z92.89 EF 65% Ileostomy in place Z93.2 Chronic back pain M54.9, G89.[address] Akers Fibromyalgia History of CVA (cerebrovascular accident) Z86.73 History of TIAs Raynauds disease I73.00 Restless legs Rheumatoid arthritis M06.[address] Jose Johns @ [facility] Systemic lupus erythematosus M32.9 Acute metabolic encephalopathy G93.41 Confusion R41.0 Dementia F03.90 Encephalopathy acute G93.40 History of deep vein thrombosis Z86.718 History of left heart catheterization (LHC) Z98.890 Raynaud's phenomenon (Inactive) Sjogren's syndrome (Inactive) M35.00 Allergies ampicillin Allergy (Verified 12/24/19 11:01) Rash buprenorphine HCl [From Buprenex] Allergy (Verified 12/24/19 11:01) Other codeine Allergy (Verified 12/24/19 11:01) Anaphylaxis gold Au 198 Allergy (Verified 12/24/19 11:01) Rash guaifenesin Allergy (Verified 12/24/19 11:01) Rash promethazine HCl [From Phenergan] Allergy (Verified 12/24/19 11:01) Shortness of breath Sulfa (Sulfonamide Antibiotics) Allergy (Verified 12/24/19 11:01) Rash sulindac [From Clinoril] Allergy (Verified 12/24/19 11:01) Rash tetracycline [Tetracycline] Allergy (Verified 12/24/19 11:01) Rash thiopental Allergy (Verified 12/24/19 11:01) Rash trimethoprim [From Proloprim] Allergy (Verified 12/24/19 11:01) Rash buspirone [From BuSpar] Adverse Reaction (Verified 12/24/19 14:13) Nausea oxycodone HCl [From OxyContin] Adverse Reaction (Verified 12/24/19 11:01) Other NALDECON Allergy (Uncoded 12/24/19 11:01) Rash SULPHATED OIL Allergy (Uncoded 12/24/19 11:01) Other TAPE Allergy (Uncoded 12/24/19 11:01) Rash Home Medications: Ambulatory Orders Medication Instructions Recorded Prednisone 5 mg PO DAILY 11/29/18 Cholecalciferol (Vitamin D3) 2,000 unit PO DAILY 03/24/19 [Vitamin D3] Amlodipine [Norvasc] 5 mg PO DAILY #30 tab 03/25/19 Aspirin [Aspirin, Baby] 81 mg PO DAILY@0800 #30 tab.chew 03/25/19 Atorvastatin Calcium [Lipitor] 40 mg PO QHS #30 tab 03/25/19 Omeprazole 40 mg PO DAILY #30 capsule.dr 03/25/19 Mirabegron [Myrbetriq] 25 mg PO DAILY 04/08/19 albuterol sulfate 90 mcg/actuation 2 puff INHALATION Q6H PRN 10/16/19 aerosol inhaler clotrimazole 1 % topical cream 1 applic TOPICAL BID 10/16/19 desonide 0.05 % topical cream 1 applic TOPICAL BID PRN 10/16/19 duloxetine 60 mg capsule,delayed 60 mg PO DAILY cap 10/16/19 release losartan 100 mg tablet 100 mg PO DAILY 10/16/19 gabapentin 300 mg capsule 300 mg PO TID cap 10/30/19 trazodone 50 mg tablet 50 mg PO QHS PRN 10/30/19 Donepezil HCl [Aricept] 10 mg PO QHS #30 tab 11/03/19 nitroglycerin 0.4 mg sublingual 0.4 mg SUBLINGUAL Q5-15M PRN #25 11/24/19 tablet tab Surgical History: Surgical History (Last Reviewed 11/01/19 @ 02:[address] 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 Marlo Rios MD) Father CVA (cerebral vascular accident) History Items: Diabetes, Hypertension Paternal Family History: Family History (Last Reviewed 11/01/19 @ 02:[address] Marlo Rios MD) Father CVA (cerebral vascular accident) History Items: Hypertension, No pertinent history Review of Systems Constitutional: Reports: Weakness. Denies: Chills, Fever, Weight Change HEENT: Denies: Head Aches, Sinus Congestion, Sinus Drainage Cardiovascular: Reports: Light Headedness, - - Near syncope. Denies: Chest Pain, Palpitations Respiratory: Denies: Cough, Shortness of breath at rest, Sputum production Gastrointestinal: Denies: Abdominal Pain, Nausea, Vomiting Genitourinary: Denies: Dysuria Musculoskeletal: Denies: Joint Pain, Joint Tenderness Skin: Denies: Rash, Wounds Neurological: Denies: Numbness, Tingling, Focal weakness Psychiatric: Denies: Anxiety, Depression Hematologic/ Lymphatic: Denies: Easy Bruising, Easy Bleeding VTE Information - Inpt Only VTE Present on Admission: No - Physical Exam Vitals/I&O's: Vital Signs Temp Pulse Resp BP Pulse Ox 97.3 F L 63 18 157/80 H 98 12/24/19 14:06 12/24/19 14:10 12/24/19 14:06 12/24/19 14:10 12/24/19 14:06 Oxygen Delivery Method Room Air Weight: 196 lb 8 oz Body Mass Index (BMI) 37.1 Finger Stick Blood Glucose 171 Orthostatic Vital Signs Start: 12/24/19 14:09 Freq: q24h Status: Active Protocol: Activity Type Activity Date Activity User E-Sign Co-Sign Detail Recorded Client Recorded Date Recorded By Document 12/24/19 14:10 AMG [id number] 12/24/19 14:10 AMG 12/24/19 14:10 Orthostatic Vitals Standing -Blood Pressure (90/60-120/80) 160/108 H -Extremity Use Left Arm -Pulse Rate (60-100) 121 H Sitting -Blood Pressure (90/60-120/80) 168/97 H -Extremity Use Left Arm -Pulse Rate (60-100) 81 Lying -Blood Pressure (90/60-120/80) 157/80 H -Extremity Use Left Arm -Pulse Rate (60-100) 63 Intake and Output for Last 24 Hours 12/22/19 12/23/19 12/24/19 23:59 23:59 23:59 Intake Total 1000 / 1000 Balance 1000 / 1000 General: Alert, Oriented x3, Cooperative, No apparent distress HEENT: Atraumatic, PERRLA, EOMI, Normocephalic Oral: Dry Mucosa Neck: Supple, No JVD Lungs: Clear to auscultation, Normal air movement, No rhonchi, No wheeze, No rales, Diminished Cardiovascular: Regular rate, Regular Rhythm, Normal S1, Normal S2, No murmurs Abdomen: Soft, Non Tender, Non-Distended, No Hepato-splenomegaly Extremities: No edema, Capillary Refill Less than 3 Seconds Skin: No rashes, No breakdown Neurological: Cranial nerves II-XII grossly intact, Neuro grossly intact, Sensory exam intact to light touch and pain Psych/Mental Status: Normal Affect, Appropriate Laboratory Results 12/24/19 12:01: WBC 8.1, RBC 4.68, Hgb 13.8, Hct 43.1, MCV 92.1, MCH 29.5, MCHC 32.0, RDW Std Deviation 45.5 H, RDW Coeff of Elmer 13.5, Plt Count 193, MPV 10.8, Immature Gran % (Auto) 0.600, Neut % (Auto) 73.9 H, Lymph % (Auto) 17.5 L, Stevens % (Auto) 6.8, Eos % (Auto) 0.6, Baso % (Auto) 0.6, Absolute Neuts (auto) 6.0, Absolute Lymphs (auto) 1.42, Nucleated RBC % 0 12/24/19 12:01: Sodium 139, Potassium 3.6, Chloride 105, Carbon Dioxide 25.0, Anion Gap 9, BUN 17, Creatinine 1.14 H, Estim Creat Clear Calc 29.68, Est GFR (MDRD) Af Amer 59 L, Est GFR (MDRD) Non-Af 49 L, BUN/Creatinine Ratio 14.9, Glucose 130 H, Calcium 9.5, Total Bilirubin 0.80, AST 18, ALT 15, Alkaline Phosphatase 80, Troponin I 0.016, Total Protein 6.7, Albumin 3.4, Globulin 3.3, Albumin/Globulin Ratio 1.0, Lipase 108 Current Medications Albuterol Sulfate (Proventil Hfa) 2 puff IH Q6H PRN PRN Reason: WHEEZING Amlodipine Besylate (Norvasc) 5 mg PO DAILY [facility] Aspirin (Aspirin, Baby) 81 mg PO DAILY@0800 [place] Atorvastatin Calcium (Lipitor) 40 mg PO QHS [place] Donepezil HCl (Aricept) 10 mg PO QHS [place] Duloxetine HCl (Cymbalta) 60 mg PO DAILY [facility] Gabapentin (Neurontin) 300 mg PO TID [facility] Sodium Chloride () 1,000 mls @ 100 mls/hr IV .Q10H [facility] Last Admin: 12/24/19 14:05 Dose: 100 mls/hr Documented by: Sodium Chloride () 250 mls @ 15 mls/hr IV .[id number] PRN PRN Reason: Saline Flush Sodium Chloride () 250 mls @ 15 mls/hr IV .[id number] PRN PRN Reason: Additional IVPB Infusion Losartan Potassium (Cozaar) 100 mg PO DAILY [facility] Melatonin (Melatonin) 3 mg PO QHS PRN PRN PRN Reason: INSOMNIA Mirabegron (Myrbetriq) 25 mg PO DAILY [facility] Nitroglycerin (Nitrostat) 0.4 mg SUBLINGUAL Q5-15M PRN PRN Reason: chest pain Non-Formulary Medication (Omeprazole) 40 mg PO DAILY [facility] Ondansetron HCl (Zofran) 4 mg IV Q8H PRN PRN PRN Reason: NAUSEA/VOMITING Prednisone () 5 mg PO DAILY [facility] Sodium Chloride () 10 - 40 ml IV UD PRN PRN Reason: SALINE FLUSH Trazodone HCl (Desyrel) 50 mg PO QHS PRN PRN Reason: SLEEP Assessment/Plan All Active Problems (Last Reviewed 11/01/19 @ 02:[address] Marlo Rios MD) CVA (cerebral vascular accident) (Acute) 1. Near syncope due to orthostasis secondary to dehydration from nausea and lack of p.o. intake -She does have an ostomy from 1990, she states that output is unchanged -He feels much better since she is gotten a liter of fluid and was started on fluids on the floor -Orthostatic vital signs were obtained and she was highly symptomatic, her heart rate increased from 63 to 121 but her blood pressure was stable -Continue with IV fluids and will evaluate in the morning -No signs concerning for a stroke at this time 2. History of stroke/HTN/HLD -She was admitted to the hospital in early October for stroke -Since her blood pressure is elevated in the 150s and 160s, will continue her blood pressure medications as well as IV fluids -Continue her statin current 3. Urinary frequency -Stable -Continue with Myrbetriq 4. Dementia/anxiety/depression -Stable -Continue with Aricept and Cymbalta 5. RA -Stable -Continue on prednisone 6. GERD -Stable -Continue with PPI DVT: Low risk OBSV E&M: [id number] Initial observation care L3
[2019-12-24] MEDS: Acetaminophen 325 MG Tablet 650 MG PO (15:53)
[2019-12-24 19:33] LABS: Bacteria 0 SEEN /hpf (None Seen); Red Blood Cells-Urine 0 SEEN /hpf (0-5)
[2019-12-24 19:42] LABS: Color, Urine Yellow (Yellow); Glucose, Dipstick Normal (Normal); Ketone-Dipstick 15 mg/dl (Negative); Leukocyte Esterase-Dipstick 25 /ul (Negative); Nitrite-Dipstick Negative (Negative); Occult Blood-Urine Negative /ul (Negative); Protein-Dipstick 15 mg/dl (Negative); Specific Gravity, Urine 1.015 (1.002-1.030); Urine Bilirubin Dipstick Negative (Negative); Urine Clarity Clear (Clear); Urine Urobilinogen Normal (Normal); Urine pH 6.5 (5.0 - 8.0)
[2019-12-24 19:48] LABS: Mucous, Urine 1+ /hpf (<or=2+); Squamous Epithelial Cells - UA 0-5 SEEN /hpf (5-10); White Blood Cells 0-5 SEEN /hpf (0-5)
[2019-12-24] MEDS: Donepezil HCl 10 MG Tablet PO (21:12)
[2019-12-24] MEDS: Gabapentin 300 MG Capsule PO (21:12)
[2019-12-24] MEDS: Atorvastatin Calcium 40 MG Tablet PO (21:12)
[2019-12-25] VITALS (7 sets, daily range): BP systolic 133–171; BP diastolic 62–88; PULSE 54–99; RESP 14–18; TEMP 36.8–36.9; O2SAT 95–100; BMI 37.1
[2019-12-25] MEDS: 0.9% Normal Saline 1,000 ML 100 ML IV ×2 (00:01→10:20)
[2019-12-25] MEDS: Gabapentin 300 MG Capsule PO ×2 (05:33→15:26)
[2019-12-25 08:32] LABS: Absolute Lymphocyte Count 1.52 X10^3/uL (0.83-4.51); Absolute Neutrophil Count 3.4 X10^3/uL (2.0-7.7); Basophil# 0.06 X10^3/uL; Basophil% 1.1 % (0-1); Eosinophil# 0.11 X10^3/uL; Hematocrit 38.2 % (37-47); Lymphocyte # 1.52 X10^3/ul (4.0); Lymphocyte % 27.2 % (19-41); Mean Corp Hgb Conc 31.4 g/dL (32-36); Mean Corpuscular Hgb 29.7 pg (27.0-32.0); Mean Corpuscular Volume 94.6 fL (81-99); Mean Platelet Vol. 11.2 fl (6.2-12.0); Monocyte# 0.46 X10^3/uL; Monocyte% 8.2 % (0-10); NRBC Flagged by Analyzer 0 % (0-5); Neutrophil # 3.41 X10^3/uL (2.7-7.7); Platelet Count 162 K/mm3 (150-450); RBC Distribution Width CV 13.7 % (11.6-14.6); RBC Distribution Width SD 47.3 fl (35.1-43.9); Red Blood Count 4.04 M/mm3 (4.2-5.4); White Blood Count 5.6 K/mm3 (4.4-11.0)
[2019-12-25 09:00] LABS: Anion Gap 6 (5-15); BUN 15 mg/dL (7-18); BUN/Creat Ratio 16.8 RATIO (10-20); Calcium,Total 8.4 mg/dL (8.5-10.1); Chloride 110 mmol/L (98-107); Creatinine, Serum 0.89 mg/dL (0.55-1.02); EST Glomerular Filtration Rate 65 mL/min (>60); Est Glom Filt Rate - Afr Amer 79 mL/min (>60); Estimated Creatinine Clearance 39.95 ml/min; Glucose 99 mg/dL (74-106); Potassium 3.6 mmol/L (3.5-5.1); Sodium Level 142 mmol/L (136-145)
[2019-12-25] MEDS: Aspirin 81 MG TAB.CHEW PO (09:23)
[2019-12-25] MEDS: 0.9% Saline Lock 10 ML Syringe IV (09:23)
[2019-12-25] MEDS: predniSONE 5 MG Tablet PO (09:23)
[2019-12-25] MEDS: DULoxetine Hcl 60 MG Capsule PO (09:23)
[2019-12-25] MEDS: Mirabegron 25 MG TAB.ER.24H PO (09:24)
[2019-12-25] MEDS: Pantoprazole Sodium 40 MG Tablet PO (09:24)
[2019-12-25] MEDS: amLODIPine 5 MG Tablet PO (09:26)
[2019-12-25] MEDS: Losartan Potassium 100 MG Tablet PO (09:26)
--- NOTE | 2019-12-25 13:59 | DCINST_ITS ---
You will use the following diet at home:: Cardiac Your food should be the consistency of: Regular Your liquids should be the consistency of: Regular/Thin Discharge Activity: Return to Normal Activity Call your doctor if you observe: Fever of 101 or Higher, Shortness of breath, Dizziness, Fainting spells, Swelling in the ankles, Chest pain, Increased palpitations (irregular heartbeat) Allergies/Adverse Reactions: Allergies ampicillin Allergy (Verified 12/24/19 11:01) Rash buprenorphine HCl [From Buprenex] Allergy (Verified 12/24/19 11:01) Other codeine Allergy (Verified 12/24/19 11:01) Anaphylaxis gold Au 198 Allergy (Verified 12/24/19 11:01) Rash guaifenesin Allergy (Verified 12/24/19 11:01) Rash promethazine HCl [From Phenergan] Allergy (Verified 12/24/19 11:01) Shortness of breath Sulfa (Sulfonamide Antibiotics) Allergy (Verified 12/24/19 11:01) Rash sulindac [From Clinoril] Allergy (Verified 12/24/19 11:01) Rash tetracycline [Tetracycline] Allergy (Verified 12/24/19 11:01) Rash thiopental Allergy (Verified 12/24/19 11:01) Rash trimethoprim [From Proloprim] Allergy (Verified 12/24/19 11:01) Rash buspirone [From BuSpar] Adverse Reaction (Verified 12/24/19 14:13) Nausea oxycodone HCl [From OxyContin] Adverse Reaction (Verified 12/24/19 11:01) Other NALDECON Allergy (Uncoded 12/24/19 11:01) Rash SULPHATED OIL Allergy (Uncoded 12/24/19 11:01) Other TAPE Allergy (Uncoded 12/24/19 11:01) Rash Medications to take at Discharge Prednisone 5 mg PO DAILY 11/29/18 Cholecalciferol (Vitamin D3) [Vitamin D3] 2,000 unit PO DAILY 03/24/19 Amlodipine [Norvasc] 5 mg PO DAILY #30 tab 03/25/19 Aspirin [Aspirin, Baby] 81 mg PO DAILY@0800 #30 tab.chew 03/25/19 Atorvastatin Calcium [Lipitor] 40 mg PO QHS #30 tab 03/25/19 Omeprazole 40 mg PO DAILY #30 capsule.dr 03/25/19 Mirabegron [Myrbetriq] 25 mg PO DAILY 04/08/19 albuterol sulfate 90 mcg/actuation aerosol inhaler 2 puff INHALATION Q6H PRN 10/16/19 clotrimazole 1 % topical cream 1 applic TOPICAL BID 10/16/19 desonide 0.05 % topical cream 1 applic TOPICAL BID PRN 10/16/19 duloxetine 60 mg capsule,delayed release 60 mg PO DAILY cap 10/16/19 losartan 100 mg tablet 100 mg PO DAILY 10/16/19 gabapentin 300 mg capsule 300 mg PO TID cap 10/30/19 trazodone 50 mg tablet 50 mg PO QHS PRN 10/30/19 Donepezil HCl [Aricept] 10 mg PO QHS #30 tab 11/03/19 nitroglycerin 0.4 mg sublingual tablet 0.4 mg SUBLINGUAL Q5-15M PRN #25 tab 11/24/19 Primary Care Physician: Zayda Peace PA [Primary Care Provider] - Please follow up with your Primary Care Physician in: 3-5 days Test Results: Test results from this visit will be discussed in further detail at your follow- up appointment, if applicable. Please Follow Up With: Donovan Peace
--- NOTE | 2019-12-25 14:19 | PCM.DC.SUM ---
Discharge Date and Diagnosis Date of Admission: 12/24/19 Date of Discharge: 12/25/19 - Secondary Discharge Diagnosis Chronic Problems: Chronic Problems (Last Reviewed 11/01/19 @ 02:[address] 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 CXR: IMPRESSION: No acute abnormality is seen. Consults: None Operations: None Procedures: None Summary of Care Provided: Per HPI: The patient is a 79 year old F with a PMH as below who presents with weakness and near syncope. She said that it started on Sunday. She called her doctor today and he recommended she present to the ER since she is continued to have on going symptoms. She says that she has not been eating or drinking very well because of nausea she has not had any emesis, that she has been dry heaving. She also becomes very dizzy when she stands up and she nearly passes out but she denies having any loss of consciousness or any type of fall. She has no fevers or chills and denies any chest pain or vertigo. No focal weakness, numbness or any other signs of stroke, she notes that she has had a stroke in the past and this does not feel like that, she has chronic left leg weakness but that is unchanged from baseline from her previous stroke a liter of fluid and blood pressure was stable and she was not tachycardic she was too dizzy to be able to do any orthostatic vital signs at that time. CT scan of the brain was unremarkable and her chest x-ray was normal. Her lab work was also unremarkable, and her kidney function is at baseline. Hospital Course: 1. Near syncope secondary to orthostasis from dehydration due to nausea and lack of p.o. [id number] female presents from home after she became nauseated on Sunday and had dizziness and was lightheaded whenever she would stand up. She called her primary care doctor who recommended that she present to the ER. She had some orthostatic vital signs initially on admission and she was given IV fluids and on the day of discharge her orthostatic vital signs have resolved, she did get a little bit dizzy but she said that she wanted to go home. I discussed the risks and benefits of discharge and that she could stay for 1 more day to continue IV fluids and make sure she did okay tomorrow however she felt she would do fine at home. She was tolerating oral intake without any dry heaving or nausea, and denied any focal weakness or any signs of stroke at this time. She will need to follow-up with her primary care doctor in 3 to 5 days. 2. Her other medical diagnoses were evaluated and her home medications were continued where appropriate - Physical Exam Vitals/I&O's: Vital Signs Temp Pulse Resp BP Pulse Ox 98.4 F 92 16 140/62 H 95 12/25/19 09:26 12/25/19 12:52 12/25/19 09:26 12/25/19 12:52 12/25/19 09:26 Oxygen Delivery Method Room Air Weight: 196 lb 8 oz Body Mass Index (BMI) 37.1 Finger Stick Blood Glucose 171 Orthostatic Vital Signs Start: 12/24/19 14:09 Freq: q24h Status: Active Protocol: Activity Type Activity Date Activity User E-Sign Co-Sign Detail Recorded Client Recorded Date Recorded By Document 12/25/19 12:52 EY [id number] 12/25/19 12:56 EY 12/25/19 12:52 Orthostatic Vitals Standing -Blood Pressure (90/60-120/80) 171/88 H -Extremity Use Left Arm -Pulse Rate (60-100) 99 Sitting -Blood Pressure (90/60-120/80) 157/84 H -Extremity Use Left Arm -Pulse Rate (60-100) 90 Lying -Blood Pressure (90/60-120/80) 140/62 H -Extremity Use Left Arm -Pulse Rate (60-100) 92 Intake and Output for Last 24 Hours 12/23/19 12/24/19 12/25/19 23:59 23:59 23:59 Intake Total 1340 / 2315 3225 / 3225 Output Total 200 / 200 700 / 700 Balance 1140 / 2115 2525 / 2525 General: Alert, Oriented x3, Cooperative, No apparent distress HEENT: Atraumatic, PERRLA, EOMI, Normocephalic Oral: Dry Mucosa Neck: Supple, No JVD Lungs: Clear to auscultation, Normal air movement, No rhonchi, No wheeze, No rales, Diminished Cardiovascular: Regular rate, Regular Rhythm, Normal S1, Normal S2, No murmurs Abdomen: Soft, Non Tender, Non-Distended, No Hepato-splenomegaly Extremities: No edema, Capillary Refill Less than 3 Seconds Skin: No rashes, No breakdown Neurological: Cranial nerves II-XII grossly intact, Neuro grossly intact, Sensory exam intact to light touch and pain Psych/Mental Status: Normal Affect, Appropriate Laboratory Results 12/24/19 19:25: Urine Color Yellow, Urine Clarity Clear, Urine pH 6.5, Ur Specific Bryant 1.015, Urine Protein 15 H, Urine Glucose (UA) Normal, Urine Ketones 15 H, Urine Occult Blood Negative, Urine Nitrite Negative, Urine Bilirubin Negative, Urine Urobilinogen Normal, Ur Leukocyte Esterase 25 H, Urine RBC 0 SEEN, Urine WBC 0-5 SEEN, Ur Squamous Epith Cells 0-5 SEEN, Urine Bacteria 0 SEEN, Urine Mucus 1+ 12/25/19 08:15: WBC 5.6, RBC 4.04 L, Hgb 12.0, Hct 38.2, MCV 94.6, MCH 29.7, MCHC 31.4 L, RDW Std Deviation 47.3 H, RDW Coeff of Elmer 13.7, Plt Count 162, MPV 11.2, Immature Gran % (Auto) 0.500, Neut % (Auto) 61.0, Lymph % (Auto) 27.2, Sanders % (Auto) 8.2, Eos % (Auto) 2.0, Baso % (Auto) 1.1 H, Absolute Neuts (auto) 3.4, Absolute Lymphs (auto) 1.52, Nucleated RBC % 0 12/25/19 08:15: Sodium 142, Potassium 3.6, Chloride 110 H, Carbon Dioxide 26.0, Anion Gap 6, BUN 15, Creatinine 0.89, Estim Creat Clear Calc 39.95, Est GFR (MDRD) Af Amer 79, Est GFR (MDRD) Non-Af 65, BUN/Creatinine Ratio 16.8, Glucose 99, Calcium 8.4 L Current Medications Acetaminophen (Tylenol) 650 mg PO Q6H PRN PRN PRN Reason: Pain Score 1-10/10 Last Admin: 12/24/19 15:53 Dose: 650 mg Documented by: Albuterol Sulfate (Ventolin Aerosols) 2.5 mg INHALATION Q6H PRN PRN PRN Reason: Wheezing Amlodipine Besylate (Norvasc) 5 mg PO DAILY [facility] Last Admin: 12/25/19 09:26 Dose: 5 mg Documented by: Aspirin (Aspirin, Baby) 81 mg PO DAILY@0800 [facility] Last Admin: 12/25/19 09:23 Dose: 81 mg Documented by: Atorvastatin Calcium (Lipitor) 40 mg PO QHS [facility] Last Admin: 12/24/19 21:12 Dose: 40 mg Documented by: Donepezil HCl (Aricept) 10 mg PO QHS [facility] Last Admin: 12/24/19 21:12 Dose: 10 mg Documented by: Duloxetine HCl (Cymbalta) 60 mg PO DAILY [facility] Last Admin: 12/25/19 09:23 Dose: 60 mg Documented by: Gabapentin (Neurontin) 300 mg PO TID [facility] Last Admin: 12/25/19 05:33 Dose: 300 mg Documented by: Sodium Chloride () 1,000 mls @ 100 mls/hr IV .Q10H [facility] Last Admin: 12/25/19 10:20 Dose: 100 mls/hr Documented by: Sodium Chloride () 250 mls @ 15 mls/hr IV .[id number] PRN PRN Reason: Saline Flush Sodium Chloride () 250 mls @ 15 mls/hr IV .[id number] PRN PRN Reason: Additional IVPB Infusion Losartan Potassium (Cozaar) 100 mg PO DAILY [facility] Last Admin: 12/25/19 09:26 Dose: 100 mg Documented by: Melatonin (Melatonin) 3 mg PO QHS PRN PRN PRN Reason: INSOMNIA Mirabegron (Myrbetriq) 25 mg PO DAILY [facility] Last Admin: 12/25/19 09:24 Dose: 25 mg Documented by: Nitroglycerin (Nitrostat) 0.4 mg SUBLINGUAL Q5M PRN PRN Reason: CHEST PAIN Ondansetron HCl (Zofran) 4 mg IV Q8H PRN PRN PRN Reason: NAUSEA/VOMITING Pantoprazole Sodium (Protonix) 40 mg PO DAILY [facility] Last Admin: 12/25/19 09:24 Dose: 40 mg [facility]ed [facility] Admin: 12/25/19 09:23 Dose: 5 mg Documented by: Sodium Chloride () 10 - 40 ml IV UD PRN PRN Reason: SALINE FLUSH Last Admin: 12/25/19 09:23 Dose: 10 ml Documented by: Trazodone HCl (Desyrel) 50 mg PO QHS PRN PRN Reason: SLEEP Discharge Activity: Return to Normal Activity Call your doctor if you observe: Fever of 101 or Higher, Shortness of breath, Dizziness, Fainting spells, Swelling in the ankles, Chest pain, Increased palpitations (irregular heartbeat) Home Medications: Medications to take at Discharge Prednisone 5 mg PO DAILY 11/29/18 Cholecalciferol (Vitamin D3) [Vitamin D3] 2,000 unit PO DAILY 03/24/19 Amlodipine [Norvasc] 5 mg PO DAILY #30 tab 03/25/19 Aspirin [Aspirin, Baby] 81 mg PO DAILY@0800 #30 tab.chew 03/25/19 Atorvastatin Calcium [Lipitor] 40 mg PO QHS #30 tab 03/25/19 Omeprazole 40 mg PO DAILY #30 capsule. 03/25/19 Mirabegron [Myrbetriq] 25 mg PO DAILY 04/08/19 albuterol sulfate 90 mcg/actuation aerosol inhaler 2 puff INHALATION Q6H PRN 10/16/19 clotrimazole 1 % topical cream 1 applic TOPICAL BID 10/16/19 desonide 0.05 % topical cream 1 applic TOPICAL BID PRN 10/16/19 duloxetine 60 mg capsule,delayed release 60 mg PO DAILY cap 10/16/19 losartan 100 mg tablet 100 mg PO DAILY 10/16/19 gabapentin 300 mg capsule 300 mg PO TID cap 10/30/19 trazodone 50 mg tablet 50 mg PO QHS PRN 10/30/19 Donepezil HCl [Aricept] 10 mg PO QHS #30 tab 11/03/19 nitroglycerin 0.4 mg sublingual tablet 0.4 mg SUBLINGUAL Q5-15M PRN #25 tab 11/24/19 Primary Care Physician: Zayda Peace PA [Primary Care Provider] - Please follow up with your Primary Care Physician in: 3-5 days Please Follow Up With: Donovan Peace Disposition: Home Minutes spent on discharge:: 35 Patient Condition:: Stable Medical Necessity - Tobacco Use Smoking Status: Never smoker Meaningful Use Info Meaningful Use Diagnoses (Choose all that apply): None applicable OBSV E&M: 80731 Observation care discharge
--- NOTE | 2019-12-25 14:40 | CASEMGMT ---
Per therapy, pt was just discharged from [facility] and does not need it re-instated at this time. Therapy also states that pt has equipment that she needs. Russ NEWBY CM
--- NOTE | 2019-12-25 15:14 | CASEMGMT ---
This RN VICENTE to room with BENZ form at this time, explanation done-pt voices understanding, and signs BENZ form at this time. Original to chart and copy to pt at this time. Pt voices no further questions/concerns/needs at this time. SStaten ODIN ZHANG
== END 2019-12-25 14:13 | disposition home or self-care (01) ==
LOC: ED 12:59 → PCU 15:58
PROVIDERS: Admitting Provider Family Medicine; Emergency Provider Emergency Medicine; PCP Physician Assistant; Visit Provider Family Medicine
DX: R55 Syncope and collapse (principal); I25.10 Atherosclerotic heart disease of native coronary artery without angina pectoris; E78.5 Hyperlipidemia, unspecified; K21.9 Gastro-esophageal reflux disease without esophagitis; I12.9 Hypertensive chronic kidney disease with stage 1 through stage 4 chronic kidney disease, or unspecified chronic kidney disease; N18.3 Chronic kidney disease, stage 3 (moderate); G30.9 Alzheimer's disease, unspecified; F02.80 Dementia in other diseases classified elsewhere, unspecified severity, without behavioral disturbance, psychotic disturbance, mood disturbance, and anxiety; M79.7 Fibromyalgia; M06.9 Rheumatoid arthritis, unspecified; F41.9 Anxiety disorder, unspecified; F32.9 Major depressive disorder, single episode, unspecified; M32.9 Systemic lupus erythematosus, unspecified; Z79.899 Other long term (current) drug therapy; Z79.82 Long term (current) use of aspirin; Z79.52 Long term (current) use of systemic steroids; Z86.711 Personal history of pulmonary embolism; Z86.718 Personal history of other venous thrombosis and embolism
CPT/HCPCS: 70450; 71045; 80048; 80053; 81001; 83690; 84484; 85025; 93005; 96361; 96374; 97162; 97166; 99218; 99285; J7030; J7040; A4216; G0378; J2405

== ENCOUNTER 2020-02-22 18:57 | Emergency (ER) | payer MEDICARE, SELFPAY ==
[2020-02-13 14:01] VITALS: BMI 38.3
[2020-02-22] VITALS (13 sets, daily range): BP systolic 134–173; BP diastolic 60–100; PULSE 63–84; RESP 11–111; TEMP -17.7–36.8; O2SAT 96–100; BMI 31.0
--- NOTE | 2020-02-22 18:58 | CT_ITS ---
STUDY: CT BRAIN WITHOUT CONTRAST REASON FOR EXAM: Female, 79 years old. Stroke evaluation RADIATION DOSAGE (If Supplied By Facility): CTDIvol = ( 44.99 ) mGy, DLP = ( 829.85 ) mGycm TECHNIQUE: Transaxial CT imaging of the brain was performed without administration of intravenous contrast material. Individualized dose optimization techniques were used for this CT. COMPARISON: Dec 24 2019 FINDINGS: Brain parenchyma is without focal lesions, mass effect, acute intracranial hemorrhage, extra parenchymal fluid collections, hydrocephalus or herniation. The skull is intact. CT/Brain/Head without Contrast IMPRESSION: 1. Normal CT brain. N.B. : The above information has been verbally conveyed by Catrachita Dunbar to Atilio Benitez DO on 02/22/2020 19:22:52 (ET). Electronically Signed: Catrachita Dunbar, at 19:12 EDT Tel , Service support ,
--- NOTE | 2020-02-22 18:58 | EKG12_ITS ---
Test Reason : STROKE Blood Pressure : / mmHG Vent. Rate : 074 BPM Atrial Rate : 074 BPM P-R Int : 166 ms QRS Dur : 088 ms QT Int : 392 ms P-R-T Axes : 044 000 033 degrees QTc Int : 435 ms Normal sinus rhythm Nonspecific T wave abnormality Abnormal ECG Confirmed by CATRACHITA ARROYO, RADHA ([id number]), editorial writer GOLDIE WEEKS ([id number]) on 02/23/2020 1:27:55 PM Referred By: REZA Confirmed By:RADHA DOMÍNGUEZ MD
--- NOTE | 2020-02-22 19:00 | CT_ITS ---
We are attempting to reach an attending provider to discuss findings. An addendum with communication details will be sent when the communication is complete. STUDY: CTA HEAD AND NECK WITH CONTRAST REASON FOR EXAM: Female, 79 years old. STROKE, S/P TPA, BILATERAL WEAKNESS WITH SPEECH DIFFICULTY, HX CVA, KS, RAYNARDS, LUPUS, IVC FILTER RADIATION DOSAGE (If Supplied By Facility): CTDIvol = ( 26.32 ) mGy, DLP = ( 737.32 ) mGycm TECHNIQUE: CT angiography was performed with a multi-detector CT scanner. Data acquisition was obtained from the skull base through the vertex following intravenous administration of IV 100mL [id number]-[id number]. MIP images were reconstructed from the axial data set. Post-processing of the angiographic images was performed, with multiplanar reformation and 3D reconstruction. Individualized dose optimization techniques were used for this CT. COMPARISON: No relevant priors. FINDINGS: Normal bilateral petrous carotid arteries. Normal right cavernous carotid artery with a normal supraclinoid bifurcation. Normal left cavernous carotid artery with a normal supraclinoid bifurcation. Normal right A1 segments of the anterior cerebral artery. Normal left A1 segments of the anterior cerebral artery. Normal intact anterior communicating artery (ACOM). Normal bilateral A2 segments of the anterior cerebral arteries. Normal right M1 and M2 segments of the middle cerebral arteries, with a normal M1 bifurcation. Normal left M1 and M2 segments of the middle cerebral arteries, with a normal M1 bifurcation. Normal right posterior communicating artery (PCOM). Normal left posterior communicating artery (PCOM). Normal bilateral vertebral arteries. Normal basilar artery with a normal basilar bifurcation. The visualized bilateral superior cerebellar (SCA) arteries are normal. Normal bilateral P1, P2 and visualized P3 segments of the posterior cerebral arteries. There is no demonstrated aneurysm of the [place]. There is no demonstrated abnormality of the visualized brain. AORTIC ARCH: The aortic arch has a bovine branching pattern with normal patent proximal great arteries. RIGHT CAROTID ARTERIES: Normal right common carotid artery (CCA). Normal right common carotid bulb. Normal origin of the right internal carotid (ICA) artery without a hemodynamically significant stenosis. Normal visualized cervical portion of the right internal carotid artery. Normal origin of the right external carotid artery (ECA). LEFT CAROTID ARTERIES: Normal left common carotid artery (CCA). Normal left common carotid bulb. Normal origin of the left internal carotid (ICA) artery without a hemodynamically significant stenosis. Normal visualized cervical portion of the left internal carotid artery. Normal origin of the left external carotid artery (ECA). VERTEBRAL ARTERIES: Normal bilateral vertebral arteries. There is severe degenerative change in the right TMJ. CT/CTA Head AND Neck W/ Contrast IMPRESSION: Patent craniocervical arteries. Electronically Signed: Catrachita Dunbar, at 21:22 EDT Tel , Service support ,
--- NOTE | 2020-02-22 19:39 | ED.DCSUM_ITS ---
- ER Visit Summary Date of Service: 02/22/20 Chief Complaint: Stroke History of Present Illness: The patient is a 79 F who presents with stroke symptoms that began approximately 40 minutes prior to arrival. Patient was actually last known well approximately 2 hours prior to arrival. Patient's left for the store at approximately 1700 hrs. today. Patient was normal at that time. got a call from the patient while he was shopping and noticed that something was wrong with her speech. He came home and saw the patient and called EMS. EMS noted the patient was having difficulty speaking. Family states this is all new. Family states the patient normally walks. Family states the patient has some mild left-sided weakness from previous stroke. Physical Examination: Vital signs are stable. Patient is afebrile. Patient is in no acute distress. Oral mucosa is pink and moist. Neck is supple. Trachea is midline. There is no JVD. Heart was regular rate and rhythm. Lungs are clear and equal bilaterally. Abdomen is soft and nontender. Strength is 1/5 in the upper and lower extremities bilaterally. The right hand grasp may be slightly stronger than the left. Patient is aphasic. There are no obvious sensory deficits. Test Results: CT scan of the brain was obtained. There is no acute intracranial abnormality. CTA of the brain and neck were obtained and are pending. EKG shows a normal sinus rhythm. There are nonspecific ST-T wave changes. CBC, comprehensive metabolic profile, PT with INR and PTT were obtained and are pending. Emergency Department Course and Treatment: Case was discussed with the stroke neurologist via tele-neurology. He stated that if the last known well was within 4-1/2 hours patient is a candidate for TPA. I discussed with the patient's family they are agreeable with this. Patient was given TPA. Patient will be transferred to [facility]. Disposition: Transfer to [facility] Impression: 1. Acute stroke This note was generated with [employer] dictation software. It may contain incorrect words, spelling, and punctuation that were not noted in review of the chart prior to signing ED Disposition - Plan for ED Patient: Disposition: [facility] Diagnosis: Acute ischemic stroke Referrals: Zayda Peace PA [Primary Care Provider] -
[2020-02-22 19:48] LABS: International Normalized Ratio 1.3; Prothrombin Time (Protime)PT. 15.6 SECONDS (11.7-14.9)
[2020-02-22 19:53] LABS: Partial Thromboplast Time 26.8 Seconds (24.1-36.2)
[2020-02-22 20:18] LABS: Anion Gap 7 (5-15); BUN 23 mg/dL (7-18); BUN/Creat Ratio 19.7 RATIO (10-20); Calcium,Total 8.8 mg/dL (8.5-10.1); Chloride 108 mmol/L (98-107); Creatinine, Serum 1.17 mg/dL (0.55-1.02); EST Glomerular Filtration Rate 48 mL/min (>60); Est Glom Filt Rate - Afr Amer 58 mL/min (>60); Estimated Creatinine Clearance 40.62 ml/min; Glucose 148 mg/dL (74-106); Potassium 4.1 mmol/L (3.5-5.1); Sodium Level 137 mmol/L (136-145)
--- NOTE | 2020-02-22 20:37 | ED.RN ---
[facility] called and arranged transport. patient accepted to [facility] ED dr. Galloway. [facility] enroute to transport eta 28 mins
--- NOTE | 2020-02-22 21:05 | RAD_ITS ---
STUDY: X-RAY CHEST REASON FOR EXAM: Female, 79 years old. Bilateral weakness and difficulty with speech TECHNIQUE: Frontal view of the chest COMPARISON: 31 October 2019 FINDINGS: The lungs are clear and expanded. There is no demonstrated pleural abnormality. Normal size heart. Normal mediastinum and regina. Normal visualized pulmonary arteries. Normal visualized aortic arch and descending thoracic aorta. Normal visualized thoracic spine. Normal visualized ribs, clavicles, and shoulders. There is no demonstrated abnormality of the visualized soft tissue structures of the upper abdomen. RAD/Chest 1 View IMPRESSION: Normal x-ray examination of the chest. Electronically Signed: Catrachita Dunbar, at 20:46 EDT Tel , Service support ,
[2020-02-22 21:09] LABS: Absolute Lymphocyte Count 1.63 X10^3/uL (0.83-4.51); Basophil# 0.04 X10^3/uL; Basophil% 0.4 % (0-1); Eosinophil# 0.02 X10^3/uL; Eosinophils% 0.2 % (0-5); Hematocrit 40.2 % (37-47); Lymphocyte # 1.63 X10^3/ul (4.0); Mean Corp Hgb Conc 32.3 g/dL (32-36); Mean Corpuscular Hgb 29.7 pg (27.0-32.0); Monocyte# 0.77 X10^3/uL; NRBC Flagged by Analyzer 0 % (0-5); Neutrophil # 7.02 X10^3/uL (2.7-7.7); Neutrophil % 73.3 % (47-70); Platelet Count 274 K/mm3 (150-450); Red Blood Count 4.37 M/mm3 (4.2-5.4); White Blood Count 9.6 K/mm3 (4.4-11.0)
== END 2020-02-22 21:26 | disposition short-term general hospital (02) ==
PROVIDERS: Emergency Provider Emergency Medicine; PCP Physician Assistant
DX: I63.9 Cerebral infarction, unspecified (principal); R47.01 Aphasia; F03.90 Unspecified dementia, unspecified severity, without behavioral disturbance, psychotic disturbance, mood disturbance, and anxiety; K21.9 Gastro-esophageal reflux disease without esophagitis; I50.9 Heart failure, unspecified; N18.9 Chronic kidney disease, unspecified; E78.00 Pure hypercholesterolemia, unspecified; Z86.711 Personal history of pulmonary embolism; Z79.899 Other long term (current) drug therapy
CPT/HCPCS: 51702; 70450; 70496; 70498; 71045; 80048; 84484; 85025; 85610; 85730; 93005; 96361; 96365; 99285; J2997; J7030; Q9967; A4216

== ENCOUNTER 2020-02-26 13:40 | Inpatient (IN) | payer MEDICARE, SELFPAY ==
[2020-02-22 19:28] VITALS: BMI 31.0
[2020-02-26 13:52] VITALS: BP 125/80; PULSE 77; RESP 16; TEMP 35.7; O2SAT 97; BMI 38.1
--- NOTE | 2020-02-26 21:15 | HP.PCM_ITS ---
Problem List (1) Debility Status: Acute (2) Left hemiparesis Status: Acute (3) Systemic lupus erythematosus Status: Chronic (4) Coronary artery disease Status: Chronic (5) Chronic kidney disease Status: Chronic (6) Hypertension Status: Chronic (7) Pulmonary embolism Status: Chronic (8) Vitamin D deficiency Status: Chronic (9) Overactive bladder Status: Chronic (10) Depression Status: Chronic (11) Neuropathic pain Status: Chronic (12) Insomnia Status: Chronic (13) Vascular dementia Status: Chronic (14) CVA (cerebral vascular accident) Status: Acute (15) Hyperlipidemia Status: Chronic Qualifiers: (16) GERD (gastroesophageal reflux disease) Status: Chronic Qualifiers: History of Present Illness Date of Admission: 02/26/20 Chief Complaint: Here for rehabilitation, strengthening, prior to discharge home with . 02/22/2020 The patient is a 79 year old Female with below past medical history presented to [facility] Emergency Department with stroke symptom s. 02/22/2020 CT brain small remote right cerebellar infarct, right frontal hemangioma. 02/22/2020 EKG normal sinus rhythm, nonspecific T wave abnormality. 02/22/2020 CTA head/neck normal. 02/22/2020 Chest X-ray normal. Stroke symptoms 40 minutes prior to arrival. Last known well 2 hours prior. noticed speech impaired. Mild left hemiparesis from previous stroke. Stroke alert called, TPA given. Transfer to [facility]. 02/22/2020 Admit to [facility]. Patient with left sided weakness, aphasia, right facial droop. 02/22/2020 CT brain negative for intracranial hemorrhage, large stroke. 02/22/2020 CT perfusion scan negative. 02/22/2020 MRI brain showed right tiny parietal lobe infarct. Modified barium study okay. 02/26/2020 Admit to TCU with debility, here for rehabilitation, strengthening, prior to discharge home with . Past Medical History Past Medical History (Chronic Problems): Chronic Problems (Last Reviewed 02/13/20 @ 14:11 by Tangela Lopez) Systemic lupus erythematosus (Chronic) Coronary artery disease (Chronic) Chronic kidney disease (Chronic) Hypertension (Chronic) Pulmonary embolism (Chronic) Vitamin D deficiency (Chronic) Overactive bladder (Chronic) Depression (Chronic) Neuropathic pain (Chronic) Insomnia (Chronic) Vascular dementia (Chronic) Atherosclerotic heart disease of [place] coronary artery without angina pectoris (Chronic ~05/09/17) Mild; Left Main: mild calcification, angiographically normal; LAD: prox: Mild calcification, mild luminal irregularities;CX: prox: Mild luminal irregularities; RCA: angiographically normal per cath 05/09/17 Diastolic dysfunction (Chronic) CKD (chronic kidney disease), stage III (Chronic) Hyperlipidemia (Chronic) Benign essential hypertension (Chronic) GERD (gastroesophageal reflux disease) (Chronic) History of pulmonary embolism (Chronic) Medical History: Medical History (Last Reviewed 02/13/20 @ 14:11 by Tangela Lopez) Atherosclerotic heart disease of [place] coronary artery without angina pectoris (Chronic) Onset Date: ~05/09/17 I25.10 Mild; Left Main: mild calcification, angiographically normal; LAD: prox: Mild calcification, mild luminal irregularities;CX: prox: Mild luminal irregularities; RCA: angiographically normal per cath 05/09/17 Diastolic dysfunction (Chronic) I51.89 Hyperlipidemia (Chronic) E78.5 Benign essential hypertension (Chronic) I10 GERD (gastroesophageal reflux disease) (Chronic) K21.9 History of pulmonary embolism (Chronic) Z86.711 Acute right cerebellar stroke Alzheimer's dementia G30.9 Chronic back pain M54.9, G89.[address] Oswald West History of CVA (cerebrovascular accident) Z86.73 History of TIAs Ileostomy in place Z93.2 Raynauds disease I73.00 Restless legs Rheumatoid arthritis M06.[address] Jose Johns @ [facility] Systemic lupus erythematosus M32.9 Acute metabolic encephalopathy G93.41 Confusion R41.0 Dementia F03.90 Encephalopathy acute G93.40 History of DVT (deep vein thrombosis) Z86.718 History of deep vein thrombosis Z86.718 History of echocardiogram Onset Date: ~04/2017 Z92.89 EF 65% History of left heart catheterization (LHC) Z98.890 Raynaud's phenomenon (Inactive) Sjogren's syndrome (Inactive) M35.00 Allergies ampicillin Allergy (Verified 02/22/20 19:29) Rash buprenorphine HCl [From Buprenex] Allergy (Verified 02/22/20 19:29) Other codeine Allergy (Verified 02/22/20 19:29) Anaphylaxis gold Au 198 Allergy (Verified 02/22/20 19:29) Rash guaifenesin Allergy (Verified 02/22/20 19:29) Rash promethazine HCl [From Phenergan] Allergy (Verified 02/22/20 19:29) Shortness of breath Sulfa (Sulfonamide Antibiotics) Allergy (Verified 02/22/20 19:29) Rash sulindac [From Clinoril] Allergy (Verified 02/22/20 19:29) Rash tetracycline [Tetracycline] Allergy (Verified 02/22/20 19:29) Rash thiopental Allergy (Verified 02/22/20 19:29) Rash trimethoprim [From Proloprim] Allergy (Verified 02/22/20 19:29) Rash buspirone [From BuSpar] Adverse Reaction (Verified 02/22/20 19:29) Nausea oxycodone HCl [From OxyContin] Adverse Reaction (Verified 02/22/20 19:29) Other NALDECON Allergy (Uncoded 02/22/20 19:29) Rash SULPHATED OIL Allergy (Uncoded 02/22/20 19:29) Other TAPE Allergy (Uncoded 02/22/20 19:29) Rash Home Medications: Ambulatory Orders Medication Instructions Recorded Prednisone 5 mg PO DAILY 11/29/18 Cholecalciferol (Vitamin D3) 2,000 unit PO DAILY 03/24/19 [Vitamin D3] Mirabegron [Myrbetriq] 25 mg PO DAILY 04/08/19 albuterol sulfate 90 mcg/actuation 2 puff INHALATION Q6H PRN 10/16/19 aerosol inhaler desonide 0.05 % topical cream 1 applic TOPICAL BID PRN 10/16/19 duloxetine 60 mg capsule,delayed 60 mg PO DAILY cap 10/16/19 release losartan 100 mg tablet 100 mg PO DAILY 10/16/19 gabapentin 300 mg capsule 600 mg PO TID cap 10/30/19 trazodone 50 mg tablet 50 mg PO QHS PRN 10/30/19 nitroglycerin 0.4 mg sublingual 0.4 mg SUBLINGUAL Q5-15M PRN #25 11/24/19 tablet tab clotrimazole 1 % topical cream 1 applic TOPICAL BID PRN 02/13/20 donepezil 10 mg tablet 5 mg PO QHS tab 02/13/20 tramadol 50 mg tablet 25 - 50 mg PO TID PRN 02/13/20 Acetaminophen 650 mg PO Q6H PRN PRN 02/26/20 Amlodipine [Norvasc] 5 mg PO DAILY 02/26/20 Aspirin [Aspirin, Baby] 81 mg PO DAILY@0800 02/26/20 Atorvastatin Calcium [Lipitor] 40 mg PO QHS 02/26/20 Cyclobenzaprine HCl 5 mg PO DAILY PRN 02/26/20 Lidocaine [Lidoderm Patch] 1 patch TOPICAL DAILY 02/26/20 Omeprazole 40 mg PO DAILY 02/26/20 Surgical History: Surgical History (Last Reviewed 02/13/20 @ 14:11 by Tangela Lopez) History of Krish fundoplication Z98.890 S/P IVC filter Z95.828 History of appendectomy Z98.890, Z90.49 History of bilateral knee replacement Z96.653 History of cardiac catheterization Onset Date: ~04/2017 Z98.890 Mild CAD History of carpal tunnel surgery Z98.890 Bilateral History of cholecystectomy Z98.890, Z90.49 History of herniorrhaphy Z98.890, Z87.19 History of hysterectomy Z98.890, Z90.710 History of salpingo-oophorectomy Z90.79, Z90.721 Surgical History: appendectomy, cholecystectomy, herniorrhaphy, hysterectomy, total knee arthroplasty - Bilateral., - - Krish fundiplication, IVC filter, Aortic valve replacement, Ileostomy, Bilateral carpal tunnel surrgery. 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 Lives: Spouse/ Significant Other Smoking Status: Never smoker Tobacco Use: Non-smoker Alcohol: None Drugs: None - *Family History Maternal Family History: Family History (Last Reviewed 02/13/20 @ 14:11 by Tangela Lopez) Father CVA (cerebral vascular accident) History Items: Diabetes, Hypertension Paternal Family History: Family History (Last Reviewed 02/13/20 @ 14:11 by Tangela Lopez) Father CVA (cerebral vascular accident) History Items: Hypertension, No pertinent history Review of Systems Constitutional: Denies: Chills, Fever, Weight Change HEENT: Denies: Head Aches, Sinus Congestion, Sinus Drainage Cardiovascular: Denies: Chest Pain, Palpitations Respiratory: Denies: Cough, Shortness of breath at rest, Sputum production Gastrointestinal: Denies: Abdominal Pain, Nausea, Vomiting Genitourinary: Denies: Dysuria Musculoskeletal: Denies: Joint Pain, Joint Tenderness Skin: Denies: Rash, Wounds Neurological: Denies: Numbness, Tingling, Focal weakness Psychiatric: Denies: Anxiety, Depression, Homicidal Ideations, Suicidal Ideations Hematologic/ Lymphatic: Denies: Easy Bruising, Easy Bleeding VTE Information - Inpt Only VTE Present on Admission: No VTE Mechan Device Prophylaxis: Knee High [place] Hose VTE Pharm Prophylaxis ordered?: Yes Patient Problems: Active and Suspected Problems (Last Reviewed 02/13/20 @ 14:11 by Tangela Lopez) Debility (Acute) Left hemiparesis (Acute) - Physical Exam Vitals/I&O's: Vital Signs Temp Pulse Resp BP Pulse Ox 96.2 F L 77 16 125/80 H 97 02/26/20 13:52 02/26/20 13:52 02/26/20 13:52 02/26/20 13:52 02/26/20 13:52 Oxygen Delivery Method Room Air Weight: 91.58 kg Body Mass Index (BMI) 38.1 Finger Stick Blood Glucose 152 General: Alert, Oriented x3, Cooperative HEENT: Atraumatic, PERRLA, EOMI, Normocephalic Neck: Supple, No JVD, Negative Carotid Bruits Lungs: Clear to auscultation, Normal air movement Cardiovascular: Regular rate, No murmurs Abdomen: Bowel Sounds Present, Soft, Non Tender, - - Ileostomy bag mid abdomen. Extremities: No edema, Capillary Refill Less than 3 Seconds Skin: No rashes, No breakdown Musculoskeletal: No Tenderness to Palpation of Joints or Extremities Neurological: Cranial nerves II-XII grossly intact, - - Left leg weakness. Psych/Mental Status: Normal Affect, Appropriate Laboratory Results 02/26/20 18:19: COVID-19 (SHEILA) Pending Current Medications Acetaminophen (Tylenol) 650 mg PO Q6H PRN PRN PRN Reason: Pain Score 1-3/10 Albuterol Sulfate (Ventolin Aerosols) 2.5 mg INHALATION Q6H PRN PRN PRN Reason: SHORTNESS OF BREATH/WHEEZE Amlodipine Besylate (Norvasc) 5 mg PO DAILY [facility] Aspirin (Aspirin, Baby) 81 mg PO DAILY@0800 [facility] Atorvastatin Calcium (Lipitor) 40 mg PO QHS [facility] Cholecalciferol (Vitamin D (25mcg)) 2,000 unit PO DAILY [facility] Cyclobenzaprine HCl (Cyclobenzaprine Hcl) 5 mg PO DAILY PRN PRN Reason: muscle spasms Stop: 03/11/20 14:04 Donepezil HCl (Aricept) 5 mg PO QHS [facility] Duloxetine HCl (Cymbalta) 60 mg PO DAILY [facility] Gabapentin (Neurontin) 600 mg PO TID [facility] Lidocaine (Lidoderm Patch) 1 patch TOPICAL DAILY [facility]; Protocol Losartan Potassium (Cozaar) 100 mg PO DAILY [facility] Nitroglycerin (Nitrostat) 0.4 mg SUBLINGUAL Q5M PRN PRN Reason: chest pain Nystatin (Mycostatin Powder) 1 applic TOPICAL BID@0600,2200 [facility]; Protocol Pantoprazole Sodium (Protonix) 40 mg PO DAILY [facility] Prednisone () 5 mg PO DAILY [facility] Tramadol HCl (Ultram) 25 - 50 mg PO TID PRN PRN PRN Reason: Pain Score 4-10/10 Tuberculin PPD (Tubersol, Aplisol, Ppd) 5 tu ID X1 ONE Stop: 02/27/20 10:01 Tuberculin PPD (Tubersol, Aplisol, Ppd) 5 tu ID X1 ONE Stop: 03/05/20 10:01 Assessment/Plan All Active Problems (Last Reviewed 02/13/20 @ 14:11 by Tangela Lopez) Debility (Acute) Left hemiparesis (Acute) CVA (cerebral vascular accident) (Acute) 79 year old female with below past medical history significant for previous stroke with mild left hemiparesis, hospitalized for right parietal stroke, left leg weakness, admitted to TCU with debility, here for rehabilitation, strengthening, prior to discharge home with . * Debility - PT/OT. * Dysphagia - ST. * Pain - Tylenol 1000MG Q6H PRN pain (1-3), Tramadol 50MG Q6H PRN pain (4-10), Lidoderm patch 1 patch topical daily. * Bowel - Not necessary due to ileostomy. * Adult immunization - Administer Prevnar 13, Pneumovax 23, Fluzone as appropriate. * DVT prophylaxis - Lovenox 30MG SC daily. * Shortness of breath - Albuterol 2.5MG Q6H PRN. * Hypertension - Losartan 100MG daily, Amlodipine 5MG daily. * Stroke - Aspirin 81MG daily. * Hyperlipidemia - Atorvastatin 40MG QHS. * Vitamin D deficiency - D3 2000IU daily. * Muscle spasm - Flexeril 5MG daily PRN. * Vascular dementia - Donepezil 5MG QHS. * Depression - Duloxetine 60MG daily, stable chronic half-way use, GDR not recommended. * Neuropathic pain - Gabapentin 600MG TID. * Coronary Artery Disease - Losartan 100MG daily, Aspirin 81MG daily, NTG 0.4MG Q5M PRN. * Tinea Corporis - Nystatin powder BID. * GERD - Pantoprazole 40MG daily. * Systemic Lupus Erythematosus - Prednisone 5MG daily.
[2020-02-26] MEDS: Donepezil HCl 5 MG Tablet PO (21:23)
[2020-02-26] MEDS: Atorvastatin Calcium 40 MG Tablet PO (21:23)
[2020-02-26] MEDS: Gabapentin 600 MG Tablet PO (21:23)
[2020-02-26] MEDS: traMADol 50 MG Tablet PO (21:26)
[2020-02-27 05:50] VITALS: BP 135/70; PULSE 63; RESP 16; TEMP 36.8; O2SAT 96
[2020-02-27] MEDS: Lidocaine 5% Patch 1 PATCH TOPICAL (05:52)
[2020-02-27] MEDS: Enoxaparin 30 MG/0.3 ML Syringe SC (05:56)
[2020-02-27] MEDS: amLODIPine 5 MG Tablet PO (05:56)
[2020-02-27] MEDS: predniSONE 5 MG Tablet PO (05:56)
[2020-02-27] MEDS: DULoxetine Hcl 60 MG Capsule PO (05:56)
[2020-02-27] MEDS: Gabapentin 600 MG Tablet PO ×3 (05:56→21:36)
[2020-02-27] MEDS: Losartan Potassium 100 MG Tablet PO (05:56)
[2020-02-27] MEDS: Nystatin Powder 15gm Bottle 1 APPLIC TOPICAL ×2 (05:57→21:37)
[2020-02-27] MEDS: traMADol 50 MG Tablet PO (06:01)
[2020-02-27 06:06] LABS: Absolute Lymphocyte Count 3.28 X10^3/uL (0.83-4.51); Absolute Neutrophil Count 4.7 X10^3/uL (2.0-7.7); Basophil% 1.1 % (0-1); Eosinophils% 2.2 % (0-5); Hematocrit 39.8 % (37-47); Hemoglobin 12.3 g/dL (12.0-15.0); Lymphocyte # 3.28 X10^3/ul (4.0); Lymphocyte % 35.7 % (19-41); Mean Corp Hgb Conc 30.9 g/dL (32-36); Mean Corpuscular Hgb 29.2 pg (27.0-32.0); Mean Corpuscular Volume 94.5 fL (81-99); Mean Platelet Vol. 11.4 fl (6.2-12.0); Monocyte# 0.79 X10^3/uL; Monocyte% 8.6 % (0-10); NRBC Flagged by Analyzer 0 % (0-5); Platelet Count 256 K/mm3 (150-450); RBC Distribution Width CV 14.3 % (11.6-14.6); RBC Distribution Width SD 48.6 fl (35.1-43.9); Red Blood Count 4.21 M/mm3 (4.2-5.4); White Blood Count 9.2 K/mm3 (4.4-11.0)
[2020-02-27 06:09] LABS: Anion Gap 4 (5-15); BUN 19 mg/dL (7-18); BUN/Creat Ratio 16.2 RATIO (10-20); Calcium,Total 8.6 mg/dL (8.5-10.1); Chloride 108 mmol/L (98-107); Creatinine, Serum 1.17 mg/dL (0.55-1.02); EST Glomerular Filtration Rate 48 mL/min (>60); Est Glom Filt Rate - Afr Amer 58 mL/min (>60); Estimated Creatinine Clearance 30.39 ml/min; Glucose 116 mg/dL (74-106); Potassium 4.4 mmol/L (3.5-5.1); Sodium Level 140 mmol/L (136-145)
[2020-02-27] MEDS: Aspirin 81 MG TAB.CHEW PO (08:06)
--- NOTE | 2020-02-27 10:41 | CASEMGMT ---
Social Work Discussed code status with pt. Pt requesting DNR -CCA, no intubation. Nursing notified. MOLST form completed and placed in chart. Pt requested dep/anxiety meds be increased. Nursing notified. Discussed past trauma. Provided emotional support. Suggested journaling - pt agreeable. Journal provided. Will continue to follow. Radha Jamil, FARM CROPS TEACHER BIOPHYSICS PROFESSOR
[2020-02-27] MEDS: Tuberculin,Purif.prot.deriv. 50 TU/ML Vial 5 ML ID (11:16)
[2020-02-27 11:26] VITALS: PULSE 64; RESP 18; O2SAT 96
--- NOTE | 2020-02-27 12:53 | PCM.PN.RX ---
<FrancekendraMily - Last Filed: 02/27/20 12:53> Progress Note - Pharmacy Subjective: TCU Admission Objective: Allergies ampicillin Allergy (Verified 02/22/20 19:29) Rash buprenorphine HCl [From Buprenex] Allergy (Verified 02/22/20 19:29) Other codeine Allergy (Verified 02/22/20 19:29) Anaphylaxis gold Au 198 Allergy (Verified 02/22/20 19:29) Rash guaifenesin Allergy (Verified 02/22/20 19:29) Rash promethazine HCl [From Phenergan] Allergy (Verified 02/22/20 19:29) Shortness of breath Sulfa (Sulfonamide Antibiotics) Allergy (Verified 02/22/20 19:29) Rash sulindac [From Clinoril] Allergy (Verified 02/22/20 19:29) Rash tetracycline [Tetracycline] Allergy (Verified 02/22/20 19:29) Rash thiopental Allergy (Verified 02/22/20 19:29) Rash trimethoprim [From Proloprim] Allergy (Verified 02/22/20 19:29) Rash buspirone [From BuSpar] Adverse Reaction (Verified 02/22/20 19:29) Nausea oxycodone HCl [From OxyContin] Adverse Reaction (Verified 02/22/20 19:29) Other NALDECON Allergy (Uncoded 02/22/20 19:29) Rash SULPHATED OIL Allergy (Uncoded 02/22/20 19:29) Other TAPE Allergy (Uncoded 02/22/20 19:29) Rash Current Medications Generic Name Dose Route Start Last Admin Trade Name Freq PRN Reason Stop Dose Admin Acetaminophen 1,000 mg 02/26/20 21:36 Tylenol PO Q6H PRN PRN Pain Score 1-3/10 Albuterol Sulfate 2.5 mg 02/26/20 14:17 Ventolin Aerosols INHALATION Q6H PRN PRN SHORTNESS OF BREATH/WHEEZE Amlodipine Besylate 5 mg 02/27/20 06:00 02/27/20 05:56 Norvasc PO 5 mg DAILY [facility] Administration Aspirin 81 mg 02/27/20 08:00 02/27/20 08:06 Aspirin, Baby PO 81 mg DAILY@0800 [facility] Administration Atorvastatin Calcium 40 mg 02/26/20 22:00 02/26/20 21:23 Lipitor PO 40 mg QHS [facility] Administration Cholecalciferol 2,000 unit 02/27/20 06:00 02/27/20 05:58 Vitamin D (25mcg) PO 2,000 unit DAILY [facility] Administration Cyclobenzaprine HCl 5 mg 02/26/20 14:03 Cyclobenzaprine Hcl PO 03/11/20 14:04 DAILY PRN muscle spasms Donepezil HCl 5 mg 02/26/20 22:00 02/26/20 21:23 Aricept PO 5 mg QHS [facility] Administration Duloxetine HCl 60 mg 02/27/20 06:00 02/27/20 05:56 Cymbalta PO 60 mg DAILY [facility] Administration Enoxaparin Sodium 30 mg 02/27/20 06:00 02/27/20 05:56 Lovenox SC 30 mg DAILY@0600 [facility] Administration Gabapentin 600 mg 02/26/20 22:00 02/27/20 05:56 Neurontin PO 600 mg TID [facility] Administration Lidocaine 1 patch 02/27/20 06:00 02/27/20 05:52 Lidoderm Patch TOPICAL 1 patch DAILY [facility] Administration Protocol Losartan Potassium 100 mg 02/27/20 06:00 02/27/20 05:56 Cozaar PO 100 mg DAILY [facility] Administration Nitroglycerin 0.4 mg 02/26/20 14:03 Nitrostat SUBLINGUAL Q5M PRN chest pain Nutritional Formula (Lactose Free) 120 ml 02/27/20 06:00 02/27/20 11:17 Ensure Enlive PO 120 ml 4X/DAY [facility] Administration Nystatin 1 applic 02/26/20 22:00 02/27/20 05:57 Mycostatin Powder TOPICAL 1 applicatio BID@0600,2200 [facility] Administration Protocol Pantoprazole Sodium 40 mg 02/27/20 06:00 02/27/20 05:57 Protonix PO 40 mg DAILY [facility] Administration Prednisone 5 mg 02/27/20 06:00 02/27/20 05:56 PO 5 mg DAILY [facility] Administration Tramadol HCl 50 mg 02/26/20 21:36 02/27/20 06:01 Ultram PO 50 mg Q6H PRN Administration Pain Score 4-10/10 Tuberculin PPD 5 tu 03/05/20 10:00 Tubersol, Aplisol, Ppd ID 03/05/20 10:01 X1 ONE Problem List (Last Reviewed 02/13/20 @ 14:11 by Tangela Lopez) Debility (Acute) Left hemiparesis (Acute) Systemic lupus erythematosus (Chronic) Coronary artery disease (Chronic) Chronic kidney disease (Chronic) Hypertension (Chronic) Pulmonary embolism (Chronic) Vitamin D deficiency (Chronic) Overactive bladder (Chronic) Depression (Chronic) Neuropathic pain (Chronic) Insomnia (Chronic) Vascular dementia (Chronic) Vital Signs Temp Pulse Resp BP Pulse Ox 98.3 F 64 18 135/70 H 96 02/27/20 05:50 02/27/20 11:26 02/27/20 11:26 02/27/20 05:50 02/27/20 11:26 Oxygen Delivery Method Room Air Weight: 91.58 kg Body Mass Index (BMI) 38.1 Finger Stick Blood Glucose 152 Sodium 140 mmol/L (136-145) 02/27/20 05:25 Potassium 4.4 mmol/L (3.5-5.1) 02/27/20 05:25 Chloride 108 mmol/L (98-107) H 02/27/20 05:25 Carbon Dioxide 28.0 mmol/L (21.0-32.0) 02/27/20 05:25 Anion Gap 4 (5-15) L 02/27/20 05:25 BUN 19 mg/dL (7-18) H 02/27/20 05:25 Creatinine 1.17 mg/dL (0.55-1.02) H 02/27/20 05:25 Est GFR (MDRD) Af Amer 58 mL/min (>60) L 02/27/20 05:25 Est GFR (MDRD) Non-Af 48 mL/min (>60) L 02/27/20 05:25 BUN/Creatinine Ratio 16.2 RATIO (10-20) 02/27/20 05:25 Glucose 116 mg/dL (74-106) H 02/27/20 05:25 Assessment/Plan: 1. Pain: acetaminophen 1000mg PO Q6H PRN pain 1-310, tramadol 50mg PO Q6H PRN 4-1010, and lidocaine 5% patch 1 patch TD daily to the left hip. Please continue to monitor for increased pain, renal function, rash, and respiratory depression. 2. DVT prophylaxis: enoxaparin 40mg SC daily. Please continue to monitor for S/S of bleeding/DVT, platelets (last 256), hemoglobin (last 12.3 g/dL), and renal function. 3. Shortness of breath: albuterol 2.5mg inhalation Q6H PRN SOB/WHEEZING. Please continue to monitor for SOB, wheezing, and PRN usage. 4. Hypertension/CAD/stroke: amlodipine 5mg PO daily, losartan 100mg PO daily, aspirin 81mg PO DAILYCM, nitroglycerin 0.4mg SL Q5M PRN chest pain. Please continue to monitor BP (last 135/70), renal function, edema, S/S of bleeding, hemoglobin, and chest pain. 5. Hyperlipidemia: atorvastatin 40mg PO QHS. Recent lipid panel and LFTs in chart. Please continue to monitor for muscle pain. *6. Neuropathic pain: gabapentin 600mg PO TID. Please consider changing dose to 600mg PO BID based on recommended dosing for renal function if clinically appropriate (CrCl 41.5 mL/min using adjusted body weight.) 7. Vascular dementia: donepezil 5mg PO QHS. Please continue to monitor for GI side effects. 8. GERD; pantoprazole 40mg PO daily. Please continue to monitor for S/S of GERD. 9. Systemic lupus erythematosus: prednisone 5mg PO daily. Please continue to monitor for S/S of infection and insomnia. 10. Muscle spasm: cyclobenzaprine 5mg PO daily PRN muscle spasms. Please continue to monitor for muscle spasms and PRN usage. *11. Vitamin D deficiency: cholecalciferol 2000units PO daily. Last vitamin D level from 2017. Please consider ordering one now and then annually as clinically appropriate. Thanks. Psychotropic Medications: 1. Depression: duloxetine 60mg PO daily. Please see physician note regarding GDR. Please continue to monitor renal function. Unnecessary Medications: None Bowel Regimen: None Date of Note:: 02/27/20 - Provider Comments Provider responsibility: Provider responsible to enter orders to implement recommendations <Enrique Stroud Chi - Last Filed: 02/27/20 13:37> Progress Note - Pharmacy Subjective: [] Objective: Allergies ampicillin Allergy (Verified 02/22/20 19:29) Rash buprenorphine HCl [From Buprenex] Allergy (Verified 02/22/20 19:29) Other codeine Allergy (Verified 02/22/20 19:29) Anaphylaxis gold Au 198 Allergy (Verified 02/22/20 19:29) Rash guaifenesin Allergy (Verified 02/22/20 19:29) Rash promethazine HCl [From Phenergan] Allergy (Verified 02/22/20 19:29) Shortness of breath Sulfa (Sulfonamide Antibiotics) Allergy (Verified 02/22/20 19:29) Rash sulindac [From Clinoril] Allergy (Verified 02/22/20 19:29) Rash tetracycline [Tetracycline] Allergy (Verified 02/22/20 19:29) Rash thiopental Allergy (Verified 02/22/20 19:29) Rash trimethoprim [From Proloprim] Allergy (Verified 02/22/20 19:29) Rash buspirone [From BuSpar] Adverse Reaction (Verified 02/22/20 19:29) Nausea oxycodone HCl [From OxyContin] Adverse Reaction (Verified 02/22/20 19:29) Other NALDECON Allergy (Uncoded 02/22/20 19:29) Rash SULPHATED OIL Allergy (Uncoded 02/22/20 19:29) Other TAPE Allergy (Uncoded 02/22/20 19:29) Rash Current Medications Generic Name Dose Route Start Last Admin Trade Name Freq PRN Reason Stop Dose Admin Acetaminophen 1,000 mg 02/26/20 21:36 Tylenol PO Q6H PRN PRN Pain Score 1-3/10 Albuterol Sulfate 2.5 mg 02/26/20 14:17 Ventolin Aerosols INHALATION Q6H PRN PRN SHORTNESS OF BREATH/WHEEZE Amlodipine Besylate 5 mg 02/27/20 06:00 02/27/20 05:56 Norvasc PO 5 mg DAILY [place] Administration Aspirin 81 mg 02/27/20 08:00 02/27/20 08:06 Aspirin, Baby PO 81 mg DAILY@0800 [facility] Administration Atorvastatin Calcium 40 mg 02/26/20 22:00 02/26/20 21:23 Lipitor PO 40 mg QHS [facility] Administration Cholecalciferol 2,000 unit 02/27/20 06:00 02/27/20 05:58 Vitamin D (25mcg) PO 2,000 unit DAILY [facility] Administration Cyclobenzaprine HCl 5 mg 02/26/20 14:03 Cyclobenzaprine Hcl PO 03/11/20 14:04 DAILY PRN muscle spasms Donepezil HCl 5 mg 02/26/20 22:00 07/30/20 21:23 Aricept PO 5 mg QHS [facility] Administration Duloxetine HCl 60 mg 02/27/20 06:00 02/27/20 05:56 Cymbalta PO 60 mg DAILY [facility] Administration Enoxaparin Sodium 40 mg 02/28/20 06:00 Lovenox SC DAILY@0600 [facility] Gabapentin 600 mg 02/26/20 22:00 02/27/20 12:58 Neurontin PO 600 mg TID [facility] Administration Lidocaine 1 patch 02/27/20 06:00 02/27/20 05:52 Lidoderm Patch TOPICAL 1 patch DAILY [facility] Administration Protocol Losartan Potassium 100 mg 02/27/20 06:00 02/27/20 05:56 Cozaar PO 100 mg DAILY [facility] Administration Nitroglycerin 0.4 mg 02/26/20 14:03 Nitrostat SUBLINGUAL Q5M PRN chest pain Nutritional Formula (Lactose Free) 120 ml 02/27/20 06:00 02/27/20 11:17 Ensure Enlive PO 120 ml 4X/DAY [facility] Administration Nystatin 1 applic 02/26/20 22:00 02/27/20 05:57 Mycostatin Powder TOPICAL 1 applicatio BID@0600,2200 [facility] Administration Protocol Pantoprazole Sodium 40 mg 02/28/20 06:00 Protonix PO DAILY [facility] Prednisone 5 mg 02/27/20 06:00 02/27/20 05:56 PO 5 mg DAILY [place] Administration Tramadol HCl 50 mg 02/26/20 21:36 02/27/20 06:01 Ultram PO 50 mg Q6H PRN Administration Pain Score 4-10/10 Tuberculin PPD 5 tu 03/05/20 10:00 Tubersol, Aplisol, Ppd ID 03/05/20 10:01 X1 ONE Problem List (Last Reviewed 02/13/20 @ 14:11 by Tangela Lopez) Debility (Acute) Left hemiparesis (Acute) Systemic lupus erythematosus (Chronic) Coronary artery disease (Chronic) Chronic kidney disease (Chronic) Hypertension (Chronic) Pulmonary embolism (Chronic) Vitamin D deficiency (Chronic) Overactive bladder (Chronic) Depression (Chronic) Neuropathic pain (Chronic) Insomnia (Chronic) Vascular dementia (Chronic) Vital Signs Temp Pulse Resp BP Pulse Ox 98.0 F 64 18 124/72 H 96 02/27/20 13:17 02/27/20 13:17 02/27/20 13:17 02/27/20 13:17 02/27/20 13:17 Oxygen Delivery Method Room Air Weight: 91.58 kg Body Mass Index (BMI) 38.1 Finger Stick Blood Glucose 152 Sodium 140 mmol/L (136-145) 02/27/20 05:25 Potassium 4.4 mmol/L (3.5-5.1) 02/27/20 05:25 Chloride 108 mmol/L (98-107) H 02/27/20 05:25 Carbon Dioxide 28.0 mmol/L (21.0-32.0) 02/27/20 05:25 Anion Gap 4 (5-15) L 02/27/20 05:25 BUN 19 mg/dL (7-18) H 02/27/20 05:25 Creatinine 1.17 mg/dL (0.55-1.02) H 02/27/20 05:25 Est GFR (MDRD) Af Amer 58 mL/min (>60) L 02/27/20 05:25 Est GFR (MDRD) Non-Af 48 mL/min (>60) L 02/27/20 05:25 BUN/Creatinine Ratio 16.2 RATIO (10-20) 02/27/20 05:25 Glucose 116 mg/dL (74-106) H 02/27/20 05:25 Assessment/Plan: Psychotropic Medications: Unnecessary Medications: Bowel Regimen: - Provider Comments Provider responsibility: Provider responsible to enter orders to implement recommendations Provider Comments to Recommendations by Pharmacy: Agree
[2020-02-27 13:17] VITALS: BP 124/72; PULSE 64; RESP 18; TEMP 36.7; O2SAT 96
--- NOTE | 2020-02-27 13:39 | RAD_ITS ---
STUDY: X-RAY - PELVIS AND LEFT HIP REASON FOR EXAM: Female, 79 years old. CHRONIC PAIN, NO INJURY TECHNIQUE: 3 views of the pelvis and hip. COMPARISON: None. FINDINGS: A large amount of fecal material is seen throughout the colon. Fecal impaction should BE ruled out. A filter is seen within the inferior vena cava. Normal bilateral iliac wings, sacroiliac joints and visualized sacrum. Normal bilateral superior and inferior pubic rami. Normal pubic symphysis. Normal bilateral ischial tuberosities. Normal visualized femoral head. Normal acetabulum. There is moderate articular joint space narrowing of the hip. RAD/HIP, UNI W/ Pelvis 2-3 Views IMPRESSION: Large amount of fecal material is seen in the colon. 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 Electronically Signed: Guero Pelaez, at 15:16 EDT , Service support ,
[2020-02-27] MEDS: Acetaminophen 500 MG Tablet 1000 MG PO (15:31)
[2020-02-27] MEDS: Atorvastatin Calcium 40 MG Tablet PO (21:35)
[2020-02-27] MEDS: Donepezil HCl 5 MG Tablet PO (21:37)
--- NOTE | 2020-02-27 23:26 | NURSING ---
Pt reports has liquid stool from ileostomy at all times, states has had ileostomy since . takes care of it herself, having large loose stools as per her usual and large amts of flatus in bag, good bowel sounds, denies pain to abd
[2020-02-28 04:00] VITALS: BP 130/60; PULSE 65; RESP 16; TEMP 36.6; O2SAT 95
[2020-02-28] MEDS: DULoxetine Hcl 30 MG Capsule 90 MG PO (05:33)
[2020-02-28] MEDS: Lactulose 20 GM/30 ML UDC PO (05:33)
[2020-02-28] MEDS: Losartan Potassium 100 MG Tablet PO (05:33)
[2020-02-28] MEDS: predniSONE 5 MG Tablet PO (05:33)
[2020-02-28] MEDS: Nystatin Powder 15gm Bottle 1 APPLIC TOPICAL ×2 (05:33→20:40)
[2020-02-28] MEDS: amLODIPine 5 MG Tablet PO (05:33)
[2020-02-28] MEDS: Lidocaine 5% Patch 1 PATCH TOPICAL (05:34)
[2020-02-28] MEDS: Enoxaparin 40 MG/0.4 ML Syringe SC (05:34)
[2020-02-28] MEDS: Gabapentin 600 MG Tablet PO ×3 (05:35→20:59)
[2020-02-28] MEDS: Pantoprazole Sodium 40 MG Tablet PO (05:36)
[2020-02-28] MEDS: Aspirin 81 MG TAB.CHEW PO (08:35)
[2020-02-28 13:20] VITALS: PULSE 71; RESP 18; O2SAT 100
[2020-02-28 15:53] VITALS: BP 162/74; PULSE 71; RESP 16; TEMP 36.4; O2SAT 100
[2020-02-28] MEDS: Donepezil HCl 5 MG Tablet PO (20:59)
[2020-02-28] MEDS: Atorvastatin Calcium 40 MG Tablet PO (20:59)
[2020-02-29 04:00] VITALS: BP 147/75; PULSE 68; RESP 14; TEMP 36.4; O2SAT 96
[2020-02-29] MEDS: Lidocaine 5% Patch 1 PATCH TOPICAL (05:21)
[2020-02-29] MEDS: DULoxetine Hcl 30 MG Capsule 90 MG PO (05:22)
[2020-02-29] MEDS: Gabapentin 600 MG Tablet PO ×3 (05:22→21:59)
[2020-02-29] MEDS: Losartan Potassium 100 MG Tablet PO (05:22)
[2020-02-29] MEDS: Pantoprazole Sodium 40 MG Tablet PO (05:22)
[2020-02-29] MEDS: amLODIPine 5 MG Tablet PO (05:23)
[2020-02-29] MEDS: predniSONE 5 MG Tablet PO (05:23)
[2020-02-29] MEDS: Enoxaparin 40 MG/0.4 ML Syringe SC (05:28)
[2020-02-29] MEDS: Nystatin Powder 15gm Bottle 1 APPLIC TOPICAL ×2 (05:29→21:59)
[2020-02-29] MEDS: Aspirin 81 MG TAB.CHEW PO (08:37)
[2020-02-29] MEDS: traMADol 50 MG Tablet PO (12:04)
[2020-02-29 14:37] VITALS: BP 178/90; PULSE 84; RESP 16; TEMP 36.7
[2020-02-29] MEDS: Donepezil HCl 5 MG Tablet PO (21:59)
[2020-02-29] MEDS: Atorvastatin Calcium 40 MG Tablet PO (21:59)
[2020-03-01 05:32] VITALS: BP 144/69; PULSE 68; RESP 18; TEMP 36.2; O2SAT 94
[2020-03-01] MEDS: DULoxetine Hcl 30 MG Capsule 90 MG PO (05:37)
[2020-03-01] MEDS: Losartan Potassium 100 MG Tablet PO (05:37)
[2020-03-01] MEDS: Lidocaine 5% Patch 1 PATCH TOPICAL (05:38)
[2020-03-01] MEDS: Enoxaparin 40 MG/0.4 ML Syringe SC (05:38)
[2020-03-01] MEDS: amLODIPine 5 MG Tablet PO (05:39)
[2020-03-01] MEDS: Nystatin Powder 15gm Bottle 1 APPLIC TOPICAL ×2 (05:39→21:22)
[2020-03-01] MEDS: predniSONE 5 MG Tablet PO (05:39)
[2020-03-01] MEDS: Pantoprazole Sodium 40 MG Tablet PO (05:39)
[2020-03-01] MEDS: Gabapentin 600 MG Tablet PO ×3 (05:42→21:18)
[2020-03-01] MEDS: Aspirin 81 MG TAB.CHEW PO (10:08)
[2020-03-01] MEDS: traMADol 50 MG Tablet PO ×2 (10:08→16:20)
[2020-03-01] MEDS: Acetaminophen 500 MG Tablet 1000 MG PO (12:37)
[2020-03-01 12:39] VITALS: PULSE 78; RESP 20; O2SAT 93
[2020-03-01 15:02] VITALS: BP 150/94; PULSE 78; RESP 20; TEMP 36.9; O2SAT 93
[2020-03-01] MEDS: Donepezil HCl 5 MG Tablet PO (21:17)
[2020-03-01] MEDS: Atorvastatin Calcium 40 MG Tablet PO (21:18)
[2020-03-02 05:53] VITALS: BP 114/57; PULSE 67; RESP 16; TEMP 36.9; O2SAT 95
[2020-03-02] MEDS: Enoxaparin 40 MG/0.4 ML Syringe SC (05:54)
[2020-03-02] MEDS: DULoxetine Hcl 30 MG Capsule 90 MG PO (05:54)
[2020-03-02] MEDS: Gabapentin 600 MG Tablet PO ×3 (05:55→20:36)
[2020-03-02] MEDS: Pantoprazole Sodium 40 MG Tablet PO (05:55)
[2020-03-02] MEDS: Nystatin Powder 15gm Bottle 1 APPLIC TOPICAL ×2 (05:55→20:38)
[2020-03-02] MEDS: Losartan Potassium 100 MG Tablet PO (05:55)
[2020-03-02] MEDS: Lidocaine 5% Patch 1 PATCH TOPICAL (05:55)
[2020-03-02] MEDS: amLODIPine 5 MG Tablet PO (05:55)
[2020-03-02] MEDS: predniSONE 5 MG Tablet PO (05:55)
--- NOTE | 2020-03-02 06:33 | NURSING ---
States I think my luspus is starting to act up, i have sores in my mouth none seen at this time, message left for
[2020-03-02] MEDS: traMADol 50 MG Tablet PO ×2 (08:09→14:11)
[2020-03-02] MEDS: Aspirin 81 MG TAB.CHEW PO (08:09)
[2020-03-02] MEDS: Acetaminophen 500 MG Tablet 1000 MG PO ×2 (10:47→20:35)
[2020-03-02 14:13] VITALS: BP 125/68; PULSE 71; RESP 14; TEMP 36.1; O2SAT 94
[2020-03-02] MEDS: Donepezil HCl 5 MG Tablet PO (20:35)
[2020-03-02] MEDS: Atorvastatin Calcium 40 MG Tablet PO (20:35)
[2020-03-03] MEDS: Losartan Potassium 100 MG Tablet PO (05:30)
[2020-03-03] MEDS: Enoxaparin 40 MG/0.4 ML Syringe SC (05:30)
[2020-03-03] MEDS: DULoxetine Hcl 30 MG Capsule 90 MG PO (05:30)
[2020-03-03] MEDS: predniSONE 5 MG Tablet PO (05:30)
[2020-03-03] MEDS: Pantoprazole Sodium 40 MG Tablet PO (05:30)
[2020-03-03] MEDS: Gabapentin 600 MG Tablet PO ×3 (05:30→21:48)
[2020-03-03] MEDS: amLODIPine 5 MG Tablet PO (05:30)
[2020-03-03 05:31] VITALS: BP 114/62; PULSE 62; RESP 16; TEMP 36.1; O2SAT 93
[2020-03-03] MEDS: Aspirin 81 MG TAB.CHEW PO (08:37)
[2020-03-03] MEDS: traMADol 50 MG Tablet PO (08:37)
--- NOTE | 2020-03-03 10:03 | CASEMGMT ---
Social Work BIMS and PHQ9 interviews completed on this date for MDS assessment. Pt stating during BIMS interview that she is having difficulty with short term recall and with word finding. SW spoke with WILL Mendiola who states she is working with pt on both of these issues. Pt score on PHQ9 of 02/22. Pt stating that she does not want to be around people but does get lonely in her room. SW spoke with pt regarding depression and she states she is taking medication for depression and has seen a counselor in the past. PT also states she did have an appointment with Dr. Mallory, psychologist this week and but had to cancel it due to hospitalization. SW spoke with pt regarding depression and encouraged pt to follow up with Dr. Mallory after discharge. PT expressed understanding and agreement. AMANDA Chowdary
--- NOTE | 2020-03-03 13:12 | CASEMGMT ---
Social Work IDT met with patient and via conference call for care plan meeting. Discussed patient's progress in therapy. Pt is CGA for bed mobility with use of leg ribber with left leg, CGA for transfers and ambulating with FWW, walking 30 ft with FWW and CGA. Pt is using 2lb wts on RLE. Pt is CGA for toilet transfers, Zohaib for clothing management, maxA for pericare and ileostomy care, set up at w/c level for grooming and oral care, SBA for UE bathing, Zohaib for UE and LE ADLs. Pt is working with ST on external memory aides, word finding strategies, but has good awareness. Pt is on a no added salt, soft diet, receiving ensure. Pt is out of isolation 03/11 and to f/u with neurology in Mar. Explained [employer] insurance with [facility] 03/08, and continued stay is not guaranteed. Explained and provided nh predict care plan with [facility] 03/13, with potentially needing assistance at [place]. Inquired about assistance. Pt states still works during the day and couldn't take care of her. However, she has hired [facility] nonskilled HHC prior and would like to rehire at [place]. Provided list of all nonskilled HHC. Pt appreciative. Will continue to follow. CECELIA BoldenW
[2020-03-03] MEDS: Acetaminophen 500 MG Tablet 1000 MG PO (13:35)
[2020-03-03 13:58] VITALS: BP 138/92; PULSE 70; RESP 18; TEMP 36.7; O2SAT 93
[2020-03-03 13:59] VITALS: PULSE 70; RESP 18; O2SAT 93
[2020-03-03] MEDS: Atorvastatin Calcium 40 MG Tablet PO (21:48)
[2020-03-03] MEDS: Donepezil HCl 5 MG Tablet PO (21:48)
[2020-03-03] MEDS: Nystatin Powder 15gm Bottle 1 APPLIC TOPICAL (21:49)
[2020-03-04] MEDS: traMADol 50 MG Tablet PO ×4 (01:19→21:58)
[2020-03-04 06:04] VITALS: BP 149/72; PULSE 70; RESP 17; TEMP 36.8
[2020-03-04] MEDS: Enoxaparin 40 MG/0.4 ML Syringe SC (06:05)
[2020-03-04] MEDS: Losartan Potassium 100 MG Tablet PO (06:05)
[2020-03-04] MEDS: Gabapentin 600 MG Tablet PO ×3 (06:05→21:59)
[2020-03-04] MEDS: DULoxetine Hcl 30 MG Capsule 90 MG PO (06:05)
[2020-03-04] MEDS: Pantoprazole Sodium 40 MG Tablet PO (06:05)
[2020-03-04] MEDS: amLODIPine 5 MG Tablet PO (06:05)
[2020-03-04] MEDS: predniSONE 5 MG Tablet PO (06:05)
[2020-03-04] MEDS: Nystatin Powder 15gm Bottle 1 APPLIC TOPICAL ×2 (06:09→21:59)
[2020-03-04] MEDS: Aspirin 81 MG TAB.CHEW PO (08:33)
[2020-03-04] MEDS: Lidocaine 5% Patch 1 PATCH TOPICAL (08:33)
[2020-03-04] MEDS: Acetaminophen 500 MG Tablet 1000 MG PO (12:23)
[2020-03-04 14:16] VITALS: BP 130/75; PULSE 98; RESP 20; TEMP 36.3; O2SAT 99
[2020-03-04 19:54] VITALS: PULSE 64
[2020-03-04] MEDS: Donepezil HCl 5 MG Tablet PO (21:59)
[2020-03-04] MEDS: Atorvastatin Calcium 40 MG Tablet PO (21:59)
[2020-03-05 04:00] VITALS: BP 129/73; PULSE 63; RESP 16; TEMP 36.2; O2SAT 95
[2020-03-05] MEDS: Lidocaine 5% Patch 1 PATCH TOPICAL (05:03)
[2020-03-05] MEDS: Pantoprazole Sodium 40 MG Tablet PO (05:05)
[2020-03-05] MEDS: Gabapentin 600 MG Tablet PO ×3 (05:05→20:59)
[2020-03-05] MEDS: amLODIPine 5 MG Tablet PO (05:05)
[2020-03-05] MEDS: predniSONE 5 MG Tablet PO (05:05)
[2020-03-05] MEDS: Losartan Potassium 100 MG Tablet PO (05:05)
[2020-03-05] MEDS: DULoxetine Hcl 30 MG Capsule 90 MG PO (05:05)
[2020-03-05] MEDS: Enoxaparin 40 MG/0.4 ML Syringe SC (05:07)
[2020-03-05] MEDS: Nystatin Powder 15gm Bottle 1 APPLIC TOPICAL ×2 (05:10→21:00)
[2020-03-05 05:43] LABS: Absolute Lymphocyte Count 2.79 X10^3/uL (0.83-4.51); Absolute Neutrophil Count 4.5 X10^3/uL (2.0-7.7); Basophil# 0.09 X10^3/uL; Basophil% 1.1 % (0-1); Eosinophils% 2.4 % (0-5); Hemoglobin 11.8 g/dL (12.0-15.0); Lymphocyte # 2.79 X10^3/ul (4.0); Lymphocyte % 33.3 % (19-41); Mean Corp Hgb Conc 31.9 g/dL (32-36); Mean Corpuscular Hgb 30.3 pg (27.0-32.0); Mean Corpuscular Volume 94.9 fL (81-99); Mean Platelet Vol. 10.9 fl (6.2-12.0); Monocyte# 0.69 X10^3/uL; Monocyte% 8.2 % (0-10); NRBC Flagged by Analyzer 0 % (0-5); Neutrophil # 4.45 X10^3/uL (2.7-7.7); Neutrophil % 53.1 % (47-70); Platelet Count 268 K/mm3 (150-450); RBC Distribution Width CV 14.6 % (11.6-14.6); RBC Distribution Width SD 49.9 fl (35.1-43.9); White Blood Count 8.4 K/mm3 (4.4-11.0)
[2020-03-05 06:03] LABS: Anion Gap 8 (5-15); BUN 21 mg/dL (7-18); BUN/Creat Ratio 18.9 RATIO (10-20); Calcium,Total 8.3 mg/dL (8.5-10.1); Chloride 105 mmol/L (98-107); Creatinine, Serum 1.11 mg/dL (0.55-1.02); EST Glomerular Filtration Rate 51 mL/min (>60); Est Glom Filt Rate - Afr Amer 61 mL/min (>60); Estimated Creatinine Clearance 32.03 ml/min; Glucose 106 mg/dL (74-106); Potassium 4.2 mmol/L (3.5-5.1); Sodium Level 139 mmol/L (136-145)
[2020-03-05] MEDS: Aspirin 81 MG TAB.CHEW PO (08:06)
[2020-03-05] MEDS: Tuberculin,Purif.prot.deriv. 50 TU/ML Vial 5 ML ID (10:36)
[2020-03-05] MEDS: cycloBENZAPRine HCl 5 MG TABLET PO (13:26)
[2020-03-05 13:32] VITALS: PULSE 73; RESP 18; O2SAT 96
[2020-03-05 13:44] VITALS: BP 148/72; PULSE 73; RESP 18; TEMP 36.9; O2SAT 96
[2020-03-05] MEDS: Donepezil HCl 5 MG Tablet PO (20:59)
[2020-03-05] MEDS: Atorvastatin Calcium 40 MG Tablet PO (20:59)
[2020-03-06] MEDS: Enoxaparin 40 MG/0.4 ML Syringe SC (06:13)
[2020-03-06] MEDS: Pantoprazole Sodium 40 MG Tablet PO (06:13)
[2020-03-06] MEDS: Gabapentin 600 MG Tablet PO ×3 (06:14→21:00)
[2020-03-06] MEDS: DULoxetine Hcl 30 MG Capsule 90 MG PO (06:14)
[2020-03-06] MEDS: amLODIPine 5 MG Tablet PO (06:14)
[2020-03-06] MEDS: Losartan Potassium 100 MG Tablet PO (06:14)
[2020-03-06] MEDS: traMADol 50 MG Tablet PO ×2 (06:14→21:00)
[2020-03-06] MEDS: Nystatin Powder 15gm Bottle 1 APPLIC TOPICAL ×2 (06:17→21:01)
[2020-03-06] MEDS: predniSONE 5 MG Tablet PO (06:19)
[2020-03-06] MEDS: Menthol/Lanolin/Calamine/Znox 113 GM Tube 1 APPLIC TOPICAL ×2 (06:19→21:01)
[2020-03-06 06:48] VITALS: BP 149/72; PULSE 79; RESP 17; TEMP 36.6; O2SAT 96
[2020-03-06] MEDS: Lidocaine 5% Patch 1 PATCH TOPICAL (07:47)
[2020-03-06] MEDS: Aspirin 81 MG TAB.CHEW PO (07:48)
[2020-03-06] MEDS: cycloBENZAPRine HCl 5 MG TABLET PO (17:13)
[2020-03-06 18:13] VITALS: BP 152/72; PULSE 73; RESP 20; TEMP 36.3; O2SAT 94
[2020-03-06] MEDS: Donepezil HCl 5 MG Tablet PO (21:00)
[2020-03-06] MEDS: Atorvastatin Calcium 40 MG Tablet PO (21:00)
[2020-03-06 21:43] VITALS: O2SAT 97
[2020-03-07 05:57] VITALS: BP 119/63; PULSE 65; RESP 17; TEMP 36.6; O2SAT 94
[2020-03-07] MEDS: DULoxetine Hcl 30 MG Capsule 90 MG PO (05:58)
[2020-03-07] MEDS: Pantoprazole Sodium 40 MG Tablet PO (05:58)
[2020-03-07] MEDS: Gabapentin 600 MG Tablet PO ×3 (05:58→20:44)
[2020-03-07] MEDS: amLODIPine 5 MG Tablet PO (05:58)
[2020-03-07] MEDS: Enoxaparin 40 MG/0.4 ML Syringe SC (05:58)
[2020-03-07] MEDS: Losartan Potassium 100 MG Tablet PO (05:58)
[2020-03-07] MEDS: Lidocaine 5% Patch 1 PATCH TOPICAL (05:58)
[2020-03-07] MEDS: predniSONE 5 MG Tablet PO (05:58)
[2020-03-07] MEDS: Nystatin Powder 15gm Bottle 1 APPLIC TOPICAL ×2 (06:02→20:45)
[2020-03-07] MEDS: Menthol/Lanolin/Calamine/Znox 113 GM Tube 1 APPLIC TOPICAL ×2 (06:02→20:45)
[2020-03-07] MEDS: Aspirin 81 MG TAB.CHEW PO (07:47)
[2020-03-07 12:20] VITALS: PULSE 73; RESP 20; O2SAT 96
[2020-03-07 14:15] VITALS: BP 134/68; PULSE 73; RESP 18; TEMP 36.8; O2SAT 96
[2020-03-07] MEDS: cycloBENZAPRine HCl 5 MG TABLET PO (14:53)
[2020-03-07] MEDS: Atorvastatin Calcium 40 MG Tablet PO (20:44)
[2020-03-07] MEDS: Donepezil HCl 5 MG Tablet PO (20:44)
[2020-03-07] MEDS: traMADol 50 MG Tablet PO (20:44)
[2020-03-08] MEDS: Lidocaine 5% Patch 1 PATCH TOPICAL (06:00)
[2020-03-08] MEDS: Losartan Potassium 100 MG Tablet PO (06:00)
[2020-03-08] MEDS: predniSONE 5 MG Tablet PO (06:00)
[2020-03-08] MEDS: Pantoprazole Sodium 40 MG Tablet PO (06:00)
[2020-03-08] MEDS: Enoxaparin 40 MG/0.4 ML Syringe SC (06:00)
[2020-03-08] MEDS: Gabapentin 600 MG Tablet PO ×3 (06:00→20:38)
[2020-03-08] MEDS: DULoxetine Hcl 30 MG Capsule 90 MG PO (06:00)
[2020-03-08] MEDS: amLODIPine 5 MG Tablet PO (06:00)
[2020-03-08] MEDS: Nystatin Powder 15gm Bottle 1 APPLIC TOPICAL ×2 (06:04→20:39)
[2020-03-08] MEDS: Menthol/Lanolin/Calamine/Znox 113 GM Tube 1 APPLIC TOPICAL ×2 (06:05→20:40)
[2020-03-08 06:08] VITALS: BP 133/78; PULSE 70; RESP 18; TEMP 36.6; O2SAT 98
[2020-03-08] MEDS: Aspirin 81 MG TAB.CHEW PO (08:32)
[2020-03-08 15:03] VITALS: PULSE 74; RESP 20; O2SAT 95
[2020-03-08] MEDS: cycloBENZAPRine HCl 5 MG TABLET PO (15:16)
[2020-03-08 15:20] VITALS: BP 136/72; PULSE 74; RESP 20; TEMP 36.8; O2SAT 93
[2020-03-08] MEDS: traMADol 50 MG Tablet PO (17:13)
[2020-03-08] MEDS: Atorvastatin Calcium 40 MG Tablet PO (20:38)
[2020-03-08] MEDS: Donepezil HCl 5 MG Tablet PO (20:38)
[2020-03-09 06:03] VITALS: BP 129/57; PULSE 61; RESP 18; TEMP 36.4; O2SAT 93
[2020-03-09] MEDS: Menthol/Lanolin/Calamine/Znox 113 GM Tube 1 APPLIC TOPICAL ×2 (06:06→21:00)
[2020-03-09] MEDS: Nystatin Powder 15gm Bottle 1 APPLIC TOPICAL ×2 (06:06→21:00)
[2020-03-09] MEDS: DULoxetine Hcl 30 MG Capsule 90 MG PO (06:07)
[2020-03-09] MEDS: Gabapentin 600 MG Tablet PO ×3 (06:07→20:59)
[2020-03-09] MEDS: Enoxaparin 40 MG/0.4 ML Syringe SC (06:07)
[2020-03-09] MEDS: Pantoprazole Sodium 40 MG Tablet PO (06:07)
[2020-03-09] MEDS: Losartan Potassium 100 MG Tablet PO (06:07)
[2020-03-09] MEDS: predniSONE 5 MG Tablet PO (06:07)
[2020-03-09] MEDS: amLODIPine 5 MG Tablet PO (06:08)
[2020-03-09] MEDS: Lidocaine 5% Patch 1 PATCH TOPICAL (06:09)
[2020-03-09] MEDS: traMADol 50 MG Tablet PO ×2 (06:13→13:24)
[2020-03-09] MEDS: Aspirin 81 MG TAB.CHEW PO (09:34)
--- NOTE | 2020-03-09 13:37 | CASEMGMT ---
Social Work Spoke with patient to inform her insurance issued LCD 03/11, DC 03/12. Pt agreeable and ready to DC. Pt to restart nonskilled HHC with [facility] and requested skilled [facility]. Referral made for [facility] PT/OT/ST/SW. Inquired if pt would like bed rail at home - pt agreed. Referred to [facility] for half bed rail. to transport pt. Plan: DC home with 03/12 with [facility] PT.OT.ST.SW., half bed rail CECELIA BoldenW
[2020-03-09 14:04] VITALS: BP 142/77; PULSE 70; RESP 20; TEMP 36.6; O2SAT 92
[2020-03-09] MEDS: Donepezil HCl 5 MG Tablet PO (20:59)
[2020-03-09] MEDS: Atorvastatin Calcium 40 MG Tablet PO (20:59)
--- NOTE | 2020-03-09 21:52 | DCINST_ITS ---
- Discharge Diagnoses Current Active Problems: Current Active and Chronic Problems (Last Reviewed 02/13/20 @ 14:11 by Tangela Lopez) Debility (Acute) Left hemiparesis (Acute) Systemic lupus erythematosus (Chronic) Coronary artery disease (Chronic) Chronic kidney disease (Chronic) Hypertension (Chronic) Pulmonary embolism (Chronic) Vitamin D deficiency (Chronic) Overactive bladder (Chronic) Depression (Chronic) Neuropathic pain (Chronic) Insomnia (Chronic) Vascular dementia (Chronic) You will use the following diet at home:: No restrictions, Regular Your food should be the consistency of: Regular Your liquids should be the consistency of: Regular/Thin Discharge Activity: Return to Normal Activity, May Shower, Use Walker Weight Bearing Status: Weight bearing as tolerated Call your doctor if you observe: Fever of 101 or Higher, Inability to urinate, Inability to have a bowel movement, Shortness of breath, Chest pain, Uncontrolled pain Allergies/Adverse Reactions: Allergies ampicillin Allergy (Verified 02/22/20 19:29) Rash buprenorphine HCl [From Buprenex] Allergy (Verified 02/22/20 19:29) Other codeine Allergy (Verified 02/22/20 19:29) Anaphylaxis gold Au 198 Allergy (Verified 02/22/20 19:29) Rash guaifenesin Allergy (Verified 02/22/20 19:29) Rash promethazine HCl [From Phenergan] Allergy (Verified 02/22/20 19:29) Shortness of breath Sulfa (Sulfonamide Antibiotics) Allergy (Verified 02/22/20 19:29) Rash sulindac [From Clinoril] Allergy (Verified 02/22/20 19:29) Rash tetracycline [Tetracycline] Allergy (Verified 02/22/20 19:29) Rash thiopental Allergy (Verified 02/22/20 19:29) Rash trimethoprim [From Proloprim] Allergy (Verified 02/22/20 19:29) Rash buspirone [From BuSpar] Adverse Reaction (Verified 02/22/20 19:29) Nausea oxycodone HCl [From OxyContin] Adverse Reaction (Verified 02/22/20 19:29) Other NALDECON Allergy (Uncoded 02/22/20 19:29) Rash SULPHATED OIL Allergy (Uncoded 02/22/20 19:29) Other TAPE Allergy (Uncoded 02/22/20 19:29) Rash Medications to take at Discharge Prednisone 5 mg PO DAILY 11/29/18 Cholecalciferol (Vitamin D3) [Vitamin D3] 2,000 unit PO DAILY 03/24/19 albuterol sulfate 90 mcg/actuation aerosol inhaler 2 puff INHALATION Q6H PRN 10/16/19 duloxetine 60 mg capsule,delayed release 60 mg PO DAILY cap 10/16/19 losartan 100 mg tablet 100 mg PO DAILY 10/16/19 gabapentin 300 mg capsule 600 mg PO TID cap 10/30/19 nitroglycerin 0.4 mg sublingual tablet 0.4 mg SUBLINGUAL Q5-15M PRN #25 tab 11/24/19 donepezil 10 mg tablet 5 mg PO QHS tab 02/13/20 Amlodipine [Norvasc] 5 mg PO DAILY 02/26/20 Aspirin [Aspirin, Baby] 81 mg PO DAILY@0800 02/26/20 Atorvastatin Calcium [Lipitor] 40 mg PO QHS 02/26/20 Omeprazole 40 mg PO DAILY 02/26/20 Acetaminophen [Tylenol] 1,000 mg PO Q6H PRN PRN tablet 03/09/20 Cyclobenzaprine HCl 5 mg PO DAILY PRN #30 tab 03/09/20 Lidocaine [Lidoderm Patch] 1 patch TOPICAL DAILY #30 patch 03/09/20 Menthol/Lanolin/Calamine/Znox [Calmoseptine Ointment] 1 applic TOPICAL 0600,2200 tube 03/09/20 Nystatin Powder [Mycostatin Powder] 1 applic TOPICAL BID@0600,2200 bottle 03/09/20 traMADol [Ultram] 50 mg PO Q6H PRN 7 Days #28 tab 03/09/20 The following prescriptions were given: Cyclobenzaprine HCl 5 mg PO DAILY PRN #30 tab PRN Reason: muscle spasms Transmission Status: Pending to [id number] Lidocaine [Lidoderm Patch] 1 patch TOPICAL DAILY #30 patch Transmission Status: Pending to [id number] traMADol [Ultram] 50 mg PO Q6H PRN 7 Days #28 tab PRN Reason: Pain Score 4-10/10 Prescription Printed Primary Care Physician: Zayda Peace PA [Primary Care Provider] - Please follow up with your Primary Care Physician in: 1 week. Test Results: Test results from this visit will be discussed in further detail at your follow- up appointment, if applicable. Please Follow Up With: Abilio Figueroa (neurological [facility]) When: [phone] Please Follow Up With: Gastroenterology When: after TCU DC Please Follow Up With: Marcial Mallory, Psych Please Follow Up With: Damian Portillo MD - Left hip pain, patient requests left total hip arthroplasty. When: 1 week. Proposed Discharge Date: 03/12/20
--- NOTE | 2020-03-09 21:54 | DS.PCM_ITS ---
Discharge Date and Diagnosis - Problem List Patient Problems: Active and Suspected Problems (Last Reviewed 02/13/20 @ 14:11 by Tangela Lopez) Debility (Acute) Left hemiparesis (Acute) Date of Admission: 02/26/20 Date of Discharge: 03/12/20 - Primary Discharge Diagnosis Acute Problems: Active Problems (Last Reviewed 02/13/20 @ 14:11 by Tangela Lopez) Debility (Acute) Left hemiparesis (Acute) - Secondary Discharge Diagnosis Chronic Problems: Chronic Problems (Last Reviewed 02/13/20 @ 14:11 by Tangela Lopez) Systemic lupus erythematosus (Chronic) Coronary artery disease (Chronic) Chronic kidney disease (Chronic) Hypertension (Chronic) Pulmonary embolism (Chronic) Vitamin D deficiency (Chronic) Overactive bladder (Chronic) Depression (Chronic) Neuropathic pain (Chronic) Insomnia (Chronic) Vascular dementia (Chronic) Atherosclerotic heart disease of [place] coronary artery without angina pectoris (Chronic ~05/09/17) Mild; Left Main: mild calcification, angiographically normal; LAD: prox: Mild calcification, mild luminal irregularities;CX: prox: Mild luminal irregularities; RCA: angiographically normal per cath 05/09/17 Diastolic dysfunction (Chronic) CKD (chronic kidney disease), stage III (Chronic) Hyperlipidemia (Chronic) Benign essential hypertension (Chronic) GERD (gastroesophageal reflux disease) (Chronic) History of pulmonary embolism (Chronic) Hospital Course and Treatment Imaging Results: 02/27/20 12:11 Diet: No Added Salt Food consistency:: Soft Liquid Consistency:: Regular/Thin Is pt able to select menu?: Yes Diet Comments: please send mrs owens on meal trays Clinical Impression(s) from Imaging Studies Hip/Pelvis X-Ray 02/27/20 13:39 IMPRESSION: Large amount of fecal material is seen in the colon. 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 Electronically Signed: Guero Pelaez, at 15:16 EDT , Service support , Operations: None Procedures: None Summary of Care Provided: The patient is a 79 year old Female with below past medical history significant for previous stroke with mild left hemiparesis, hospitalized for right parietal stroke, left leg weakness, admitted to TCU with debility, here for rehabilitation, strengthening, prior to discharge home with . Discharge home with , [facility] PT/OT/ST/SW. Patient Problems: Active and Suspected Problems (Last Reviewed 02/13/20 @ 14:11 by Tangela Lopez) Debility (Acute) Left hemiparesis (Acute) - Physical Exam Vitals/I&O's: Vital Signs Temp Pulse Resp BP Pulse Ox 97.8 F 70 20 H 142/77 H 92 03/09/20 14:04 03/09/20 14:04 03/09/20 14:04 03/09/20 14:04 03/09/20 14:04 Oxygen Delivery Method Room Air Weight: 94.574 kg Body Mass Index (BMI) 38.1 Finger Stick Blood Glucose 152 Intake and Output for Last 24 Hours 03/07/20 03/08/20 03/09/20 23:59 23:59 23:59 Intake Total 960 / 960 960 / 960 720 / 720 Output Total 100 / 100 300 / 300 Balance 860 / 860 960 / 960 420 / 420 Current Medications Acetaminophen (Tylenol) 1,000 mg PO Q6H PRN PRN PRN Reason: Pain Score 1-3/10 Last Admin: 03/04/20 12:23 Dose: 1,000 mg Documented by: Albuterol Sulfate (Ventolin Aerosols) 2.5 mg INHALATION Q6H PRN PRN PRN Reason: SHORTNESS OF BREATH/WHEEZE Amlodipine Besylate (Norvasc) 5 mg PO DAILY [facility] Last Admin: 03/09/20 06:08 Dose: 5 mg Documented by: Aspirin (Aspirin, Baby) 81 mg PO DAILY@0800 [facility] Last Admin: 03/09/20 09:34 Dose: 81 mg Documented by: Atorvastatin Calcium (Lipitor) 40 mg PO QHS [facility] Last Admin: 03/09/20 20:59 Dose: 40 mg Documented by: Calamine/Phenol (Calmoseptine Ointment) 1 applic TOPICAL 0600,2200 [facility]; Protocol Last Admin: 03/09/20 21:00 Dose: 1 applicatio Documented by: Cholecalciferol (Vitamin D (25mcg)) 2,000 unit PO DAILY [facility] Last Admin: 03/09/20 06:07 Dose: 2,000 unit Documented by: Cyclobenzaprine HCl (Cyclobenzaprine Hcl) 5 mg PO DAILY PRN PRN Reason: muscle spasms Stop: 03/11/20 14:04 Last Admin: 03/08/20 15:16 Dose: 5 mg Documented by: Donepezil HCl (Aricept) 5 mg PO QHS [facility] Last Admin: 03/09/20 20:59 Dose: 5 mg Documented by: Duloxetine HCl (Cymbalta) 90 mg PO DAILY [facility] Last Admin: 03/09/20 06:07 Dose: 90 mg Documented by: Enoxaparin Sodium (Lovenox) 40 mg SC DAILY@0600 [facility] Last Admin: 03/09/20 06:07 Dose: 40 mg Documented by: Gabapentin (Neurontin) 600 mg PO TID [facility] Last Admin: 03/09/20 20:59 Dose: 600 mg Documented by: Lidocaine (Lidoderm Patch) 1 patch TOPICAL DAILY [facility]; Protocol Last Admin: 03/09/20 06:09 Dose: 1 patch Documented by: Losartan Potassium (Cozaar) 100 mg PO DAILY [facility] Last Admin: 03/09/20 06:07 Dose: 100 mg Documented by: Nitroglycerin (Nitrostat) 0.4 mg SUBLINGUAL Q5M PRN PRN Reason: chest pain Nystatin (Mycostatin Powder) 1 applic TOPICAL BID@0600,2200 [facility]; Protocol Last Admin: 03/09/20 21:00 Dose: 1 applicatio Documented by: Pantoprazole Sodium (Protonix) 40 mg PO DAILY [facility] Last Admin: 03/09/20 06:07 Dose: 40 mg Documented by: Prednisone () 5 mg PO DAILY [facility] Last Admin: 03/09/20 06:07 Dose: 5 mg Documented by: Tramadol HCl (Ultram) 50 mg PO Q6H PRN PRN Reason: Pain Score 4-10/10 Last Admin: 03/09/20 13:24 Dose: 50 mg Documented by: Discharge Diet: No Restrictions Discharge Activity: Return to Normal Activity, May Shower, Use Walker Weight Bearing Status: Weight bearing as tolerated Call your doctor if you observe: Fever of 101 or Higher, Inability to urinate, Inability to have a bowel movement, Shortness of breath, Chest pain, Uncontrolled pain Home Medications: Medications to take at Discharge Prednisone 5 mg PO DAILY 11/29/18 Cholecalciferol (Vitamin D3) [Vitamin D3] 2,000 unit PO DAILY 03/24/19 albuterol sulfate 90 mcg/actuation aerosol inhaler 2 puff INHALATION Q6H PRN 10/16/19 duloxetine 60 mg capsule,delayed release 60 mg PO DAILY cap 10/16/19 losartan 100 mg tablet 100 mg PO DAILY 10/16/19 gabapentin 300 mg capsule 600 mg PO TID cap 10/30/19 nitroglycerin 0.4 mg sublingual tablet 0.4 mg SUBLINGUAL Q5-15M PRN #25 tab 11/24/19 donepezil 10 mg tablet 5 mg PO QHS tab 02/13/20 Amlodipine [Norvasc] 5 mg PO DAILY 02/26/20 Aspirin [Aspirin, Baby] 81 mg PO DAILY@0800 02/26/20 Atorvastatin Calcium [Lipitor] 40 mg PO QHS 02/26/20 Omeprazole 40 mg PO DAILY 02/26/20 Acetaminophen [Tylenol] 1,000 mg PO Q6H PRN PRN tablet 03/09/20 Cyclobenzaprine HCl 5 mg PO DAILY PRN #30 tab 03/09/20 Lidocaine [Lidoderm Patch] 1 patch TOPICAL DAILY #30 patch 03/09/20 Menthol/Lanolin/Calamine/Znox [Calmoseptine Ointment] 1 applic TOPICAL 0600,2200 tube 03/09/20 Nystatin Powder [Mycostatin Powder] 1 applic TOPICAL BID@0600,2200 bottle 03/09/20 traMADol [Ultram] 50 mg PO Q6H PRN 7 Days #28 tab 03/09/20 Following Prescriptions Were Given to Patient: Cyclobenzaprine HCl 5 mg PO DAILY PRN #30 tab PRN Reason: muscle spasms Transmission Status: Pending to [id number] Lidocaine [Lidoderm Patch] 1 patch TOPICAL DAILY #30 patch Transmission Status: Pending to [id number] traMADol [Ultram] 50 mg PO Q6H PRN 7 Days #28 tab PRN Reason: Pain Score 4-10/10 Prescription Printed Primary Care Physician: Zayda Peace PA [Primary Care Provider] - Please follow up with your Primary Care Physician in: 1 week. Please Follow Up With: Abilio Figueroa (neurological [facility] clinic) When: [phone] Please Follow Up With: Gastroenterology When: after TCU DC Please Follow Up With: Marcial Mallory, Psych Please Follow Up With: Damian Portillo MD - Left hip pain, patient requests left total hip arthroplasty. When: 1 week. Disposition: Home with Home Health Minutes spent on discharge:: 35 Patient Condition:: Stable Medical Necessity - Tobacco Use Smoking Status: Never smoker Tobacco Use: Non-smoker Meaningful Use Info Meaningful Use Diagnoses (Choose all that apply): None applicable
[2020-03-10 05:41] VITALS: BP 130/63; PULSE 63; RESP 16; TEMP 36.2; O2SAT 94
[2020-03-10] MEDS: Enoxaparin 40 MG/0.4 ML Syringe SC (05:43)
[2020-03-10] MEDS: amLODIPine 5 MG Tablet PO (05:43)
[2020-03-10] MEDS: traMADol 50 MG Tablet PO ×2 (05:43→13:48)
[2020-03-10] MEDS: Pantoprazole Sodium 40 MG Tablet PO (05:43)
[2020-03-10] MEDS: Gabapentin 600 MG Tablet PO ×3 (05:44→21:16)
[2020-03-10] MEDS: predniSONE 5 MG Tablet PO (05:44)
[2020-03-10] MEDS: Losartan Potassium 100 MG Tablet PO (05:44)
[2020-03-10] MEDS: DULoxetine Hcl 30 MG Capsule 90 MG PO (05:44)
[2020-03-10] MEDS: Lidocaine 5% Patch 1 PATCH TOPICAL (05:46)
[2020-03-10] MEDS: Nystatin Powder 15gm Bottle 1 APPLIC TOPICAL ×2 (05:49→21:17)
[2020-03-10] MEDS: Menthol/Lanolin/Calamine/Znox 113 GM Tube 1 APPLIC TOPICAL ×2 (05:49→21:17)
[2020-03-10] MEDS: Aspirin 81 MG TAB.CHEW PO (08:39)
--- NOTE | 2020-03-10 11:23 | CASEMGMT ---
BIMS and PHQ9 interviews completed on this date for MDS assessment. AMANDA Chowdary
[2020-03-10 14:10] VITALS: BP 122/71; PULSE 86; RESP 18; TEMP 36.6; O2SAT 99
[2020-03-10] MEDS: Atorvastatin Calcium 40 MG Tablet PO (21:16)
[2020-03-10] MEDS: Donepezil HCl 5 MG Tablet PO (21:16)
[2020-03-10 21:23] VITALS: O2SAT 95
[2020-03-11] MEDS: traMADol 50 MG Tablet PO ×2 (01:54→20:31)
[2020-03-11] MEDS: Pantoprazole Sodium 40 MG Tablet PO (06:11)
[2020-03-11] MEDS: Gabapentin 600 MG Tablet PO ×3 (06:11→20:31)
[2020-03-11] MEDS: amLODIPine 5 MG Tablet PO (06:11)
[2020-03-11] MEDS: Enoxaparin 40 MG/0.4 ML Syringe SC (06:11)
[2020-03-11] MEDS: Losartan Potassium 100 MG Tablet PO (06:11)
[2020-03-11] MEDS: predniSONE 5 MG Tablet PO (06:11)
[2020-03-11] MEDS: DULoxetine Hcl 30 MG Capsule 90 MG PO (06:11)
[2020-03-11] MEDS: Lidocaine 5% Patch 1 PATCH TOPICAL (06:13)
[2020-03-11] MEDS: Nystatin Powder 15gm Bottle 1 APPLIC TOPICAL ×2 (06:15→20:32)
[2020-03-11] MEDS: Menthol/Lanolin/Calamine/Znox 113 GM Tube 1 APPLIC TOPICAL ×2 (06:15→20:32)
[2020-03-11 06:20] VITALS: BP 140/77; PULSE 80; RESP 17; TEMP 36.7; O2SAT 97
--- NOTE | 2020-03-11 08:00 | RAD_ITS ---
STUDY: X-RAY CHEST REASON FOR EXAM: Female, 79 years old. SOB, COUGH TECHNIQUE: PA and lateral views of the chest. COMPARISON: Comparison is made with prior study dated 02/22/2020. FINDINGS: The lungs are clear and expanded. There is no demonstrated pleural abnormality. Normal size heart. Normal mediastinum and regina. Normal visualized pulmonary arteries. There is atherosclerotic tortuosity of the aortic arch and descending thoracic aorta. There are degenerative changes of the visualized thoracic spine. A metallic clip is seen overlying the left humeral head most likely secondary to prior rotator cuff surgery. Degenerative changes of both shoulder joints. There is no demonstrated abnormality of the visualized soft tissue structures of the upper abdomen. RAD/Chest PA and Lateral IMPRESSION: No acute abnormality is seen. Electronically Signed: Guero Pelaez, at 9:49 EDT , Service support ,
[2020-03-11] MEDS: Aspirin 81 MG TAB.CHEW PO (08:19)
[2020-03-11] MEDS: cycloBENZAPRine HCl 5 MG TABLET PO (11:36)
[2020-03-11 11:38] VITALS: PULSE 66; RESP 18; O2SAT 95
[2020-03-11 13:00] VITALS: PULSE 66; RESP 18; O2SAT 96
[2020-03-11] MEDS: Ipratropium/Albuterol Sulfate 3 ML AMPUL.NEB INHALATION (13:00)
[2020-03-11 15:43] VITALS: BP 136/70; PULSE 66; RESP 18; TEMP 36.7; O2SAT 95
[2020-03-11] MEDS: Atorvastatin Calcium 40 MG Tablet PO (20:31)
[2020-03-11] MEDS: Donepezil HCl 5 MG Tablet PO (20:31)
[2020-03-12] MEDS: Losartan Potassium 100 MG Tablet PO (05:27)
[2020-03-12] MEDS: amLODIPine 5 MG Tablet PO (05:27)
[2020-03-12] MEDS: Lidocaine 5% Patch 1 PATCH TOPICAL (05:27)
[2020-03-12] MEDS: Enoxaparin 40 MG/0.4 ML Syringe SC (05:27)
[2020-03-12] MEDS: Gabapentin 600 MG Tablet PO (05:27)
[2020-03-12] MEDS: Pantoprazole Sodium 40 MG Tablet PO (05:27)
[2020-03-12] MEDS: DULoxetine Hcl 30 MG Capsule 90 MG PO (05:27)
[2020-03-12] MEDS: predniSONE 5 MG Tablet PO (05:27)
[2020-03-12] MEDS: Nystatin Powder 15gm Bottle 1 APPLIC TOPICAL (05:29)
[2020-03-12] MEDS: Menthol/Lanolin/Calamine/Znox 113 GM Tube 1 APPLIC TOPICAL (05:29)
[2020-03-12 05:31] VITALS: BP 132/79; PULSE 71; RESP 17; TEMP 36.6; O2SAT 97
[2020-03-12 05:32] LABS: Absolute Lymphocyte Count 2.02 X10^3/uL (0.83-4.51); Absolute Neutrophil Count 3.5 X10^3/uL (2.0-7.7); Basophil# 0.08 X10^3/uL; Basophil% 1.3 % (0-1); Eosinophil# 0.19 X10^3/uL; Hematocrit 35.4 % (37-47); Lymphocyte # 2.02 X10^3/ul (4.0); Lymphocyte % 31.6 % (19-41); Mean Corp Hgb Conc 31.1 g/dL (32-36); Mean Corpuscular Volume 96.5 fL (81-99); Mean Platelet Vol. 10.1 fl (6.2-12.0); Monocyte# 0.56 X10^3/uL; Monocyte% 8.8 % (0-10); NRBC Flagged by Analyzer 0 % (0-5); Neutrophil # 3.47 X10^3/uL (2.7-7.7); Platelet Count 267 K/mm3 (150-450); RBC Distribution Width CV 14.5 % (11.6-14.6); RBC Distribution Width SD 51.6 fl (35.1-43.9); Red Blood Count 3.67 M/mm3 (4.2-5.4); White Blood Count 6.4 K/mm3 (4.4-11.0)
[2020-03-12 05:49] LABS: Anion Gap 5 (5-15); BUN 28 mg/dL (7-18); BUN/Creat Ratio 25.7 RATIO (10-20); Calcium,Total 8.3 mg/dL (8.5-10.1); Chloride 106 mmol/L (98-107); Creatinine, Serum 1.09 mg/dL (0.55-1.02); EST Glomerular Filtration Rate 52 mL/min (>60); Est Glom Filt Rate - Afr Amer 63 mL/min (>60); Estimated Creatinine Clearance 32.62 ml/min; Glucose 104 mg/dL (74-106); Potassium 4.5 mmol/L (3.5-5.1); Sodium Level 140 mmol/L (136-145)
[2020-03-12] MEDS: Aspirin 81 MG TAB.CHEW PO (08:06)
[2020-03-12 12:00] VITALS: PULSE 70; RESP 18
[2020-03-12] MEDS: Ipratropium/Albuterol Sulfate 3 ML AMPUL.NEB INHALATION (12:00)
[2020-03-12 12:33] VITALS: BP 130/71; PULSE 80; RESP 16; TEMP 36.7; O2SAT 97
[2020-03-12] MEDS: traMADol 50 MG Tablet PO (12:44)
== END 2020-03-12 12:50 | disposition home health service (06) | DRG 57 ==
PROVIDERS: Admitting Provider Family Medicine Geriatric Medicine; PCP Physician Assistant; Visit Provider Family Medicine Geriatric Medicine
DX: I69.354 Hemiplegia and hemiparesis following cerebral infarction affecting left non-dominant side (principal); E78.5 Hyperlipidemia, unspecified; N18.3 Chronic kidney disease, stage 3 (moderate); I12.9 Hypertensive chronic kidney disease with stage 1 through stage 4 chronic kidney disease, or unspecified chronic kidney disease; F32.9 Major depressive disorder, single episode, unspecified; K21.9 Gastro-esophageal reflux disease without esophagitis; B35.4 Tinea corporis; I25.10 Atherosclerotic heart disease of native coronary artery without angina pectoris; M32.9 Systemic lupus erythematosus, unspecified; E55.9 Vitamin D deficiency, unspecified; N32.81 Overactive bladder; I69.392 Facial weakness following cerebral infarction; I69.320 Aphasia following cerebral infarction; F02.80 Dementia in other diseases classified elsewhere, unspecified severity, without behavioral disturbance, psychotic disturbance, mood disturbance, and anxiety; G30.9 Alzheimer's disease, unspecified; M79.7 Fibromyalgia; M06.9 Rheumatoid arthritis, unspecified; Z86.711 Personal history of pulmonary embolism; Z86.718 Personal history of other venous thrombosis and embolism
CPT/HCPCS: 36415; 71046; 73502; 80048; 85025; 87635; 92507; 92523; 92610; 94640; 94799; 97110; 97116; 97162; 97166; 97530; 97535; 97802; U0003

== ENCOUNTER 2020-04-04 14:23 | Observation (INO) | payer MEDICARE, SELFPAY ==
[2020-02-26 13:52] VITALS: BMI 38.1
[2020-04-04] VITALS (8 sets, daily range): BP systolic 159–189; BP diastolic 72–86; PULSE 65–88; RESP 18–20; TEMP 36.4–36.8; O2SAT 96–99; BMI 37.5; BMI 38.0
--- NOTE | 2020-04-04 14:49 | CT_ITS ---
STUDY: CT BRAIN WITHOUT CONTRAST REASON FOR EXAM: Female, 79 years old. VERTIGO X2 DAYS -- HX-LUPUS,STAGE 3 CKD RADIATION DOSAGE (If Supplied By Facility): CTDIvol = ( 44.99 ) mGy, DLP = ( 779.24 ) mGycm TECHNIQUE: Transaxial CT imaging of the brain was performed without administration of intravenous contrast material. Individualized dose optimization techniques were used for this CT. COMPARISON: 02/22/2020 FINDINGS: Normal soft tissue structures. Lytic lesion of the right frontal calvarium is compatible with benign hemangioma. Benign, incidental finding; no specific imaging workup recommended. Normal size ventricles and extra-axial spaces for the patient''s age. Normal white matter tracts of the cerebral hemispheres. Normal basal ganglia and thalami. Normal brainstem. Small lacunar infarction of the right cerebellum stable. There is no intracranial hemorrhage. There are no findings of an acute ischemic infarction. Normal visualized paranasal sinuses. CT/Brain/Head without Contrast IMPRESSION: 1. No acute intracranial hemorrhage or mass effect. 2. Stable exam. Electronically Signed: Omid Vaughan MD ([place]) at 16:44 EDT , Service support ,
--- NOTE | 2020-04-04 14:51 | ED.DCSUM_ITS ---
History of Present Illness Chief Complaint: Dizziness Informant: Patient, Significant Other Onset: Days - 2-3 Context: Sudden Onset - getting into a car Timing: Continuous, Waxes and wanes Quality: spinning/movement, off balance like going to fall Location: head Current Severity: Severe Maximum Severity: Severe Worsened by: turning head, changing positions, walking Relieved by: remaining still Associated Symptoms: nausea/dry heaving, headache Narrative: Vertiginous symptoms started a couple days ago, the headache started today, no thunderclap or sudden onset but hurts globally. She has had vertigo before, but it has been a long time. She also has had several strokes. Strokes have left her with left-sided residual paresis, states she does have a droopy right eyelid but it has been worse in the last couple days since the symptoms started. Patient states as a result she is having some double vision. - Past Medical History (1) CVA (cerebral vascular accident) Status: Chronic (2) Debility Status: Chronic (3) Left hemiparesis Status: Chronic (4) Atherosclerotic heart disease of [place] coronary artery without angina pectoris Status: Chronic Comment: Mild; Left Main: mild calcification, angiographically normal; LAD: prox: Mild calcification, mild luminal irregularities;CX: prox: Mild luminal irregularities; RCA: angiographically normal per cath 05/09/17 (5) Benign essential hypertension Status: Chronic (6) CKD (chronic kidney disease), stage III Status: Chronic (7) Coronary artery disease Status: Chronic (8) Depression Status: Chronic (9) Diastolic dysfunction Status: Chronic (10) GERD (gastroesophageal reflux disease) Status: Chronic (11) History of pulmonary embolism Status: Chronic (12) Hyperlipidemia Status: Chronic (13) Hypertension Status: Chronic (14) Pulmonary embolism Status: Chronic (15) Systemic lupus erythematosus Status: Chronic (16) Vascular dementia Status: Chronic (17) Vitamin D deficiency Status: Chronic Past Medical History - Allergies and Home Meds Allergies/Adverse Reactions: Allergies ampicillin Allergy (Verified 04/04/20 14:32) Rash buprenorphine HCl [From Buprenex] Allergy (Verified 04/04/20 14:32) Other codeine Allergy (Verified 04/04/20 14:32) Anaphylaxis gold Au 198 Allergy (Verified 04/04/20 14:32) Rash guaifenesin Allergy (Verified 04/04/20 14:32) Rash promethazine HCl [From Phenergan] Allergy (Verified 04/04/20 14:32) Shortness of breath Sulfa (Sulfonamide Antibiotics) Allergy (Verified 04/04/20 14:32) Rash sulindac [From Clinoril] Allergy (Verified 04/04/20 14:32) Rash tetracycline [Tetracycline] Allergy (Verified 04/04/20 14:32) Rash thiopental Allergy (Verified 04/04/20 14:32) Rash trimethoprim [From Proloprim] Allergy (Verified 04/04/20 14:32) Rash buspirone [From BuSpar] Adverse Reaction (Verified 04/04/20 14:32) Nausea oxycodone HCl [From OxyContin] Adverse Reaction (Verified 04/04/20 14:32) Other NALDECON Allergy (Uncoded 04/04/20 14:32) Rash SULPHATED OIL Allergy (Uncoded 04/04/20 14:32) Other TAPE Allergy (Uncoded 04/04/20 14:32) Rash Primary Care Physician: Zayda Peace PA [Primary Care Provider] - Surgical History: appendectomy, cholecystectomy, herniorrhaphy, hysterectomy, total knee arthroplasty - Bilateral., - - Krish fundiplication, IVC filter, Aortic valve replacement, Ileostomy, Bilateral carpal tunnel surrgery. Lives: Spouse/ Significant Other Smoking Status: Never smoker - Family History Maternal Family History: Family History (Last Reviewed 02/13/20 @ 14:11 by Tangela Lopez) Father CVA (cerebral vascular accident) Family History: Reports: Diabetes, Hypertension Paternal Family History: Family History (Last Reviewed 02/13/20 @ 14:11 by Tangela Lopez) Father CVA (cerebral vascular accident) Family History: Reports: Hypertension, No pertinent history Review of Systems General: Reports: Malaise. Denies: Chills, Fever, Sweats Eyes: Reports: Diplopia, - - No eye pain ENT: Denies: Bilateral ear pain - And no tinnitus, Rhinorrhea, Sore throat Cardiovascular: Denies: Chest pain, Palpitations Respiratory: Denies: Dyspnea, Cough, Dyspnea on exertion Gastrointestinal: Reports: Nausea, Vomiting. Denies: Abdominal pain, Diarrhea, Melena, Hematochezia Genitourinary: Denies: Dysuria, Hematuria, Frequency Musculoskeletal: Denies: Neck pain, Back pain, Swelling, Extremity Pain Skin: Denies: Rash, Wounds Neurological: Reports: Headache, Weakness - Residual left hemiparesis, leg worse than arm without changes, - - Vertigo. See HPI.. Denies: Numbness Physical Exam Vital Signs/Narrative: Vital Signs Temp Pulse Resp BP Pulse Ox 04/04/20 14:24 97.5 F L 88 18 159/83 H 99 Inital Vital Signs reviewed: Yes General: Well nourished, Well developed, No Acute Distress Head: Normocephalic, Atraumatic Eyes: Perrl, EOMI, - - Right ptosis ENT: Moist mucous membranes, No rhinorrhea, TM's clear Neck: Supple, Nontender, No lymphadenopathy Cardiovascular: Regular rate, Regular rhythm, No murmurs Respiratory: No distress, CTA bilaterally, Chest nontender Abdomen: Soft, Nontender, Nondistended, Normal bowel sounds, - - Left-sided ileostomy in place, site benign Back: Nontender, Normal Inspection Extremities: Nontender, No edema. Negative for: Calf Tenderness Skin: Normal color, No rash, No Trauma Neurological: Alert, Oriented x3, Cranial nerves II-XII grossly intact, Normal Sensation, Weakness - Left side. Leg weaker than arm., - - No ataxia on [id number]. NIH 5, she has symmetric drift with both upper extremities, she can move the left lower extremity but not hold it up or resist gravity at all. Psychological: Normal affect, Normal Mood Diagnostic/Tx/Re-eval Impressions Brain CT 04/04/20 14:49 IMPRESSION: 1. No acute intracranial hemorrhage or mass effect. 2. Stable exam. Electronically Signed: Omid Vaughan MD ([place]) at 16:44 EDT , Service support , 04/04/20 14:49 Brain/Head without Contrast [CT] Stat Laboratory Results 04/04/20 04/04/20 12:54 12:54 WBC 7.1 RBC 4.48 Hgb 13.2 Hct 41.2 MCV 92.0 MCH 29.5 MCHC 32.0 RDW Std Deviation 45.7 H RDW Coeff of Elmer 13.4 Plt Count 270 MPV 10.6 Immature Gran % (Auto) 0.600 Neut % (Auto) 63.0 Lymph % (Auto) 26.0 Motley % (Auto) 8.6 Eos % (Auto) 1.0 Baso % (Auto) 0.8 Absolute Neuts (auto) 4.5 Absolute Lymphs (auto) 1.84 Nucleated RBC % 0 Sodium 140 Potassium 3.8 Chloride 109 H Carbon Dioxide 25.0 Anion Gap 6 BUN 11 Creatinine 1.11 H Estim Creat Clear Calc 32.03 Est GFR (MDRD) Af Amer 61 Est GFR (MDRD) Non-Af 51 L BUN/Creatinine Ratio 9.9 L Glucose 110 H Calcium 9.1 - Medical Decision Making Results of labs and imaging are noted, as above. CT shows nothing acute. Since she has had symptoms greater than 24 hours, there was no stroke team called and no CTA was felt necessary, as the chances for an LVO are very low here, especially since no infarct is seen on CT plain. She does feel improved after being treated with some IV fluids, Reglan, meclizine, and she prefers to go home, but as we discussed, she has abnormal neurologic signs in the right sided ptosis, which the states she has had in the past when she had TIAs. There is a chance this could be central vertigo. After further discussion, she is amenable to being admitted, discussed with hospitalist for inpatient observation on PCU and possible MR of the brain tomorrow. ED Disposition - Plan for ED Patient: Disposition: Acute Care Hospital [facility] Diagnosis: Vertigo, Ptosis, right Referrals: Zayda Peace PA [Primary Care Provider] -
[2020-04-04] MEDS: Meclizine HCl 25 MG Tablet PO (15:17)
[2020-04-04] MEDS: 0.9% Normal Saline 1,000 ML 150 ML IV ×2 (15:41→18:53)
[2020-04-04] MEDS: Metoclopramide 10 MG/2 ML Vial 5 MG IV (15:41)
[2020-04-04 15:53] LABS: Absolute Lymphocyte Count 1.84 X10^3/uL (0.83-4.51); Absolute Neutrophil Count 4.5 X10^3/uL (2.0-7.7); Basophil# 0.06 X10^3/uL; Basophil% 0.8 % (0-1); Eosinophil# 0.07 X10^3/uL; Hematocrit 41.2 % (37-47); Hemoglobin 13.2 g/dL (12.0-15.0); Lymphocyte # 1.84 X10^3/ul (4.0); Mean Corpuscular Hgb 29.5 pg (27.0-32.0); Mean Platelet Vol. 10.6 fl (6.2-12.0); Monocyte# 0.61 X10^3/uL; Monocyte% 8.6 % (0-10); NRBC Flagged by Analyzer 0 % (0-5); Neutrophil # 4.46 X10^3/uL (2.7-7.7); Platelet Count 270 K/mm3 (150-450); RBC Distribution Width CV 13.4 % (11.6-14.6); RBC Distribution Width SD 45.7 fl (35.1-43.9); Red Blood Count 4.48 M/mm3 (4.2-5.4); White Blood Count 7.1 K/mm3 (4.4-11.0)
[2020-04-04 16:01] LABS: Anion Gap 6 (5-15); BUN 11 mg/dL (7-18); BUN/Creat Ratio 9.9 RATIO (10-20); Calcium,Total 9.1 mg/dL (8.5-10.1); Chloride 109 mmol/L (98-107); Creatinine, Serum 1.11 mg/dL (0.55-1.02); EST Glomerular Filtration Rate 51 mL/min (>60); Est Glom Filt Rate - Afr Amer 61 mL/min (>60); Estimated Creatinine Clearance 32.03 ml/min; Glucose 110 mg/dL (74-106); Potassium 3.8 mmol/L (3.5-5.1); Sodium Level 140 mmol/L (136-145)
--- NOTE | 2020-04-04 17:00 | NURSING ---
DR TRENT FOR DR PEREZ
--- NOTE | 2020-04-04 17:01 | HP.PCM_ITS ---
History of Present Illness Date of Admission: 04/04/20 Chief Complaint: vertigo The patient is a 79 year old F with an extensive past medical history as outlined. Patient is here states she recently had a stroke and was life flighted to [facility] in [place] where she spent about 4 days and was discharged to the rehab unit at [facility]. She was discharged from the rehab unit about a week ago. Patient says she was supposed to have a procedure done on her throat in [place] about 2 days ago but procedure was canceled because she had recently had a stroke. She subsequently started feeling dizzy. Dizziness persisted throughout the weekend. There was no clear aggravation with movement or relieved with keeping still. She made it to an associated headache but denied any vomiting though she admitted to nausea. She denied any chest pain, palpitations, dizziness, abdominal pain, diarrhea vomiting. She says she had a right eye droop but this was chronic and she also has chronic left lower extremity weakness and decrease in sensation as a residual from her previous stroke. Review of symptoms otherwise negative. In the ED, vitals show temperature of 97.5 Fahrenheit with blood pressure of 159/83, pulse rate of 88 and respiratory rate of 18. Pulse ox was 99% on room air. Chemistry was essentially unremarkable; CBC was also unremarkable. EKG was not done in the ED. CT of the brain showed no acute intracranial hemorrhage or mass-effect. She has been admitted to be managed for vertigo to rule out a stroke. [] Past Medical History Past Medical History (Chronic Problems): Chronic Problems (Last Reviewed 02/13/20 @ 14:11 by Tangela Lopez) Debility (Chronic) Left hemiparesis (Chronic) Systemic lupus erythematosus (Chronic) Coronary artery disease (Chronic) Chronic kidney disease (Chronic) Hypertension (Chronic) Pulmonary embolism (Chronic) Vitamin D deficiency (Chronic) Overactive bladder (Chronic) Depression (Chronic) Neuropathic pain (Chronic) Insomnia (Chronic) Vascular dementia (Chronic) CVA (cerebral vascular accident) (Chronic) Atherosclerotic heart disease of [place] coronary artery without angina pectoris (Chronic ~05/09/17) Mild; Left Main: mild calcification, angiographically normal; LAD: prox: Mild calcification, mild luminal irregularities;CX: prox: Mild luminal irregularities; RCA: angiographically normal per cath 05/09/17 Diastolic dysfunction (Chronic) CKD (chronic kidney disease), stage III (Chronic) Hyperlipidemia (Chronic) Benign essential hypertension (Chronic) GERD (gastroesophageal reflux disease) (Chronic) History of pulmonary embolism (Chronic) Medical History: Medical History (Last Reviewed 02/13/20 @ 14:11 by Tangela Lopez) Atherosclerotic heart disease of [place] coronary artery without angina pectoris (Chronic) Onset Date: ~05/09/17 I25.10 Mild; Left Main: mild calcification, angiographically normal; LAD: prox: Mild calcification, mild luminal irregularities;CX: prox: Mild luminal irregularities; RCA: angiographically normal per cath 05/09/17 Diastolic dysfunction (Chronic) I51.89 Hyperlipidemia (Chronic) E78.5 Benign essential hypertension (Chronic) I10 GERD (gastroesophageal reflux disease) (Chronic) K21.9 History of pulmonary embolism (Chronic) Z86.711 Acute right cerebellar stroke Alzheimer's dementia G30.9 Chronic back pain M54.9, G89.[address] Oswald West History of CVA (cerebrovascular accident) Z86.73 History of TIAs Ileostomy in place Z93.2 Raynauds disease I73.00 Restless legs Rheumatoid arthritis M06.[address] Jose Johns @ [facility] Systemic lupus erythematosus M32.9 Acute metabolic encephalopathy G93.41 Confusion R41.0 Dementia F03.90 Encephalopathy acute G93.40 History of DVT (deep vein thrombosis) Z86.718 History of deep vein thrombosis Z86.718 History of echocardiogram Onset Date: ~04/2017 Z92.89 EF 65% History of left heart catheterization (LHC) Z98.890 Raynaud's phenomenon (Inactive) Sjogren's syndrome (Inactive) M35.00 Allergies ampicillin Allergy (Verified 04/04/20 14:32) Rash buprenorphine HCl [From Buprenex] Allergy (Verified 04/04/20 14:32) Other codeine Allergy (Verified 04/04/20 14:32) Anaphylaxis gold Au 198 Allergy (Verified 04/04/20 14:32) Rash guaifenesin Allergy (Verified 04/04/20 14:32) Rash promethazine HCl [From Phenergan] Allergy (Verified 04/04/20 14:32) Shortness of breath Sulfa (Sulfonamide Antibiotics) Allergy (Verified 04/04/20 14:32) Rash sulindac [From Clinoril] Allergy (Verified 04/04/20 14:32) Rash tetracycline [Tetracycline] Allergy (Verified 04/04/20 14:32) Rash thiopental Allergy (Verified 04/04/20 14:32) Rash trimethoprim [From Proloprim] Allergy (Verified 04/04/20 14:32) Rash buspirone [From BuSpar] Adverse Reaction (Verified 04/04/20 14:32) Nausea oxycodone HCl [From OxyContin] Adverse Reaction (Verified 04/04/20 14:32) Other NALDECON Allergy (Uncoded 04/04/20 14:32) Rash SULPHATED OIL Allergy (Uncoded 04/04/20 14:32) Other TAPE Allergy (Uncoded 04/04/20 14:32) Rash Home Medications: Ambulatory Orders Medication Instructions Recorded Prednisone 5 mg PO DAILY 11/29/18 Cholecalciferol (Vitamin D3) 2,000 unit PO DAILY 03/24/19 [Vitamin D3] albuterol sulfate 90 mcg/actuation 2 puff INHALATION Q6H PRN 10/16/19 aerosol inhaler duloxetine 60 mg capsule,delayed 60 mg PO DAILY cap 10/16/19 release losartan 100 mg tablet 100 mg PO DAILY 10/16/19 gabapentin 300 mg capsule 300 mg PO 4X/DAY cap 10/30/19 nitroglycerin 0.4 mg sublingual 0.4 mg SUBLINGUAL Q5-15M PRN #25 11/24/19 tablet tab donepezil 10 mg tablet 5 mg PO QHS tab 02/13/20 Amlodipine [Norvasc] 5 mg PO DAILY 02/26/20 Aspirin [Aspirin, Baby] 81 mg PO DAILY@0800 02/26/20 Atorvastatin Calcium [Lipitor] 40 mg PO QHS 02/26/20 Omeprazole 40 mg PO DAILY 02/26/20 Acetaminophen [Tylenol] 1,000 mg PO Q6H PRN PRN tab 03/09/20 Cyclobenzaprine HCl 5 mg PO DAILY PRN #30 tab 03/09/20 Lidocaine [Lidoderm Patch] 1 patch TOPICAL DAILY #30 patch 03/09/20 Menthol/Lanolin/Calamine/Znox 1 applic TOPICAL 0600,2200 tube 03/09/20 [Calmoseptine Ointment] Nystatin Powder [Mycostatin Powder] 1 applic TOPICAL BID@0600,2200 08/11/20 bottle Surgical History: Surgical History (Last Reviewed 02/13/20 @ 14:11 by Tangela Lopez) History of Krish fundoplication Z98.890 S/P IVC filter Z95.828 History of appendectomy Z98.890, Z90.49 History of bilateral knee replacement Z96.653 History of cardiac catheterization Onset Date: ~04/2017 Z98.890 Mild CAD History of carpal tunnel surgery Z98.890 Bilateral History of cholecystectomy Z98.890, Z90.49 History of herniorrhaphy Z98.890, Z87.19 History of hysterectomy Z98.890, Z90.710 History of salpingo-oophorectomy Z90.79, Z90.721 Surgical History: appendectomy, cholecystectomy, herniorrhaphy, hysterectomy, total knee arthroplasty - Bilateral., - - Krish fundiplication, IVC filter, Aortic valve replacement, Ileostomy, Bilateral carpal tunnel surrgery. Psychiatric History: Depression [employer] History: No pertinent [employer] history Lives: Spouse/ Significant Other Smoking Status: Never smoker - *Family History Maternal Family History: Family History (Last Reviewed 02/13/20 @ 14:11 by Tangela Lopez) Father CVA (cerebral vascular accident) History Items: Diabetes, Hypertension Paternal Family History: Family History (Last Reviewed 02/13/20 @ 14:11 by Tangela Lopez) Father CVA (cerebral vascular accident) History Items: Hypertension, No pertinent history Review of Systems Constitutional: Denies: Chills, Fever, Malaise, Weakness, Weight Change, Fatigue Eyes: Reports: - - right eyelid droop. Denies: Blurred vision, Double vision HEENT: Denies: Head Aches, Sinus Congestion, Sinus Drainage Cardiovascular: Denies: Chest Pain, Palpitations Respiratory: Denies: Cough, Shortness of Breath, Shortness of breath at rest, Shortness of breath upon exertion, Sputum production Gastrointestinal: Denies: Abdominal Pain, Nausea, Vomiting Genitourinary: Denies: Dysuria Musculoskeletal: Denies: Joint Pain, Joint Tenderness Neurological: Reports: - - vertigo. Denies: Focal weakness, Numbness, Tingling Psychiatric: Denies: Anxiety, Depression, Homicidal Ideations, Suicidal Ideations Hematologic/ Lymphatic: Denies: Easy Bruising, Easy Bleeding VTE Information - Inpt Only VTE Present on Admission: No VTE Pharm Prophylaxis ordered?: Yes Patient Problems: Active and Suspected Problems (Last Reviewed 02/13/20 @ 14:11 by Tangela Lopez) Vertigo (Acute) Ptosis, right (Acute) - Physical Exam Vitals/I&O's: Vital Signs Temp Pulse Resp BP Pulse Ox 97.5 F L 88 18 159/83 H 99 04/04/20 14:24 04/04/20 14:24 04/04/20 14:24 04/04/20 14:24 04/04/20 14:24 Oxygen Delivery Method Room Air Weight: 199 lb Body Mass Index (BMI) 37.5 Finger Stick Blood Glucose 152 General: Alert, Oriented x3, Cooperative, No apparent distress HEENT: Atraumatic, PERRLA, EOMI, Normocephalic, - - mild right eye droop Oral: Dry Mucosa Neck: Supple, No JVD, Negative Carotid Bruits Lungs: Clear to auscultation, Normal air movement, No rhonchi, No wheeze, No rales Cardiovascular: Regular rate, Regular Rhythm, Normal S1, Normal S2, No murmurs Abdomen: Bowel Sounds Present, Soft, Non Tender, Non-Distended, No Hepato- splenomegaly Extremities: No clubbing, No cyanosis, No edema, Capillary Refill Less than 3 Seconds Skin: No rashes, No breakdown Musculoskeletal: No Tenderness to Palpation of Joints or Extremities, No Muscle Wasting Lymphatic: No Cervical, Supraclavicular, or Inguinal Adenopathy Neurological: Cranial nerves II-XII grossly intact - except mild right eye droop, - - has 3/5 power in LLE due to chronic hemiparesis from previous stroke. decreased sensation to light touch and pinprick in LLE, with LLE foot drop, which is also chronic Psych/Mental Status: Normal Affect, Appropriate, Alert and oriented to time, place, person, mood and affect Laboratory Results 04/04/20 12:54: WBC 7.1, RBC 4.48, Hgb 13.2, Hct 41.2, MCV 92.0, MCH 29.5, MCHC 32.0, RDW Std Deviation 45.7 H, RDW Coeff of Elmer 13.4, Plt Count 270, MPV 10.6, Immature Gran % (Auto) 0.600, Neut % (Auto) 63.0, Lymph % (Auto) 26.0, [place] % (Auto) 8.6, Eos % (Auto) 1.0, Baso % (Auto) 0.8, Absolute Neuts (auto) 4.5, Absolute Lymphs (auto) 1.84, Nucleated RBC % 0 04/04/20 12:54: Sodium 140, Potassium 3.8, Chloride 109 H, Carbon Dioxide 25.0, Anion Gap 6, BUN 11, Creatinine 1.11 H, Estim Creat Clear Calc 32.03, Est GFR (MDRD) Af Amer 61, Est GFR (MDRD) Non-Af 51 L, BUN/Creatinine Ratio 9.9 L, Glucose 110 H, Calcium 9.[address] 04/04/20 14:49 IMPRESSION: 1. No acute intracranial hemorrhage or mass effect. 2. Stable exam. Electronically Signed: Omid Vaughan MD ([place]) at 16:44 EDT , Service support , Current Medications Sodium Chloride () 1,000 mls @ 150 mls/hr IV .Q6H40M [place] Last Admin: 04/04/20 15:41 Dose: 150 mls/hr Documented by: Assessment/Plan All Active Problems (Last Reviewed 02/13/20 @ 14:11 by Tangela Lopez) Vertigo (Acute) Ptosis, right (Acute) 79-year-old female admitted with a complaint of vertigo #Vertigo to rule out stroke * Admit to PCU * Will order EKG- Showed normal sinus rhythm withn o actue ST changes * PT OT consults. Fall precautions. * Check NIH stroke scale as. Stroke order set * NIHSS-4 on admission * CT of the brain showed no acute intracranial pathology * On aspirin and atorvastatin. We will continue * For MRI tomorrow and consider neurology consult based on MRI results. * she had a CTA of the head and neck in January 2020 after a stroke which showed patent craciocervical arteries. * #Hypertension: On amlodipine and losartan. Blood pressures in the 160s systolic. Goal is for blood pressure less than 130/80 once stroke is ruled out. #Dementia: On donepezil #History of recent right cerebellar stroke: On aspirin and statin. #Fibromyalgia, Sjogren's syndrome and rheumatoid arthritis: On prednisone 10 mg daily as well as gabapentin #Hyperlipidemia: On statin DVT prophylaxis: SCDs CODE STATUS: DNR CCA no intubation * Patient and counseled extensively about different types of CODE STATUS including full code, DNR CCA and DNR CCA. * Patient elects to be DNRCCA no intubation. * Total sger-yb-cvvg time 16 minutes. OBSV E&M: 28542 Initial observation care L2 Procedures: 49379 Advncd Care Plan 30 Min
--- NOTE | 2020-04-04 17:13 | NURSING ---
PCU KORAM VERTIGO, RT EYE PTOSIS
--- NOTE | 2020-04-04 17:43 | EKG12_ITS ---
Test Reason : ER Blood Pressure : / mmHG Vent. Rate : 062 BPM Atrial Rate : 062 BPM P-R Int : 180 ms QRS Dur : 076 ms QT Int : 428 ms P-R-T Axes : 052 007 038 degrees QTc Int : 434 ms Normal sinus rhythm Normal ECG Confirmed by GUILLE ARROYO, DARÍO ([id number]), non linear editor ADELINE BAE ([id number]) on 04/07/2020 9:46:05 AM Referred By: HOSP Confirmed By:DARÍO HAN MD
[2020-04-04] MEDS: Gabapentin 300 MG Capsule PO ×2 (18:55→22:04)
[2020-04-04] MEDS: Donepezil HCl 5 MG Tablet PO (22:04)
[2020-04-04] MEDS: Atorvastatin Calcium 40 MG Tablet PO (22:04)
[2020-04-04 22:36] LABS: Mucous, Urine 0 SEEN /hpf (<or=2+); Red Blood Cells-Urine 0 SEEN /hpf (0-5); Squamous Epithelial Cells - UA 0 SEEN /hpf (5-10)
[2020-04-04 22:38] LABS: Color, Urine Straw (Yellow); Glucose, Dipstick Normal (Normal); Ketone-Dipstick Negative (Negative); Leukocyte Esterase-Dipstick 25 /ul (Negative); Nitrite-Dipstick Negative (Negative); Occult Blood-Urine Negative /ul (Negative); Protein-Dipstick Negative (Negative); Urine Bilirubin Dipstick Negative (Negative); Urine Clarity Clear (Clear); Urine Urobilinogen Normal (Normal); Urine pH 6.5 (5.0 - 8.0)
[2020-04-04 22:46] LABS: Bacteria 1+ /hpf (None Seen); White Blood Cells 0-5 SEEN /hpf (0-5)
[2020-04-05] MEDS: 0.9% Normal Saline 1,000 ML 150 ML IV ×2 (01:19→08:05)
[2020-04-05 02:10] VITALS: BP 164/73; PULSE 69; RESP 18; TEMP 37; O2SAT 94
[2020-04-05 02:41] LABS: Absolute Lymphocyte Count 1.82 X10^3/uL (0.83-4.51); Absolute Neutrophil Count 2.5 X10^3/uL (2.0-7.7); Basophil# 0.06 X10^3/uL; Basophil% 1.2 % (0-1); Eosinophil# 0.11 X10^3/uL; Eosinophils% 2.2 % (0-5); Hematocrit 36.1 % (37-47); Hemoglobin 11.5 g/dL (12.0-15.0); Lymphocyte # 1.82 X10^3/ul (4.0); Lymphocyte % 36.5 % (19-41); Mean Corp Hgb Conc 31.9 g/dL (32-36); Mean Corpuscular Hgb 29.5 pg (27.0-32.0); Mean Corpuscular Volume 92.6 fL (81-99); Mean Platelet Vol. 10.6 fl (6.2-12.0); NRBC Flagged by Analyzer 0 % (0-5); Neutrophil # 2.46 X10^3/uL (2.7-7.7); Neutrophil % 49.3 % (47-70); Platelet Count 250 K/mm3 (150-450); RBC Distribution Width CV 13.3 % (11.6-14.6); RBC Distribution Width SD 45.2 fl (35.1-43.9)
[2020-04-05 03:00] VITALS: PULSE 69
[2020-04-05 03:31] LABS: Anion Gap 7 (5-15); BUN 10 mg/dL (7-18); BUN/Creat Ratio 11.3 RATIO (10-20); Calcium,Total 8.5 mg/dL (8.5-10.1); Chloride 113 mmol/L (98-107); Cholesterol 115 mg/dL (200); Creatinine, Serum 0.89 mg/dL (0.55-1.02); EST Glomerular Filtration Rate 66 mL/min (>60); Est Glom Filt Rate - Afr Amer 79 mL/min (>60); Estimated Creatinine Clearance 39.95 ml/min; Glucose 97 mg/dL (74-106); High Density Lipoprotein 42 mg/dL; Potassium 3.3 mmol/L (3.5-5.1); Sodium Level 143 mmol/L (136-145); Triglycerides 93 mg/dL; Very Low Density Lipoprotein 19 mg/dL (5-40)
--- NOTE | 2020-04-05 05:55 | ECHOD_ITS ---
Reason For Study: Vertigo, TIA Procedure This was a 2D Doppler, Color Flow transthoracic echocardiogram. Exam performed portable in patient room. Left Ventricle Normal LV size. Left ventricular systolic function is normal. The estimated ejection fraction is 65 %. Stage 1 diastolic dysfunction. No regional wall motion abnormalities noted. Right Ventricle Normal RV size. Normal systolic function. Atria Normal left atrium. Normal right atrium. Mitral Valve Normal mitral valve. Tricuspid Valve Normal tricuspid valve. Aortic Valve Trisinus/trileaflet aortic valve. Mild (1+) eccentric aortic valve insufficiency. Pulmonic Valve Normal pulmonic valve. Great Vessels Normal aortic root. The pulmonary artery is normal size. Normal inferior vena cava. Pericardium/Pleural No pericardial effusion. MMode/2D Measurements & Calculations LVIDd: 4.5 cm IVSd: 1.1 cm Ao root diam: 2.5 cm LVIDs: 2.5 cm LVPWd: 1.3 cm RVDd: 2.4 cm FS: 45.8 % LAV(MOD-bp): 33.4 ml LVAd ap4: 27.4 cm2 SV(MOD-sp4): 53.0 ml LAV(MOD-bp) Indexed: 17.7 ml/m2 EDV(MOD-sp4): 79.2 ml LAV(MOD-sp2): 28.4 ml EDV(sp4-el): 82.7 ml LAV(MOD-sp4): 36.9 ml LVAs ap4: 14.1 cm2 ESV(MOD-sp4): 26.1 ml ESV(sp4-el): 25.7 ml EF(MOD-sp4): 67.0 % EF(sp4-el): 68.9 % SV(sp4-el): 57.0 ml LA A4 area: 14.6 cm2 LA dimension(2D): 3.0 cm RA A4 area: 10.5 cm2 Doppler Measurements & Calculations MV E max andres: 57.8 cm/sec Lat Peak E' Andres: 7.9 cm/sec Med Peak E' Andres: 6.3 cm/sec MV A max andres: 77.4 cm/sec E/E' lat: 7.3 E/E' med: 9.2 MV E/A: 0.75 Ao V2 max: 162.2 cm/sec AI max andres: 373.6 cm/sec LV V1 max: 118.1 cm/sec Ao max P.5 mmHg AI max P.8 mmHg LV V1 max P.6 mmHg Ao V2 mean: 96.5 cm/sec Ao mean P.3 mmHg AI dec slope: 161.7 cm/sec2 Ao V2 VTI: 30.1 cm AI P1/2t: 676.7 msec PA V2 max: 87.6 cm/sec TR max andres: 241.0 cm/sec TR max P.2 mmHg Interpretation Summary Normal LV size. Left ventricular systolic function is normal. The estimated ejection fraction is 65 %. Stage 1 diastolic dysfunction. Compared to prior study, there is no significant change. Ordering Physician: Elaine Cain Referring Physician: Alli Peace Performed By: Debi Santos RDCS, RVT
[2020-04-05 06:05] VITALS: BP 152/71; PULSE 64; RESP 18; TEMP 36.9; O2SAT 96
[2020-04-05 07:00] VITALS: PULSE 61
[2020-04-05 07:25] VITALS: O2SAT 91
--- NOTE | 2020-04-05 09:00 | MRI_ITS ---
STUDY: MRI BRAIN WITHOUT CONTRAST REASON FOR EXAM: Female, 79 years old. VERTIGO -- x 3 days, hx of 3 prior strokes with residual left leg paralysis, no other symptoms today TECHNIQUE: Standardized multiplanar fat and water weighted pulse sequences were obtained. COMPARISON: CT head without contrast 04/04/2020. FINDINGS: No restricted diffusion to suspect acute or subacute ischemic infarct. Normal size of the ventricles and extra-axial spaces for the patient''s age. Subcortical and periventricular white matter T2 FLAIR hyperintensity foci in both cerebral hemispheres are chronic white matter ischemic changes. No midline shift and no mass effects. Normal bilateral basal ganglia. Normal thalami. There is no extra-axial fluid accumulation. Normal flow voids within the major intracranial circulation suggesting patency by spin echo criteria. Normal sella turcica, pituitary gland, infundibular stalk, optic chiasm and hypothalamus. Normal tectal plate and pineal gland. Normal midbrain, adán and medulla. Normal cerebellum. Normal basal cisterns. Normal bilateral temporal bones. Normal bilateral internal auditory canals. No demonstrated orbital abnormality, within the constraints of a routine brain study. Normal visualized paranasal sinuses. Normal calvarium and skull base. Normal visualized soft tissue structures. Normal visualized upper cervical spine. MRI/Brain without Contrast IMPRESSION: 1. No MRI evidence of acute or subacute ischemic infarct or acute intracranial abnormality. 2. Chronic white matter ischemic changes in both cerebral hemispheres. Electronically Signed: Buster Bennett MD at 10:40 EDT , Service support ,
[2020-04-05] MEDS: Gabapentin 300 MG Capsule PO ×2 (09:04→13:23)
[2020-04-05] MEDS: predniSONE 5 MG Tablet PO (09:04)
[2020-04-05] MEDS: Aspirin 81 MG TAB.CHEW PO (09:04)
[2020-04-05] MEDS: Pantoprazole Sodium 40 MG Tablet PO (09:05)
[2020-04-05] MEDS: DULoxetine Hcl 60 MG Capsule PO (09:05)
[2020-04-05 11:26] VITALS: BP 121/73; PULSE 64; RESP 18; TEMP 36.8; O2SAT 98
[2020-04-05] MEDS: amLODIPine 5 MG Tablet PO (11:30)
[2020-04-05] MEDS: Lidocaine 5% Patch 1 PATCH TOPICAL (11:30)
[2020-04-05] MEDS: Losartan Potassium 100 MG Tablet PO (11:30)
--- NOTE | 2020-04-05 11:40 | PCM.DC.SUM ---
Discharge Date and Diagnosis - Problem List Patient Problems: Active and Suspected Problems (Last Reviewed 02/13/20 @ 14:11 by Tangela Lopez) Vertigo (Acute) Ptosis, right (Acute) Date of Admission: 04/04/20 - Primary Discharge Diagnosis Acute Problems: Active Problems (Last Reviewed 02/13/20 @ 14:11 by Tangela Lopez) Vertigo (Acute) Ptosis, right (Acute) - Secondary Discharge Diagnosis Chronic Problems: Chronic Problems (Last Reviewed 02/13/20 @ 14:11 by Tangela Lopez) Debility (Chronic) Left hemiparesis (Chronic) Systemic lupus erythematosus (Chronic) Coronary artery disease (Chronic) Chronic kidney disease (Chronic) Hypertension (Chronic) Pulmonary embolism (Chronic) Vitamin D deficiency (Chronic) Overactive bladder (Chronic) Depression (Chronic) Neuropathic pain (Chronic) Insomnia (Chronic) Vascular dementia (Chronic) CVA (cerebral vascular accident) (Chronic) Atherosclerotic heart disease of [place] coronary artery without angina pectoris (Chronic ~05/09/17) Mild; Left Main: mild calcification, angiographically normal; LAD: prox: Mild calcification, mild luminal irregularities;CX: prox: Mild luminal irregularities; RCA: angiographically normal per cath 05/09/17 Diastolic dysfunction (Chronic) CKD (chronic kidney disease), stage III (Chronic) Hyperlipidemia (Chronic) Benign essential hypertension (Chronic) GERD (gastroesophageal reflux disease) (Chronic) History of pulmonary embolism (Chronic) Hospital Course and Treatment Imaging Results: 04/05/20 05:55 Echo Complete [ECHO] AM (NON MEDS) 04/05/20 09:00 Brain without Contrast [MRI] Routine Operations: None Summary of Care Provided: The patient is a 79 year old F [] Patient Problems: Active and Suspected Problems (Last Reviewed 02/13/20 @ 14:11 by Tangela No) Vertigo (Acute) Ptosis, right (Acute) - Physical Exam Vitals/I&O's: Vital Signs Temp Pulse Resp BP Pulse Ox 98.2 F 64 18 121/73 H 98 04/05/20 11:26 04/05/20 11:26 04/05/20 11:26 04/05/20 11:26 04/05/20 11:26 Oxygen Delivery Method Room Air Weight: 201 lb 0.985 oz Body Mass Index (BMI) 38.0 Finger Stick Blood Glucose 152 Intake and Output for Last 24 Hours 09/05/20 09/06/20 09/07/20 23:59 23:59 23:59 Intake Total 480 / 600 2342.5 / 2342.5 Output Total 400 / 400 Balance 480 / 200 1942.5 / 1942.5 Laboratory Results 04/04/20 12:54: WBC 7.1, RBC 4.48, Hgb 13.2, Hct 41.2, MCV 92.0, MCH 29.5, MCHC 32.0, RDW Std Deviation 45.7 H, RDW Coeff of Elmer 13.4, Plt Count 270, MPV 10.6, Immature Gran % (Auto) 0.600, Neut % (Auto) 63.0, Lymph % (Auto) 26.0, [place] % (Auto) 8.6, Eos % (Auto) 1.0, Baso % (Auto) 0.8, Absolute Neuts (auto) 4.5, Absolute Lymphs (auto) 1.84, Nucleated RBC % 0 04/04/20 12:54: Sodium 140, Potassium 3.8, Chloride 109 H, Carbon Dioxide 25.0, Anion Gap 6, BUN 11, Creatinine 1.11 H, Estim Creat Clear Calc 32.03, Est GFR (MDRD) Af Amer 61, Est GFR (MDRD) Non-Af 51 L, BUN/Creatinine Ratio 9.9 L, Glucose 110 H, Calcium 9.1 04/04/20 20:43: Troponin I < 0.015 04/04/20 22:30: Urine Color Straw, Urine Clarity Clear, Urine pH 6.5, Ur Specific Prim 1.010, Urine Protein Negative, Urine Glucose (UA) Normal, Urine Ketones Negative, Urine Occult Blood Negative, Urine Nitrite Negative, Urine Bilirubin Negative, Urine Urobilinogen Normal, Ur Leukocyte Esterase 25 H, Urine RBC 0 SEEN, Urine WBC 0-5 SEEN, Ur Squamous Epith Cells 0 SEEN, Urine Bacteria 1+, Urine Mucus 0 SEEN 04/04/20 23:27: Troponin I < 0.015 04/05/20 02:25: WBC 5.0, RBC 3.90 L, Hgb 11.5 L, Hct 36.1 L, MCV 92.6, MCH 29.5, MCHC 31.9 L, RDW Std Deviation 45.2 H, RDW Coeff of Elmer 13.3, Plt Count 250, MPV 10.6, Immature Gran % (Auto) 0.800, Neut % (Auto) 49.3, Lymph % (Auto) 36.5, [place] % (Auto) 10.0, Eos % (Auto) 2.2, Baso % (Auto) 1.2 H, Absolute Neuts (auto) 2.5, Absolute Lymphs (auto) 1.82, Nucleated RBC % 0 04/05/20 02:25: Sodium 143, Potassium 3.3 L, Chloride 113 H, Carbon Dioxide 23.0, Anion Gap 7, BUN 10, Creatinine 0.89, Estim Creat Clear Calc 39.95, Est GFR (MDRD) Af Amer 79, Est GFR (MDRD) Non-Af 66, BUN/Creatinine Ratio 11.3, Glucose 97, Calcium 8.5, Triglycerides 93, Cholesterol 115, LDL Cholesterol 54, VLDL Cholesterol 19, HDL Cholesterol 42 04/05/20 02:25: Troponin I 0.021 Current Medications Acetaminophen (Tylenol) 1,000 mg PO Q6H PRN PRN PRN Reason: Pain Score 1-10/10 Albuterol Sulfate (Ventolin Aerosols) 2.5 mg INHALATION Q6H PRN PRN Reason: SOB/WHEEZING Amlodipine Besylate (Norvasc) 5 mg PO DAILY [facility] Last Admin: 04/05/20 11:30 Dose: 5 mg Documented by: Aspirin (Aspirin, Baby) 81 mg PO DAILY@0800 [facility] Last Admin: 04/05/20 09:04 Dose: 81 mg Documented by: Atorvastatin Calcium (Lipitor) 40 mg PO QHS [facility] Last Admin: 04/04/20 22:04 Dose: 40 mg Documented by: Cholecalciferol (Vitamin D (25mcg)) 2,000 unit PO DAILY [facility] Last Admin: 04/05/20 09:05 Dose: 2,000 unit Documented by: Cyclobenzaprine HCl (Cyclobenzaprine Hcl) 5 mg PO DAILY PRN PRN Reason: muscle spasms Donepezil HCl (Aricept) 5 mg PO QHS [facility] Last Admin: 04/04/20 22:04 Dose: 5 mg Documented by: Duloxetine HCl (Cymbalta) 60 mg PO DAILY [facility] Last Admin: 04/05/20 09:05 Dose: 60 mg Documented by: Gabapentin (Neurontin) 300 mg PO 4X/DAY [facility] Last Admin: 04/05/20 09:04 Dose: 300 mg Documented by: Hydralazine HCl (Apresoline Iv) 5 mg IV Q30M PRN PRN Reason: to maintain BP goals Sodium Chloride () 1,000 mls @ 150 mls/hr IV .Q6H40M [facility] Last Infusion: 04/05/20 11:25 Dose: 150 mls/hr Documented by: Sodium Chloride () 250 mls @ 15 mls/hr IV .[id number] PRN PRN Reason: Saline Flush Sodium Chloride () 250 mls @ 15 mls/hr IV .[id number] PRN PRN Reason: Additional IVPB Infusion Labetalol HCl (Trandate) 10 - 20 mg IV Q10M PRN PRN PRN Reason: to Maintain BP Goals Lidocaine (Lidoderm Patch) 1 patch TOPICAL DAILY [facility]; Protocol Last Admin: 04/05/20 11:30 Dose: 1 patch Documented by: Losartan Potassium (Cozaar) 100 mg PO DAILY [facility] Last Admin: 04/05/20 11:30 Dose: 100 mg Documented by: Nitroglycerin (Nitrostat) 0.4 mg SUBLINGUAL Q5M PRN PRN Reason: CARDIAC/CHEST PAIN Nutritional Formula (Lactose Free) (Ensure Enlive) 120 ml PO 4X/DAY [facility] Last Admin: 04/05/20 11:31 Dose: 120 ml Documented by: Ondansetron HCl (Zofran) 4 mg IV Q8H PRN PRN PRN Reason: NAUSEA/VOMITING Pantoprazole Sodium (Protonix) 40 mg PO DAILY [facility] Last Admin: 04/05/20 09:05 Dose: 40 mg Documented by: [facility] Admin: 04/05/20 09:04 Dose: 5 mg Documented by: Sodium Chloride () 10 - 40 ml IV UD PRN PRN Reason: SALINE FLUSH Home Medications: Medications to take at Discharge Prednisone 5 mg PO DAILY 11/29/18 Cholecalciferol (Vitamin D3) [Vitamin D3] 2,000 unit PO DAILY 03/24/19 albuterol sulfate 90 mcg/actuation aerosol inhaler 2 puff INHALATION Q6H PRN 10/16/19 duloxetine 60 mg capsule,delayed release 60 mg PO DAILY cap 10/16/19 losartan 100 mg tablet 100 mg PO DAILY 10/16/19 gabapentin 300 mg capsule 300 mg PO 4X/DAY cap 10/30/19 nitroglycerin 0.4 mg sublingual tablet 0.4 mg SUBLINGUAL Q5-15M PRN #25 tab 11/24/19 donepezil 10 mg tablet 5 mg PO QHS tab 02/13/20 Amlodipine [Norvasc] 5 mg PO DAILY 02/26/20 Aspirin [Aspirin, Baby] 81 mg PO DAILY@0800 02/26/20 Atorvastatin Calcium [Lipitor] 40 mg PO QHS 02/26/20 Omeprazole 40 mg PO DAILY 02/26/20 Acetaminophen [Tylenol] 1,000 mg PO Q6H PRN PRN tab 03/09/20 Cyclobenzaprine HCl 5 mg PO DAILY PRN #30 tab 03/09/20 Lidocaine [Lidoderm Patch] 1 patch TOPICAL DAILY #30 patch 03/09/20 Menthol/Lanolin/Calamine/Znox [Calmoseptine Ointment] 1 applic TOPICAL 0600,2200 tube 03/09/20 Nystatin Powder [Mycostatin Powder] 1 applic TOPICAL BID@0600,2200 bottle 03/09/20 Meclizine HCl [Antivert] 12.5 mg PO BID PRN PRN #30 tab 04/05/20 Following Prescriptions Were Given to Patient: Meclizine HCl [Antivert] 12.5 mg PO BID PRN PRN #30 tab PRN Reason: Vertigo Transmission Status: [id number] Primary Care Physician: Zayda Peace PA [Primary Care Provider] - Medical Necessity - Tobacco Use Smoking Status: Never smoker Tobacco Use: Non-smoker
--- NOTE | 2020-04-05 11:40 | PCM.DC ---
- Discharge Diagnoses Current Active Problems: Current Active and Chronic Problems (Last Reviewed 02/13/20 @ 14:11 by Tangela Lopez) Vertigo (Acute) Ptosis, right (Acute) You will use the following diet at home:: Cardiac Your food should be the consistency of: Regular Your liquids should be the consistency of: Regular/Thin Discharge Activity: Return to Normal Activity Weight Bearing Status: Weight bearing as tolerated Call your doctor if you observe: Fever of 101 or Higher, Dizziness, Fainting spells Allergies/Adverse Reactions: Allergies ampicillin Allergy (Verified 04/04/20 14:32) Rash buprenorphine HCl [From Buprenex] Allergy (Verified 04/04/20 14:32) Other codeine Allergy (Verified 04/04/20 14:32) Anaphylaxis gold Au 198 Allergy (Verified 04/04/20 14:32) Rash guaifenesin Allergy (Verified 04/04/20 14:32) Rash promethazine HCl [From Phenergan] Allergy (Verified 04/04/20 14:32) Shortness of breath Sulfa (Sulfonamide Antibiotics) Allergy (Verified 04/04/20 14:32) Rash sulindac [From Clinoril] Allergy (Verified 04/04/20 14:32) Rash tetracycline [Tetracycline] Allergy (Verified 04/04/20 14:32) Rash thiopental Allergy (Verified 04/04/20 14:32) Rash trimethoprim [From Proloprim] Allergy (Verified 04/04/20 14:32) Rash buspirone [From BuSpar] Adverse Reaction (Verified 04/04/20 14:32) Nausea oxycodone HCl [From OxyContin] Adverse Reaction (Verified 04/04/20 14:32) Other NALDECON Allergy (Uncoded 04/04/20 14:32) Rash SULPHATED OIL Allergy (Uncoded 04/04/20 14:32) Other TAPE Allergy (Uncoded 04/04/20 14:32) Rash Medications to take at Discharge Prednisone 5 mg PO DAILY 11/29/18 Cholecalciferol (Vitamin D3) [Vitamin D3] 2,000 unit PO DAILY 03/24/19 albuterol sulfate 90 mcg/actuation aerosol inhaler 2 puff INHALATION Q6H PRN 10/16/19 duloxetine 60 mg capsule,delayed release 60 mg PO DAILY cap 10/16/19 losartan 100 mg tablet 100 mg PO DAILY 10/16/19 gabapentin 300 mg capsule 300 mg PO 4X/DAY cap 10/30/19 nitroglycerin 0.4 mg sublingual tablet 0.4 mg SUBLINGUAL Q5-15M PRN #25 tab 11/24/19 donepezil 10 mg tablet 5 mg PO QHS tab 02/13/20 Amlodipine [Norvasc] 5 mg PO DAILY 02/26/20 Aspirin [Aspirin, Baby] 81 mg PO DAILY@0800 02/26/20 Atorvastatin Calcium [Lipitor] 40 mg PO QHS 02/26/20 Omeprazole 40 mg PO DAILY 02/26/20 Acetaminophen [Tylenol] 1,000 mg PO Q6H PRN PRN tab 03/09/20 Cyclobenzaprine HCl 5 mg PO DAILY PRN #30 tab 03/09/20 Lidocaine [Lidoderm Patch] 1 patch TOPICAL DAILY #30 patch 03/09/20 Menthol/Lanolin/Calamine/Znox [Calmoseptine Ointment] 1 applic TOPICAL 0600,2200 tube 03/09/20 Nystatin Powder [Mycostatin Powder] 1 applic TOPICAL BID@0600,2200 bottle 03/09/20 Meclizine HCl [Antivert] 12.5 mg PO BID PRN PRN #30 tab 04/05/20 The following prescriptions were given: Meclizine HCl [Antivert] 12.5 mg PO BID PRN PRN #30 tab PRN Reason: Vertigo Transmission Status: Pending to [facility]/pharmacy #[id number] Primary Care Physician: Zayda Peace PA [Primary Care Provider] - Please follow up with your Primary Care Physician in: 1-2 weeks Test Results: Test results from this visit will be discussed in further detail at your follow-up appointment, if applicable. Proposed Discharge Date: 04/05/20
--- NOTE | 2020-04-05 11:49 | DS.PCM_ITS ---
Discharge Date and Diagnosis - Problem List Patient Problems: Active and Suspected Problems (Last Reviewed 02/13/20 @ 14:11 by Tangela Lopez) Vertigo (Acute) Ptosis, right (Acute) Date of Admission: 04/04/20 Date of Discharge: 04/05/20 - Primary Discharge Diagnosis Acute Problems: Active Problems (Last Reviewed 02/13/20 @ 14:11 by Tangela Lopez) Vertigo (Acute) Ptosis, right (Acute) - Secondary Discharge Diagnosis Chronic Problems: Chronic Problems (Last Reviewed 02/13/20 @ 14:11 by Tangela Lopez) Debility (Chronic) Left hemiparesis (Chronic) Systemic lupus erythematosus (Chronic) Coronary artery disease (Chronic) Chronic kidney disease (Chronic) Hypertension (Chronic) Pulmonary embolism (Chronic) Vitamin D deficiency (Chronic) Overactive bladder (Chronic) Depression (Chronic) Neuropathic pain (Chronic) Insomnia (Chronic) Vascular dementia (Chronic) CVA (cerebral vascular accident) (Chronic) Atherosclerotic heart disease of [place] coronary artery without angina pectoris (Chronic ~05/09/17) Mild; Left Main: mild calcification, angiographically normal; LAD: prox: Mild calcification, mild luminal irregularities;CX: prox: Mild luminal irregularities; RCA: angiographically normal per cath 05/09/17 Diastolic dysfunction (Chronic) CKD (chronic kidney disease), stage III (Chronic) Hyperlipidemia (Chronic) Benign essential hypertension (Chronic) GERD (gastroesophageal reflux disease) (Chronic) History of pulmonary embolism (Chronic) Hospital Course and Treatment Imaging Results: 04/05/20 05:55 Echo Complete [ECHO] AM (NON MEDS) 04/05/20 09:00 Brain without Contrast [MRI] Routine Operations: None Procedures: None Summary of Care Provided: The patient is a 79 year old F with an extensive past medical history as outlined. Patient is here states she recently had a stroke and was life flighted to [facility] in [place] where she spent about 4 days and was discharged to the rehab unit at [facility]. She was discharged from the rehab unit about a week ago. Patient says she was supposed to have a procedure done on her throat in [place] about 2 days ago but procedure was canceled because she had recently had a stroke. She subsequently started feeling dizzy. Dizziness persisted throughout the weekend. There was no clear aggravation with movement or relieved with keeping still. She made it to an associated headache but denied any vomiting though she admitted to nausea. She denied any chest pain, palpitations, dizziness, abdominal pain, diarrhea vomiting. She says she had a right eye droop but this was chronic and she also has chronic left lower extremity weakness and decrease in sensation as a residual from her previous stroke. Review of symptoms otherwise negative. In the ED, vitals show temperature of 97.5 Fahrenheit with blood pressure of 159/83, pulse rate of 88 and respiratory rate of 18. Pulse ox was 99% on room air. Chemistry was essentially unremarkable; CBC was also unremarkable. EKG was not done in the ED. CT of the brain showed no acute intracranial hemorrhage or mass-effect. She was admitted to be managed for vertigo to rule out a stroke. 2D echo done showed EF of 65% with stage I diastolic dysfunction and normal ventricular systolic function. MRI of the brain done showed no evidence of acute or subacute ischemic infarct or acute intracranial abnormality. Patient remained stable and vertigo improved significantly. She was discharged home on 04/05/2020 with home physical therapy. She is to follow-up with her primary care doctor within 1 week. She was also discharged with a prescription for p.o. meclizine to help with dizziness. Patient seen and examined prior to discharge. She had no complaints. Review of systems otherwise negative. Labs and vitals reviewed. Home medication reviewed and reconciled. O/E: Vital Signs Temp Pulse Resp BP Pulse Ox 98.2 F 64 18 121/73 H 98 04/05/20 11:26 04/05/20 11:26 04/05/20 11:26 04/05/20 11:26 04/05/20 11:26 [] General: Alert, Oriented x3, Cooperative, No apparent distress HEENT: Atraumatic, PERRLA, EOMI, Normocephalic, - - mild right eye droop which is chronic Oral: Dry Mucosa Neck: Supple, No JVD, Negative Carotid Bruits Lungs: Clear to auscultation, Normal air movement, No rhonchi, No wheeze, No rales Cardiovascular: Regular rate, Regular Rhythm, Normal S1, Normal S2, No murmurs Abdomen: Bowel Sounds Present, Soft, Non Tender, Non-Distended, No Hepato- splenomegaly Extremities: No clubbing, No cyanosis, No edema, Capillary Refill Less than 3 Seconds Skin: No rashes, No breakdown Musculoskeletal: No Tenderness to Palpation of Joints or Extremities, No Muscle Wasting Lymphatic: No Cervical, Supraclavicular, or Inguinal Adenopathy Neurological: Cranial nerves II-XII grossly intact - except mild right eye droop, - - has 3/5 power in LLE due to chronic hemiparesis from previous stroke. decreased sensation to light touch and pinprick in LLE, with LLE foot drop, which is also chronic. NIHSS is 4 today Psych/Mental Status: Normal Affect, Appropriate, Alert and oriented to time, place, person, mood and affect Plan is to discharge patient home today. She is to continue having physical therapy at home which already been set up and she is to follow-up with her primary care doctor within 1 week. Patient Problems: Active and Suspected Problems (Last Reviewed 02/13/20 @ 14:11 by Tangela Lopez) Vertigo (Acute) Ptosis, right (Acute) - Physical Exam Vitals/I&O's: Vital Signs Temp Pulse Resp BP Pulse Ox 98.2 F 64 18 121/73 H 98 04/05/20 11:26 04/05/20 11:26 04/05/20 11:26 04/05/20 11:26 04/05/20 11:26 Oxygen Delivery Method Room Air Weight: 201 lb 0.985 oz Body Mass Index (BMI) 38.0 Finger Stick Blood Glucose 152 Intake and Output for Last 24 Hours 04/03/20 04/04/20 04/05/20 23:59 23:59 23:59 Intake Total 480 / 600 2342.5 / 2342.5 Output Total 400 / 400 Balance 480 / 200 1942.5 / 1942.5 Laboratory Results 04/04/20 12:54: WBC 7.1, RBC 4.48, Hgb 13.2, Hct 41.2, MCV 92.0, MCH 29.5, MCHC 32.0, RDW Std Deviation 45.7 H, RDW Coeff of Elmer 13.4, Plt Count 270, MPV 10.6, Immature Gran % (Auto) 0.600, Neut % (Auto) 63.0, Lymph % (Auto) 26.0, [place] % (Auto) 8.6, Eos % (Auto) 1.0, Baso % (Auto) 0.8, Absolute Neuts (auto) 4.5, Absolute Lymphs (auto) 1.84, Nucleated RBC % 0 04/04/20 12:54: Sodium 140, Potassium 3.8, Chloride 109 H, Carbon Dioxide 25.0, Anion Gap 6, BUN 11, Creatinine 1.11 H, Estim Creat Clear Calc 32.03, Est GFR (MDRD) Af Amer 61, Est GFR (MDRD) Non-Af 51 L, BUN/Creatinine Ratio 9.9 L, Glucose 110 H, Calcium 9.1 04/04/20 20:43: Troponin I < 0.015 04/04/20 22:30: Urine Color Straw, Urine Clarity Clear, Urine pH 6.5, Ur Specific [place] 1.010, Urine Protein Negative, Urine Glucose (UA) Normal, Urine Ketones Negative, Urine Occult Blood Negative, Urine Nitrite Negative, Urine Bilirubin Negative, Urine Urobilinogen Normal, Ur Leukocyte Esterase 25 H, Urine RBC 0 SEEN, Urine WBC 0-5 SEEN, Ur Squamous Epith Cells 0 SEEN, Urine Bacteria 1+, Urine Mucus 0 SEEN 04/04/20 23:27: Troponin I < 0.015 04/05/20 02:25: WBC 5.0, RBC 3.90 L, Hgb 11.5 L, Hct 36.1 L, MCV 92.6, MCH 29.5, MCHC 31.9 L, RDW Std Deviation 45.2 H, RDW Coeff of Elmer 13.3, Plt Count 250, MPV 10.6, Immature Gran % (Auto) 0.800, Neut % (Auto) 49.3, Lymph % (Auto) 36.5, [place] % (Auto) 10.0, Eos % (Auto) 2.2, Baso % (Auto) 1.2 H, Absolute Neuts (auto) 2.5, Absolute Lymphs (auto) 1.82, Nucleated RBC % 0 04/05/20 02:25: Sodium 143, Potassium 3.3 L, Chloride 113 H, Carbon Dioxide 23.0, Anion Gap 7, BUN 10, Creatinine 0.89, Estim Creat Clear Calc 39.95, Est GFR (MDRD) Af Amer 79, Est GFR (MDRD) Non-Af 66, BUN/Creatinine Ratio 11.3, Glucose 97, Calcium 8.5, Triglycerides 93, Cholesterol 115, LDL Cholesterol 54, VLDL Cholesterol 19, HDL Cholesterol 42 04/05/20 02:25: Troponin I 0.021 Current Medications Acetaminophen (Tylenol) 1,000 mg PO Q6H PRN PRN PRN Reason: Pain Score 1-10/10 Albuterol Sulfate (Ventolin Aerosols) 2.5 mg INHALATION Q6H PRN PRN Reason: SOB/WHEEZING Amlodipine Besylate (Norvasc) 5 mg PO DAILY [facility] Last Admin: 04/05/20 11:30 Dose: 5 mg Documented by: Aspirin (Aspirin, Baby) 81 mg PO DAILY@0800 [facility] Last Admin: 04/05/20 09:04 Dose: 81 mg Documented by: Atorvastatin Calcium (Lipitor) 40 mg PO QHS [facility] Last Admin: 04/04/20 22:04 Dose: 40 mg Documented by: Cholecalciferol (Vitamin D (25mcg)) 2,000 unit PO DAILY [facility] Last Admin: 04/05/20 09:05 Dose: 2,000 unit Documented by: Cyclobenzaprine HCl (Cyclobenzaprine Hcl) 5 mg PO DAILY PRN PRN Reason: muscle spasms Donepezil HCl (Aricept) 5 mg PO QHS [facility] Last Admin: 04/04/20 22:04 Dose: 5 mg Documented by: Duloxetine HCl (Cymbalta) 60 mg PO DAILY [facility] Last Admin: 04/05/20 09:05 Dose: 60 mg Documented by: Gabapentin (Neurontin) 300 mg PO 4X/DAY [facility] Last Admin: 04/05/20 09:04 Dose: 300 mg Documented by: Hydralazine HCl (Apresoline Iv) 5 mg IV Q30M PRN PRN Reason: to maintain BP goals Sodium Chloride () 1,000 mls @ 150 mls/hr IV .Q6H40M [facility] Last Infusion: 04/05/20 11:25 Dose: 150 mls/hr Documented by: Sodium Chloride () 250 mls @ 15 mls/hr IV .[id number] PRN PRN Reason: Saline Flush Sodium Chloride () 250 mls @ 15 mls/hr IV .[id number] PRN PRN Reason: Additional IVPB Infusion Labetalol HCl (Trandate) 10 - 20 mg IV Q10M PRN PRN PRN Reason: to Maintain BP Goals Lidocaine (Lidoderm Patch) 1 patch TOPICAL DAILY [facility]; Protocol Last Admin: 04/05/20 11:30 Dose: 1 patch Documented by: Losartan Potassium (Cozaar) 100 mg PO DAILY [facility] Last Admin: 04/05/20 11:30 Dose: 100 mg Documented by: Nitroglycerin (Nitrostat) 0.4 mg SUBLINGUAL Q5M PRN PRN Reason: CARDIAC/CHEST PAIN Nutritional Formula (Lactose Free) (Ensure Enlive) 120 ml PO 4X/DAY [facility] Last Admin: 04/05/20 11:31 Dose: 120 ml Documented by: Ondansetron HCl (Zofran) 4 mg IV Q8H PRN PRN PRN Reason: NAUSEA/VOMITING Pantoprazole Sodium (Protonix) 40 mg PO DAILY [facility] Last Admin: 04/05/20 09:05 Dose: 40 mg Documented [facility]: [facility] Admin: 04/05/20 09:04 Dose: 5 mg Documented by: Sodium Chloride () 10 - 40 ml IV UD PRN PRN Reason: SALINE FLUSH Discharge Diet: Low fat/ Low Cholesterol Discharge Activity: Return to Normal Activity Weight Bearing Status: Weight bearing as tolerated Call your doctor if you observe: Fever of 101 or Higher, Dizziness, Fainting spells Home Medications: Medications to take at Discharge Prednisone 5 mg PO DAILY 11/29/18 Cholecalciferol (Vitamin D3) [Vitamin D3] 2,000 unit PO DAILY 03/24/19 albuterol sulfate 90 mcg/actuation aerosol inhaler 2 puff INHALATION Q6H PRN 10/16/19 duloxetine 60 mg capsule,delayed release 60 mg PO DAILY cap 10/16/19 losartan 100 mg tablet 100 mg PO DAILY 10/16/19 gabapentin 300 mg capsule 300 mg PO 4X/DAY cap 10/30/19 nitroglycerin 0.4 mg sublingual tablet 0.4 mg SUBLINGUAL Q5-15M PRN #25 tab 11/24/19 donepezil 10 mg tablet 5 mg PO QHS tab 02/13/20 Amlodipine [Norvasc] 5 mg PO DAILY 02/26/20 Aspirin [Aspirin, Baby] 81 mg PO DAILY@0800 02/26/20 Atorvastatin Calcium [Lipitor] 40 mg PO QHS 02/26/20 Omeprazole 40 mg PO DAILY 02/26/20 Acetaminophen [Tylenol] 1,000 mg PO Q6H PRN PRN tab 03/09/20 Cyclobenzaprine HCl 5 mg PO DAILY PRN #30 tab 03/09/20 Lidocaine [Lidoderm Patch] 1 patch TOPICAL DAILY #30 patch 03/09/20 Menthol/Lanolin/Calamine/Znox [Calmoseptine Ointment] 1 applic TOPICAL 0600,2200 tube 03/09/20 Nystatin Powder [Mycostatin Powder] 1 applic TOPICAL BID@0600,2200 bottle 03/09/20 Meclizine HCl [Antivert] 12.5 mg PO BID PRN PRN #30 tab 04/05/20 Following Prescriptions Were Given to Patient: Meclizine HCl [Antivert] 12.5 mg PO BID PRN PRN #30 tab PRN Reason: Vertigo Transmission [facility]: [id number] Primary Care Physician: Zayda Peace PA [Primary Care Provider] - Please follow up with your Primary Care Physician in: 1-2 weeks Patient Instructions: Understanding Dizziness, Balance Problems, and Fainting Disposition: Home Minutes spent on discharge:: 35 Patient Condition:: Stable Medical Necessity - Tobacco Use Smoking Status: Never smoker Tobacco Use: Non-smoker Meaningful Use Info Meaningful Use Diagnoses (Choose all that apply): None applicable OBSV E&M: 12646 Observation care discharge
== END 2020-04-05 11:41 | disposition home or self-care (01) ==
LOC: ED 17:23 → PCU 17:26
PROVIDERS: Admitting Provider Student in an Organized Health Care Education/Training Program; Emergency Provider Emergency Medicine; PCP Physician Assistant; Visit Provider Student in an Organized Health Care Education/Training Program
DX: R42 Dizziness and giddiness (principal); H02.401 Unspecified ptosis of right eyelid; M32.9 Systemic lupus erythematosus, unspecified; I12.9 Hypertensive chronic kidney disease with stage 1 through stage 4 chronic kidney disease, or unspecified chronic kidney disease; N18.3 Chronic kidney disease, stage 3 (moderate); K21.9 Gastro-esophageal reflux disease without esophagitis; E78.5 Hyperlipidemia, unspecified; E55.9 Vitamin D deficiency, unspecified; I69.354 Hemiplegia and hemiparesis following cerebral infarction affecting left non-dominant side; F32.9 Major depressive disorder, single episode, unspecified; I25.10 Atherosclerotic heart disease of native coronary artery without angina pectoris; Z79.899 Other long term (current) drug therapy; Z79.82 Long term (current) use of aspirin; Z79.52 Long term (current) use of systemic steroids; Z86.711 Personal history of pulmonary embolism; Z93.2 Ileostomy status; Z86.718 Personal history of other venous thrombosis and embolism; M35.00 Sjogren syndrome, unspecified; M79.7 Fibromyalgia; M06.9 Rheumatoid arthritis, unspecified
CPT/HCPCS: 36415; 70450; 70551; 80048; 80061; 81001; 84484; 85025; 93005; 93306; 96361; 96374; 97162; 97166; 97802; 99218; 99285; J7030; A4216; G0378

== ENCOUNTER 2020-05-20 17:56 | Inpatient (IN) | payer MEDICARE, SELFPAY ==
[2020-04-04 23:15] VITALS: BMI 38.0
[2020-05-20] VITALS (10 sets, daily range): BP systolic 152–189; BP diastolic 78–138; PULSE 58–94; RESP 18–21; TEMP 36.2–37; O2SAT 95–99; BMI 33.6; BMI 35.8; BMI 35.4
--- NOTE | 2020-05-20 18:04 | ED.RN ---
SYMPTOMS STARTED SUNDAY PER GRANDDAUGHTER. THEY THOUGHT IT WAS MEDICATION RELATED INITALLY. HEALTHCARE PROVIDER ADVICED TO COME IN
--- NOTE | 2020-05-20 18:13 | ED.RN ---
CONFUSION AND DIFFIUCLTY SPEAKING PER FAMILY. PT NOT ANSWERING QUESTIONS. FOR STAFF
[2020-05-20 18:21] LABS: Bedside Glucose 123 mg/dL (70-110)
--- NOTE | 2020-05-20 18:43 | ED.VIS.STROK ---
History of Present Illness Chief Complaint: Neuro S/Sx Informant: Patient Quality and Location: Expressive Aphasia Current Severity: 05/08 Maximum Severity: 05/08 Associated Symptoms: Negative for: Headache, Nausea, Vomiting Narrative: 79-year-old female with history of TIA, CVA presenting with inability to speak. Daughter gives the history. She states that sometimes when she gets like this she just has a urinary tract infection and they thought that what it was. Patient's daughter states that her symptoms started about 1700 hrs. on Sunday of this week which would be 3 days ago. She is able to understand speech but has difficulty expressing the right words. Her daughter stated that yesterday she started saying yes and no. This did not necessarily correlate with the conversation or having. Patient's daughter states that she knows of the stroke symptoms and noted that she had not had any facial droop, arm or leg weakness, unsteady gait. This is why she did not think it was a stroke. Patient went to urgent care today to check a urinalysis and was told that her urine was negative and that this is likely strokelike symptoms. Prior similar symptoms: Yes - Past Medical History (1) Vertigo Status: Chronic (2) Benign essential hypertension Status: Chronic (3) CVA (cerebral vascular accident) Status: Chronic (4) Chronic kidney disease Status: Chronic (5) Coronary artery disease Status: Chronic Past Medical History - Allergies and Home Meds Allergies/Adverse Reactions: Allergies ampicillin Allergy (Verified 05/20/20 18:10) Rash buprenorphine HCl [From Buprenex] Allergy (Verified 05/20/20 18:10) Other codeine Allergy (Verified 05/20/20 18:10) Anaphylaxis gold Au 198 Allergy (Verified 05/20/20 18:10) Rash guaifenesin Allergy (Verified 05/20/20 18:10) Rash promethazine HCl [From Phenergan] Allergy (Verified 05/20/20 18:10) Shortness of breath Sulfa (Sulfonamide Antibiotics) Allergy (Verified 05/20/20 18:10) Rash sulindac [From Clinoril] Allergy (Verified 05/20/20 18:10) Rash tetracycline [Tetracycline] Allergy (Verified 05/20/20 18:10) Rash thiopental Allergy (Verified 05/20/20 18:10) Rash trimethoprim [From Proloprim] Allergy (Verified 05/20/20 18:10) Rash buspirone [From BuSpar] Adverse Reaction (Verified 05/20/20 18:10) Nausea oxycodone HCl [From OxyContin] Adverse Reaction (Verified 05/20/20 18:10) Other NALDECON Allergy (Uncoded 05/20/20 18:10) Rash SULPHATED OIL Allergy (Uncoded 05/20/20 18:10) Other TAPE Allergy (Uncoded 05/20/20 18:10) Rash Prior records reviewed: Yes Surgical History: appendectomy, cholecystectomy, herniorrhaphy, hysterectomy, total knee arthroplasty - Bilateral., - - Krish fundiplication, IVC filter, Aortic valve replacement, Ileostomy, Bilateral carpal tunnel surrgery. Lives: With Family Smoking Status: Never smoker Alcohol: None Drugs: None - Family History Maternal Family History: Family History (Last Reviewed 05/20/20 @ 21:[address] Cassy Cruz MD) Father CVA (cerebral vascular accident) Family History: Reports: Diabetes, Hypertension Paternal Family History: Family History (Last Reviewed 05/20/20 @ 21:[address] Cassy Cruz MD) Father CVA (cerebral vascular accident) Family History: Reports: Hypertension, No pertinent history Review of Systems General: Denies: Chills, Fever, Sweats Eyes: Denies: Visual changes - bilaterally, Diplopia ENT: Denies: Rhinorrhea, Sore throat Cardiovascular: Denies: Chest pain, Palpitations Respiratory: Denies: Dyspnea, Cough, Dyspnea on exertion Gastrointestinal: Denies: Abdominal pain, Nausea, Vomiting, Diarrhea, Melena, Hematochezia Genitourinary: Denies: Dysuria, Hematuria, Frequency Skin: Denies: Rash, Wounds Neurological: Denies: Weakness, Parasthesia Psych: Denies: Depression, Anxiety STROKE Vital Signs/Narrative: Vital Signs Temp Pulse Resp BP Pulse Ox 05/20/20 18:06 77 20 H 181/115 H 98 05/20/20 17:57 97.1 F L 94 18 162/78 H 99 Inital Vital Signs reviewed: Yes General: Obese, - - Unable to speak but responds to questioning indicating she understands. Head: Normocephalic, Atraumatic Eyes: Perrl, EOMI ENT: Moist mucous membranes, No rhinorrhea Cardiovascular: Regular rate, Regular rhythm Respiratory: No distress, CTA bilaterally Extremities: Nontender, No edema Skin: Normal color, No rash. Negative for: Cyanosis, Diaphoresis Neurological: - - NIH stroke scale score equal to 9 Psychological: Normal affect, Normal Mood Diagnostic/Tx/Re-eval Clinical Impression(s) from Imaging Studies Brain CT 05/20/20 18:44 IMPRESSION: Normal unenhanced CT scan of the brain. Electronically Signed: Kasi Paniagua MD at 19:34 EDT , Service support , Chest X-Ray 05/20/20 19:05 IMPRESSION: No definite acute or significant abnormality seen. Electronically Signed: Kasi Paniagua MD at 19:32 EDT , Service support , Laboratory Data 05/20/20 05/20/20 05/20/20 18:09 18:10 18:10 WBC 11.8 H RBC 4.99 Hgb 14.7 Hct 44.7 MCV 89.6 MCH 29.5 MCHC 32.9 RDW Std Deviation 42.3 RDW Coeff of Elmer 13.0 Plt Count 320 MPV 11.9 Immature Gran % (Auto) 1.700 H Neut % (Auto) 74.2 H Lymph % (Auto) 17.8 L [place] % (Auto) 5.2 Eos % (Auto) 0.3 Baso % (Auto) 0.8 Absolute Neuts (auto) 8.8 H Absolute Lymphs (auto) 2.11 Nucleated RBC % 0 PT 12.1 INR 1.0 APTT 26.0 Sodium Potassium Chloride Carbon Dioxide Anion Gap BUN Creatinine Estim Creat Clear Calc Est GFR (MDRD) Af Amer Est GFR (MDRD) Non-Af BUN/Creatinine Ratio Glucose Calcium Troponin I POC Glucose 123 H 05/20/20 18:10 WBC RBC Hgb Hct MCV MCH MCHC RDW Std Deviation RDW Coeff of Elmer Plt Count MPV Immature Gran % (Auto) Neut % (Auto) Lymph % (Auto) [place] % (Auto) Eos % (Auto) Baso % (Auto) Absolute Neuts (auto) Absolute Lymphs (auto) Nucleated RBC % PT INR APTT Sodium 140 Potassium 3.7 Chloride 107 Carbon Dioxide 24.0 Anion Gap 9 BUN 15 Creatinine 1.20 H Estim Creat Clear Calc 31.05 Est GFR (MDRD) Af Amer 56 L Est GFR (MDRD) Non-Af 46 L BUN/Creatinine Ratio 12.5 Glucose 133 H Calcium 9.4 Troponin I 0.052 H POC Glucose - Rhythm Strip Rhythm Strip: Sinus Rhythm Rate: 87 - EKG Initial EKG Interpretation: Sinus Rhythm, No Acute Injury Pattern, - - PVC - Medical Decision Making Stroke Team Activated: No Reviewed Inclusion/Exclusion criteria: No Was Patient considered for Endovascular Intervention?: No IV Alteplase (t-PA) Administered: No No contraindications for IV Alteplase (t-PA) administration.: Yes Alteplase (t-PA) risks, benefits, alternative discussed: No Not given: Patient refusal: No Patient presents with expressive aphasia for the last 3 days. Initially was thought that she had a urinary tract infection however she had her urine tested at the urgent care and they told her that she did not have a UTI. On examination her NIH is a 9. She is able to understand me and nod and shake her head to communicate however she cannot speak words clearly. EKG is sinus rhythm without signs of ischemia. Lab work is fairly unremarkable with exception of a indeterminate troponin. She did not express that she had had any chest pain at all. I did go back to ask her again and she denied this. Patient was given aspirin for both the indeterminate troponin and strokelike symptoms. She had no change in her NIH while she was here. Discussed with admitting physician who was amenable to admit the patient for observation. Impression: 1. Expressive aphasia 2. Indeterminate troponin ED Disposition - Plan for ED Patient: Disposition: Acute Care Hospital [facility]
--- NOTE | 2020-05-20 18:44 | CT_ITS ---
STUDY: CT BRAIN WITHOUT CONTRAST REASON FOR EXAM: Female, 79 years old. EXPRESSIVE APHASIA, CONFUSION SINCE SUNDAY 5 PM RADIATION DOSAGE (If Supplied By Facility): CTDIvol = ( 44.99 ) mGy, DLP = ( 745.49 ) mGycm TECHNIQUE: Transaxial CT imaging of the brain was performed without administration of intravenous contrast material. Individualized dose optimization techniques were used for this CT. COMPARISON: 04/04/2020 FINDINGS: Normal soft tissue structures. 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 Normal size ventricles and extra-axial spaces for the patient''s age. Normal white matter tracts of the cerebral hemispheres. Normal basal ganglia and thalami. Normal brainstem. Normal cerebellum. There is no intracranial hemorrhage. There are no findings of an acute ischemic infarction. Normal visualized paranasal sinuses. CT/Brain/Head without Contrast IMPRESSION: Normal unenhanced CT scan of the brain. Electronically Signed: Kasi Paniagua MD at 19:34 EDT , Service support ,
--- NOTE | 2020-05-20 18:44 | EKG12_ITS ---
Test Reason : DYSRHYTHMIA Blood Pressure : / mmHG Vent. Rate : 087 BPM Atrial Rate : 087 BPM P-R Int : 136 ms QRS Dur : 072 ms QT Int : 406 ms P-R-T Axes : 013 000 -05 degrees QTc Int : 488 ms Sinus rhythm with Premature supraventricular complexes and with occasional Premature ventricular comp lexes and Fusion complexes Nonspecific T wave abnormality Confirmed by GUILLE ARROYO, DARÍO ([id number]), society editor NOLVIA MARTÍNEZ ([id number]) on 05/24/2020 12:45:37 PM Referred By: KOSTA Confirmed By:DARÍO HAN MD
--- NOTE | 2020-05-20 19:05 | RAD_ITS ---
STUDY: X-RAY CHEST REASON FOR EXAM: Female, 79 years old. CONFUSION AND TROUBLE SPEAKING SINCE SUNDAY TECHNIQUE: Single AP portable view of the chest. COMPARISON: 03/11/2020. FINDINGS: The lungs are clear and expanded. There is no demonstrated pleural abnormality. Normal size heart. Normal mediastinum and regina. Normal visualized pulmonary arteries. There is atherosclerotic tortuosity of the aortic arch and descending thoracic aorta. Normal visualized thoracic spine. There is degenerative osteoarthritis of the bilateral shoulders. There is no demonstrated abnormality of the visualized soft tissue structures of the upper abdomen. RAD/Chest 1 View IMPRESSION: No definite acute or significant abnormality seen. Electronically Signed: Kasi Paniagua MD at 19:32 EDT , Service support ,
[2020-05-20 19:24] LABS: Absolute Lymphocyte Count 2.11 X10^3/uL (0.83-4.51); Absolute Neutrophil Count 8.8 X10^3/uL (2.0-7.7); Basophil% 0.8 % (0-1); Eosinophil# 0.03 X10^3/uL; Eosinophils% 0.3 % (0-5); Hematocrit 44.7 % (37-47); Hemoglobin 14.7 g/dL (12.0-15.0); Lymphocyte # 2.11 X10^3/ul (4.0); Lymphocyte % 17.8 % (19-41); Mean Corp Hgb Conc 32.9 g/dL (32-36); Mean Corpuscular Hgb 29.5 pg (27.0-32.0); Mean Corpuscular Volume 89.6 fL (81-99); Mean Platelet Vol. 11.9 fl (6.2-12.0); Monocyte# 0.62 X10^3/uL; Monocyte% 5.2 % (0-10); NRBC Flagged by Analyzer 0 % (0-5); Neutrophil # 8.77 X10^3/uL (2.7-7.7); Neutrophil % 74.2 % (47-70); Platelet Count 320 K/mm3 (150-450); RBC Distribution Width SD 42.3 fl (35.1-43.9); Red Blood Count 4.99 M/mm3 (4.2-5.4); White Blood Count 11.8 K/mm3 (4.4-11.0)
[2020-05-20 19:37] LABS: Prothrombin Time (Protime)PT. 12.1 SECONDS (11.7-14.9)
[2020-05-20 19:38] LABS: Anion Gap 9 (5-15); BUN 15 mg/dL (7-18); BUN/Creat Ratio 12.5 RATIO (10-20); Calcium,Total 9.4 mg/dL (8.5-10.1); Chloride 107 mmol/L (98-107); EST Glomerular Filtration Rate 46 mL/min (>60); Est Glom Filt Rate - Afr Amer 56 mL/min (>60); Estimated Creatinine Clearance 31.05 ml/min; Glucose 133 mg/dL (74-106); Potassium 3.7 mmol/L (3.5-5.1); Sodium Level 140 mmol/L (136-145)
--- NOTE | 2020-05-20 20:30 | ED.RN ---
ASKED DR BARRY IF NIH WERE NEEDED DUE TO TIME FROM SYMPTOM ONSET, REPORTED THAT HE DID NOT THINK THEY WERE NECESSARY.
--- NOTE | 2020-05-20 21:04 | HP.PCM_ITS ---
Problem List (1) Atherosclerotic heart disease of nikolai coronary artery without angina pectoris Status: Chronic Qualifiers: [place] vs. transplanted heart: nikolai heart Qualified Code(s): I25.10 - Atherosclerotic heart disease of nikolai coronary artery without angina pectoris Comment: Mild; Left Main: mild calcification, angiographically normal; LAD: prox: Mild calcification, mild luminal irregularities;CX: prox: Mild luminal irregularities; RCA: angiographically normal per cath 05/09/17 (2) Benign essential hypertension Status: Chronic (3) CKD (chronic kidney disease), stage III Status: Chronic (4) CVA (cerebral vascular accident) Status: Chronic (5) Depression Status: Chronic (6) GERD (gastroesophageal reflux disease) Status: Chronic (7) Hyperlipidemia Status: Chronic Qualifiers: (8) Hypertension Status: Chronic (9) Systemic lupus erythematosus Status: Chronic (10) Vascular dementia Status: Chronic History of Present Illness Date of Admission: 05/20/20 Chief Complaint: Difficulty getting words out. The patient is a 79 year old F with past medical history as mentioned above presented to the emergency room because of confusion and aphasia. Patient's granddaughter was at the bedside and she provided information. According to the granddaughter, patient has been increasingly confusion over the last 3 days, has been not talking since this past Sunday and she says only couple of ports and not able to answer any questions. The granddaughter mentioned that the patient has been getting intermittent confusion since she had her last stroke on January, which has been kind of usual to her but this time, her confusion did not improve. They thought that she may have UTI but patient kept having increasing confusion and not able to get the words out. When I was at the bedside, patient started talking in complete sentences and she is having difficulties completing sentences. The patient's granddaughter mentioned that she did not talk over the last 3 days and this is her first words. Patient denied any blurry vision, tingling or numbness. She denied focal arm or leg weakness. She denied headache. She denied chest pain or shortness of breath. On Nov, 2019, patient came to the emergency department because of slurred speech, was found to have acute stroke, received TPA and she was transferred to [facility] in [facility]. According to the patient, she had no interventions performed at that time. On March,, she was admitted for vertigo to our hospital and MRI done that showed no acute infarct. Patient had a history of SLE and she has been on long-term prednisone of 5 mg for long time and she has been stable. She has history of hypertension and she has been on Norvasc and losartan and usually her blood pressure under control. She had a history of dementia with intermittent confusion at baseline and she has been donepezil. In the emergency department, her blood pressure was elevated, other vital signs were stable. Her routine blood work was remarkable for minimal leukocytosis, creatinine of 1.20, otherwise normal. CT scan brain showed no acute findings. EKG revealed normal sinus rhythm, PVCs, no acute segment changes. Troponin was minimally elevated at 0.052. Chest x-ray showed no acute findings. She is being admitted for expressive aphasia with concern for TIA versus acute stroke as well as abnormal cardiac enzymes. Past Medical History Past Medical History (Chronic Problems): Chronic Problems (Last Updated 05/20/20 @ 20:[address] Cassy Cruz MD) CKD (chronic kidney disease), stage III (Chronic) CVA (cerebral vascular accident) (Chronic) Debility (Chronic) Left hemiparesis (Chronic) Systemic lupus erythematosus (Chronic) Coronary artery disease (Chronic) Chronic kidney disease (Chronic) Hypertension (Chronic) Pulmonary embolism (Chronic) Vitamin D deficiency (Chronic) Overactive bladder (Chronic) Depression (Chronic) Neuropathic pain (Chronic) Insomnia (Chronic) Vascular dementia (Chronic) Vertigo (Chronic) Atherosclerotic heart disease of nikolai coronary artery without angina pectoris (Chronic ~05/09/17) Mild; Left Main: mild calcification, angiographically normal; LAD: prox: Mild calcification, mild luminal irregularities;CX: prox: Mild luminal irregularities; RCA: angiographically normal per cath 05/09/17 Diastolic dysfunction (Chronic) Hyperlipidemia (Chronic) Benign essential hypertension (Chronic) GERD (gastroesophageal reflux disease) (Chronic) History of pulmonary embolism (Chronic) Medical History: Medical History (Last Updated 05/20/20 @ 20:[address] Cassy Cruz MD) Atherosclerotic heart disease of nikolai coronary artery without angina pectoris (Chronic) Onset Date: ~05/09/17 I25.10 Mild; Left Main: mild calcification, angiographically normal; LAD: prox: Mild calcification, mild luminal irregularities;CX: prox: Mild luminal irreg ularities; RCA: angiographically normal per cath 05/09/17 Diastolic dysfunction (Chronic) I51.89 Hyperlipidemia (Chronic) E78.5 Benign essential hypertension (Chronic) I10 GERD (gastroesophageal reflux disease) (Chronic) K21.9 History of pulmonary embolism (Chronic) Z86.711 Acute right cerebellar stroke Alzheimer's dementia G30.9 Chronic back pain M54.9, G89.[address] Oswald West History of CVA (cerebrovascular accident) Z86.73 History of TIAs Ileostomy in place Z93.2 Raynauds disease I73.00 Restless legs Rheumatoid arthritis M06.[address] Jose Johns @ [facility] Systemic lupus erythematosus M32.9 Dementia F03.90 History of DVT (deep vein thrombosis) Z86.718 History of deep vein thrombosis Z86.718 History of echocardiogram Onset Date: ~04/2017 Z92.89 EF 65% History of left heart catheterization (LHC) Z98.890 Raynaud's phenomenon (Inactive) Sjogren's syndrome (Inactive) M35.00 Allergies ampicillin Allergy (Verified 05/20/20 18:10) Rash buprenorphine HCl [From Buprenex] Allergy (Verified 05/20/20 18:10) Other codeine Allergy (Verified 05/20/20 18:10) Anaphylaxis gold Au 198 Allergy (Verified 05/20/20 18:10) Rash guaifenesin Allergy (Verified 05/20/20 18:10) Rash promethazine HCl [From Phenergan] Allergy (Verified 05/20/20 18:10) Shortness of breath Sulfa (Sulfonamide Antibiotics) Allergy (Verified 05/20/20 18:10) Rash sulindac [From Clinoril] Allergy (Verified 05/20/20 18:10) Rash tetracycline [Tetracycline] Allergy (Verified 05/20/20 18:10) Rash thiopental Allergy (Verified 05/20/20 18:10) Rash trimethoprim [From Proloprim] Allergy (Verified 05/20/20 18:10) Rash buspirone [From BuSpar] Adverse Reaction (Verified 05/20/20 18:10) Nausea oxycodone HCl [From OxyContin] Adverse Reaction (Verified 05/20/20 18:10) Other NALDECON Allergy (Uncoded 05/20/20 18:10) Rash SULPHATED OIL Allergy (Uncoded 05/20/20 18:10) Other TAPE Allergy (Uncoded 05/20/20 18:10) Rash Home Medications: Ambulatory Orders Medication Instructions Recorded Prednisone 5 mg PO DAILY 11/29/18 Cholecalciferol (Vitamin D3) 2,000 unit PO DAILY 03/24/19 [Vitamin D3] albuterol sulfate 90 mcg/actuation 2 puff INHALATION Q6H PRN 10/16/19 aerosol inhaler duloxetine 60 mg capsule,delayed 60 mg PO DAILY cap 10/16/19 release losartan 100 mg tablet 100 mg PO DAILY 10/16/19 gabapentin 300 mg capsule 300 mg PO 4X/DAY cap 10/30/19 nitroglycerin 0.4 mg sublingual 0.4 mg SUBLINGUAL Q5-15M PRN #25 11/24/19 tablet tab donepezil 10 mg tablet 5 mg PO QHS tab 02/13/20 Amlodipine [Norvasc] 5 mg PO DAILY 02/26/20 Aspirin [Aspirin, Baby] 81 mg PO DAILY@0800 02/26/20 Atorvastatin Calcium [Lipitor] 40 mg PO QHS 02/26/20 Omeprazole 40 mg PO DAILY 02/26/20 Acetaminophen [Tylenol] 1,000 mg PO Q6H PRN PRN tab 03/09/20 Cyclobenzaprine HCl 5 mg PO DAILY PRN #30 tab 03/09/20 Lidocaine [Lidoderm Patch] 1 patch TOPICAL DAILY #30 patch 03/09/20 Menthol/Lanolin/Calamine/Znox 1 applic TOPICAL 0600,2200 tube 03/09/20 [Calmoseptine Ointment] Nystatin Powder [Mycostatin Powder] 1 applic TOPICAL BID@0600,2200 03/09/20 bottle Meclizine HCl [Antivert] 12.5 mg PO BID PRN PRN #30 tab 04/05/20 Surgical History: Surgical History (Last Reviewed 05/20/20 @ 21:[address] Cassy Cruz MD) History of Krish fundoplication Z98.890 S/P IVC filter Z95.828 History of appendectomy Z98.890, Z90.49 History of bilateral knee replacement Z96.653 History of cardiac catheterization Onset Date: ~04/2017 Z98.890 Mild CAD History of carpal tunnel surgery Z98.890 Bilateral History of cholecystectomy Z98.890, Z90.49 History of herniorrhaphy Z98.890, Z87.19 History of hysterectomy Z98.890, Z90.710 History of salpingo-oophorectomy Z90.79, Z90.721 Surgical History: appendectomy, cholecystectomy, herniorrhaphy, hysterectomy, total knee arthroplasty - Bilateral., - - Krish fundiplication, IVC filter, Aortic valve replacement, Ileostomy, Bilateral carpal tunnel surrgery. 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 Cassy Cruz MD) Father CVA (cerebral vascular accident) History Items: Diabetes, Hypertension Paternal Family History: Family History (Last Reviewed 05/20/20 @ 21:[address] Cassy Cruz MD) Father CVA (cerebral vascular accident) History Items: Hypertension Review of Systems Constitutional: Denies: Anorexia, Chills, Fever, Weakness Eyes: Denies: Blurred vision, Double vision, Drainage, Redness HEENT: Denies: Difficulty Hearing, Ear Pain, Eye Pain, Nasal Congestion, Sore Throat Cardiovascular: Denies: Chest Pain, Chest Pressure, Heaviness, Light Headedness, Palpitations, Syncope Respiratory: Denies: Cough, Pleuritic Pain, Shortness of Breath, Sputum production, Wheezing Gastrointestinal: Denies: Abdominal Pain, Constipation, Diarrhea, Nausea, Vomiting Genitourinary: Denies: Dysuria, Frequency, Hematuria Musculoskeletal: Denies: Arm Pain, Back Pain, Foot Pain Skin: Denies: Dryness, Rash Neurological: Reports: Confusion. Denies: Balance problems, Double vision, Slurred speech, Headaches, Numbness, Tingling Psychiatric: Reports: Depression. Denies: Anxiety Endocrine: Denies: Change in Body Habitus, Polydipsia, Polyuria VTE Information - Inpt Only VTE Present on Admission: No VTE Mechan Device Prophylaxis: None VTE Pharm Prophylaxis ordered?: Yes - Physical Exam Vitals/I&O's: Vital Signs Temp Pulse Resp BP Pulse Ox 97.1 F L 85 19 H 189/96 H 96 05/20/20 17:57 05/20/20 20:00 05/20/20 20:00 05/20/20 20:00 05/20/20 20:00 Oxygen Flow Rate (L/min) 2 Oxygen Delivery Method Room Air Weight: 195 lb 12.328 oz Body Mass Index (BMI) 35.8 Finger Stick Blood Glucose 123 General: Alert, Cooperative, No apparent distress, - - She is aphasic. HEENT: Atraumatic, PERRLA, EOMI, Normocephalic Oral: Moist Mucosa, No Gingival or Mucosal Lesions/ Ulcerations Neck: Supple, No JVD, Negative Carotid Bruits, Trachea Midline, Thyroid Normal Size and Texture Lungs: Clear to auscultation, Normal air movement, No rhonchi, No wheeze, No rales, Diminished Cardiovascular: Regular rate, Regular Rhythm, Normal S1, Normal S2, PMI Normal Abdomen: Bowel Sounds Present, Soft, Non Tender, Non-Distended, No Hepato- splenomegaly Extremities: No clubbing, No cyanosis, No edema Skin: No rashes, No breakdown Lymphatic: No Cervical, Supraclavicular, or Inguinal Adenopathy Neurological: Cranial nerves II-XII grossly intact, Motor Exam 5/5 strength throughout, - - Expressive aphasia. Psych/Mental Status: Normal Affect, Appropriate Laboratory Results 05/20/20 18:09: POC Glucose 123 H 05/20/20 18:10: WBC 11.8 H, RBC 4.99, Hgb 14.7, Hct 44.7, MCV 89.6, MCH 29.5, MCHC 32.9, RDW Std Deviation 42.3, RDW Coeff of Elmer 13.0, Plt Count 320, MPV 11.9, Immature Gran % (Auto) 1.700 H, Neut % (Auto) 74.2 H, Lymph % (Auto) 17.8 L, Thayer % (Auto) 5.2, Eos % (Auto) 0.3, Baso % (Auto) 0.8, Absolute Neuts (auto) 8.8 H, Absolute Lymphs (auto) 2.11, Nucleated RBC % 0 05/20/20 18:10: PT 12.1, INR 1.0, APTT 26.0 05/20/20 18:10: Sodium 140, Potassium 3.7, Chloride 107, Carbon Dioxide 24.0, Anion Gap 9, BUN 15, Creatinine 1.20 H, Estim Creat Clear Calc 31.05, Est GFR (MDRD) Af Amer 56 L, Est GFR (MDRD) Non-Af 46 L, BUN/Creatinine Ratio 12.5, Glucose 133 H, Calcium 9.4, Troponin I 0.052 H Clinical Impression(s) from Imaging Studies Brain CT 05/20/20 18:44 IMPRESSION: Normal unenhanced CT scan of the brain. Electronically Signed: Kasi Paniagua MD at 19:34 EDT , Service support , Chest X-Ray 05/20/20 19:05 IMPRESSION: No definite acute or significant abnormality seen. Electronically Signed: Kasi Paniagua MD at 19:32 EDT , Service support , Assessment/Plan This is a 79 years old female patient presented to the emergency room because of increasing confusion and expressive aphasia in the setting of history of multiple strokes and she is being admitted for evaluation. #1 expressive aphasia/confusion: CT brain showed no acute findings. She has no motor focal deficit on physical exam apart from expressive aphasia. Patient had acute stroke back on January,, status post TPA and she was transferred to [facility] in [place] and she had no interventions performed. She has been on aspirin and statins. EKG reviewed as above. Plan: Admit to PCU for observation, cardiac monitoring, NIH stroke scale, MRI brain, continue aspirin statins, gentle IV fluids for hydration, Tylenol as needed, Zofran as needed, repeat CBC and BMP tomorrow morning, PT OT evaluation and treatment. #2 abnormal cardiac enzymes: Could be due to stroke versus high blood pressure. Patient denied any chest pain. EKG reviewed, no acute changes. She had 2D echocardiogram on March, that showed normal LV size and function, ejection fraction was 65%, stage I diastolic function. Plan: Cardiac monitorin g, serial cardiac enzymes, repeat EKG tomorrow morning, continue aspirin, statins, losartan. #3 hypertension: In the ED, blood pressure was elevated, received IV labetalol. Continue Norvasc and losartan, start IV hydralazine as needed, goal blood pressure is around 170 systolic. #4 history of strokes: Plan as above, continue aspirin and statins. #5 systemic lupus erythematosus: Stable, continue prednisone daily. #6 stage III chronic kidney disease: Kidney function stable at baseline, plan to monitor. #7 CAD: Without history of interventions in the past. Plan as above, continue aspirin and statins as well as a statin. #8 depression: Continue duloxetine. #9 dementia: Stable, continue donepezil. #10 hyperlipidemia: Continue statins. #11 DVT prophylaxis: Subcu Lovenox. This note was generated with [employer] dictation software. It may contain incorrect words, spelling, and punctuation that were not noted in checking the note before signing. OBSV E&M: [id number] Initial observation care L3
[2020-05-20] MEDS: Aspirin 81 MG TAB.CHEW 324 MG PO (21:39)
[2020-05-20] MEDS: Labetalol (Prefilled) 20 MG/4 ML IV (21:40)
--- NOTE | 2020-05-20 22:19 | MRI_ITS ---
We are attempting to reach an attending provider to discuss findings. An addendum with communication details will be sent when the communication is complete. STUDY: MRI BRAIN WITHOUT CONTRAST REASON FOR EXAM: Female, 79 years old. confusion, H/O RECENT CVA 01/2020 TECHNIQUE: Standardized multiplanar fat and water weighted pulse sequences were obtained. COMPARISON: CT 05/20/2020, MRI 04/05/2020 FINDINGS: There is mild cerebral atrophy with widening of the extra-axial spaces and ventricular dilatation. There are a limited number of small white matter hyperintensities, distributed throughout the deep white matter tracts of the cerebral hemispheres, consistent with mild chronic white matter ischemic changes. Hyperintensity of the cortex of the anterior left parietal lobe demonstrates restricted diffusion consistent with an acute/subacute infarct. Normal T2* images of the brain without demonstrated susceptibility artifact. There is no demonstrated hemosiderin stain. Normal bilateral basal ganglia. Normal thalami. There is no extra-axial fluid accumulation. Normal flow voids within the major intracranial circulation suggesting patency by spin echo criteria. There is enlargement of the sella turcica with increased CSF within the sella and flattening of the pituitary gland consistent with an empty sellar syndrome. Normal infundibular stalk, hypothalamus, and optic chiasm. Normal tectal plate and pineal gland. Normal midbrain, adán and medulla. Normal cerebellum. Normal basal cisterns. Normal bilateral temporal bones. Normal bilateral internal auditory canals. There are bilateral ocular lens implants with otherwise normal intraorbital contents. Normal visualized paranasal sinuses. Normal calvarium and skull base. Normal visualized soft tissue structures. Normal visualized upper cervical spine. MRI/Brain without Contrast IMPRESSION: Involutional changes of the brain, as described above. Acute/subacute left middle supra artery infarct of the anterior left parietal lobe. Electronically Signed: Mat Duarte MD at 9:37 EDT Tel , Service support ,
[2020-05-20] MEDS: 0.9% Normal Saline 1,000 ML 75 ML IV (22:48)
[2020-05-20] MEDS: Gabapentin 300 MG Capsule PO (23:21)
[2020-05-20] MEDS: Atorvastatin Calcium 40 MG Tablet PO (23:21)
[2020-05-20] MEDS: Donepezil HCl 5 MG Tablet PO (23:21)
[2020-05-21] VITALS (10 sets, daily range): BP systolic 146–167; BP diastolic 70–88; PULSE 60–75; RESP 13–18; TEMP 36.6–37.1; O2SAT 92–98; BMI 35.4
[2020-05-21 05:18] LABS: Absolute Neutrophil Count 6.1 X10^3/uL (2.0-7.7); Basophil# 0.09 X10^3/uL; Eosinophil# 0.04 X10^3/uL; Eosinophils% 0.4 % (0-5); Hematocrit 38.9 % (37-47); Hemoglobin 12.6 g/dL (12.0-15.0); Lymphocyte % 23.3 % (19-41); Mean Corp Hgb Conc 32.4 g/dL (32-36); Mean Corpuscular Hgb 29.1 pg (27.0-32.0); Mean Corpuscular Volume 89.8 fL (81-99); Monocyte# 0.57 X10^3/uL; Monocyte% 6.3 % (0-10); NRBC Flagged by Analyzer 0 % (0-5); Neutrophil # 6.05 X10^3/uL (2.7-7.7); Neutrophil % 67.3 % (47-70); Platelet Count 256 K/mm3 (150-450); RBC Distribution Width SD 42.6 fl (35.1-43.9); Red Blood Count 4.33 M/mm3 (4.2-5.4)
[2020-05-21 05:37] LABS: Anion Gap 11 (5-15); BUN 16 mg/dL (7-18); BUN/Creat Ratio 14.7 RATIO (10-20); Calcium,Total 8.4 mg/dL (8.5-10.1); Chloride 108 mmol/L (98-107); Creatinine, Serum 1.09 mg/dL (0.55-1.02); EST Glomerular Filtration Rate 52 mL/min (>60); Est Glom Filt Rate - Afr Amer 63 mL/min (>60); Estimated Creatinine Clearance 34.19 ml/min; Glucose 114 mg/dL (74-106); Potassium 3.6 mmol/L (3.5-5.1); Sodium Level 141 mmol/L (136-145)
--- NOTE | 2020-05-21 05:55 | EKG12_ITS ---
Test Reason : Blood Pressure : / mmHG Vent. Rate : 064 BPM Atrial Rate : 064 BPM P-R Int : 164 ms QRS Dur : 082 ms QT Int : 458 ms P-R-T Axes : 030 019 009 degrees QTc Int : 472 ms Normal sinus rhythm Nonspecific T wave abnormality Prolonged QT Abnormal ECG Confirmed by GUILLE ARROYO, DARÍO ([id number]), staff editor NOLVIA MARTÍNEZ ([id number]) on 05/24/2020 1:05:49 PM Referred By: DORA Confirmed By:DARÍO HAN MD
--- NOTE | 2020-05-21 09:55 | TELEMED_ITS ---
[facility] has confirmed receipt of a request for visit. This document confirms receipt of the order initiating the consult. To find the results of the consultation, please view the patient's reports for the scanned Telemed Consult.
[2020-05-21] MEDS: amLODIPine 5 MG Tablet PO (10:00)
[2020-05-21] MEDS: DULoxetine Hcl 60 MG Capsule PO (10:00)
[2020-05-21] MEDS: Losartan Potassium 100 MG Tablet PO (10:00)
[2020-05-21] MEDS: Pantoprazole Sodium 40 MG Tablet PO (10:00)
[2020-05-21] MEDS: Aspirin 81 MG TAB.CHEW PO (10:01)
[2020-05-21] MEDS: Gabapentin 300 MG Capsule PO ×4 (10:01→22:15)
[2020-05-21] MEDS: predniSONE 5 MG Tablet PO (10:01)
[2020-05-21] MEDS: Enoxaparin 30 MG/0.3 ML Syringe SC (10:01)
--- NOTE | 2020-05-21 12:32 | PCM.PROGNOTE ---
<ZachariahDarcy DIRECTOR OF DONOR RELATIONS - Last Filed: 05/21/20 13:05> Subjective: Patient seen and examined. Continues to have difficulty with aphasia. Patient nods her head appropriately during questioning however not able to communicate verbally. Later today with therapy, patient was able to speak a few sentences sporadically. She denies other neuro symptoms or focal deficits. - Physical Exam Vitals/I&O's: Vital Signs Temp Pulse Resp BP Pulse Ox 98.5 F 68 13 164/76 H 94 05/21/20 10:00 05/21/20 10:00 05/21/20 10:00 05/21/20 10:00 05/21/20 10:00 Oxygen Flow Rate (L/min) 2 Oxygen Delivery Method Room Air Weight: 193 lb 12.581 oz Body Mass Index (BMI) 35.4 Finger Stick Blood Glucose 123 Intake and Output for Last 24 Hours 05/19/20 05/20/20 05/21/20 23:59 23:59 23:59 Intake Total 926.25 / 926.25 Balance 926.25 / 926.25 General: Alert, Oriented x3, Cooperative HEENT: Atraumatic, PERRLA, EOMI, Normocephalic Neck: Supple, No JVD, Negative Carotid Bruits Lungs: Clear to auscultation, Normal air movement Cardiovascular: Regular rate, No murmurs Abdomen: Bowel Sounds Present, Soft, Non Tender, Non-Distended Extremities: No clubbing, No cyanosis, No edema, Capillary Refill Less than 3 Seconds Skin: No rashes, No breakdown Musculoskeletal: No Tenderness to Palpation of Joints or Extremities Neurological: Cranial nerves II-XII grossly intact, - - Expressive aphasia Psych/Mental Status: Normal Affect Laboratory Results 05/20/20 18:09: POC Glucose 123 H 05/20/20 18:10: WBC 11.8 H, RBC 4.99, Hgb 14.7, Hct 44.7, MCV 89.6, MCH 29.5, MCHC 32.9, RDW Std Deviation 42.3, RDW Coeff of Emler 13.0, Plt Count 320, MPV 11.9, Immature Gran % (Auto) 1.700 H, Neut % (Auto) 74.2 H, Lymph % (Auto) 17.8 L, Haralson % (Auto) 5.2, Eos % (Auto) 0.3, Baso % (Auto) 0.8, Absolute Neuts (auto) 8.8 H, Absolute Lymphs (auto) 2.11, Nucleated RBC % 0 05/20/20 18:10: PT 12.1, INR 1.0, APTT 26.0 05/20/20 18:10: Sodium 140, Potassium 3.7, Chloride 107, Carbon Dioxide 24.0, Anion Gap 9, BUN 15, Creatinine 1.20 H, Estim Creat Clear Calc 31.05, Est GFR (MDRD) Af Amer 56 L, Est GFR (MDRD) Non-Af 46 L, BUN/Creatinine Ratio 12.5, Glucose 133 H, Calcium 9.4, Troponin I 0.052 H 05/21/20 01:15: Troponin I 0.057 H 05/21/20 05:00: WBC 9.0, RBC 4.33, Hgb 12.6, Hct 38.9, MCV 89.8, MCH 29.1, MCHC 32.4, RDW Std Deviation 42.6, RDW Coeff of Elmer 13.0, Plt Count 256, MPV 11.0, Immature Gran % (Auto) 1.700 H, Neut % (Auto) 67.3, Lymph % (Auto) 23.3, Haralson % (Auto) 6.3, Eos % (Auto) 0.4, Baso % (Auto) 1.0, Absolute Neuts (auto) 6.1, Absolute Lymphs (auto) 2.10, Nucleated RBC % 0 05/21/20 05:00: Sodium 141, Potassium 3.6, Chloride 108 H, Carbon Dioxide 22.0, Anion Gap 11, BUN 16, Creatinine 1.09 H, Estim Creat Clear Calc 34.19, Est GFR (MDRD) Af Amer 63, Est GFR (MDRD) Non-Af 52 L, BUN/Creatinine Ratio 14.7, Glucose 114 H, Calcium 8.4 L 05/21/20 05:00: Troponin I 0.042 05/21/20 07:25: Troponin I 0.054 H Current Medications Acetaminophen (Acetaminophen 325 Mg Tablet) 650 mg PO Q6H PRN PRN PRN Reason: Pain Score 1-10/Temp > 100.7 F Amlodipine Besylate (Amlodipine 5 Mg Tablet) 5 mg PO DAILY [facility] Last Admin: 05/21/20 10:00 Dose: 5 mg Documented by: Aspirin (Aspirin 81 Mg Tab.Chew) 81 mg PO DAILY@0800 [facility] Last Admin: 05/21/20 10:01 Dose: 81 mg Documented by: Atorvastatin Calcium (Atorvastatin Calcium 40 Mg Tablet) 40 mg PO QHS [facility] Last Admin: 05/20/20 23:21 Dose: 40 mg Documented by: Cyclobenzaprine HCl (Cyclobenzaprine Hcl 5 Mg Tablet) 5 mg PO DAILY PRN PRN PRN Reason: muscle spasms Donepezil HCl (Donepezil Hcl 5 Mg Tablet) 5 mg PO QHS [facility] Last Admin: 05/20/20 23:21 Dose: 5 mg Documented by: Duloxetine HCl (Duloxetine Hcl 60 Mg Capsule) 60 mg PO DAILY [facility] Last Admin: 05/21/20 10:00 Dose: 60 mg Documented by: Enoxaparin Sodium (Enoxaparin 30 Mg/0.3 Ml Syringe) 30 mg SC DAILY [facility] Last Admin: 05/21/20 10:01 Dose: 30 mg Documented by: Gabapentin (Gabapentin 300 Mg Capsule) 300 mg PO 4X/DAY [facility] Last Admin: 05/21/20 10:01 Dose: 300 mg Documented by: Hydralazine HCl (Hydralazine 20 Mg/Ml Vial) 10 mg IV Q6H PRN PRN PRN Reason: for SBP>170 Losartan Potassium (Losartan Potassium 100 Mg Tablet) 100 mg PO DAILY [facility] Last Admin: 05/21/20 10:00 Dose: 100 mg Documented by: Meclizine HCl (Meclizine 12.5 Mg Tablet) 12.5 mg PO BID PRN PRN PRN Reason: Vertigo Ondansetron HCl (Ondansetron 4 Mg/2 Ml Vial) 4 mg IV Q8H PRN PRN PRN Reason: NAUSEA/VOMITING Pantoprazole Sodium (Pantoprazole Sodium 40 Mg Tablet) 40 mg PO DAILY [facility] Last Admin: 05/21/20 10:00 Dose: 40 mg Documented by: Prednisone (Prednisone 5 Mg Tablet) 5 mg PO DAILYCM [facility] Last Admin: 05/21/20 10:01 Dose: 5 mg Documented by: Sodium Chloride (0.9% Saline Lock 10 Ml Syringe) 10 - 40 ml IV UD PRN PRN Reason: SALINE FLUSH Medical Necessity - Tobacco Use Smoking Status: Never smoker Assessment/Plan 1. Acute CVA, history of recurrent CVA-MRI of brain shows acute/subacute left middle super artery infarct of the anterior left parietal lobe. Patient had recent CTA of neck 02/22/2020 which showed patent craniocervical arteries. Echocardiogram 04/05/2020 demonstrates an EF of 65%, stage I diastolic dysfunction. Given new CVA which is suspected to be embolic, will repeat echocardiogram. Continue aspirin, statin. Plavix added with plans for dual antiplatelet therapy for 21 days. [facility] neurology consult obtained. Probable embolic infarct. There is concern for recurrence of DVT/PE related to underlying SLE. Patient has a history of IVC filter placement. Unclear if patient has been on anticoagulation in the past or if there is underlying reason patient has not been on anticoagulation. Will request records from PCP and prior [facility] admission with previous CVA. PT/OT/ST. Monitor telemetry. Plan for 30-day event recorder at discharge. 2. Indeterminant troponin-suspect demand ischemia. Patient denies chest pain. No acute EKG changes. Enzymes did not trend. Will repeat echocardiogram as noted above. 3. History of lupus erythematous with history of DVT/PE s/p IVC filter placement-consider anticoagulation as noted above. 4. Hypertension-elevated on admission, now improved. Continue home amlodipine, losartan regimen. Increase amlodipine to 10 mg daily. 5. Chronic kidney disease stage III-stable, trend BMP. 6. Hyperlipidemia-continue statin. 7. CAD-continue aspirin, statin. 8. Depression-on duloxetine. 9. Dementia-continue donepezil. DVT prophylaxis-Lovenox subcu This patient was seen by JOCELYN Velazco under the supervision of Dr. Stover. <Harry Stover - Last Filed: 05/21/20 13:22> - Physical Exam Vitals/I&O's: Vital Signs Temp Pulse Resp BP Pulse Ox 98.5 F 68 13 164/76 H 94 05/21/20 10:00 05/21/20 10:00 05/21/20 10:00 05/21/20 10:00 05/21/20 10:00 Oxygen Flow Rate (L/min) 2 Oxygen Delivery Method Room Air Weight: 87.9 kg Body Mass Index (BMI) 35.4 Finger Stick Blood Glucose 123 Intake and Output for Last 24 Hours 05/19/20 05/20/20 05/21/20 23:59 23:59 23:59 Intake Total 926.25 / 926.25 Balance 926.25 / 926.25 Laboratory Results 05/20/20 18:09: POC Glucose 123 H 05/20/20 18:10: WBC 11.8 H, RBC 4.99, Hgb 14.7, Hct 44.7, MCV 89.6, MCH 29.5, MCHC 32.9, RDW Std Deviation 42.3, RDW Coeff of Elmer 13.0, Plt Count 320, MPV 11.9, Immature Gran % (Auto) 1.700 H, Neut % (Auto) 74.2 H, Lymph % (Auto) 17.8 L, [place]alson % (Auto) 5.2, Eos % (Auto) 0.3, Baso % (Auto) 0.8, Absolute Neuts (auto) 8.8 H, Absolute Lymphs (auto) 2.11, Nucleated RBC % 0 05/20/20 18:10: PT 12.1, INR 1.0, APTT 26.0 05/20/20 18:10: Sodium 140, Potassium 3.7, Chloride 107, Carbon Dioxide 24.0, Anion Gap 9, BUN 15, Creatinine 1.20 H, Estim Creat Clear Calc 31.05, Est GFR (MDRD) Af Amer 56 L, Est GFR (MDRD) Non-Af 46 L, BUN/Creatinine Ratio 12.5, Glucose 133 H, Calcium 9.4, Troponin I 0.052 H 05/21/20 01:15: Troponin I 0.057 H 05/21/20 05:00: WBC 9.0, RBC 4.33, Hgb 12.6, Hct 38.9, MCV 89.8, MCH 29.1, MCHC 32.4, RDW Std Deviation 42.6, RDW Coeff of Elmer 13.0, Plt Count 256, MPV 11.0, Immature Gran % (Auto) 1.700 H, Neut % (Auto) 67.3, Lymph % (Auto) 23.3, [place] % (Auto) 6.3, Eos % (Auto) 0.4, Baso % (Auto) 1.0, Absolute Neuts (auto) 6.1, Absolute Lymphs (auto) 2.10, Nucleated RBC % 0 05/21/20 05:00: Sodium 141, Potassium 3.6, Chloride 108 H, Carbon Dioxide 22.0, Anion Gap 11, BUN 16, Creatinine 1.09 H, Estim Creat Clear Calc 34.19, Est GFR (MDRD) Af Amer 63, Est GFR (MDRD) Non-Af 52 L, BUN/Creatinine Ratio 14.7, Glucose 114 H, Calcium 8.4 L 05/21/20 05:00: Troponin I 0.042 05/21/20 07:25: Troponin I 0.054 H Current Medications Acetaminophen (Acetaminophen 325 Mg Tablet) 650 mg PO Q6H PRN PRN PRN Reason: Pain Score 1-10/Temp > 100.7 F Amlodipine Besylate (Amlodipine 10 Mg Tablet) 10 mg PO DAILY [facility] Aspirin (Aspirin 81 Mg Tab.Chew) 81 mg PO DAILY@0800 [facility] Last Admin: 05/21/20 10:01 Dose: 81 mg Documented by: Atorvastatin Calcium (Atorvastatin Calcium 40 Mg Tablet) 40 mg PO QHS [facility] Last Admin: 05/20/20 23:21 Dose: 40 mg Documented by: Clopidogrel Bisulfate (Clopidogrel Bisulfate 75 Mg Tablet) 75 mg PO DAILY [facility] Cyclobenzaprine HCl (Cyclobenzaprine Hcl 5 Mg Tablet) 5 mg PO DAILY PRN PRN PRN Reason: muscle spasms Donepezil HCl (Donepezil Hcl 5 Mg Tablet) 5 mg PO QHS [facility] Last Admin: 05/20/20 23:21 Dose: 5 mg Documented by: Duloxetine HCl (Duloxetine Hcl 60 Mg Capsule) 60 mg PO DAILY [facility] Last Admin: 05/21/20 10:00 Dose: 60 mg Documented by: Enoxaparin Sodium (Enoxaparin 30 Mg/0.3 Ml Syringe) 30 mg SC DAILY [facility] Last Admin: 05/21/20 10:01 Dose: 30 mg Documented by: Gabapentin (Gabapentin 300 Mg Capsule) 300 mg PO 4X/DAY [facility] Last Admin: 05/21/20 10:01 Dose: 300 mg Documented by: Hydralazine HCl (Hydralazine 20 Mg/Ml Vial) 10 mg IV Q6H PRN PRN PRN Reason: for SBP>170 Losartan Potassium (Losartan Potassium 100 Mg Tablet) 100 mg PO DAILY [facility] Last Admin: 05/21/20 10:00 Dose: 100 mg Documented by: Meclizine HCl (Meclizine 12.5 Mg Tablet) 12.5 mg PO BID PRN PRN PRN Reason: Vertigo Ondansetron HCl (Ondansetron 4 Mg/2 Ml Vial) 4 mg IV Q8H PRN PRN PRN Reason: NAUSEA/VOMITING Pantoprazole Sodium (Pantoprazole Sodium 40 Mg Tablet) 40 mg PO DAILY [facility] Last Admin: 05/21/20 10:00 Dose: 40 mg Documented by: Prednisone (Prednisone 5 Mg Tablet) 5 mg PO DAILYCM [facility] Last Admin: 05/21/20 10:01 Dose: 5 mg Documented by: Sodium Chloride (0.9% Saline Lock 10 Ml Syringe) 10 - 40 ml IV UD PRN PRN Reason: SALINE FLUSH Assessment/Plan This patient was seen in conjunction with JOCELYN Velazco . I have independently interviewed and examined the patient and reviewed pertinent historical, laboratory, and other data. Please refer to JOCELYN Velazco note for details of this patient's presentation, findings, and recommendations. I have reviewed JOCELYN Velazco note and concur with documented findings. In brief, patient is 79-year-old lady with multiple comorbidities who presented with expressive aphasia. MRI of the brain obtained demonstrated Acute/subacute left middle supra artery infarct of the anterior left parietal lobe Physical Examination: GENERAL: Appears ill looking HEENT: Atraumatic; EYES; Anicteric, Normal Conjunctiva NECK; supple, normal thyroid, RESPIRATORY: Diminished to auscultation CARDIOVASCULAR: Regular S1 S2, GI: soft, normoactive bowel sounds, : No Renal angle tenderness; EXTREMITIES: no clubbing, NEURO: Awake; no lateralizing signs. SKIN: No Rash PSYCH; Flat affect Acute Assessment: 1. Acute CVA (Acute/subacute left middle supra artery infarct of the anterior left parietal lobe) 2. SLE 3. Elevated troponin suspected to secondary to demand ischemia 4. Previous history of recurrent strokes 5. Chronic kidney disease stage III 6. Coronary artery disease per history 7. Previous history of PE/DVT status post IVC filter placement 8. Hypertension 9. Depression 10. Dyslipidemia Clinical Impression(s) from Imaging Studies Brain CT 05/20/20 18:44 IMPRESSION: Normal unenhanced CT scan of the brain. Electronically Signed: Kasi Paniagua MD at 19:34 EDT , Service support , Chest X-Ray 05/20/20 19:05 IMPRESSION: No definite acute or significant abnormality seen. Electronically Signed: Kasi Paniagua MD at 19:32 EDT , Service support , Brain MRI 05/20/20 22:19 IMPRESSION: Involutional changes of the brain, as described above. Acute/subacute left middle supra artery infarct of the anterior left parietal lobe. Electronically Signed: Mat Duarte MD at 9:37 EDT Tel , Service support , ADDENDUM: 05/21/20 1005 IMPRESSION: Involutional changes of the brain, as described above. Acute/subacute left middle supra artery infarct of the anterior left parietal lobe. N.B. : The above information has been verbally conveyed by Mat Duarte MD to BENJAMIN taylor on 05/21/2020 09:58:06 (ET). Electronically Signed: Mat Duarte MD at 9:37 EDT Tel , Service support , Advance planning; did discuss with the patient regarding advanced directives as well as CODE STATUS. Did explain the various scenarios involved ( FULL CODE, DNR CCA, DNR CCA with no intubation, and DNR CC and what each meant) patient elected full code with CPR and intubation if warranted. Order was placed. Time spent on discussion 17 minutes. Inpatient E&M: 49479 Subs Hosp L3 Procedures: 14620 Advncd Care Plan 30 Min
--- NOTE | 2020-05-21 12:58 | CASEMGMT ---
Assessment- SW completed assessment with patient's over the phone as patient is not able to talk due to her Stroke. SW also confirmed addresses and phone numbers. Living situation- Patient lives with her in a 1 story home with 3 entry steps. PCP: Alli Peace [employer] IN [employer] Specialists: Yes, but does not know their names. He thinks she sees a Neurologist. Pharmacy: [facility] DME: shower chair, walker, canes (standard and quad), raised toilet seat, and wheelchair ADL's/IADL's: Patient does not drive, but her does. Her helps her with bathing. He does the household work. Patient normally uses her canes or a walker to get around. She manages her own medications. Past SNF/rehab: [facility]CU Past HH: Yes, but could not remember agency LW: Yes. SW asked to bring in a copy, but he said he does not know where patient keeps documents. POA: Yes. SW asked to bring in a copy, but he said he does not know where patient keeps documents. Plan: At this time patient's plan is to go home with her . PT/OT said patient does not need therapy. Await Speech Therapy recommendations. Edwina JONES BOOKING PRIZER
--- NOTE | 2020-05-21 13:09 | CASEMGMT ---
SW completed a PHQ 9 with patient and she scored a 4 which indicates minimal depression. Patient declined need for counseling resources. Edwina JONES MSW
--- NOTE | 2020-05-21 13:51 | NURSING ---
Update provided via telephone to granddamarina Brennan.
[2020-05-21] MEDS: Clopidogrel Bisulfate 75 MG Tablet PO (14:51)
--- NOTE | 2020-05-21 14:52 | CASEMGMT ---
Pt aware of need for speech therapy OP only at this time and is agreeable to script being faxed to [facility] at this time. Script faxed and original to pt. Then this RN VICENTE received a call from pt's daughter/granddaughter requesting pt go to SNF at discharge. Pt states ok to speak with daughter/granddaughter at this time and they are aware that PT/OT recommend no further therapy for pt and that speech recommended OP speech for pt at this time. Advised them that pt would require a precert thru insurance and that would likely not be approved as therapy states no need, voices understanding. Daughter/granddaughter aware that OP speech was set up at [facility] and they state that pt may go stay with her daughter near [facility], [place] for a bit, so pt provided with generic OP speech therapy script as well at this time and list of in-network hospitals near daughters home. Pt is updated on all and shakes head in understanding. Call back to daughter/granddaughter to notify of paperwork left with pt, voice understanding and gratitude at this time. Pt/family voice no further questions/concerrns/needs at this time. Milo ARCHITECTURAL PROJECT CAPTAIN updated on all, voices understanding. Russ NEWBY CM
[2020-05-21] MEDS: APIXABAN 2.5 MG TABLET PO (22:14)
[2020-05-21] MEDS: Atorvastatin Calcium 40 MG Tablet PO (22:14)
[2020-05-21] MEDS: Donepezil HCl 5 MG Tablet PO (22:14)
[2020-05-22 02:00] VITALS: BP 161/70; PULSE 64; RESP 16; TEMP 36.7; O2SAT 94
[2020-05-22 02:39] VITALS: BMI 35.4
[2020-05-22 03:00] VITALS: PULSE 57
[2020-05-22 05:59] VITALS: BP 156/74; PULSE 58; RESP 16; TEMP 36.8; O2SAT 93
[2020-05-22 07:15] VITALS: O2SAT 94
[2020-05-22 07:42] LABS: Hematocrit 37.7 % (37-47); Hemoglobin 12.1 g/dL (12.0-15.0); Mean Corp Hgb Conc 32.1 g/dL (32-36); Mean Corpuscular Volume 90.4 fL (81-99); Mean Platelet Vol. 11.3 fl (6.2-12.0); Platelet Count 241 K/mm3 (150-450); RBC Distribution Width CV 13.1 % (11.6-14.6); RBC Distribution Width SD 42.5 fl (35.1-43.9); Red Blood Count 4.17 M/mm3 (4.2-5.4); White Blood Count 8.3 K/mm3 (4.4-11.0)
[2020-05-22 07:56] LABS: Anion Gap 6 (5-15); BUN 15 mg/dL (7-18); BUN/Creat Ratio 14.2 RATIO (10-20); Calcium,Total 8.3 mg/dL (8.5-10.1); Chloride 106 mmol/L (98-107); Creatinine, Serum 1.06 mg/dL (0.55-1.02); EST Glomerular Filtration Rate 53 mL/min (>60); Est Glom Filt Rate - Afr Amer 65 mL/min (>60); Estimated Creatinine Clearance 35.15 ml/min; Glucose 99 mg/dL (74-106); Magnesium 1.7 mg/dL (1.6-2.6); Potassium 3.6 mmol/L (3.5-5.1); Sodium Level 139 mmol/L (136-145)
[2020-05-22] MEDS: Pantoprazole Sodium 40 MG Tablet PO (08:07)
[2020-05-22] MEDS: Gabapentin 300 MG Capsule PO (08:07)
[2020-05-22] MEDS: APIXABAN 2.5 MG TABLET PO (08:08)
[2020-05-22] MEDS: amLODIPine 10 MG Tablet PO (08:08)
[2020-05-22] MEDS: DULoxetine Hcl 60 MG Capsule PO (08:08)
[2020-05-22] MEDS: Aspirin 81 MG TAB.CHEW PO (08:08)
[2020-05-22] MEDS: Losartan Potassium 100 MG Tablet PO (08:08)
[2020-05-22] MEDS: predniSONE 5 MG Tablet PO (08:08)
[2020-05-22 08:27] VITALS: PULSE 62
[2020-05-22 10:00] VITALS: BP 168/91; PULSE 67; RESP 18; TEMP 36.7; O2SAT 97
--- NOTE | 2020-05-22 11:55 | DCINST_ITS ---
- Discharge Diagnoses Current Active Problems: Current Active and Chronic Problems (Last Updated 05/20/20 @ 20:[address] Cassy Cruz MD) CKD (chronic kidney disease), stage III (Chronic) CVA (cerebral vascular accident) (Chronic) Systemic lupus erythematosus (Chronic) Coronary artery disease (Chronic) Chronic kidney disease (Chronic) Hypertension (Chronic) Depression (Chronic) Vascular dementia (Chronic) Vertigo (Chronic) Atherosclerotic heart disease of [place] coronary artery without angina pectoris (Chronic ~05/09/17) Mild; Left Main: mild calcification, angiographically normal; LAD: prox: Mild calcification, mild luminal irregularities;CX: prox: Mild luminal irregularities; RCA: angiographically normal per cath 05/09/17 Hyperlipidemia (Chronic) Benign essential hypertension (Chronic) GERD (gastroesophageal reflux disease) (Chronic) You will use the following diet at home:: Cardiac Discharge Activity: Return to Normal Activity Call your doctor if you observe: Shortness of breath, Dizziness, Fainting spells, Chest pain Additional Instructions: Continue outpatient follow-up with speech therapy. Allergies/Adverse Reactions: Allergies ampicillin Allergy (Verified 05/20/20 18:10) Rash buprenorphine HCl [From Buprenex] Allergy (Verified 05/20/20 18:10) Other codeine Allergy (Verified 05/20/20 18:10) Anaphylaxis gold Au 198 Allergy (Verified 05/20/20 18:10) Rash guaifenesin Allergy (Verified 05/20/20 18:10) Rash promethazine HCl [From Phenergan] Allergy (Verified 05/20/20 18:10) Shortness of breath Sulfa (Sulfonamide Antibiotics) Allergy (Verified 05/20/20 18:10) Rash sulindac [From Clinoril] Allergy (Verified 05/20/20 18:10) Rash tetracycline [Tetracycline] Allergy (Verified 05/20/20 18:10) Rash thiopental Allergy (Verified 05/20/20 18:10) Rash trimethoprim [From Proloprim] Allergy (Verified 05/20/20 18:10) Rash buspirone [From BuSpar] Adverse Reaction (Verified 05/20/20 18:10) Nausea oxycodone HCl [From OxyContin] Adverse Reaction (Verified 05/20/20 18:10) Other NALDECON Allergy (Uncoded 05/20/20 18:10) Rash SULPHATED OIL Allergy (Uncoded 05/20/20 18:10) Other TAPE Allergy (Uncoded 05/20/20 18:10) Rash Medications to take at Discharge Prednisone 5 mg PO DAILY 11/29/18 Cholecalciferol (Vitamin D3) [Vitamin D3] 2,000 unit PO DAILY 03/24/19 albuterol sulfate 90 mcg/actuation aerosol inhaler 2 puff INHALATION Q6H PRN 10/16/19 duloxetine 60 mg capsule,delayed release 60 mg PO DAILY cap 10/16/19 losartan 100 mg tablet 100 mg PO DAILY 10/16/19 gabapentin 300 mg capsule 300 mg PO 4X/DAY cap 10/30/19 nitroglycerin 0.4 mg sublingual tablet 0.4 mg SUBLINGUAL Q5-15M PRN #25 tab 11/24/19 donepezil 10 mg tablet 5 mg PO QHS tab 02/13/20 Aspirin [Aspirin, Baby] 81 mg PO DAILY@0800 02/26/20 Omeprazole 40 mg PO DAILY 02/26/20 Acetaminophen [Tylenol] 1,000 mg PO Q6H PRN PRN tab 03/09/20 Cyclobenzaprine HCl 5 mg PO DAILY PRN #30 tab 03/09/20 Lidocaine [Lidoderm Patch] 1 patch TOPICAL DAILY #30 patch 03/09/20 Menthol/Lanolin/Calamine/Znox [Calmoseptine Ointment] 1 applic TOPICAL 0600,2200 tube 03/09/20 Nystatin Powder [Mycostatin Powder] 1 applic TOPICAL BID@0600,2200 bottle 03/09/20 Meclizine HCl [Antivert] 12.5 mg PO BID PRN PRN #30 tab 04/05/20 Amlodipine [Norvasc] 10 mg PO DAILY #30 tab 05/22/20 Apixaban [Eliquis] 5 mg PO BID #60 tab 05/22/20 Atorvastatin Calcium 80 mg PO QHS #30 tab 05/22/20 The following prescriptions were given: Atorvastatin Calcium 80 mg PO QHS #30 tab Transmission Status: Pending to [facility]/pharmacy #[id number] Apixaban [Eliquis] 5 mg PO BID #60 tab Transmission Status: Pending to [facility]/pharmacy #[id number] Amlodipine [Norvasc] 10 mg PO DAILY #30 tab Transmission Status: Pending to [facility]/pharmacy #[id number] Primary Care Physician: Zayda Peace, PA [Primary Care Provider] - Please follow up with your Primary Care Physician in: 1 Week Test Results: Test results from this visit will be discussed in further detail at your follow- up appointment, if applicable. Please Follow Up With: Efrain Drake MD - Or primary neurologist When: 2 Weeks Please Follow Up With: Mikie Dwyer MD - Vasculary surgery When: Call for f/u for assessment IVC filter which has been in place extermination inspector Please Follow Up With: Brenda Youngblood MD - Rheumatology follow-up When: 1 Week Proposed Discharge Date: 05/22/20
--- NOTE | 2020-05-22 12:00 | PCM.DC.SUM ---
<Darcy Soni BALING PRESS OPERATOR - Last Filed: 05/22/20 12:09> Discharge Date and Diagnosis Date of Admission: 05/20/20 Date of Discharge: 05/22/20 - Primary Discharge Diagnosis Acute Problems: 1. Acute CVA, history of recurrent CVA 2. Indeterminant troponin-suspect demand ischemia. 3. History of lupus erythematous with history of DVT/PE s/p IVC filter placement 4. Hypertension 5. Chronic kidney disease stage III 6. Hyperlipidemia 7. CAD 8. Depression 9. Dementia - Secondary Discharge Diagnosis Chronic Problems: Chronic Problems (Last Updated 05/20/20 @ 20:[address] Cassy Cruz MD) CKD (chronic kidney disease), stage III (Chronic) CVA (cerebral vascular accident) (Chronic) Debility (Chronic) Left hemiparesis (Chronic) Systemic lupus erythematosus (Chronic) Coronary artery disease (Chronic) Chronic kidney disease (Chronic) Hypertension (Chronic) Pulmonary embolism (Chronic) Vitamin D deficiency (Chronic) Overactive bladder (Chronic) Depression (Chronic) Neuropathic pain (Chronic) Insomnia (Chronic) Vascular dementia (Chronic) Vertigo (Chronic) Atherosclerotic heart disease of [place] coronary artery without angina pectoris (Chronic ~05/09/17) Mild; Left Main: mild calcification, angiographically normal; LAD: prox: Mild calcification, mild luminal irregularities;CX: prox: Mild luminal irregularities; RCA: angiographically normal per cath 05/09/17 Diastolic dysfunction (Chronic) Hyperlipidemia (Chronic) Benign essential hypertension (Chronic) GERD (gastroesophageal reflux disease) (Chronic) History of pulmonary embolism (Chronic) Hospital Course and Treatment Imaging Results: Diagnostic Data Brain CT 05/20/20 18:44 IMPRESSION: Normal unenhanced CT scan of the brain. Electronically Signed: Kasi Paniagua MD at 19:34 EDT , Service support , Chest X-Ray 05/20/20 19:05 IMPRESSION: No definite acute or significant abnormality seen. Electronically Signed: Kasi Paniagua MD at 19:32 EDT , Service support , Brain MRI 05/20/20 22:19 IMPRESSION: Involutional changes of the brain, as described above. Acute/subacute left middle supra artery infarct of the anterior left parietal lobe. Electronically Signed: Mat Duarte MD at 9:37 EDT Tel , Service support , ADDENDUM: 05/21/20 1005 IMPRESSION: Involutional changes of the brain, as described above. Acute/subacute left middle supra artery infarct of the anterior left parietal lobe. N.B. : The above information has been verbally conveyed by Mat Duarte MD to BENJAMIN taylor, on 05/21/2020 09:58:06 (ET). Electronically Signed: Mat Duarte MD at 9:37 EDT Tel , Service support , [facility] neurology Operations: None Procedures: None Summary of Care Provided: The patient is a 79 year old F admitted 05/20/2020 due to difficulty finding words. 1. Acute CVA, history of recurrent CVA-MRI of brain shows acute/subacute left middle super artery infarct of the anterior left parietal lobe. Patient had recent CTA of neck 02/22/2020 which showed patent craniocervical arteries. Echocardiogram 04/05/2020 demonstrates an EF of 65%, stage I diastolic dysfunction. Continue aspirin, statin. [facility] neurology consult obtained. Probable embolic infarct. There is concern for chronic hypercoagulable state related to underlying SLE. Patient has a history of IVC filter placement which patient states has been in place for many years although unable to state when this was placed. She states it was placed at [facility] by Dr. Dwyer however there is no found record of this. Reviewed records from recent [facility] visit and PCP office. No found contraindication for patient being on anticoagulation. Will begin Eliquis 5 mg twice daily in addition to aspirin, statin. Continue outpatient speech therapy. Follow-up with neurology in 2 weeks. Follow-up with vascular surgery as outpatient for evaluation of long-term IVC filter. 2. Indeterminant troponin-suspect demand ischemia. Patient denies chest pain. No acute EKG changes. Enzymes did not trend. 3. History of lupus erythematous with history of DVT/PE s/p IVC filter placement-placed on anticoagulation as noted above. Outpatient follow-up with rheumatology. 4. Hypertension-elevated on admission, now improved. Continue home amlodipine, losartan regimen. Increased amlodipine to 10 mg daily. 5. Chronic kidney disease stage III-stable, trend BMP. 6. Hyperlipidemia-continue statin. 7. CAD-continue aspirin, statin. 8. Depression-on duloxetine. 9. Dementia-continue donepezil. General: Alert, Oriented x3, Cooperative HEENT: Atraumatic, PERRLA, EOMI, Normocephalic Neck: Supple, No JVD, Negative Carotid Bruits Lungs: Clear to auscultation, Normal air movement Cardiovascular: Regular rate, No murmurs Abdomen: Bowel Sounds Present, Soft, Non Tender, Non-Distended Extremities: No clubbing, No cyanosis, No edema, Capillary Refill Less than 3 Seconds Skin: No rashes, No breakdown Musculoskeletal: No Tenderness to Palpation of Joints or Extremities Neurological: Cranial nerves II-XII grossly intact, - - Expressive aphasia Psych/Mental Status: Normal Affect Patient seen and examined prior to discharge. Physical assessment as noted above. Patient is stable for discharge with follow up recommendations as noted above. This patient was seen by JOCELYN Velazco under the supervision of Dr. Castrejon. - Physical Exam Vitals/I&O's: Vital Signs Temp Pulse Resp BP Pulse Ox 98.0 F 67 18 168/91 H 97 05/22/20 10:00 05/22/20 10:00 05/22/20 10:00 05/22/20 10:00 05/22/20 10:00 Oxygen Flow Rate (L/min) 2 Oxygen Delivery Method Room Air Weight: 193 lb 12.581 oz Body Mass Index (BMI) 35.4 Finger Stick Blood Glucose 123 Intake and Output for Last 24 Hours 05/20/20 05/21/20 05/22/20 23:59 23:59 23:59 Intake Total 1176.25 / 1416.25 240 / 240 Output Total 0 / 0 Balance 1176.25 / 1416.25 240 / 240 Laboratory Results 05/22/20 07:28: WBC 8.3, RBC 4.17 L, Hgb 12.1, Hct 37.7, MCV 90.4, MCH 29.0, MCHC 32.1, RDW Std Deviation 42.5, RDW Coeff of Elmer 13.1, Plt Count 241, MPV 11.3 05/22/20 07:28: Sodium 139, Potassium 3.6, Chloride 106, Carbon Dioxide 27.0, Anion Gap 6, BUN 15, Creatinine 1.06 H, Estim Creat Clear Calc 35.15, Est GFR (MDRD) Af Amer 65, Est GFR (MDRD) Non-Af 53 L, BUN/Creatinine Ratio 14.2, Glucose 99, Calcium 8.3 L, Magnesium 1.7 Current Medications Acetaminophen (Acetaminophen 325 Mg Tablet) 650 mg PO Q6H PRN PRN PRN Reason: Pain Score 1-10/Temp > 100.7 F Amlodipine Besylate (Amlodipine 10 Mg Tablet) 10 mg PO DAILY [facility] Last Admin: 05/22/20 08:08 Dose: 10 mg Documented by: Apixaban (Apixaban 2.5 Mg Tablet) 2.5 mg PO BID [facility] Last Admin: 05/22/20 08:08 Dose: 2.5 mg Documented by: Aspirin (Aspirin 81 Mg Tab.Chew) 81 mg PO DAILY@0800 [facility] Last Admin: 05/22/20 08:08 Dose: 81 mg Documented by: Atorvastatin Calcium (Atorvastatin Calcium 40 Mg Tablet) 40 mg PO QHS [facility] Last Admin: 05/21/20 22:14 Dose: 40 mg Documented by: Cyclobenzaprine HCl (Cyclobenzaprine Hcl 5 Mg Tablet) 5 mg PO DAILY PRN PRN PRN Reason: muscle spasms Donepezil HCl (Donepezil Hcl 5 Mg Tablet) 5 mg PO QHS [facility] Last Admin: 05/21/20 22:14 Dose: 5 mg Documented by: Duloxetine HCl (Duloxetine Hcl 60 Mg Capsule) 60 mg PO DAILY [facility] Last Admin: 05/22/20 08:08 Dose: 60 mg Documented by: Gabapentin (Gabapentin 300 Mg Capsule) 300 mg PO 4X/DAY [facility] Last Admin: 05/22/20 08:07 Dose: 300 mg Documented by: Hydralazine HCl (Hydralazine 20 Mg/Ml Vial) 10 mg IV Q6H PRN PRN PRN Reason: for SBP>170 Losartan Potassium (Losartan Potassium 100 Mg Tablet) 100 mg PO DAILY [facility] Last Admin: 05/22/20 08:08 Dose: 100 mg Documented by: Meclizine HCl (Meclizine 12.5 Mg Tablet) 12.5 mg PO BID PRN PRN PRN Reason: Vertigo Ondansetron HCl (Ondansetron 4 Mg/2 Ml Vial) 4 mg IV Q8H PRN PRN PRN Reason: NAUSEA/VOMITING Pantoprazole Sodium (Pantoprazole Sodium 40 Mg Tablet) 40 mg PO DAILY [facility] Last Admin: 05/22/20 08:07 Dose: 40 mg Documented by: [facility] 5 Mg [facility] Admin: 05/22/20 08:08 Dose: 5 mg Documented by: Sodium Chloride (0.9% Saline Lock 10 Ml Syringe) 10 - 40 ml IV UD PRN PRN Reason: SALINE FLUSH Discharge Diet: Low fat/ Low Cholesterol Discharge Activity: Return to Normal Activity Call your doctor if you observe: Shortness of breath, Dizziness, Fainting spells, Chest pain Home Medications: Medications to take at Discharge Prednisone 5 mg PO DAILY 11/29/18 Cholecalciferol (Vitamin D3) [Vitamin D3] 2,000 unit PO DAILY 03/24/19 albuterol sulfate 90 mcg/actuation aerosol inhaler 2 puff INHALATION Q6H PRN 10/16/19 duloxetine 60 mg capsule,delayed release 60 mg PO DAILY cap 10/16/19 losartan 100 mg tablet 100 mg PO DAILY 10/16/19 gabapentin 300 mg capsule 300 mg PO 4X/DAY cap 10/30/19 nitroglycerin 0.4 mg sublingual tablet 0.4 mg SUBLINGUAL Q5-15M PRN #25 tab 11/24/19 donepezil 10 mg tablet 5 mg PO QHS tab 02/13/20 Aspirin [Aspirin, Baby] 81 mg PO DAILY@0800 02/26/20 Omeprazole 40 mg PO DAILY 02/26/20 Acetaminophen [Tylenol] 1,000 mg PO Q6H PRN PRN tab 03/09/20 Cyclobenzaprine HCl 5 mg PO DAILY PRN #30 tab 03/09/20 Lidocaine [Lidoderm Patch] 1 patch TOPICAL DAILY #30 patch 03/09/20 Menthol/Lanolin/Calamine/Znox [Calmoseptine Ointment] 1 applic TOPICAL 0600,2200 tube 03/09/20 Nystatin Powder [Mycostatin Powder] 1 applic TOPICAL BID@0600,2200 bottle 03/09/20 Meclizine HCl [Antivert] 12.5 mg PO BID PRN PRN #30 tab 04/05/20 Amlodipine [Norvasc] 10 mg PO DAILY #30 tab 05/22/20 Apixaban [Eliquis] 5 mg PO BID #60 tab 05/22/20 Atorvastatin Calcium 80 mg PO QHS #30 tab 05/22/20 Following Prescriptions Were Given to Patient: Atorvastatin Calcium 80 mg PO QHS #30 tab Transmission Status: Received by [id number] Apixaban [Eliquis] 5 mg PO BID #60 tab Transmission Status: Received by [id number] Amlodipine [Norvasc] 10 mg PO DAILY #30 tab Transmission Status: Received by [id number] Primary Care Physician: Zayda Peace PA [Primary Care Provider] - Please follow up with your Primary Care Physician in: 1 Week Please Follow Up With: Efrain Drake MD - Or primary neurologist When: 2 Weeks Please Follow Up With: Mikie Dwyer MD - Vasculary surgery When: Call for f/u for assessment 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 Please Follow Up With: Brenda Youngblood MD - Rheumatology follow-up When: 1 Week Disposition: Home Minutes spent on discharge:: 35 Patient Condition:: Stable Medical Necessity - Tobacco Use Smoking Status: Never smoker Meaningful Use Info Meaningful Use Diagnoses (Choose all that apply): Ischemic CVA - CVA Therapy Assessed for PT,OT and/or ST?: Yes - Ischemic Stroke Antithrombotic order at d/c?: Yes Dx of Atrial fib/flutter?: No Statins at discharge?: Yes Primary Dx Acute Ischemic CVA?: Yes IV tPA ordered during stay?: No Reason IV t-PA not ordered: Medical Contraindication <Ronaldo Castrejon - Last Filed: 05/22/20 16:13> Discharge Date and Diagnosis - Secondary Discharge Diagnosis Chronic Problems: Chronic Problems (Last Updated 05/20/20 @ 20:[address] Cassy Cruz MD) CKD (chronic kidney disease), stage III (Chronic) CVA (cerebral vascular accident) (Chronic) Debility (Chronic) Left hemiparesis (Chronic) Systemic lupus erythematosus (Chronic) Coronary artery disease (Chronic) Chronic kidney disease (Chronic) Hypertension (Chronic) Pulmonary embolism (Chronic) Vitamin D deficiency (Chronic) Overactive bladder (Chronic) Depression (Chronic) Neuropathic pain (Chronic) Insomnia (Chronic) Vascular dementia (Chronic) Vertigo (Chronic) Atherosclerotic heart disease of [place] coronary artery without angina pectoris (Chronic ~05/09/17) Mild; Left Main: mild calcification, angiographically normal; LAD: prox: Mild calcification, mild luminal irregularities;CX: prox: Mild luminal irregularities; RCA: angiographically normal per cath 05/09/17 Diastolic dysfunction (Chronic) Hyperlipidemia (Chronic) Benign essential hypertension (Chronic) GERD (gastroesophageal reflux disease) (Chronic) History of pulmonary embolism (Chronic) Hospital Course and Treatment Summary of Care Provided: The patient is a 79 year old F [] - Physical Exam Vitals/I&O's: Vital Signs Temp Pulse Resp BP Pulse Ox 98.0 F 67 18 168/91 H 97 05/22/20 10:00 05/22/20 10:00 05/22/20 10:00 05/22/20 10:00 05/22/20 10:00 Oxygen Flow Rate (L/min) 2 Oxygen Delivery Method Room Air Weight: 193 lb 12.581 oz Body Mass Index (BMI) 35.4 Finger Stick Blood Glucose 123 Intake and Output for Last 24 Hours 05/20/20 05/21/20 05/22/20 23:59 23:59 23:59 Intake Total 1176.25 / 1416.25 720 / 720 Output Total 0 / 0 Balance 1176.25 / 1416.25 720 / 720 Laboratory Results 05/22/20 07:28: WBC 8.3, RBC 4.17 L, Hgb 12.1, Hct 37.7, MCV 90.4, MCH 29.0, MCHC 32.1, RDW Std Deviation 42.5, RDW Coeff of Elmer 13.1, Plt Count 241, MPV 11.3 05/22/20 07:28: Sodium 139, Potassium 3.6, Chloride 106, Carbon Dioxide 27.0, Anion Gap 6, BUN 15, Creatinine 1.06 H, Estim Creat Clear Calc 35.15, Est GFR (MDRD) Af Amer 65, Est GFR (MDRD) Non-Af 53 L, BUN/Creatinine Ratio 14.2, Glucose 99, Calcium 8.3 L, Magnesium 1.7 Addendum: Dr. Castrejon I personally examined the patient and reviewed the chart. I agree with the above. 79-year-old female presents from home with expressive aphasia. An MRI of her brain did demonstrate a left anterior parietal lobe infarct. Neurology was consulted, and she was placed on anticoagulation secondary to her chronic lupus. She has had previous blood clots that had necessitated an IVC filter, though it is unclear as to why she was never on anticoagulation to begin with. She had been on it previously and then taken off of it. She denies any history of a GI bleed. She is already on aspirin therefore with the anticoagulation she will not need Plavix. She will need to follow-up with her neurologist as an outpatient. We will also maximize her statin medication. No issues with A. fib during this admission and no findings of A. fib on any previous admissions. The concern is that her lupus is causing her hypercoagulable state. The plan for discharge was discussed and she expressed understanding of the risk and benefits of going home. Inpatient E&M: 26807 Disch Hosp
--- NOTE | 2020-05-22 12:58 | NURSING ---
Checked with [facility] regarding eliquis [facility]ascual. Cost is 53.45 per month.
--- NOTE | 2020-05-24 14:42 | CASEMGMT ---
ODIN ZHANG D/C F/U Phone Call LACE: 10 Strata: 3 Discharge date: 05/22/2020 Call date: 05/24/2020 Call time: [phone] Attempted to reach pt without success at this time, message left for pt/family to call this RN VICENTE back if/when able. SStaten RN CM Admission dx: Expressive aphasia, abn cardiac enzymes
== END 2020-05-22 13:03 | disposition home or self-care (01) | DRG 65 ==
LOC: ED 19:36 → PCU 20:59
PROVIDERS: Internal Medicine; Admitting Provider Hospitalist; Emergency Provider Student in an Organized Health Care Education/Training Program; PCP Physician Assistant; Visit Provider Family Medicine
DX: I63.9 Cerebral infarction, unspecified (principal); G81.94 Hemiplegia, unspecified affecting left nondominant side; I24.8 Other forms of acute ischemic heart disease; R47.01 Aphasia; I25.10 Atherosclerotic heart disease of native coronary artery without angina pectoris; I12.9 Hypertensive chronic kidney disease with stage 1 through stage 4 chronic kidney disease, or unspecified chronic kidney disease; E11.22 Type 2 diabetes mellitus with diabetic chronic kidney disease; N18.30 Chronic kidney disease, stage 3 unspecified; E66.9 Obesity, unspecified; I49.3 Ventricular premature depolarization; F32.9 Major depressive disorder, single episode, unspecified; E78.5 Hyperlipidemia, unspecified; M32.9 Systemic lupus erythematosus, unspecified; K21.9 Gastro-esophageal reflux disease without esophagitis; E55.9 Vitamin D deficiency, unspecified; F01.50 Vascular dementia, unspecified severity, without behavioral disturbance, psychotic disturbance, mood disturbance, and anxiety; M06.9 Rheumatoid arthritis, unspecified; G25.81 Restless legs syndrome; M79.7 Fibromyalgia; I73.00 Raynaud's syndrome without gangrene; N32.81 Overactive bladder; Z68.35 Body mass index [BMI] 35.0-35.9, adult; Z86.73 Personal history of transient ischemic attack (TIA), and cerebral infarction without residual deficits; Z86.711 Personal history of pulmonary embolism; Z86.718 Personal history of other venous thrombosis and embolism; Z95.2 Presence of prosthetic heart valve; Z95.828 Presence of other vascular implants and grafts; Z79.82 Long term (current) use of aspirin; Z79.899 Other long term (current) drug therapy; Z96.653 Presence of artificial knee joint, bilateral; Z79.52 Long term (current) use of systemic steroids; Z90.49 Acquired absence of other specified parts of digestive tract; Z87.440 Personal history of urinary (tract) infections
CPT/HCPCS: 36415; 70450; 70551; 71045; 80048; 82962; 83735; 84484; 85025; 85027; 85610; 85730; 92507; 92523; 93005; 97116; 97162; 97166; 97530; 97802; 99251; 99285; J7030; A4216; G0463

== ENCOUNTER 2020-08-03 11:38 | Observation (INO) | payer MEDICARE, SELFPAY ==
[2020-08-03] VITALS (13 sets, daily range): BP systolic 104–149; BP diastolic 57–107; PULSE 52–92; RESP 16–20; TEMP 35.9–36.6; O2SAT 93–99; BMI 37.5; BMI 35.6; BMI 35.7
--- NOTE | 2020-08-03 11:41 | EKG12_ITS ---
Test Reason : ILLNESS Blood Pressure : / mmHG Vent. Rate : 064 BPM Atrial Rate : 064 BPM P-R Int : 176 ms QRS Dur : 090 ms QT Int : 450 ms P-R-T Axes : 019 002 030 degrees QTc Int : 464 ms Sinus rhythm with marked sinus arrhythmia Nonspecific T wave abnormality Abnormal ECG Confirmed by GUILLE ARROYO, DARÍO ([id number]), editor newspaper NOLVIA MARTÍNEZ ([id number]) on 08/04/2020 9:34:19 AM Referred By: DALI Confirmed By:DARÍO HAN MD
--- NOTE | 2020-08-03 11:41 | CT_ITS ---
We are attempting to reach an attending provider to discuss findings. An addendum with communication details will be sent when the communication is complete. STUDY: CT HEAD STROKE PROTOCOL W/O CONTRAST INJECTION REASON FOR EXAM: Female, 79 years old. CVA, RAYNAUDS, SOJGRENS, LUPUS, hypertension, CVA, alzheimer''s dementia. RADIATION DOSAGE (If Supplied By Facility): CTDIvol = ( ) mGy, DLP = ( ) mGycm TECHNIQUE: Transaxial CT imaging of the brain was performed without administration of intravenous contrast material. Individualized dose optimization techniques were used for this CT. COMPARISON: 05/20/2020 FINDINGS: Normal soft tissue structures. Normal calvarium. There is mild cerebral atrophy with widening of the extra-axial spaces and ventricular dilatation. Normal white matter tracts of the cerebral hemispheres. Normal basal ganglia and thalami. Normal brainstem. Normal cerebellum. There is no intracranial hemorrhage. Encephalomalacia in the anterior left parietal lobe consistent with a chronic infarct. Normal visualized paranasal sinuses. ASPECT score: CT/STROKE Brain/Head without Cont IMPRESSION: Chronic involutional changes of the brain. Electronically Signed: Mat Duarte MD at 11:56 EST Tel , Service support ,
--- NOTE | 2020-08-03 11:41 | RAD_ITS ---
STUDY: X-RAY CHEST REASON FOR EXAM: Female, 79 years old. Stroke. TECHNIQUE: Single AP portable view of the chest. COMPARISON: 05/20/2020 FINDINGS: The lungs are clear and expanded. There is no demonstrated pleural abnormality. Normal size heart. Normal mediastinum and regina. Normal visualized pulmonary arteries. There is atherosclerotic tortuosity of the aortic arch and descending thoracic aorta. Normal visualized thoracic spine. Normal visualized ribs, clavicles, and shoulders. There is no demonstrated abnormality of the visualized soft tissue structures of the upper abdomen. RAD/Chest 1 View IMPRESSION: Normal x-ray examination of the chest. Electronically Signed: Mat Duarte MD at 13:10 EST Tel , Service support ,
--- NOTE | 2020-08-03 11:46 | ED.VISSUMM ---
- ER Visit Summary Date of Service: 08/03/20 Chief Complaint: [Not feeling well and confusion and difficulty speaking] History of Present Illness: The patient is a 79 F [presents to the emergency department via EMS from home. Patient apparently woke up not feeling well and she tried to call EMS using her remote control from the television. Patient has history of recent stroke about 3 months ago. Patient currently on Eliquis. EMS states that her told them that she not been feeling well for the last 24 hours. Patient denies any headache. She denies chest pain or shortness of breath. She denies abdominal pain. Patient has history of coronary artery disease, hypertension, chronic kidney disease, dementia, history of PE, and history of rainouts.] Physical Examination: [HEENT-PERRLA, EOMI. Cranial nerves II through XII grossly intact. TMs clear. Mucous membranes moist. No adenopathy. Cardiovascular-regular rate and rhythm without murmur or ectopy Lungs-clear to auscultation, chest wall stable without crepitus or subcu emphysema Abdomen-normoactive bowel sounds, soft, nontender, no rebound or rigidity, no peritoneal signs. Neuro exam-patient has subtle left-sided facial droop. Patient has some subtle weakness of the left leg compared to the right leg as she is able to move it but cannot lift it off the bed. Her NIH stroke scale was a 5. Patient does have some expressive aphasia. Extremities-intact ?4, normal range of motion, normal pulses, atraumatic] Test Results: [CT scan of the brain without contrast read by radiology as nothing acute. There is no intracranial hemorrhage. CBC with differential showing a 6.0, hemoglobin 13.6, hematocrit 42, placed 268. Chemistries unremarkable other than a slightly depressed potassium of 3.0. BUN was 12 and creatinine 1.77. Troponin was less than 0.015.] Urinalysis ordered and pending. Chest x-ray ordered and interpreted by myself as no acute disease process. No evidence of infiltrate or pneumothorax. Radiology in agreement.. Emergency Department Course and Treatment: [The line established on arrival. Patient was not deemed to be a TPA candidate as she is currently on Eliquis and unknown time of onset of symptoms. [facility] neurology recommended admission for MRI and further stroke work-up. Case was discussed with hospitalist who will evaluate patient for admission] Treatment Plan: [Admit for further treatment of stroke] Disposition: [Admit] Impression: [CVA] This note was generated with Doctor kinetic dictation software. It may contain incorrect words, spelling, and punctuation that were not noted in review of the chart prior to signing ED Disposition - Plan for ED Patient:
--- NOTE | 2020-08-03 11:49 | NURSING ---
FACESHEET FAXED TO [facility]
[2020-08-03] MEDS: 0.9% Normal Saline 1,000 ML 100 ML IV (12:00)
[2020-08-03 12:08] LABS: Absolute Neutrophil Count 3.3 X10^3/uL (2.0-7.7); Basophil# 0.08 X10^3/uL; Basophil% 1.3 % (0-1); Eosinophil# 0.13 X10^3/uL; Eosinophils% 2.2 % (0-5); Hematocrit 42.3 % (37-47); Hemoglobin 13.6 g/dL (12.0-15.0); Lymphocyte % 33.3 % (19-41); Mean Corp Hgb Conc 32.2 g/dL (32-36); Mean Corpuscular Hgb 28.8 pg (27.0-32.0); Mean Corpuscular Volume 89.6 fL (81-99); Mean Platelet Vol. 12.1 fl (6.2-12.0); Monocyte# 0.47 X10^3/uL; Monocyte% 7.8 % (0-10); NRBC Flagged by Analyzer 0 % (0-5); Neutrophil % 54.9 % (47-70); Platelet Count 268 K/mm3 (150-450); RBC Distribution Width SD 46.3 fl (35.1-43.9); Red Blood Count 4.72 M/mm3 (4.2-5.4)
[2020-08-03 12:18] LABS: International Normalized Ratio 1.1; Partial Thromboplast Time 24.6 Seconds (24.1-36.2); Prothrombin Time (Protime)PT. 13.8 SECONDS (11.7-14.9)
[2020-08-03 12:27] LABS: Anion Gap 12 (5-15); BUN 12 mg/dL (7-18); BUN/Creat Ratio 6.8 RATIO (10-20); Calcium,Total 8.9 mg/dL (8.5-10.1); Chloride 105 mmol/L (98-107); Creatinine, Serum 1.77 mg/dL (0.55-1.02); EST Glomerular Filtration Rate 30 mL/min (>60); Est Glom Filt Rate - Afr Amer 36 mL/min (>60); Estimated Creatinine Clearance 19.12 ml/min; Glucose 119 mg/dL (74-106); Sodium Level 140 mmol/L (136-145)
--- NOTE | 2020-08-03 12:38 | ED.RN ---
pt arrived. reports that pt was baseline when she went to bed. verblizes that pt has intermittent episodes of confusion like using remote as phone trouble using/remembering how to use things like phone/remote things like that since her previous stroke. pt able to verbalize needs and converse with slight difficulty with words at present. she reports she feels like she is ab baseline at present
--- NOTE | 2020-08-03 14:00 | HP.PCM_ITS ---
Problem List (1) CKD (chronic kidney disease), stage III Status: Chronic (2) CVA (cerebral vascular accident) Status: Chronic (3) Left hemiparesis Status: Chronic (4) Systemic lupus erythematosus Status: Chronic (5) Coronary artery disease Status: Chronic (6) Hypertension Status: Chronic (7) Pulmonary embolism Status: Chronic (8) Depression Status: Chronic (9) Neuropathic pain Status: Chronic (10) Insomnia Status: Chronic (11) Vascular dementia Status: Chronic (12) Vertigo Status: Chronic (13) Hyperlipidemia Status: Chronic Qualifiers: (14) GERD (gastroesophageal reflux disease) Status: Chronic History of Present Illness Date of Admission: 08/03/20 Chief Complaint: Difficulty concentrating, confusion, difficulty speaking. The patient is a 79 year old F with past medical history as mentioned above presented to the emergency room by squad because of difficulty concentrating, confusion and difficulty speaking. At this time, patient is alert and treated x3. She mentioned that this morning and after she woke up, she did not feel well, not able to concentrate and she was confused. She mentioned that she was not able to speak, having difficulty finding words. She tried to call the squad but she was using the TV remote control to call the squad. She denied facial numbness or tingling. She does have minimal left hemiparesis because of prior stroke. She denied chest pain or shortness of breath. She denied dizziness, lightheadedness, syncope or presyncope. She had a recent acute stroke on April, and had MRI revealed acute/subacute left anterior parietal lobe. She had a history of pulmonary emboli and she has been on Eliquis. She will history of SLE and she has been on long-term prednisone and she has been stable without significant symptoms. In the emergency department and up to ER physician, her NIH stroke scale was 5 upon arrival. She was not a candidate for TPA because she is on Eliquis for PEs. Her vital signs were stable. Her routine blood work was remarkable for potassium of 3 and creatinine of 1.77. EKG revealed normal sinus rhythm without evidence of acute ischemic changes. Troponin was negative. Chest x-ray showed no acute findings. CT scan brain showed no acute infarct or hemorrhage. She is being admitted for questionable TIA versus acute stroke. Past Medical History Past Medical History (Chronic Problems): Chronic Problems (Last Updated 05/20/20 @ 20:[address] Cassy Cruz MD) CKD (chronic kidney disease), stage III (Chronic) CVA (cerebral vascular accident) (Chronic) Debility (Chronic) Left hemiparesis (Chronic) Systemic lupus erythematosus (Chronic) Coronary artery disease (Chronic) Chronic kidney disease (Chronic) Hypertension (Chronic) Pulmonary embolism (Chronic) Vitamin D deficiency (Chronic) Overactive bladder (Chronic) Depression (Chronic) Neuropathic pain (Chronic) Insomnia (Chronic) Vascular dementia (Chronic) Vertigo (Chronic) Atherosclerotic heart disease of nikolski coronary artery without angina pectoris (Chronic ~05/09/17) Mild; Left Main: mild calcification, angiographically normal; LAD: prox: Mild calcification, mild luminal irregularities;CX: prox: Mild luminal irregularities; RCA: angiographically normal per cath 05/09/17 Diastolic dysfunction (Chronic) Hyperlipidemia (Chronic) Benign essential hypertension (Chronic) GERD (gastroesophageal reflux disease) (Chronic) History of pulmonary embolism (Chronic) Medical History: Medical History (Last Updated 05/20/20 @ 20:[address] Cassy Cruz MD) Atherosclerotic heart disease of nikolski coronary artery without angina pectoris (Chronic) Onset Date: ~05/09/17 I25.10 Mild; Left Main: mild calcification, angiographically normal; LAD: prox: Mild calcification, mild luminal irregularities;CX: prox: Mild luminal irregularities; RCA: angiographically normal per cath 05/09/17 Diastolic dysfunction (Chronic) I51.89 Hyperlipidemia (Chronic) E78.5 Benign essential hypertension (Chronic) I10 GERD (gastroesophageal reflux disease) (Chronic) K21.9 History of pulmonary embolism (Chronic) Z86.711 Acute right cerebellar stroke Alzheimer's dementia G30.9 Chronic back pain M54.9, G89.[address] Oswald West History of CVA (cerebrovascular accident) Z86.73 History of TIAs Ileostomy in place Z93.2 Raynauds disease I73.00 Restless legs Rheumatoid arthritis M06.[address] Jose Johns @ [facility] Systemic lupus erythematosus M32.9 Dementia F03.90 History of DVT (deep vein thrombosis) Z86.718 History of deep vein thrombosis Z86.718 History of echocardiogram Onset Date: ~04/2017 Z92.89 EF 65% History of left heart catheterization (LHC) Z98.890 Raynaud's phenomenon (Inactive) Sjogren's syndrome (Inactive) M35.00 Allergies ampicillin Allergy (Verified 05/20/20 18:10) Rash buprenorphine HCl [From Buprenex] Allergy (Verified 05/20/20 18:10) Other codeine Allergy (Verified 05/20/20 18:10) Anaphylaxis gold Au 198 Allergy (Verified 05/20/20 18:10) Rash guaifenesin Allergy (Verified 05/20/20 18:10) Rash promethazine HCl [From Phenergan] Allergy (Verified 05/20/20 18:10) Shortness of breath Sulfa (Sulfonamide Antibiotics) Allergy (Verified 05/20/20 18:10) Rash sulindac [From Clinoril] Allergy (Verified 05/20/20 18:10) Rash tetracycline [Tetracycline] Allergy (Verified 05/20/20 18:10) Rash thiopental Allergy (Verified 05/20/20 18:10) Rash trimethoprim [From Proloprim] Allergy (Verified 05/20/20 18:10) Rash buspirone [From BuSpar] Adverse Reaction (Verified 05/20/20 18:10) Nausea oxycodone HCl [From OxyContin] Adverse Reaction (Verified 05/20/20 18:10) Other NALDECON Allergy (Uncoded 05/20/20 18:10) Rash SULPHATED OIL Allergy (Uncoded 05/20/20 18:10) Other TAPE Allergy (Uncoded 05/20/20 18:10) Rash Home Medications: Ambulatory Orders Medication Instructions Recorded Prednisone 5 mg PO DAILY 11/29/18 Cholecalciferol (Vitamin D3) 2,000 unit PO DAILY 03/24/19 [Vitamin D3] losartan 100 mg tablet 100 mg PO DAILY 10/16/19 gabapentin 300 mg capsule 300 mg PO 4X/DAY cap 10/30/19 nitroglycerin 0.4 mg sublingual 0.4 mg SUBLINGUAL Q5-15M PRN #25 11/24/19 tablet tab Aspirin [Aspirin, Baby] 81 mg PO DAILY@0800 02/26/20 Omeprazole 40 mg PO DAILY 02/26/20 Acetaminophen [Tylenol] 1,000 mg PO Q6H PRN PRN tab 03/09/20 Cyclobenzaprine HCl 5 mg PO DAILY PRN #30 tab 03/09/20 Nystatin Powder [Mycostatin Powder] 1 applic TOPICAL BID@0600,2200 03/09/20 bottle ALPRAZolam [Xanax] 0.25 mg PO BID PRN PRN 08/03/20 Amlodipine [Norvasc] 5 mg PO DAILY 08/03/20 Apixaban [Eliquis] 5 mg PO BID 08/03/20 Atorvastatin Calcium 40 mg PO QHS 08/03/20 Baclofen [Lioresal] 5 - 10 mg PO TID PRN PRN 08/03/20 Donepezil HCl [Aricept] 5 mg PO QHS 08/03/20 Duloxetine HCl 30 mg PO DAILY 08/03/20 Lidocaine [Lidoderm Patch] 1 patch TOPICAL DAILY PRN PRN 08/03/20 Lorazepam [Ativan] 0.5 mg PO BID PRN PRN 08/03/20 Menthol/Lanolin/Calamine/Znox 1 applic TOPICAL BID PRN PRN 08/03/20 [Calmoseptine Ointment] Mirabegron [Myrbetriq] 25 mg PO DAILY 08/03/20 Tramadol HCl [Ultram] 25 - 50 mg PO TID PRN PRN 08/03/20 Surgical History: Surgical History (Last Reviewed 05/20/20 @ 21:[address] Cassy Cruz MD) History of Krish fundoplication Z98.890 S/P IVC filter Z95.828 History of appendectomy Z98.890, Z90.49 History of bilateral knee replacement Z96.653 History of cardiac catheterization Onset Date: ~04/2017 Z98.890 Mild CAD History of carpal tunnel surgery Z98.890 Bilateral History of cholecystectomy Z98.890, Z90.49 History of herniorrhaphy Z98.890, Z87.19 History of hysterectomy Z98.890, Z90.710 History of salpingo-oophorectomy Z90.79, Z90.721 Surgical History: appendectomy, cholecystectomy, herniorrhaphy, hysterectomy, total knee arthroplasty - Bilateral., - - Krish fundiplication, IVC filter, Aortic valve replacement, Ileostomy, Bilateral carpal tunnel surrgery. Psychiatric History: Depression [employer] History: No pertinent [employer] history Lives: Spouse/ Significant Other Smoking Status: Never smoker Alcohol: None Drugs: None - *Family History Paternal Family History: Family History (Last Reviewed 05/20/20 @ 21:[address] Cassy Cruz MD) Father CVA (cerebral vascular accident) History Items: Hypertension Maternal Family History: Family History (Last Reviewed 05/20/20 @ 21:[address] Cassy Cruz MD) Father CVA (cerebral vascular accident) History Items: No pertinent history Review of Systems Constitutional: Denies: Anorexia, Chills, Fever, Weakness Eyes: Denies: Blurred vision, Double vision, Drainage, Redness HEENT: Denies: Difficulty Hearing, Ear Pain, Eye Pain, Nasal Congestion, Sore Throat Cardiovascular: Denies: Chest Pain, Claudication, Chest Tightness, Heaviness, Light Headedness, Palpitations, Syncope Respiratory: Denies: Cough, Pleuritic Pain, Shortness of Breath, Sputum production, Wheezing Gastrointestinal: Denies: Abdominal Pain, Constipation, Diarrhea, Nausea, Vomiting Genitourinary: Denies: Dysuria, Frequency, Hematuria Musculoskeletal: Denies: Arm Pain, Back Pain, Foot Pain Skin: Denies: Dryness, Rash Neurological: Reports: Change in Speech, Slurred speech, Confusion. Denies: Balance problems, Double vision, Headaches, Incoordination, Numbness Psychiatric: Reports: Anxiety, Depression Endocrine: Denies: Change in Body Habitus, Polydipsia, Polyuria VTE Information - Inpt Only VTE Present on Admission: No VTE Mechan Device Prophylaxis: None VTE Pharm Prophylaxis ordered?: No - Physical Exam Vitals/I&O's: Vital Signs Temp Pulse Resp BP Pulse Ox 97.8 F 53 L 16 134/71 H 99 08/03/20 13:22 08/03/20 13:22 08/03/20 13:22 08/03/20 13:22 08/03/20 13:22 Oxygen Delivery Method Room Air Weight: 192 lb 0.362 oz Body Mass Index (BMI) 37.5 Finger Stick Blood Glucose 124 General: Alert, Oriented x3, Cooperative, No apparent distress HEENT: Atraumatic, PERRLA, EOMI, Normocephalic Oral: Moist Mucosa, No Gingival or Mucosal Lesions/ Ulcerations Neck: Supple, No JVD, Negative Carotid Bruits, Trachea Midline, Thyroid Normal Size and Texture Lungs: Clear to auscultation, Normal air movement, No rhonchi, No wheeze, No rales, Diminished Cardiovascular: Regular rate, Regular Rhythm, Normal S1, Normal S2, PMI Normal Abdomen: Bowel Sounds Present, Soft, Non Tender, Non-Distended, No Hepato-splenomegaly, Obese Extremities: No clubbing, No cyanosis, No edema Skin: No rashes, No breakdown Lymphatic: No Cervical, Supraclavicular, or Inguinal Adenopathy Neurological: Cranial nerves II-XII grossly intact, Motor Exam 5/5 strength throughout, - - Equal weakness of both legs because of chronic pain. No focal weakness. Psych/Mental Status: Normal Affect, Appropriate, Alert and oriented to time, place, person, mood and affect Laboratory Results 08/03/20 12:00: WBC 6.0, RBC 4.72, Hgb 13.6, Hct 42.3, MCV 89.6, MCH 28.8, MCHC 32.2, RDW Std Deviation 46.3 H, RDW Coeff of Elmer 14.0, Plt Count 268, MPV 12.1 H , Immature Gran % (Auto) 0.500, Neut % (Auto) 54.9, Lymph % (Auto) 33.3, [place] % (Auto) 7.8, Eos % (Auto) 2.2, Baso % (Auto) 1.3 H, Absolute Neuts (auto) 3.3, Absolute Lymphs (auto) 2.00, Nucleated RBC % 0 08/03/20 12:00: PT 13.8, INR 1.1, APTT 24.6 08/03/20 12:00: Sodium 140, Potassium 3.0 L, Chloride 105, Carbon Dioxide 23.0, Anion Gap 12, BUN 12, Creatinine 1.77 H, Estim Creat Clear Calc 19.12, Est GFR (MDRD) Af Amer 36 L, Est GFR (MDRD) Non-Af 30 L, BUN/Creatinine Ratio 6.8 L, Glucose 119 H, Calcium 8.9, Troponin I < 0.015 Clinical Impression(s) from Imaging Studies Brain CT 08/03/20 11:41 IMPRESSION: Chronic involutional changes of the brain. Electronically Signed: Mat Duarte MD at 11:56 EST Tel , Service support , ADDENDUM: 08/03/20 1205 IMPRESSION: Chronic involutional changes of the brain. N.B. : The above information has been verbally conveyed by Mat Duarte MD to Dr. Brtitany MD, on 08/03/2020 11:58:35 (ET). Electronically Signed: Mat Duarte MD at 11:56 EST Tel , Service support , Chest X-Ray 08/03/20 11:41 IMPRESSION: Normal x-ray examination of the chest. Electronically Signed: Mat Duarte MD at 13:10 EST Tel , Service support , Current Medications Sodium Chloride () 1,000 mls @ 100 mls/hr IV .Q10H ONE Stop: 08/03/20 21:40 Last Admin: 08/03/20 12:00 Dose: 100 mls/hr Documented by: Labetalol HCl (Labetalol (Prefilled) 20 Mg/4 Ml) 20 mg IV X1 PRN PRN Reason: BLOOD PRESSURE Assessment/Plan This is a 79 years old female patient presented to the emergency room because of difficulty concentrating, confusion and reported difficulty speaking in context of history of recurrent strokes and she is being admitted for possible TIA versus acute stroke for evaluation and treatment. #1 confusion/difficulty concentrating/slurred speech: Concern for TIA versus acute stroke. In the setting of recurrent strokes in the past. Patient has been on Eliquis for history of PE. She is not a candidate for TPA. CT scan brain showed no acute findings. Currently, she has no focal deficits. Plan: Admit to PCU for observation, cardiac monitoring, NIH stroke scale, continue aspirin, statins and Eliquis, MRI brain, PT OT evaluation and treatment. Patient had CTA head and neck back on January, that showed no significant vascular disease or stenosis. She had 2D echocardiogram on March, which showed EF of 65%, stage I diastolic dysfunction. At this time, no indication to repeat CTA head and neck and 2D echocardiogram unless MRI brain came back positive for acute stroke. #2 hypokalemia: Plan to replace potassium with IV potassium chloride, repeat BMP tomorrow morning. #3 stage III chronic kidney disease: Baseline creatinine has been around 1.1 to 1.6 mg/dL, admission creatinine is 1.77, close to baseline. Plan to monitor. #4 systemic lupus erythematosus: Stable, continue prednisone. #5 history of prior strokes: Plan plan as above, continue aspirin, Eliquis and statins. #6 CAD: Without history of past interventions. EKG reviewed, unremarkable, troponin is negative. Continue aspirin, statins, losartan. #7 hypertension: Blood pressure stable, continue Norvasc, losartan. #8 history of PEs: Continue Eliquis. #9 anxiety/depression: Stable, continue Xanax and duloxetine. #10 dementia: Stable, continue Aricept. #11 hyperlipidemia: Continue statins. #12 DVT prophylaxis: Continue Eliquis. This note was generated with [employer] dictation software. It may contain incorrect words, spelling, and punctuation that were not noted in checking the note before signing. OBSV E&M: [id number] Initial observation care L3
--- NOTE | 2020-08-03 14:29 | MRI_ITS ---
We are attempting to reach an attending provider to discuss findings. An addendum with communication details will be sent when the communication is complete. STUDY: MRI BRAIN WITHOUT CONTRAST REASON FOR EXAM: Female, 79 years old. slurred speech, confusion, difficulty thinking TECHNIQUE: Standardized multiplanar fat and water weighted pulse sequences were obtained. COMPARISON: CT of the brain 08/03/2020 MRI of the brain 05/21/2020 FINDINGS: Mild atrophy and periventricular white matter ischemic changes. There is an old infarct in left frontal lobe.. There is a tiny focus of slightly increased signal intensity in the left adán on the diffusion weighted imaging sequence which is low signal intensity on the ADC images suspicious for acute ischemic changes. Clinical correlation is recommended Normal bilateral basal ganglia. Normal thalami. There is no extra-axial fluid accumulation. Normal flow voids within the major intracranial circulation suggesting patency by spin echo criteria. Partial empty sella deformity. Normal, pituitary gland, infundibular stalk, optic chiasm and hypothalamus. Normal tectal plate and pineal gland. Normal midbrain, and medulla. Normal cerebellum. Normal basal cisterns. Normal bilateral temporal bones. Normal bilateral internal auditory canals. Postsurgical changes of the orbits.. Normal visualized paranasal sinuses. Normal calvarium and skull base. Normal visualized soft tissue structures. Normal visualized upper cervical spine. MRI/Brain without Contrast IMPRESSION: Findings suspicious for acute lacunar infarct in left pontine body. Clinical correlation recommended Periventricular white matter ischemic changes without evidence for acute cerebral infarct. Old left frontal lobe infarct.. Electronically Signed: Raji Prater MD at 18:59 EST , Service support ,
[2020-08-03] MEDS: 0.9% Normal Saline 1,000 ML 75 ML IV (15:49)
[2020-08-03] MEDS: Potassium Chloride 10mEq/100mL 10 MEQ/100 ML IV.SOLN. 100 MEQ IV BOLUS ×3 (15:49→20:03)
[2020-08-03] MEDS: Gabapentin 300 MG Capsule PO ×2 (18:29→21:52)
[2020-08-03] MEDS: MELATONIN 3 MG TABLET PO (21:52)
[2020-08-03] MEDS: APIXABAN 5 MG TABLET PO (21:52)
[2020-08-03] MEDS: Atorvastatin Calcium 40 MG Tablet PO (21:53)
[2020-08-03] MEDS: Donepezil HCl 5 MG Tablet PO (21:53)
[2020-08-04 02:00] VITALS: BP 117/71; PULSE 66; RESP 18; TEMP 37.1; O2SAT 96
[2020-08-04 03:00] VITALS: PULSE 61
[2020-08-04 05:31] LABS: Absolute Lymphocyte Count 1.98 X10^3/uL (0.83-4.51); Absolute Neutrophil Count 2.4 X10^3/uL (2.0-7.7); Basophil# 0.06 X10^3/uL; Basophil% 1.2 % (0-1); Eosinophil# 0.17 X10^3/uL; Eosinophils% 3.4 % (0-5); Hematocrit 35.4 % (37-47); Hemoglobin 11.3 g/dL (12.0-15.0); Lymphocyte # 1.98 X10^3/ul (4.0); Lymphocyte % 39.1 % (19-41); Mean Corp Hgb Conc 31.9 g/dL (32-36); Mean Corpuscular Volume 90.8 fL (81-99); Mean Platelet Vol. 12.6 fl (6.2-12.0); Monocyte# 0.38 X10^3/uL; Monocyte% 7.5 % (0-10); NRBC Flagged by Analyzer 0 % (0-5); Neutrophil # 2.43 X10^3/uL (2.7-7.7); Platelet Count 217 K/mm3 (150-450); RBC Distribution Width CV 14.4 % (11.6-14.6); RBC Distribution Width SD 47.5 fl (35.1-43.9); White Blood Count 5.1 K/mm3 (4.4-11.0)
[2020-08-04 05:48] LABS: Anion Gap 7 (5-15); BUN 12 mg/dL (7-18); BUN/Creat Ratio 7.8 RATIO (10-20); Calcium,Total 8.1 mg/dL (8.5-10.1); Chloride 113 mmol/L (98-107); Creatinine, Serum 1.54 mg/dL (0.55-1.02); EST Glomerular Filtration Rate 35 mL/min (>60); Est Glom Filt Rate - Afr Amer 42 mL/min (>60); Estimated Creatinine Clearance 23.09 ml/min; Glucose 91 mg/dL (74-106); Potassium 3.3 mmol/L (3.5-5.1); Sodium Level 140 mmol/L (136-145)
[2020-08-04 06:00] VITALS: BP 137/71; PULSE 60; RESP 18; TEMP 36.7; O2SAT 100
[2020-08-04 07:00] VITALS: PULSE 55
[2020-08-04 08:40] VITALS: O2SAT 98
[2020-08-04 09:39] VITALS: BP 104/51; PULSE 66; RESP 18; TEMP 36.3; O2SAT 99
[2020-08-04] MEDS: predniSONE 5 MG Tablet PO (09:50)
[2020-08-04] MEDS: Losartan Potassium 100 MG Tablet PO (09:50)
[2020-08-04] MEDS: Gabapentin 300 MG Capsule PO (09:50)
[2020-08-04] MEDS: Aspirin 81 MG TAB.CHEW PO (09:50)
[2020-08-04] MEDS: APIXABAN 5 MG TABLET PO (09:50)
[2020-08-04] MEDS: DULoxetine Hcl 30 MG Capsule PO (09:50)
[2020-08-04] MEDS: Pantoprazole Sodium 40 MG Tablet PO (09:51)
[2020-08-04] MEDS: Mirabegron 25 MG TAB.ER.24H PO (09:51)
[2020-08-04] MEDS: amLODIPine 5 MG Tablet PO (09:51)
--- NOTE | 2020-08-04 10:27 | DCINST_ITS ---
- Discharge Diagnoses Current Active Problems: Current Active and Chronic Problems (Last Updated 05/20/20 @ 20:[address] Cassy Cruz MD) CKD (chronic kidney disease), stage III (Chronic) CVA (cerebral vascular accident) (Chronic) Left hemiparesis (Chronic) Systemic lupus erythematosus (Chronic) Coronary artery disease (Chronic) Hypertension (Chronic) Pulmonary embolism (Chronic) Depression (Chronic) Neuropathic pain (Chronic) Insomnia (Chronic) Vascular dementia (Chronic) Vertigo (Chronic) Hyperlipidemia (Chronic) GERD (gastroesophageal reflux disease) (Chronic) You will use the following diet at home:: Cardiac Your food should be the consistency of: Regular Discharge Activity: Return to Normal Activity Weight Bearing Status: Weight bearing as tolerated Call your doctor if you observe: Fever of 101 or Higher, Shortness of breath, Dizziness, Fainting spells, Chest pain, Increased palpitations (irregular heartbeat), Uncontrolled pain Additional Instructions: Please follow-up with neurology as outpatient in 2 to 3 weeks. Allergies/Adverse Reactions: Allergies ampicillin Allergy (Verified 05/20/20 18:10) Rash buprenorphine HCl [From Buprenex] Allergy (Verified 05/20/20 18:10) Other codeine Allergy (Verified 05/20/20 18:10) Anaphylaxis gold Au 198 Allergy (Verified 05/20/20 18:10) Rash guaifenesin Allergy (Verified 05/20/20 18:10) Rash promethazine HCl [From Phenergan] Allergy (Verified 05/20/20 18:10) Shortness of breath Sulfa (Sulfonamide Antibiotics) Allergy (Verified 05/20/20 18:10) Rash sulindac [From Clinoril] Allergy (Verified 05/20/20 18:10) Rash tetracycline [Tetracycline] Allergy (Verified 05/20/20 18:10) Rash thiopental Allergy (Verified 05/20/20 18:10) Rash trimethoprim [From Proloprim] Allergy (Verified 05/20/20 18:10) Rash buspirone [From BuSpar] Adverse Reaction (Verified 05/20/20 18:10) Nausea oxycodone HCl [From OxyContin] Adverse Reaction (Verified 05/20/20 18:10) Other NALDECON Allergy (Uncoded 05/20/20 18:10) Rash SULPHATED OIL Allergy (Uncoded 05/20/20 18:10) Other TAPE Allergy (Uncoded 05/20/20 18:10) Rash Medications to take at Discharge Prednisone 5 mg PO DAILY 11/29/18 Cholecalciferol (Vitamin D3) [Vitamin D3] 2,000 unit PO DAILY 03/24/19 losartan 100 mg tablet 100 mg PO DAILY 10/16/19 gabapentin 300 mg capsule 300 mg PO 4X/DAY cap 10/30/19 nitroglycerin 0.4 mg sublingual tablet 0.4 mg SUBLINGUAL Q5-15M PRN #25 tab 11/24/19 Aspirin [Aspirin, Baby] 81 mg PO DAILY@0800 02/26/20 Omeprazole 40 mg PO DAILY 02/26/20 Acetaminophen [Tylenol] 1,000 mg PO Q6H PRN PRN tab 03/09/20 Cyclobenzaprine HCl 5 mg PO DAILY PRN #30 tab 03/09/20 Nystatin Powder [Mycostatin Powder] 1 applic TOPICAL BID@0600,2200 bottle 03/09/20 ALPRAZolam [Xanax] 0.25 mg PO BID PRN PRN 08/03/20 Amlodipine [Norvasc] 5 mg PO DAILY 08/03/20 Apixaban [Eliquis] 5 mg PO BID 08/03/20 Atorvastatin Calcium 40 mg PO QHS 08/03/20 Baclofen [Lioresal] 5 - 10 mg PO TID PRN PRN 08/03/20 Donepezil HCl [Aricept] 5 mg PO QHS 08/03/20 Duloxetine HCl 30 mg PO DAILY 08/03/20 Lidocaine [Lidoderm Patch] 1 patch TOPICAL DAILY PRN PRN 08/03/20 Lorazepam [Ativan] 0.5 mg PO BID PRN PRN 08/03/20 Menthol/Lanolin/Calamine/Znox [Calmoseptine Ointment] 1 applic TOPICAL BID PRN PRN 08/03/20 Mirabegron [Myrbetriq] 25 mg PO DAILY 08/03/20 Tramadol HCl [Ultram] 25 - 50 mg PO TID PRN PRN 08/03/20 Primary Care Physician: Zayda Peace PA [Primary Care Provider] - Please follow up with your Primary Care Physician in: 1 week. Test Results: Test results from this visit will be discussed in further detail at your follow- up appointment, if applicable. Please Follow Up With: Efrain Drake MD When: 2-3 weeks.
--- NOTE | 2020-08-04 10:54 | CASEMGMT ---
This RN CM to room to discuss discharge plan with pt at this time. Pt states she would like [facility] for SN, PT/OT/ST and per David SW, SW to be added as well. Pt has had [facility] in the past and would like to try them again but pt was provided with list of local in-network HHC at this time. Call to Bisi at [facility] and after discussing with team, [facility] can take pt at this time. Pt updated at this time, voices understanding. Pt voices no further questions/concerns/needs at this time. [place] ODIN ZHANG
--- NOTE | 2020-08-04 10:56 | DS.PCM_ITS ---
Discharge Date and Diagnosis Date of Admission: 08/03/20 Date of Discharge: 08/04/20 - Primary Discharge Diagnosis Acute Problems: #1 episode of confusion/difficulty concentrating, slurred speech, MRI was suspicious for acute lacunar infarct of the left pontine body. #2 hypokalemia, potassium replaced and corrected. - Secondary Discharge Diagnosis Chronic Problems: Chronic Problems (Last Updated 05/20/20 @ 20:[address] Cassy Cruz MD) CKD (chronic kidney disease), stage III (Chronic) CVA (cerebral vascular accident) (Chronic) Debility (Chronic) Left hemiparesis (Chronic) Systemic lupus erythematosus (Chronic) Coronary artery disease (Chronic) Chronic kidney disease (Chronic) Hypertension (Chronic) Pulmonary embolism (Chronic) Vitamin D deficiency (Chronic) Overactive bladder (Chronic) Depression (Chronic) Neuropathic pain (Chronic) Insomnia (Chronic) Vascular dementia (Chronic) Vertigo (Chronic) Atherosclerotic heart disease of [place] coronary artery without angina pectoris (Chronic ~05/09/17) Mild; Left Main: mild calcification, angiographically normal; LAD: prox: Mild calcification, mild luminal irregularities;CX: prox: Mild luminal irregularities; RCA: angiographically normal per cath 05/09/17 Diastolic dysfunction (Chronic) Hyperlipidemia (Chronic) Benign essential hypertension (Chronic) GERD (gastroesophageal reflux disease) (Chronic) History of pulmonary embolism (Chronic) Hospital Course and Treatment Imaging Results: Clinical Impression(s) from Imaging Studies Brain CT 08/03/20 11:41 IMPRESSION: Chronic involutional changes of the brain. Electronically Signed: Mat Duarte MD at 11:56 EST Tel , Service support , ADDENDUM: 08/03/20 1205 IMPRESSION: Chronic involutional changes of the brain. N.B. : The above information has been verbally conveyed by Mat Duarte MD to Dr. Brittany MD, on 08/03/2020 11:58:35 (ET). Electronically Signed: Mat Duarte MD at 11:56 EST Tel , Service support , Chest X-Ray 08/03/20 11:41 IMPRESSION: Normal x-ray examination of the chest. Electronically Signed: Mat Duarte MD at 13:10 EST Tel , Service support , Brain MRI 08/03/20 14:29 IMPRESSION: Findings suspicious for acute lacunar infarct in left pontine body. Clinical correlation recommended Periventricular white matter ischemic changes without evidence for acute cerebral infarct. Old left frontal lobe infarct.. Electronically Signed: Raji Prater MD at 18:59 EST , Service support , ADDENDUM: 08/03/20 191 IMPRESSION: Findings suspicious for acute lacunar infarct in left pontine body. Clinical correlation recommended Periventricular white matter ischemic changes without evidence for acute cerebral infarct. Old left frontal lobe infarct.. N.B. : The above information has been verbally conveyed by Raji Prater MD to Betito Espitia RN, on 08/03/2020 19:09:50 (ET). Electronically Signed: Raji Prater MD at 18:59 EST , Service support , [facility] teleneurology. Operations: None Procedures: EKG Summary of Care Provided: Patient seen and examined on the day of discharge and agree to be stable to be discharged home. Today, she is alert and oriented x3. She has no focal deficit. She mentioned she has been having trouble with concentrating and this has been going on for some time because of recurrent strokes. Her vital signs are stable. The patient is a 79 year old F presented to the emergency room because of difficulty concentrating, confusion and reported difficulty speaking. She had history of recurrent strokes and her most recent stroke was back on April,. Initially CT scan brain showed no acute findings. Patient was not a candidate for TPA because she has been on Eliquis for history of PEs. Her EKG revealed normal sinus rhythm without evidence of acute ischemic changes or cardiac arrhythmias. Her routine blood work was remarkable for potassium of 3 upon admission and creatinine of 1.77. Potassium was replaced and she received IV fluids and her creatinine improved down to 1.54. She does have stage III chronic kidney disease and her creatinine has been fluctuating anywhere from 1.1 to 1.7 mg/dL. She was not admitted to PCU and she had MRI brain done. MRI brain revealed findings suspicious for acute lacunar infarct in the left pontine body. [facility] telemetry neurology consulted and stated that there might be questionable acute lacunar infarct of the pontine which may be small. [facility] neurology recommended to keep patient on Eliquis and aspirin as well as statins. Her blood pressure has been fine during this hospital stay. She has no obvious focal deficit on physical examination. Patient had CTA head and neck on January, that was unremarkable and also had 2D echocardiogram on March, and they were reviewed. There was no indication to repeat the CTA of the the neck or 2D echocardiogram. Patient discharged home in a stable medical condition, discharged on her same previous medications including Eliquis, aspirin and statins, recommended referral to neurology as outpatient, recommended follow-up with PCP in 1 week. - Physical Exam Vitals/I&O's: Vital Signs Temp Pulse Resp BP Pulse Ox 97.4 F L 66 18 104/51 L 99 08/04/20 09:39 08/04/20 09:39 08/04/20 09:39 08/04/20 09:39 08/04/20 09:39 Oxygen Delivery Method Room Air Weight: 189 lb 0.001 oz Body Mass Index (BMI) 35.6 Finger Stick Blood Glucose 124 Intake and Output for Last 24 Hours 08/02/20 08/03/20 08/04/20 23:59 23:59 23:59 Intake Total 1240 / 1285 1045 / 1045 Output Total 0 / 0 Balance 1240 / 1285 1045 / 1045 General: Alert, Oriented x3, Cooperative, No apparent distress HEENT: Atraumatic, PERRLA, EOMI, Normocephalic Oral: Moist Mucosa, No Gingival or Mucosal Lesions/ Ulcerations Neck: Supple, No JVD, Negative Carotid Bruits, Trachea Midline, Thyroid Normal Size and Texture Lungs: Clear to auscultation, Normal air movement, No rhonchi, No wheeze, No rales Cardiovascular: Regular rate, Regular Rhythm, Normal S1, Normal S2 Abdomen: Bowel Sounds Present, Soft, Non Tender, Non-Distended, No Hepato- splenomegaly Extremities: No clubbing, No cyanosis, No edema Skin: No rashes, No breakdown Lymphatic: No Cervical, Supraclavicular, or Inguinal Adenopathy Neurological: Cranial nerves II-XII grossly intact, Neuro grossly intact Psych/Mental Status: Normal Affect, Appropriate Laboratory Results 08/03/20 12:00: WBC 6.0, RBC 4.72, Hgb 13.6, Hct 42.3, MCV 89.6, MCH 28.8, MCHC 32.2, RDW Std Deviation 46.3 H, RDW Coeff of Elmer 14.0, Plt Count 268, MPV 12.1 H , Immature Gran % (Auto) 0.500, Neut % (Auto) 54.9, Lymph % (Auto) 33.3, [place] % (Auto) 7.8, Eos % (Auto) 2.2, Baso % (Auto) 1.3 H, Absolute Neuts (auto) 3.3, Absolute Lymphs (auto) 2.00, Nucleated RBC % 0 08/03/20 12:00: PT 13.8, INR 1.1, APTT 24.6 08/03/20 12:00: Sodium 140, Potassium 3.0 L, Chloride 105, Carbon Dioxide 23.0, Anion Gap 12, BUN 12, Creatinine 1.77 H, Estim Creat Clear Calc 19.12, Est GFR (MDRD) Af Amer 36 L, Est GFR (MDRD) Non-Af 30 L, BUN/Creatinine Ratio 6.8 L, Glucose 119 H, Calcium 8.9, Troponin I < 0.015 08/04/20 04:56: WBC 5.1, RBC 3.90 L, Hgb 11.3 L, Hct 35.4 L, MCV 90.8, MCH 29.0, MCHC 31.9 L, RDW Std Deviation 47.5 H, RDW Coeff of Elmer 14.4, Plt Count 217, MPV 12.6 H, Immature Gran % (Auto) 0.800, Neut % (Auto) 48.0, Lymph % (Auto) 39.1, [place] % (Auto) 7.5, Eos % (Auto) 3.4, Baso % (Auto) 1.2 H, Absolute Neuts (auto) 2.4, Absolute Lymphs (auto) 1.98, Nucleated RBC % 0 08/04/20 04:56: Sodium 140, Potassium 3.3 L, Chloride 113 H, Carbon Dioxide 20.0 L, Anion Gap 7, BUN 12, Creatinine 1.54 H, Estim Creat Clear Calc 23.09, Est GFR (MDRD) Af Amer 42 L, Est GFR (MDRD) Non-Af 35 L, BUN/Creatinine Ratio 7.8 L, Glucose 91, Calcium 8.1 L Current Medications Acetaminophen (Acetaminophen 325 Mg Tablet) 650 mg PO Q6H PRN PRN PRN Reason: Pain Score 1-10/Temp > 100.7 F Amlodipine Besylate (Amlodipine 5 Mg Tablet) 5 mg PO DAILY [facility] Last Admin: 08/04/20 09:51 Dose: 5 mg Documented by: Apixaban (Apixaban 5 Mg Tablet) 5 mg PO BID [facility] Last Admin: 08/04/20 09:50 Dose: 5 mg Documented by: Aspirin (Aspirin 81 Mg Tab.Chew) 81 mg PO DAILY@0800 [facility] Last Admin: 08/04/20 09:50 Dose: 81 mg Documented by: Atorvastatin Calcium (Atorvastatin Calcium 40 Mg Tablet) 40 mg PO QHS [facility] Last Admin: 08/03/20 21:53 Dose: 40 mg Documented by: Donepezil HCl (Donepezil Hcl 5 Mg Tablet) 5 mg PO QHS [facility] Last Admin: 08/03/20 21:53 Dose: 5 mg Documented by: Duloxetine HCl (Duloxetine Hcl 30 Mg Capsule) 30 mg PO DAILY [facility] Last Admin: 08/04/20 09:50 Dose: 30 mg Documented by: Gabapentin (Gabapentin 300 Mg Capsule) 300 mg PO 4X/DAYCM [facility] Last Admin: 08/04/20 09:50 Dose: 300 mg Documented by: Lorazepam (Lorazepam 0.5 Mg Tablet) 0.5 mg PO BID PRN PRN PRN Reason: ANXIETY Losartan Potassium (Losartan Potassium 100 Mg Tablet) 100 mg PO DAILY [facility] Last Admin: 08/04/20 09:50 Dose: 100 mg Documented by: Melatonin (Melatonin 3 Mg Tablet) 3 mg PO QHS PRN PRN Reason: INSOMNIA Last Admin: 08/03/20 21:52 Dose: 3 mg Documented by: Mirabegron (Mirabegron 25 Mg Tab.Er.24h) 25 mg PO DAILY [facility] Last Admin: 08/04/20 09:51 Dose: 25 mg Documented by: Ondansetron HCl (Ondansetron 4 Mg/2 Ml Vial) 4 mg IV Q8H PRN PRN PRN Reason: NAUSEA/VOMITING Pantoprazole Sodium (Pantoprazole Sodium 40 Mg Tablet) 40 mg PO DAILY [facility] Last Admin: 08/04/20 09:51 Dose: 40 mg Documented by: Prednisone ([facility] 5 Mg Tablet) [facility] Admin: 08/04/20 09:50 Dose: 5 mg Documented by: Senna/Docusate Sodium (Senna/Docusate Sodium 1 Tablet) 2 tablet PO BID PRN PRN PRN Reason: Constipation Sodium Chloride (0.9% Saline Lock 10 Ml Syringe) 10 - 40 ml IV UD PRN PRN Reason: SALINE FLUSH Discharge Activity: Return to Normal Activity Weight Bearing Status: Weight bearing as tolerated Call your doctor if you observe: Fever of 101 or Higher, Shortness of breath, Dizziness, Fainting spells, Chest pain, Increased palpitations (irregular heartbeat), Uncontrolled pain Home Medications: Medications to take at Discharge Prednisone 5 mg PO DAILY 11/29/18 Cholecalciferol (Vitamin D3) [Vitamin D3] 2,000 unit PO DAILY 03/24/19 losartan 100 mg tablet 100 mg PO DAILY 10/16/19 gabapentin 300 mg capsule 300 mg PO 4X/DAY cap 10/30/19 nitroglycerin 0.4 mg sublingual tablet 0.4 mg SUBLINGUAL Q5-15M PRN #25 tab 11/24/19 Aspirin [Aspirin, Baby] 81 mg PO DAILY@0800 02/26/20 Omeprazole 40 mg PO DAILY 02/26/20 Acetaminophen [Tylenol] 1,000 mg PO Q6H PRN PRN tab 03/09/20 Cyclobenzaprine HCl 5 mg PO DAILY PRN #30 tab 03/09/20 Nystatin Powder [Mycostatin Powder] 1 applic TOPICAL BID@0600,2200 bottle 03/09/20 ALPRAZolam [Xanax] 0.25 mg PO BID PRN PRN 08/03/20 Amlodipine [Norvasc] 5 mg PO DAILY 08/03/20 Apixaban [Eliquis] 5 mg PO BID 08/03/20 Atorvastatin Calcium 40 mg PO QHS 08/03/20 Baclofen [Lioresal] 5 - 10 mg PO TID PRN PRN 08/03/20 Donepezil HCl [Aricept] 5 mg PO QHS 08/03/20 Duloxetine HCl 30 mg PO DAILY 08/03/20 Lidocaine [Lidoderm Patch] 1 patch TOPICAL DAILY PRN PRN 08/03/20 Lorazepam [Ativan] 0.5 mg PO BID PRN PRN 08/03/20 Menthol/Lanolin/Calamine/Znox [Calmoseptine Ointment] 1 applic TOPICAL BID PRN PRN 08/03/20 Mirabegron [Myrbetriq] 25 mg PO DAILY 08/03/20 Tramadol HCl [Ultram] 25 - 50 mg PO TID PRN PRN 08/03/20 Primary Care Physician: Zayda Peace PA [Primary Care Provider] - Please follow up with your Primary Care Physician in: 1 week. Please Follow Up With: Efrain Drake MD When: 2-3 weeks. Disposition: Home Minutes spent on discharge:: 27 Patient Condition:: Stable Medical Necessity - Tobacco Use Smoking Status: Never smoker Meaningful Use Info Meaningful Use Diagnoses (Choose all that apply): None applicable OBSV E&M: 48550 Observation care discharge
--- NOTE | 2020-08-04 10:59 | CASEMGMT ---
Social Work completed a PHQ 9 with patient as she had a Stroke. She scored a 19 which indicates moderate to severe depression. She was open to giving her a list of local counselors. She actually mentioned going to counseling before SW even did PHQ 9. She and her are having some difficulties. He does not understand her deficits from the Strokes she has had. He will yell at her if she does not remember numbers or something he has told her already. She thanked for listening and for the list of mental health providers. Edwina JONES MSW
--- NOTE | 2020-08-04 11:19 | PHA.DC.MR ---
Pharmacy Service has performed discharge medication reconciliation for this patient. The patient's discharge medication list was reviewed for discrepancies and discrepancies were resolved. Home Medications Prednisone 5 mg PO DAILY 11/29/18 Cholecalciferol (Vitamin D3) [Vitamin D3] 2,000 unit PO DAILY 03/24/19 losartan 100 mg tablet 100 mg PO DAILY 10/16/19 gabapentin 300 mg capsule 300 mg PO 4X/DAY cap 10/30/19 nitroglycerin 0.4 mg sublingual tablet 0.4 mg SUBLINGUAL Q5-15M PRN #25 tab 11/24/19 Aspirin [Aspirin, Baby] 81 mg PO DAILY@0800 02/26/20 Omeprazole 40 mg PO DAILY 02/26/20 Acetaminophen [Tylenol] 1,000 mg PO Q6H PRN PRN tab 03/09/20 Cyclobenzaprine HCl 5 mg PO DAILY PRN #30 tab 03/09/20 Nystatin Powder [Mycostatin Powder] 1 applic TOPICAL BID@0600,2200 bottle 03/09/20 ALPRAZolam [Xanax] 0.25 mg PO BID PRN PRN 08/03/20 Amlodipine [Norvasc] 5 mg PO DAILY 08/03/20 Apixaban [Eliquis] 5 mg PO BID 08/03/20 Atorvastatin Calcium 40 mg PO QHS 08/03/20 Baclofen [Lioresal] 5 - 10 mg PO TID PRN PRN 08/03/20 Donepezil HCl [Aricept] 5 mg PO QHS 08/03/20 Duloxetine HCl 30 mg PO DAILY 08/03/20 Lidocaine [Lidoderm Patch] 1 patch TOPICAL DAILY PRN PRN 08/03/20 Lorazepam [Ativan] 0.5 mg PO BID PRN PRN 08/03/20 Menthol/Lanolin/Calamine/Znox [Calmoseptine Ointment] 1 applic TOPICAL BID PRN PRN 08/03/20 Mirabegron [Myrbetriq] 25 mg PO DAILY 08/03/20 Tramadol HCl [Ultram] 25 - 50 mg PO TID PRN PRN 08/03/20
== END 2020-08-04 11:37 | disposition home health service (06) ==
LOC: ED 11:45 → PCU 13:23
PROVIDERS: Admitting Provider Hospitalist; Emergency Provider Emergency Medicine; PCP Physician Assistant; Visit Provider Hospitalist
DX: R47.81 Slurred speech (principal); E87.6 Hypokalemia; I12.9 Hypertensive chronic kidney disease with stage 1 through stage 4 chronic kidney disease, or unspecified chronic kidney disease; N18.30 Chronic kidney disease, stage 3 unspecified; I25.10 Atherosclerotic heart disease of native coronary artery without angina pectoris; I69.354 Hemiplegia and hemiparesis following cerebral infarction affecting left non-dominant side; M32.9 Systemic lupus erythematosus, unspecified; N32.81 Overactive bladder; K21.9 Gastro-esophageal reflux disease without esophagitis; E78.5 Hyperlipidemia, unspecified; G30.9 Alzheimer's disease, unspecified; F02.80 Dementia in other diseases classified elsewhere, unspecified severity, without behavioral disturbance, psychotic disturbance, mood disturbance, and anxiety; F32.9 Major depressive disorder, single episode, unspecified; I73.00 Raynaud's syndrome without gangrene; M06.9 Rheumatoid arthritis, unspecified; G25.81 Restless legs syndrome; M79.7 Fibromyalgia; G89.29 Other chronic pain; Z79.899 Other long term (current) drug therapy; Z79.52 Long term (current) use of systemic steroids; Z79.82 Long term (current) use of aspirin; Z79.01 Long term (current) use of anticoagulants; Z86.711 Personal history of pulmonary embolism; Z86.718 Personal history of other venous thrombosis and embolism; Z93.2 Ileostomy status
CPT/HCPCS: 70450; 70551; 71045; 80048; 84484; 85025; 85610; 85730; 93005; 94762; 96360; 96361; 97110; 97162; 97166; 97530; 97535; 97802; 99218; 99251; 99285; J7030; A4216; G0378; G0463

== ENCOUNTER 2020-09-03 13:58 | Observation (INO) | payer MEDICARE, SELFPAY ==
[2020-08-03 14:13] VITALS: BMI 35.6
[2020-09-03] VITALS (20 sets, daily range): BP systolic 119–178; BP diastolic 54–114; PULSE 61–115; RESP 11–20; TEMP 35.9–36.9; O2SAT 95–100; BMI 31.2
--- NOTE | 2020-09-03 14:13 | ED.RN ---
upon taking pt back to the room, he states . my God I was concerned she was having a stroke 2 hours agopt nor significant other had voiced any of these concerns during or prior to triage. charge nurse made aware
--- NOTE | 2020-09-03 14:25 | EKG12_ITS ---
Test Reason : Blood Pressure : / mmHG Vent. Rate : 071 BPM Atrial Rate : 071 BPM P-R Int : 168 ms QRS Dur : 074 ms QT Int : 432 ms P-R-T Axes : 051 004 045 degrees QTc Int : 469 ms Sinus rhythm with Premature atrial complexes with Aberrant conduction Nonspecific T wave abnormality Abnormal ECG Confirmed by GUILLE ARROYO, DARÍO ([id number]), associate entertainment editor NOLVIA MARTÍNEZ ([id number]) on 09/06/2020 2:18:48 PM Referred By: ANA Confirmed By:DARÍO HAN MD
--- NOTE | 2020-09-03 14:25 | CT_ITS ---
STUDY: CT HEAD STROKE PROTOCOL W/O CONTRAST INJECTION REASON FOR EXAM: Female, 79 years old. CVA RADIATION DOSAGE (If Supplied By Facility): CTDIvol = ( 44.99 ) mGy, DLP = ( 796.11 ) mGycm TECHNIQUE: Transaxial CT imaging of the brain was performed without administration of intravenous contrast material. Individualized dose optimization techniques were used for this CT. COMPARISON: Comparison is made with prior study dated 08/03/2020. FINDINGS: Normal soft tissue structures. Stable 1.3 cm lytic lesion in the right frontal calvarium in keeping with hemangioma. There is mild cerebral atrophy with widening of the extra-axial spaces and ventricular dilatation. There are areas of decreased attenuation within the white matter tracts of the supratentorial brain, consistent with microvascular disease changes. Stable focal encephalomalacia in the deep left frontal lobe in keeping with prior infarction. Normal basal ganglia and thalami. Normal brainstem. There is mild cerebellar atrophy. There is no intracranial hemorrhage. There are no findings of an acute ischemic infarction. Normal visualized paranasal sinuses. CT/STROKE Brain/Head without Cont IMPRESSION: Chronic involutional changes of the brain. N.B. : The above information has been verbally conveyed by uGero Pelaez MD to Gonzalez Ryderone on 09/03/2020 14:44:14 (ET). Electronically Signed: Guero Pelaez MD at 14:45 EST , Service support ,
--- NOTE | 2020-09-03 14:27 | ED.VIS.STROK ---
History of Present Illness Chief Complaint: General Illness Informant: Patient, Family, PCP Onset: Today - See below Context: - - Unknown Timing: Continuous Quality and Location: Slurred Speech Onset: Unknown Current Severity: Severe Maximum Severity: Severe Worsened by: Nothing in particular Relieved by: Nothing Associated Symptoms: Negative for: Headache, Nausea, Vomiting, Chest Pain Narrative: Patient had a cerebellar stroke couple months ago and has been slowly improving. states that she has been now slowly seeming to worsen with regards to her mental status in the past couple weeks. However she has been speaking well until today. He woke her up around 11 this morning, noticed that she was slurring her speech. Around an hour or 1.5 hours later, her speech became much worse. Last night seen normal at 10:00 when they went to bed, and she was speaking fine. They went to PCPs office even though PCP recommended that they come to the ER, and after evaluating her in the office, sent her promptly to the ER. Vital signs in the office prior to being sent here: Blood pressure 118/72, pulse 95, pulse ox 100% on room air. states that he was concerned she could be having another stroke because she was slurring her speech this bad when she had her last stroke. No recent illness that he knows of, no vomiting, shortness of breath, cough. History is limited from the patient due to lethargy and some disorientation and much of it comes from the . Patient has an ileostomy, states output has been fine lately. She has had no issues urinating. - Past Medical History (1) Atherosclerotic heart disease of [place] coronary artery without angina pectoris Status: Chronic Comment: Mild; Left Main: mild calcification, angiographically normal; LAD: prox: Mild calcification, mild luminal irregularities;CX: prox: Mild luminal irregularities; RCA: angiographically normal per cath 05/09/17 (2) Benign essential hypertension Status: Chronic (3) CKD (chronic kidney disease), stage III Status: Chronic (4) CVA (cerebral vascular accident) Status: Chronic (5) Coronary artery disease Status: Chronic (6) Debility Status: Chronic (7) Depression Status: Chronic (8) GERD (gastroesophageal reflux disease) Status: Chronic (9) History of pulmonary embolism Status: Chronic (10) Hyperlipidemia Status: Chronic (11) Hypertension Status: Chronic (12) Neuropathic pain Status: Chronic (13) Systemic lupus erythematosus Status: Chronic (14) Vascular dementia Status: Chronic (15) Vitamin D deficiency Status: Chronic Past Medical History - Allergies and Home Meds Allergies/Adverse Reactions: Allergies ampicillin Allergy (Verified 09/03/20 14:03) Rash buprenorphine HCl [From Buprenex] Allergy (Verified 09/03/20 14:03) Other codeine Allergy (Verified 09/03/20 14:03) Anaphylaxis gold Au 198 Allergy (Verified 09/03/20 14:03) Rash guaifenesin Allergy (Verified 09/03/20 14:03) Rash promethazine HCl [From Phenergan] Allergy (Verified 09/03/20 14:03) Shortness of breath Sulfa (Sulfonamide Antibiotics) Allergy (Verified 09/03/20 14:03) Rash sulindac [From Clinoril] Allergy (Verified 09/03/20 14:03) Rash tetracycline [Tetracycline] Allergy (Verified 09/03/20 14:03) Rash thiopental Allergy (Verified 09/03/20 14:03) Rash trimethoprim [From Proloprim] Allergy (Verified 09/03/20 14:03) Rash buspirone [From BuSpar] Adverse Reaction (Verified 09/03/20 14:03) Nausea oxycodone HCl [From OxyContin] Adverse Reaction (Verified 09/03/20 14:03) Other NALDECON Allergy (Uncoded 09/03/20 14:03) Rash SULPHATED OIL Allergy (Uncoded 09/03/20 14:03) Other TAPE Allergy (Uncoded 09/03/20 14:03) Rash Primary Care Physician: Zayda Peace PA [Primary Care Provider] - Surgical History: appendectomy, cholecystectomy, herniorrhaphy, hysterectomy, total knee arthroplasty - Bilateral., - - Krish fundiplication, IVC filter, Aortic valve replacement, Ileostomy, Bilateral carpal tunnel surrgery. Lives: Spouse/ Significant Other Smoking Status: Never smoker - Family History Maternal Family History: Family History (Last Reviewed 05/20/20 @ 21:[address] Cassy Cruz MD) Father CVA (cerebral vascular accident) Family History: Reports: No pertinent history Paternal Family History: Family History (Last Reviewed 05/20/20 @ 21:[address] Cassy Cruz MD) Father CVA (cerebral vascular accident) Family History: Reports: Hypertension Review of Systems ROS: Unable to Obtain - Except as below Eyes: Reports: - - Bilateral eye discharge x1-2 days ENT: Denies: Bilateral ear pain, Sore throat Cardiovascular: Denies: Chest pain, Palpitations Respiratory: Denies: Dyspnea, Cough Gastrointestinal: Denies: Nausea, Vomiting, Diarrhea, Hematochezia Musculoskeletal: Denies: Myalgias, Neck pain, Back pain, Extremity Pain Neurological: Reports: Weakness - All over patient denies focal. Denies: Headache, Numbness STROKE Vital Signs/Narrative: Vital Signs Temp Pulse Resp BP Pulse Ox 09/03/20 13:59 96.7 F L 90 18 119/90 H 98 Inital Vital Signs reviewed: Yes - NIHSS Initial 1a Level of Consciousness: 1 1b LOC Questions (Score 2 if aphasic/stupor): 2 1c LOC Commands (Only score 1st attempt): 0 2 Best Gaze (If aphasic, use reflexive mvmts.): 0 3 Visual: 0 4 Facial Palsy: 0 5 Motor Arm Right (UN = amputation/fusion): 0 5 Motor Arm Left: 1 6 Motor Leg Right: 3 6 Motor Leg Left: 3 7 Limb ataxia (Only + if out of proportion): 0 8 Sensory (Aphasia/stupor=0 or 1, coma=2): 0 9 Best Language: 0 10 Dysarthria (mute, coma=2, intubated=UN): 1 11 Extinction and Inattention (only scored if +): 0 Total Score: 11 General: Well nourished, Well developed, - - Somnolent, but responds and follows commands Head: Normocephalic, Atraumatic Eyes: Perrl, EOMI, - - Bilateral mildly injected bulbar conjunctivae with purulent discharge more on the left. No chemosis. ENT: Moist mucous membranes, No rhinorrhea Neck: Supple, Nontender Cardiovascular: Regular rate, Regular rhythm, No murmurs. Negative for: Tachycardia Respiratory: No distress, CTA bilaterally, Chest nontender Abdomen: Soft, Nontender, Nondistended, Normal bowel sounds, - - Ileostomy with air in the bag, nontender around the site Back: Nontender, Normal Inspection. Negative for: CVA tenderness Extremities: Nontender, No edema. Negative for: Calf Tenderness Skin: Normal color, No rash, No Trauma Neurological: Cranial nerves II-XII grossly intact, Normal Sensation, Disoriented - To time but oriented to person, place, Lethargic - Somnolent, but opens eyes to voice. Psychological: Normal affect, Normal Mood Diagnostic/Tx/Re-eval Impressions Brain CT 09/03/20 14:25 IMPRESSION: Chronic involutional changes of the brain. N.B. : The above information has been verbally conveyed by Guero Pelaez MD to Gonzalez Moseley on 09/03/2020 14:44:14 (ET). Electronically Signed: Guero Pelaez MD at 14:45 EST , Service support , ADDENDUM: 09/03/20 1452 IMPRESSION: Chronic involutional changes of the brain. N.B. : The above information has been verbally conveyed by Guero Pelaez MD to Gonzalez Moseley on 09/03/2020 14:44:14 (ET). Electronically Signed: Guero Pelaez MD at 14:45 EST , Service support , Head/Neck CTA 09/03/20 14:30 IMPRESSION: Atherosclerotic calcific plaque at the origin of the right internal carotid artery causing less than 50% stenosis. N.B. : The above information has been verbally conveyed by Guero Pelaez MD to Gonzalez Moseley on 09/03/2020 14:48:48 (ET). Electronically Signed: Guero Pelaez MD at 14:49 EST , Service support , ADDENDUM: 09/03/20 1456 IMPRESSION: Atherosclerotic calcific plaque at the origin of the right internal carotid artery causing less than 50% stenosis. N.B. : The above information has been verbally conveyed by Guero Pelaez MD to Gonzalez Moseley on 09/03/2020 14:48:48 (ET). Electronically Signed: Guero Pelaez MD at 14:49 EST , Service support , Chest X-Ray 09/03/20 15:30 IMPRESSION: Stable chest with no acute or active cardiopulmonary disease. Electronically Signed: Yordy Conroy MD at 15:46 EST , Service support , 09/03/20 14:25 STROKE Brain/Head without Cont [CT] Stat 09/03/20 14:30 STROKE CTA Head AND Neck W/Con [CT] Stat 09/03/20 15:30 Chest 1 View [RAD] Stat Laboratory Results 09/03/20 09/03/20 09/03/20 14:15 14:15 14:15 WBC 8.7 RBC 5.06 Hgb 14.9 Hct 45.4 MCV 89.7 MCH 29.4 MCHC 32.8 RDW Std Deviation 45.4 H RDW Coeff of Elmer 13.8 Plt Count 264 MPV 11.4 Immature Gran % (Auto) 0.500 Neut % (Auto) 67.2 Lymph % (Auto) 24.4 [place] % (Auto) 6.1 Eos % (Auto) 0.9 Baso % (Auto) 0.9 Absolute Neuts (auto) 5.8 Absolute Lymphs (auto) 2.11 Nucleated RBC % 0 PT 12.1 INR 0.9 APTT 26.7 Sodium 139 Potassium 3.2 L Chloride 106 Carbon Dioxide 22.0 Anion Gap 11 BUN 19 H Creatinine 1.21 H Estim Creat Clear Calc 27.97 Est GFR (MDRD) Af Amer 55 L Est GFR (MDRD) Non-Af 46 L BUN/Creatinine Ratio 15.7 Glucose 133 H Lactic Acid Calcium 9.5 Troponin I < 0.015 Urine Color Urine Clarity Urine pH Ur Specific [place] Urine Protein Urine Glucose (UA) Urine Ketones Urine Occult Blood Urine Nitrite Urine Bilirubin Urine Urobilinogen Ur Leukocyte Esterase Urine RBC Urine WBC Ur Squamous Epith Cells Urine Bacteria Urine Mucus POC Glucose 09/03/20 09/03/20 09/03/20 14:16 14:36 16:00 WBC RBC Hgb Hct MCV MCH MCHC RDW Std Deviation RDW Coeff of [place]mer Plt Count MPV Immature Gran % (Auto) Neut % (Auto) Lymph % (Auto) [place] % (Auto) Eos % (Auto) Baso % (Auto) Absolute Neuts (auto) Absolute Lymphs (auto) Nucleated RBC % PT INR APTT Sodium Potassium Chloride Carbon Dioxide Anion Gap BUN Creatinine Estim Creat Clear Calc Est GFR (MDRD) Af Amer Est GFR (MDRD) Non-Af BUN/Creatinine Ratio Glucose Lactic Acid 2.7 H* Calcium Troponin I Urine Color Yellow Urine Clarity Clear Urine pH 6.5 Ur Specific [place] 1.010 Urine Protein 30 H Urine Glucose (UA) Normal Urine Ketones 15 H Urine Occult Blood Negative Urine Nitrite Negative Urine Bilirubin Negative Urine Urobilinogen 4 H Ur Leukocyte Esterase 25 H Urine RBC 0 SEEN Urine WBC 0 SEEN Ur Squamous Epith Cells 0 SEEN Urine Bacteria RARE Urine Mucus 0 SEEN POC Glucose 124 H - Rhythm Strip Rhythm Strip: Sinus Rhythm Rate: 70 Ectopy: PVC(s) - EKG Initial EKG Interpretation: Sinus Rhythm, No Acute Injury Pattern, Non-Specific ST Changes, - - PVC - Medical Decision Making Stroke Team Activated: Yes Was Patient considered for Endovascular Intervention?: No - neg CTA IV Alteplase (t-PA) Administered: No - out of window / wake up Stroke team called, stroke is in the differential diagnosis here but not necessarily the most likely cause of her symptoms at this time. She is speaking pretty well, but looks more somnolent and malaised than anything. Her legs are symmetrically weak, but she is a little more weak in the left arm than the right. Since she was last known well last night at 2200, she is not an IV TPA candidate. Her CTA is negative, so she does not require transfer for thrombectomy, discussed all this with [facility] teleneurology who was in agreement with the plan to admit her for further evaluation. Blood cultures were sent, lactate is nonspecifically elevated but does not meet SIRS criteria and no sign of objective acute infection found. Patient is a little prerenal, and has mildly low potassium which I ordered potassium replacement for in addition to bacitracin ophthalmic for what appears to be purulent conjunctivitis. Due to severe weakness, she is not able to ambulate. The patient does not want to stay in the hospital but eventually her and I were able to convince her due to all of this. Critical care time (excluding procedures): 30-74 minutes - 32 minutes including time spent discussing with patient and family, consultants, arranging admission, and performing direct patient care and reevaluation at the bedside ED Disposition - Plan for ED Patient: Disposition: Acute Care Hospital [facility] Diagnosis: Acute alteration in mental status, Dysarthria, Generalized weakness, Hypokalemia, Dehydration, Conjunctivitis, acute, bilateral, Unable to ambulate Referrals: Zayda Peace PA [Primary Care Provider] -
--- NOTE | 2020-09-03 14:30 | CT_ITS ---
STUDY: CTA HEAD AND NECK WITH CONTRAST REASON FOR EXAM: Female, 79 years old. STROKE RADIATION DOSAGE (If Supplied By Facility): CTDIvol = ( 17.81 ) mGy, DLP = ( 695.66 ) mGycm TECHNIQUE: CT angiography was performed with a multi-detector CT scanner. Data acquisition was obtained from the skull base through the vertex following intravenous administration of IV 100mL [id number]-[id number]. MIP images were reconstructed from the axial data set. Post-processing of the angiographic images was performed, with multiplanar reformation and 3D reconstruction. Individualized dose optimization techniques were used for this CT. COMPARISON: No relevant priors. FINDINGS: Normal bilateral petrous carotid arteries. There is calcified plaque formation of the right cavernous carotid artery, without a cross-sectional luminal stenosis. There is calcified plaque formation of the left cavernous carotid artery, without a cross-sectional luminal stenosis. Normal right A1 segments of the anterior cerebral artery. Normal left A1 segments of the anterior cerebral artery. Normal intact anterior communicating artery (ACOM). Normal bilateral A2 segments of the anterior cerebral arteries. Normal right M1 and M2 segments of the middle cerebral arteries, with a normal M1 bifurcation. Normal left M1 and M2 segments of the middle cerebral arteries, with a normal M1 bifurcation. Normal right posterior communicating artery (PCOM). Normal left posterior communicating artery (PCOM). Normal bilateral vertebral arteries. Normal basilar artery with a normal basilar bifurcation. The visualized bilateral superior cerebellar (SCA) arteries are normal. Normal bilateral P1, P2 and visualized P3 segments of the posterior cerebral arteries. There is no demonstrated aneurysm of the [place] of [place]. Small bilateral hypodensities in the right and left lobe of the thyroid gland. AORTIC ARCH: There is atherosclerotic calcific plaque formation of the aortic arch and great vessels arising from the aortic arch, without a hemodynamically significant stenosis. There is a bovine origin of the great vessels with a common origin of the brachiocephalic and left common carotid artery. Normal origin of the left subclavian artery. Atherosclerotic plaque formation at the origin of the left subclavian artery. RIGHT CAROTID ARTERIES: Normal right common carotid artery (CCA). Normal right common carotid bulb. There is mild atherosclerotic plaque formation of the origin of the right internal carotid artery with less than 50% cross sectional diameter stenosis. Normal visualized cervical portion of the right internal carotid artery. Normal origin of the right external carotid artery (ECA). LEFT CAROTID ARTERIES: Normal left common carotid artery (CCA). Normal left common carotid bulb. Normal origin of the left internal carotid (ICA) artery without a hemodynamically significant stenosis. Normal visualized cervical portion of the left internal carotid artery. Normal origin of the left external carotid artery (ECA). VERTEBRAL ARTERIES: Normal bilateral vertebral arteries. Degenerative changes of the temporomandibular joints bilaterally worse on the right side. CT/STROKE CTA Head AND Neck W/Con IMPRESSION: Atherosclerotic calcific plaque at the origin of the right internal carotid artery causing less than 50% stenosis. N.B. : The above information has been verbally conveyed by Guero Pelaez MD to Gonzalez Pradip on 09/03/2020 14:48:48 (ET). Electronically Signed: Guero Pelaez MD at 14:49 EST , Service support ,
[2020-09-03 14:31] LABS: Bedside Glucose 124 mg/dL (70-110)
[2020-09-03 14:36] LABS: Absolute Lymphocyte Count 2.11 X10^3/uL (0.83-4.51); Absolute Neutrophil Count 5.8 X10^3/uL (2.0-7.7); Basophil# 0.08 X10^3/uL; Basophil% 0.9 % (0-1); Eosinophil# 0.08 X10^3/uL; Eosinophils% 0.9 % (0-5); Hematocrit 45.4 % (37-47); Hemoglobin 14.9 g/dL (12.0-15.0); Lymphocyte # 2.11 X10^3/ul (4.0); Lymphocyte % 24.4 % (19-41); Mean Corp Hgb Conc 32.8 g/dL (32-36); Mean Corpuscular Hgb 29.4 pg (27.0-32.0); Mean Corpuscular Volume 89.7 fL (81-99); Mean Platelet Vol. 11.4 fl (6.2-12.0); Monocyte# 0.53 X10^3/uL; Monocyte% 6.1 % (0-10); NRBC Flagged by Analyzer 0 % (0-5); Neutrophil # 5.81 X10^3/uL (2.7-7.7); Neutrophil % 67.2 % (47-70); Platelet Count 264 K/mm3 (150-450); RBC Distribution Width CV 13.8 % (11.6-14.6); RBC Distribution Width SD 45.4 fl (35.1-43.9); Red Blood Count 5.06 M/mm3 (4.2-5.4); White Blood Count 8.7 K/mm3 (4.4-11.0)
[2020-09-03 14:49] LABS: International Normalized Ratio 0.9; Prothrombin Time (Protime)PT. 12.1 SECONDS (11.7-14.9)
[2020-09-03 14:50] LABS: Partial Thromboplast Time 26.7 Seconds (24.1-36.2)
[2020-09-03 14:54] LABS: Anion Gap 11 (5-15); BUN 19 mg/dL (7-18); BUN/Creat Ratio 15.7 RATIO (10-20); Calcium,Total 9.5 mg/dL (8.5-10.1); Chloride 106 mmol/L (98-107); Creatinine, Serum 1.21 mg/dL (0.55-1.02); EST Glomerular Filtration Rate 46 mL/min (>60); Est Glom Filt Rate - Afr Amer 55 mL/min (>60); Estimated Creatinine Clearance 27.97 ml/min; Glucose 133 mg/dL (74-106); Potassium 3.2 mmol/L (3.5-5.1); Sodium Level 139 mmol/L (136-145)
--- NOTE | 2020-09-03 15:30 | RAD_ITS ---
STUDY: X-RAY CHEST REASON FOR EXAM: Female, 79 years old. Patient not eating or drinking at home. Attempt to set up palliative care. TECHNIQUE: Single frontal view of the chest. COMPARISON: 08/03/2020 FINDINGS: The lungs are clear and expanded. There is no demonstrated pleural abnormality. Normal size heart. Normal mediastinum and regina. Normal visualized pulmonary arteries. Stable aortic tortuosity with calcification. Normal visualized thoracic spine. 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 There is no demonstrated abnormality of the visualized soft tissue structures of the upper abdomen. RAD/Chest 1 View IMPRESSION: Stable chest with no acute or active cardiopulmonary disease. Electronically Signed: Yordy Conroy MD at 15:46 EST , Service support ,
[2020-09-03 15:37] LABS: Lactic Acid 2.7 mmol/L (0.4-1.9)
[2020-09-03 16:10] LABS: Mucous, Urine 0 SEEN /hpf (<or=2+); Red Blood Cells-Urine 0 SEEN /hpf (0-5); Squamous Epithelial Cells - UA 0 SEEN /hpf (5-10); White Blood Cells 0 SEEN /hpf (0-5)
[2020-09-03 16:19] LABS: Color, Urine Yellow (Yellow); Glucose, Dipstick Normal (Normal); Ketone-Dipstick 15 mg/dl (Negative); Leukocyte Esterase-Dipstick 25 /ul (Negative); Nitrite-Dipstick Negative (Negative); Occult Blood-Urine Negative /ul (Negative); Protein-Dipstick 30 mg/dl (Negative); Urine Bilirubin Dipstick Negative (Negative); Urine Clarity Clear (Clear); Urine Urobilinogen 4 mg/dl (Normal); Urine pH 6.5 (5.0 - 8.0)
[2020-09-03 16:49] LABS: Bacteria RARE /hpf (None Seen)
[2020-09-03] MEDS: 0.9% Normal Saline 1,000 ML 150 ML IV (17:39)
[2020-09-03 18:48] LABS: Reflex Lactate? Y
--- NOTE | 2020-09-03 19:17 | MRI_ITS ---
We are attempting to reach an attending provider to discuss findings. An addendum with communication details will be sent when the communication is complete. STUDY: MRI BRAIN WITHOUT CONTRAST REASON FOR EXAM: Female, 79 years old. Increasing slurred speech and weakness TECHNIQUE: Standardized multiplanar fat and water weighted pulse sequences were obtained. COMPARISON: Same day CT head and MR brain FINDINGS: There is a new linear infarct in the right parietal cortex, probably post central gyrus. Left pontine punctate infarct is not seen due to slice selection artifact. There is a remote left frontal moderate extent cortical/subcortical infarct. There is no mass effect, midline shift, extra parenchymal fluid collections, hydrocephalus or herniation. Major basal skull flow voids are preserved. There is no intracranial hemorrhage. MRI/Brain without Contrast IMPRESSION: 1. New since earlier same day small to moderate acute right parietal cortical infarct. 2. Punctate left pontine infarct seen on prior same day but not current study. 3. Remote left frontal infarct. Electronically Signed: Catrachita Dunbar MD at 21:05 EST Tel , Service support ,
--- NOTE | 2020-09-03 19:29 | PCM.HP.STD ---
History of Present Illness Date of Admission: 09/03/20 Mrs. Russ is a 79 year old WF with multiple medical comorbidities as noted below who presented to the emergency department on 09/03/2020 with slurred speech/mental status changes. Per discussion with the patient suffered from a cerebellar stroke a couple of months ago and had been slowly improving at home, but reports that she is slowly in the last few days with regards to her mental status and speech been worsening. However until today she had been speaking clearly. He awoke her this morning at around 11 AM and noticed that she was slurring her speech. Approximately 1-1/2 hours later it became worse. He she had an appointment with her PCP and they went to his office and he recommended follow-up with the emergency department today after evaluating her in the office. The patient's states that these are symptoms similar to what she had with her last stroke and he was concerned that this is a recurrence of her stroke. A stroke team was called in the emergency department initially but given that her last known well was at 2200 last night she was not an IV TPA candidate. A CT of her head showed chronic involutional changes of the brain and a CTA of the head and neck showed atherosclerotic calcific plaque at the origin of the right internal carotid artery causing less than 50% stenosis but was otherwise unimpressive. Her vital signs on admission were stable other than some mild hypertension. Laboratory data revealed a normal CBC, normal coagulation studies, her BMP showed mild hypokalemia with a potassium of 3.2, stable CKD, mildly elevated lactic acid at 2.7, and a negative troponin. UA was performed and was unimpressive. Per discussion with the ER physician the patient wanted to leave [facility] but with some convincing from her she decided to stay. Upon my exam the reports that she is back to her baseline regarding her mental status and speech. She will be admitted to PCU for further work-up. Past Medical History Past Medical History (Chronic Problems): Chronic Problems (Last Updated 05/20/20 @ 20:[address] Cassy Cruz MD) CKD (chronic kidney disease), stage III (Chronic) CVA (cerebral vascular accident) (Chronic) Debility (Chronic) Left hemiparesis (Chronic) Systemic lupus erythematosus (Chronic) Coronary artery disease (Chronic) Chronic kidney disease (Chronic) Hypertension (Chronic) Pulmonary embolism (Chronic) Vitamin D deficiency (Chronic) Overactive bladder (Chronic) Depression (Chronic) Neuropathic pain (Chronic) Insomnia (Chronic) Vascular dementia (Chronic) Vertigo (Chronic) Atherosclerotic heart disease of [place] coronary artery without angina pectoris (Chronic ~05/09/17) Mild; Left Main: mild calcification, angiographically normal; LAD: prox: Mild calcification, mild luminal irregularities;CX: prox: Mild luminal irregularities; RCA: angiographically normal per cath 05/09/17 Diastolic dysfunction (Chronic) Hyperlipidemia (Chronic) Benign essential hypertension (Chronic) GERD (gastroesophageal reflux disease) (Chronic) History of pulmonary embolism (Chronic) Medical History: Medical History (Last Updated 05/20/20 @ 20:[address] Cassy Cruz MD) Atherosclerotic heart disease of [place] coronary artery without angina pectoris (Chronic) Onset Date: ~05/09/17 I25.10 Mild; Left Main: mild calcification, angiographically normal; LAD: prox: Mild calcification, mild luminal irregularities;CX: prox: Mild luminal irregularities; RCA: angiographically normal per cath 05/09/17 Diastolic dysfunction (Chronic) I51.89 Hyperlipidemia (Chronic) E78.5 Benign essential hypertension (Chronic) I10 GERD (gastroesophageal reflux disease) (Chronic) K21.9 History of pulmonary embolism (Chronic) Z86.711 Acute right cerebellar stroke Alzheimer's dementia G30.9 Chronic back pain M54.9, G89.[address] Oswald West History of CVA (cerebrovascular accident) Z86.73 History of TIAs Ileostomy in place Z93.2 Raynauds disease I73.00 Restless legs Rheumatoid arthritis M06.[address] Jose Johns @ [facility] Systemic lupus erythematosus M32.9 Dementia F03.90 History of DVT (deep vein thrombosis) Z86.718 History of deep vein thrombosis Z86.718 History of echocardiogram Onset Date: ~04/2017 Z92.89 EF 65% History of left heart catheterization (LHC) Z98.890 Raynaud's phenomenon (Inactive) Sjogren's syndrome (Inactive) M35.00 Allergies ampicillin Allergy (Verified 09/03/20 14:03) Rash buprenorphine HCl [From Buprenex] Allergy (Verified 09/03/20 14:03) Other codeine Allergy (Verified 09/03/20 14:03) Anaphylaxis gold Au 198 Allergy (Verified 09/03/20 14:03) Rash guaifenesin Allergy (Verified 09/03/20 14:03) Rash promethazine HCl [From Phenergan] Allergy (Verified 09/03/20 14:03) Shortness of breath Sulfa (Sulfonamide Antibiotics) Allergy (Verified 09/03/20 14:03) Rash sulindac [From Clinoril] Allergy (Verified 09/03/20 14:03) Rash tetracycline [Tetracycline] Allergy (Verified 09/03/20 14:03) Rash thiopental Allergy (Verified 09/03/20 14:03) Rash trimethoprim [From Proloprim] Allergy (Verified 09/03/20 14:03) Rash buspirone [From BuSpar] Adverse Reaction (Verified 09/03/20 14:03) Nausea oxycodone HCl [From OxyContin] Adverse Reaction (Verified 09/03/20 14:03) Other NALDECON Allergy (Uncoded 09/03/20 14:03) Rash SULPHATED OIL Allergy (Uncoded 09/03/20 14:03) Other TAPE Allergy (Uncoded 09/03/20 14:03) Rash Home Medications: Ambulatory Orders Medication Instructions Recorded Cholecalciferol (Vitamin D3) 2,000 unit PO DAILY 03/24/19 [Vitamin D3] losartan 100 mg tablet 100 mg PO DAILY 10/16/19 gabapentin 300 mg capsule 300 mg PO 4X/DAY cap 10/30/19 nitroglycerin 0.4 mg sublingual 0.4 mg SUBLINGUAL Q5-15M PRN #25 11/24/19 tablet tab Aspirin [Aspirin, Baby] 81 mg PO DAILY@0800 02/26/20 Omeprazole 40 mg PO DAILY 02/26/20 Acetaminophen [Tylenol] 1,000 mg PO Q6H PRN PRN tab 03/09/20 Cyclobenzaprine HCl 5 mg PO DAILY PRN #30 tab 03/09/20 ALPRAZolam [Xanax] 0.25 mg PO BID PRN PRN 08/03/20 Amlodipine [Norvasc] 5 mg PO DAILY 08/03/20 Apixaban [Eliquis] 5 mg PO BID 08/03/20 Atorvastatin Calcium 80 mg PO QHS 08/03/20 Baclofen [Lioresal] 5 - 10 mg PO TID PRN PRN 08/03/20 Donepezil HCl [Aricept] 5 mg PO QHS 08/03/20 Duloxetine HCl 30 mg PO DAILY 08/03/20 Lorazepam [Ativan] 0.5 mg PO BID PRN PRN 08/03/20 Menthol/Lanolin/Calamine/Znox 1 applic TOPICAL BID PRN PRN 08/03/20 [Calmoseptine Ointment] Tramadol HCl [Ultram] 25 - 50 mg PO TID PRN PRN 08/03/20 Surgical History: Surgical History (Last Reviewed 05/20/20 @ 21:[address] Cassy Cruz MD) History of Krish fundoplication Z98.890 S/P IVC filter Z95.828 History of appendectomy Z98.890, Z90.49 History of bilateral knee replacement Z96.653 History of cardiac catheterization Onset Date: ~04/2017 Z98.890 Mild CAD History of carpal tunnel surgery Z98.890 Bilateral History of cholecystectomy Z98.890, Z90.49 History of herniorrhaphy Z98.890, Z87.19 History of hysterectomy Z98.890, Z90.710 History of salpingo-oophorectomy Z90.79, Z90.721 Surgical History: appendectomy, cholecystectomy, herniorrhaphy, hysterectomy, total knee arthroplasty - Bilateral., - - Krish fundiplication, IVC filter, Aortic valve replacement, Ileostomy, Bilateral carpal tunnel surrgery. 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 Cassy Cruz MD) Father CVA (cerebral vascular accident) History Items: No pertinent history Paternal Family History: Family History (Last Reviewed 05/20/20 @ 21:[address] Cassy Cruz MD) Father CVA (cerebral vascular accident) History Items: Hypertension Review of Systems Constitutional: Reports: Weakness, Fatigue. Denies: Anorexia, Chills, Fever, Night Sweats, Malaise, Weight Change Eyes: Denies: Blurred vision, Cataracts, Conjunctivae Inflammation, Double vision, Drainage, Eyelid Inflammation, Pain, Redness, Vision Change HEENT: Denies: Difficulty Hearing, Difficulty Swallowing, Dysphasia, Ear Pain, Eye Pain, Hard of Hearing, Head Aches, Nasal bleeding, Nasal Congestion, Post Nasal Drip, Sinus Congestion, Sinus Drainage, Sore Throat, Visual Changes Cardiovascular: Denies: Chest Pain, Claudication, Chest Pressure, Chest Tightness, Edema, Heaviness, Light Headedness, Orthopnea, Palpitations, Paroxysmal Noc. Dyspnea, Syncope Respiratory: Denies: Cough, Hemoptysis, Pleuritic Pain, Shortness of Breath, Shortness of breath at rest, Shortness of breath upon exertion, Sputum production, Wheezing Gastrointestinal: Denies: Abdominal Pain, Constipation, Diarrhea, Dyspepsia, Hematemesis, Hematochezia, Nausea, Melena, Vomiting Genitourinary: Reports: Incontinence. Denies: Dysuria, Frequency, Hematuria, Hesitancy, Nocturia, Retention, Urgency Musculoskeletal: Denies: Back Pain, Joint Pain, Joint stiffness, Joint swelling, Joint Tenderness, Muscle pain Skin: Denies: Dryness, Jaundice, Lesions, Pruritis, Rash, Skin Changes, Wounds Neurological: Reports: Balance problems, Change in Speech - Resolved, Confusion - Mild. Denies: Blurred vision, Double vision, Slurred speech, Difficulty swallowing, Focal weakness, Headaches, Incoordination, Numbness, Tingling, Tremor, Seizures Psychiatric: Reports: Anxiety. Denies: Depression Endocrine: Denies: Change in Body Habitus, Heat/ Cold Intolerance, Polydipsia Hematologic/ Lymphatic: Denies: Adenopathy, Anemia, Easy Bruising, Easy Bleeding, Petechiae, Purpura VTE Information - Inpt Only VTE Present on Admission: No VTE Mechan Device Prophylaxis: None VTE Pharm Prophylaxis ordered?: No Reason prophylaxis not ordered:: Treatment Not Indicated - Patient on apixaban Patient Problems: Active and Suspected Problems (Last Updated 05/20/20 @ 20:[address] Cassy Cruz MD) Acute alteration in mental status (Acute) Dysarthria (Acute) Generalized weakness (Acute) Hypokalemia (Acute) Dehydration (Acute) Conjunctivitis, acute, bilateral (Acute) Unable to ambulate (Acute) - Physical Exam Vitals/I&O's: Vital Signs Temp Pulse Resp BP Pulse Ox 97.6 F L 67 20 H 130/74 H 97 09/03/20 19:09 09/03/20 19:09 09/03/20 19:09 09/03/20 19:09 09/03/20 19:09 Oxygen Delivery Method Room Air Weight: 72.575 kg Body Mass Index (BMI) 31.2 Finger Stick Blood Glucose 124 Intake and Output for Last 24 Hours 09/01/20 09/02/20 09/03/20 23:59 23:59 23:59 Intake Total 199.65 / 199.65 Balance 199.65 / 199.65 General: Alert, Oriented x3, Cooperative, No apparent distress, Well developed, Well nourished, - - Elderly white female, sitting up in bed, appears much older than stated age, at bedside HEENT: Atraumatic, PERRLA, EOMI, Normocephalic, EAC Clear, - - Bilateral conjunctival and scleral erythema with purulent drainage bilaterally Oral: Moist Mucosa, No Gingival or Mucosal Lesions/ Ulcerations, - - Poor dentition Neck: Supple, No JVD, Negative Carotid Bruits, Negative Hepatojugular Reflux, No Nodes, No Nuchal Rigidity, Trachea Midline Lungs: Clear to auscultation, No rhonchi, No wheeze, No rales, Diminished - Fusilli Cardiovascular: Regular rate, Regular Rhythm, Normal S1, Normal S2, No murmurs, No Ectopic Activity, No rub noted, No Gallop, - - Distant heart tones secondary to body habitus Abdomen: Bowel Sounds Present, Soft, Non Tender, Non-Distended, No Hepato-splenomegaly, - - Urostomy in place good output Extremities: No clubbing, No cyanosis, No edema, Capillary Refill Less than 3 Seconds, Diminished Peripheral Pulses Skin: No rashes, No breakdown Musculoskeletal: No Tenderness to Palpation of Joints or Extremities, Arthritic Changes, Muscle Wasting, - - Well-healed scars bilateral knees from total knee arthroplasty Lymphatic: No Cervical, Supraclavicular, or Inguinal Adenopathy Neurological: Cranial nerves II-XII grossly intact, Deep Tendon Reflexes 2+/4 and Symmetrical, Muscle tone normal, Coordination normal, - - Neurolysed weakness speech is currently clear, patient appears to be fatigued but answers all questions appropriately no current slurred speech or facial droop noted Psych/Mental Status: Appropriate, Flat Affect Laboratory Results 09/03/20 14:15: WBC 8.7, RBC 5.06, Hgb 14.9, Hct 45.4, MCV 89.7, MCH 29.4, MCHC 32.8, RDW Std Deviation 45.4 H, RDW Coeff of [place] 13.8, Plt Count 264, MPV 11.4, Immature Gran % (Auto) 0.500, Neut % (Auto) 67.2, Lymph % (Auto) 24.4, [place] % (Auto) 6.1, Eos % (Auto) 0.9, Baso % (Auto) 0.9, Absolute Neuts (auto) 5.8, Absolute Lymphs (auto) 2.11, Nucleated RBC % 0 09/03/20 14:15: PT 12.1, INR 0.9, APTT 26.7 09/03/20 14:15: Sodium 139, Potassium 3.2 L, Chloride 106, Carbon Dioxide 22.0, Anion Gap 11, BUN 19 H, Creatinine 1.21 H, Estim Creat Clear Calc 27.97, Est GFR (MDRD) Af Amer 55 L, Est GFR (MDRD) Non-Af 46 L, BUN/Creatinine Ratio 15.7, Glucose 133 H, Calcium 9.5, Troponin I < 0.015 09/03/20 14:16: POC Glucose 124 H 09/03/20 14:36: Lactic Acid 2.7 H* 09/03/20 16:00: Urine Color Yellow, Urine Clarity Clear, Urine pH 6.5, Ur Specific [place] 1.010, Urine Protein 30 H, Urine Glucose (UA) Normal, Urine Ketones 15 H, Urine Occult Blood Negative, Urine Nitrite Negative, Urine Bilirubin Negative, Urine Urobilinogen 4 H, Ur Leukocyte Esterase 25 H, Urine RBC 0 SEEN, Urine WBC 0 SEEN, Ur Squamous Epith Cells 0 SEEN, Urine Bacteria RARE, Urine Mucus 0 SEEN 09/03/20 18:35: Lactic Acid Pending Current Medications Acetaminophen (Acetaminophen 325 Mg Tablet) 650 mg PO Q6H PRN PRN PRN Reason: Pain Score 1-10/Temp > 100.7 F Al Hydroxide/Mg Hydroxide (Mag Hydrox/Al Hydrox/Simeth 30 Ml Udc) 30 ml PO Q6H PRN PRN PRN Reason: Gastric Burning Albuterol Sulfate (Albuterol 2.5 Mg/3 Ml Vial.Neb.) 2.5 mg INHALATION Q2H PRN PRN PRN Reason: SOB/Wheezing Alprazolam (Alprazolam 0.25 Mg Tablet) 0.25 mg PO BID PRN PRN PRN Reason: ANXIETY Amlodipine Besylate (Amlodipine 5 Mg Tablet) 5 mg PO DAILY [facility] Apixaban (Apixaban 5 Mg Tablet) 5 mg PO BID [facility] Aspirin (Aspirin 81 Mg Tab.Chew) 81 mg PO DAILY@0800 [facility] Atorvastatin Calcium (Atorvastatin Calcium 80 Mg Tablet) 80 mg PO QHS [facility] Donepezil HCl (Donepezil Hcl 5 Mg Tablet) 5 mg PO QHS [facility] Duloxetine HCl (Duloxetine Hcl 30 Mg Capsule) 30 mg PO DAILY [facility] Gabapentin (Gabapentin 300 Mg Capsule) 300 mg PO 4X/DAY [facility] Hydralazine HCl (Hydralazine 20 Mg/Ml Vial) 5 mg IV Q30M PRN PRN Reason: to maintain BP goals Sodium Chloride 1,000 ml/ N/A 1,000 mls @ 72.575 mls/hr IV .[id number] [facility] Stop: 09/04/20 14:26 Last Infusion: 09/03/20 17:38 Dose: 0 ml/kg/hr, 0 mls/hr Documented by: Sodium Chloride () 1,000 mls @ 150 mls/hr IV .[id number] [facility] Last Admin: 09/03/20 17:39 Dose: 150 mls/hr Documented by: Sodium Chloride () 1,000 mls @ 70 mls/hr IV .[id number] [facility] Stop: 09/04/20 09:37 Influenza Virus Vaccine Quadrival (Influenza Vaccine (6mos+)/Pf 0.5 Ml Syringe) 0.5 ml IM .ONCE ONE Stop: 09/04/20 10:01 Labetalol HCl (Labetalol (Prefilled) 20 Mg/4 Ml) 20 mg IV X1 PRN PRN Reason: Blood Pressure Labetalol HCl (Labetalol (Prefilled) 20 Mg/4 Ml) 10 - 20 mg IV Q10M PRN PRN PRN Reason: to Maintain BP Goals Losartan Potassium (Losartan Potassium 100 Mg Tablet) 100 mg PO DAILY [facility] Non-Formulary Medication (Omeprazole) 40 mg PO DAILY [facility] Ondansetron HCl (Ondansetron 4 Mg/2 Ml Vial) 4 mg IV Q8H PRN PRN PRN Reason: NAUSEA/VOMITING Senna/Docusate Sodium (Senna/Docusate Sodium 1 Tablet) 2 tablet PO BID PRN PRN PRN Reason: Constipation Sodium Chloride (0.9% Saline Lock 10 Ml Syringe) 10 - 40 ml IV UD PRN PRN Reason: SALINE FLUSH Assessment/Plan All Active Problems (Last Updated 05/20/20 @ 20:[address] Cassy Cruz MD) Acute alteration in mental status (Acute) Dysarthria (Acute) Generalized weakness (Acute) Hypokalemia (Acute) Dehydration (Acute) Conjunctivitis, acute, bilateral (Acute) Unable to ambulate (Acute) Acute metabolic encephalopathy -Doubt new acute stroke -Obtain new MRI in a.m. -No need for repeat echo as patient has just recently had one in March 2020 -Obtain EEG -NIH -Bedside speech eval -D/OT consult -Continue aspirin and apixaban -Check lipid profile -Hold Ativan, baclofen, Flexeril at this time -Patient appears to be both on Xanax and Ativan we will continue as needed Xanax at this time--> consider weaning -If new abnormalities on MRI or abnormality on EEG consider neurology consult Bilateral conjunctivitis -Cipro drops every 3 hours while awake for 2 days Lactic acidosis -Mild elevation at 2.9 -No good reason for why this would be elevated -Consider seizure -Repeat lactate was resolved Hypokalemia -Replaced in the ER -Repeat in a.m. -Check magnesium level History of right cerebellar stroke -See above CKD stage III -Creatinine stable -Watch urine output -Repeat BMP in a.m. CAD/HFpEF/HTN/HPL -Continue aspirin -Continue amlodipine 5 mg daily -Continue atorvastatin 80 mg nightly -Continue losartan 100 mg daily GERD -Continue PPI History of DVT -Continue Eliquis Vitamin D deficiency -Restart cholecalciferol at discharge Alzheimer's is vascular dementia -Continue Aricept Neuropathy -Continue gabapentin Obesity -Complicates overall medical complexity DVT prophylaxis Continue apixaban CODE STATUS -DNR CCA no intubation Inpatient E&M: 75401 Init Hosp L3
[2020-09-03] MEDS: 0.9% Normal Saline 1,000 ML 70 ML IV (21:15)
[2020-09-03] MEDS: Ciprofloxacin 0.3% 2.5ml Bottle 1 DRP EACH EYE (22:05)
[2020-09-03] MEDS: Atorvastatin Calcium 80 MG Tablet PO (22:06)
[2020-09-03] MEDS: Donepezil HCl 5 MG Tablet PO (22:06)
[2020-09-03] MEDS: APIXABAN 5 MG TABLET PO (22:06)
[2020-09-03] MEDS: Gabapentin 300 MG Capsule PO (22:06)
[2020-09-04] VITALS (7 sets, daily range): BP systolic 120–148; BP diastolic 69–101; PULSE 67–103; RESP 18–20; TEMP 36.7–36.9; O2SAT 95–98
--- NOTE | 2020-09-04 03:39 | NURSING ---
Lab unable to get troponins on pt, CALKER attempted as well and unsuccessful. Mami Dunlap RN
[2020-09-04] MEDS: Ciprofloxacin 0.3% 2.5ml Bottle 1 DRP EACH EYE ×3 (06:18→13:06)
[2020-09-04 07:55] LABS: Absolute Lymphocyte Count 1.95 X10^3/uL (0.83-4.51); Absolute Neutrophil Count 2.6 X10^3/uL (2.0-7.7); Basophil# 0.05 X10^3/uL; Eosinophils% 1.9 % (0-5); Hematocrit 38.4 % (37-47); Hemoglobin 12.4 g/dL (12.0-15.0); Lymphocyte # 1.95 X10^3/ul (4.0); Lymphocyte % 37.6 % (19-41); Mean Corp Hgb Conc 32.3 g/dL (32-36); Mean Corpuscular Hgb 29.1 pg (27.0-32.0); Mean Corpuscular Volume 90.1 fL (81-99); Mean Platelet Vol. 12.2 fl (6.2-12.0); Monocyte# 0.44 X10^3/uL; Monocyte% 8.5 % (0-10); NRBC Flagged by Analyzer 0 % (0-5); Neutrophil # 2.62 X10^3/uL (2.7-7.7); Neutrophil % 50.6 % (47-70); Platelet Count 219 K/mm3 (150-450); RBC Distribution Width CV 13.8 % (11.6-14.6); RBC Distribution Width SD 45.4 fl (35.1-43.9); Red Blood Count 4.26 M/mm3 (4.2-5.4); White Blood Count 5.2 K/mm3 (4.4-11.0)
[2020-09-04 08:21] LABS: ALB/GLOB Ratio 1.1 RATIO (0.9-2.4); AST(SGOT) 19 U/L (15-37); Alanine Aminotransfer ALT/SGPT 10 U/L (13-56); Albumin, Serum 2.8 g/dL (3.2-5.0); Alkaline Phosphatase 67 U/L (45-117); Anion Gap 10 (5-15); BUN 15 mg/dL (7-18); BUN/Creat Ratio 17.4 RATIO (10-20); Calcium,Total 8.5 mg/dL (8.5-10.1); Chloride 111 mmol/L (98-107); Cholesterol 127 mg/dL (200); Creatinine, Serum 0.86 mg/dL (0.55-1.02); EST Glomerular Filtration Rate 68 mL/min (>60); Est Glom Filt Rate - Afr Amer 82 mL/min (>60); Estimated Creatinine Clearance 39.35 ml/min; Globulin 2.5 g/dL (2.2-4.2); Glucose 88 mg/dL (74-106); High Density Lipoprotein 35 mg/dL; Magnesium 1.8 mg/dL (1.6-2.6); Phosphorus 3.9 mg/dL (2.5-4.9); Potassium 4.1 mmol/L (3.5-5.1); Protein, Total 5.3 g/dL (6.4-8.2); Sodium Level 141 mmol/L (136-145); Thyroid Stim Hormone (TSH) 3.49 uIU/mL (0.358-3.74); Triglycerides 132 mg/dL; Very Low Density Lipoprotein 26 mg/dL (5-40)
[2020-09-04] MEDS: amLODIPine 5 MG Tablet PO (09:19)
[2020-09-04] MEDS: DULoxetine Hcl 30 MG Capsule PO (09:19)
[2020-09-04] MEDS: Gabapentin 300 MG Capsule PO ×2 (09:19→13:06)
[2020-09-04] MEDS: APIXABAN 5 MG TABLET PO (09:19)
[2020-09-04] MEDS: Pantoprazole Sodium 40 MG Tablet PO (09:20)
[2020-09-04] MEDS: Aspirin 81 MG TAB.CHEW PO (09:20)
[2020-09-04] MEDS: Losartan Potassium 100 MG Tablet PO (09:20)
--- NOTE | 2020-09-04 11:44 | PCM.DC ---
- Discharge Diagnoses Current Active Problems: Current Active and Chronic Problems (Last Updated 05/20/20 @ 20:[address] Cassy Cruz MD) Acute alteration in mental status (Acute) Dysarthria (Acute) Generalized weakness (Acute) Hypokalemia (Acute) Dehydration (Acute) Conjunctivitis, acute, bilateral (Acute) Unable to ambulate (Acute) CKD (chronic kidney disease), stage III (Chronic) CVA (cerebral vascular accident) (Chronic) Debility (Chronic) Systemic lupus erythematosus (Chronic) Coronary artery disease (Chronic) Hypertension (Chronic) Vitamin D deficiency (Chronic) Depression (Chronic) Neuropathic pain (Chronic) Vascular dementia (Chronic) Atherosclerotic heart disease of [place] coronary artery without angina pectoris (Chronic ~05/09/17) Mild; Left Main: mild calcification, angiographically normal; LAD: prox: Mild calcification, mild luminal irregularities;CX: prox: Mild luminal irregularities; RCA: angiographically normal per cath 05/09/17 Hyperlipidemia (Chronic) Benign essential hypertension (Chronic) GERD (gastroesophageal reflux disease) (Chronic) History of pulmonary embolism (Chronic) You will use the following diet at home:: Cardiac Your food should be the consistency of: Regular Your liquids should be the consistency of: Regular/Thin Discharge Activity: May Not Drive Call your doctor if you observe: Dizziness, Fainting spells, - - change in mental status Allergies/Adverse Reactions: Allergies ampicillin Allergy (Verified 09/03/20 14:03) Rash buprenorphine HCl [From Buprenex] Allergy (Verified 09/03/20 14:03) Other codeine Allergy (Verified 09/03/20 14:03) Anaphylaxis gold Au 198 Allergy (Verified 09/03/20 14:03) Rash guaifenesin Allergy (Verified 09/03/20 14:03) Rash promethazine HCl [From Phenergan] Allergy (Verified 09/03/20 14:03) Shortness of breath Sulfa (Sulfonamide Antibiotics) Allergy (Verified 09/03/20 14:03) Rash sulindac [From Clinoril] Allergy (Verified 09/03/20 14:03) Rash tetracycline [Tetracycline] Allergy (Verified 09/03/20 14:03) Rash thiopental Allergy (Verified 09/03/20 14:03) Rash trimethoprim [From Proloprim] Allergy (Verified 09/03/20 14:03) Rash buspirone [From BuSpar] Adverse Reaction (Verified 09/03/20 14:03) Nausea oxycodone HCl [From OxyContin] Adverse Reaction (Verified 09/03/20 14:03) Other NALDECON Allergy (Uncoded 09/03/20 14:03) Rash SULPHATED OIL Allergy (Uncoded 09/03/20 14:03) Other TAPE Allergy (Uncoded 09/03/20 14:03) Rash Medications to take at Discharge Cholecalciferol (Vitamin D3) [Vitamin D3] 2,000 unit PO DAILY 03/24/19 losartan 100 mg tablet 100 mg PO DAILY 10/16/19 gabapentin 300 mg capsule 300 mg PO 4X/DAY cap 10/30/19 nitroglycerin 0.4 mg sublingual tablet 0.4 mg SUBLINGUAL Q5-15M PRN #25 tab 11/24/19 Aspirin [Aspirin, Baby] 81 mg PO DAILY@0800 02/26/20 Omeprazole 40 mg PO DAILY 02/26/20 Acetaminophen [Tylenol] 1,000 mg PO Q6H PRN PRN tab 03/09/20 Cyclobenzaprine HCl 5 mg PO DAILY PRN #30 tab 03/09/20 ALPRAZolam [Xanax] 0.25 mg PO BID PRN PRN 08/03/20 Amlodipine [Norvasc] 5 mg PO DAILY 08/03/20 Apixaban [Eliquis] 5 mg PO BID 08/03/20 Atorvastatin Calcium 80 mg PO QHS 08/03/20 Baclofen [Lioresal] 5 - 10 mg PO TID PRN PRN 08/03/20 Donepezil HCl [Aricept] 5 mg PO QHS 08/03/20 Duloxetine HCl 30 mg PO DAILY 08/03/20 Lorazepam [Ativan] 0.5 mg PO BID PRN PRN 08/03/20 Menthol/Lanolin/Calamine/Znox [Calmoseptine Ointment] 1 applic TOPICAL BID PRN PRN 08/03/20 Tramadol HCl [Ultram] 25 - 50 mg PO TID PRN PRN 08/03/20 Primary Care Physician: Zayda Peace PA [Primary Care Provider] - Please follow up with your Primary Care Physician in: 1-2 weeks Test Results: Test results from this visit will be discussed in further detail at your follow-up appointment, if applicable. Please Follow Up With: Efrain Drake MD When: 2 weeks
--- NOTE | 2020-09-04 13:14 | PCM.DC.SUM ---
<Kulwant Shannon - Last Filed: 09/04/20 13:14> Discharge Date and Diagnosis - Problem List Patient Problems: Active and Suspected Problems (Last Updated 05/20/20 @ 20:[address] Cassy Cruz MD) Acute alteration in mental status (Acute) Dysarthria (Acute) Generalized weakness (Acute) Hypokalemia (Acute) Dehydration (Acute) Conjunctivitis, acute, bilateral (Acute) Unable to ambulate (Acute) Date of Admission: 09/03/20 Date of Discharge: 09/04/20 - Primary Discharge Diagnosis Acute Problems: Active Problems (Last Updated 05/20/20 @ 20:[address] Cassy Cruz MD) Acute right parietal cortical infarct, punctate left pontine infarct - Secondary Discharge Diagnosis Chronic Problems: Chronic Problems (Last Updated 05/20/20 @ 20:[address] Cassy Cruz MD) CKD (chronic kidney disease), stage III (Chronic) CVA (cerebral vascular accident) (Chronic) Debility (Chronic) Left hemiparesis (Chronic) Systemic lupus erythematosus (Chronic) Coronary artery disease (Chronic) Chronic kidney disease (Chronic) Hypertension (Chronic) Pulmonary embolism (Chronic) Vitamin D deficiency (Chronic) Overactive bladder (Chronic) Depression (Chronic) Neuropathic pain (Chronic) Insomnia (Chronic) Vascular dementia (Chronic) Vertigo (Chronic) Atherosclerotic heart disease of [place] coronary artery without angina pectoris (Chronic ~05/09/17) Mild; Left Main: mild calcification, angiographically normal; LAD: prox: Mild calcification, mild luminal irregularities;CX: prox: Mild luminal irregularities; RCA: angiographically normal per cath 05/09/17 Diastolic dysfunction (Chronic) Hyperlipidemia (Chronic) Benign essential hypertension (Chronic) GERD (gastroesophageal reflux disease) (Chronic) History of pulmonary embolism (Chronic) Hospital Course and Treatment Imaging Results: MRI/Brain without Contrast IMPRESSION: 1. New since earlier same day small to moderate acute right parietal cortical infarct. 2. Punctate left pontine infarct seen on prior same day but not current study. 3. Remote left frontal infarct. CT/STROKE Brain/Head without Cont IMPRESSION: Chronic involutional changes of the brain. CT/STROKE CTA Head AND Neck W/Con IMPRESSION: Atherosclerotic calcific plaque at the origin of the right internal carotid artery causing less than 50% stenosis. RAD/Chest 1 View IMPRESSION: Stable chest with no acute or active cardiopulmonary disease. Consultations: Neurology-SOC neuro Operations: None Summary of Care Provided: Hospital course: The patient is a 79 year old F past medical history as above notably for multiple strokes in the past, paroxysmal atrial fibrillation already on Eliquis, high-dose statin, aspirin, who presented to the emergency room with 3 mental status, slurring of speech. CT of the brain was negative for acute change, CTA of the head and neck was obtained noted to have some plaque at the origin of the right internal carotid artery only causing less than 50% stenosis. Patient was admitted for an acute infarct. MRI of the brain was obtained and did demonstrate a new acute right parietal cortical infarct. Patient was already on aspirin, high-dose statin, Eliquis. Neurology was consulted. It was discovered that the patient was not taking her medications correctly at home. Patient was advised to continue her home meds at this time. Home health care was recommended in order to help ensure the patient will be compliant with her medications and for further PT and OT. Patient's strokelike symptoms had resolved at the time of discharge. Patient was advised to follow-up with her PCP in 1 to 2 weeks, neurology in 2 weeks. Patient was discharged home with home health care in stable condition. This patient was seen by Kulwant Shannon PA-C under the supervision of Doctor Nathan. [] Patient Problems: Active and Suspected Problems (Last Updated 05/20/20 @ 20:[address] Cassy Cruz MD) Acute alteration in mental status (Acute) Dysarthria (Acute) Generalized weakness (Acute) Hypokalemia (Acute) Dehydration (Acute) Conjunctivitis, acute, bilateral (Acute) Unable to ambulate (Acute) - Physical Exam Vitals/I&O's: Vital Signs Temp Pulse Resp BP Pulse Ox 98.2 F 103 H 18 131/101 H 98 09/04/20 11:48 09/04/20 11:48 09/04/20 11:48 09/04/20 11:48 09/04/20 11:48 Oxygen Delivery Method Room Air Weight: 180 lb 1.883 oz Body Mass Index (BMI) 31.2 Finger Stick Blood Glucose 124 Intake and Output for Last 24 Hours 09/02/20 09/03/20 09/04/20 23:59 23:59 23:59 Intake Total 439.65 / 559.65 220 / 220 Output Total 225 / 225 Balance 439.65 / 559.65 -5 / -5 General: Alert, Oriented x3, Cooperative HEENT: Atraumatic, PERRLA, EOMI, Normocephalic Neck: Supple, No JVD, Negative Carotid Bruits Lungs: Clear to auscultation, Normal air movement Cardiovascular: Regular rate, No murmurs Abdomen: Bowel Sounds Present, Soft, Non Tender Extremities: No edema, Capillary Refill Less than 3 Seconds Skin: No rashes, No breakdown Musculoskeletal: No Tenderness to Palpation of Joints or Extremities Neurological: Cranial nerves II-XII grossly intact Psych/Mental Status: Normal Affect, Appropriate Laboratory Results 09/03/20 14:15: WBC 8.7, RBC 5.06, Hgb 14.9, Hct 45.4, MCV 89.7, MCH 29.4, MCHC 32.8, RDW Std Deviation 45.4 H, RDW Coeff of Elmer 13.8, Plt Count 264, MPV 11.4, Immature Gran % (Auto) 0.500, Neut % (Auto) 67.2, Lymph % (Auto) 24.4, [place] % (Auto) 6.1, Eos % (Auto) 0.9, Baso % (Auto) 0.9, Absolute Neuts (auto) 5.8, Absolute Lymphs (auto) 2.11, Nucleated RBC % 0 09/03/20 14:15: PT 12.1, INR 0.9, APTT 26.7 09/03/20 14:15: Sodium 139, Potassium 3.2 L, Chloride 106, Carbon Dioxide 22.0, Anion Gap 11, BUN 19 H, Creatinine 1.21 H, Estim Creat Clear Calc 27.97, Est GFR (MDRD) Af Amer 55 L, Est GFR (MDRD) Non-Af 46 L, BUN/Creatinine Ratio 15.7, Glucose 133 H, Calcium 9.5, Troponin I < 0.015 09/03/20 14:16: POC Glucose 124 H 09/03/20 14:36: Lactic Acid 2.7 H* 09/03/20 16:00: Urine Color Yellow, Urine Clarity Clear, Urine pH 6.5, Ur Specific Stanton 1.010, Urine Protein 30 H, Urine Glucose (UA) Normal, Urine Ketones 15 H, Urine Occult Blood Negative, Urine Nitrite Negative, Urine Bilirubin Negative, Urine Urobilinogen 4 H, Ur Leukocyte Esterase 25 H, Urine RBC 0 SEEN, Urine WBC 0 SEEN, Ur Squamous Epith Cells 0 SEEN, Urine Bacteria RARE, Urine Mucus 0 SEEN 09/03/20 18:35: Lactic Acid 2.0 09/04/20 06:56: WBC 5.2, RBC 4.26, Hgb 12.4, Hct 38.4, MCV 90.1, MCH 29.1, MCHC 32.3, RDW Std Deviation 45.4 H, RDW Coeff of Elmer 13.8, Plt Count 219, MPV 12.2 H, Immature Gran % (Auto) 0.400, Neut % (Auto) 50.6, Lymph % (Auto) 37.6, [place] % (Auto) 8.5, Eos % (Auto) 1.9, Baso % (Auto) 1.0, Absolute Neuts (auto) 2.6, Absolute Lymphs (auto) 1.95, Nucleated RBC % 0 09/04/20 06:56: Sodium 141, Potassium 4.1, Chloride 111 H, Carbon Dioxide 20.0 L, Anion Gap 10, BUN 15, Creatinine 0.86, Estim Creat Clear Calc 39.35, Est GFR (MDRD) Af Amer 82, Est GFR (MDRD) Non-Af 68, BUN/Creatinine Ratio 17.4, Glucose 88, Calcium 8.5, Phosphorus 3.9, Magnesium 1.8, Total Bilirubin 0.80, AST 19, ALT 10 L, Alkaline Phosphatase 67, Troponin I 0.016, Total Protein 5.3 L, Albumin 2.8 L, Globulin 2.5, Albumin/Globulin Ratio 1.1, Triglycerides 132, Cholesterol 127, LDL Cholesterol 66, VLDL Cholesterol 26, HDL Cholesterol 35 L, TSH 3.49 Current Medications Acetaminophen (Acetaminophen 325 Mg Tablet) 650 mg PO Q6H PRN PRN PRN Reason: Pain Score 1-10/Temp > 100.7 F Al Hydroxide/Mg Hydroxide (Mag Hydrox/Al Hydrox/Simeth 30 Ml Udc) 30 ml PO Q6H PRN PRN PRN Reason: Gastric Burning Albuterol Sulfate (Albuterol 2.5 Mg/3 Ml Vial.Neb.) 2.5 mg INHALATION Q2H PRN PRN PRN Reason: SOB/Wheezing Alprazolam (Alprazolam 0.25 Mg Tablet) 0.25 mg PO BID PRN PRN PRN Reason: ANXIETY Amlodipine Besylate (Amlodipine 5 Mg Tablet) 5 mg PO DAILY [facility] Last Admin: 09/04/20 09:19 Dose: 5 mg Documented by: Apixaban (Apixaban 5 Mg Tablet) 5 mg PO BID [facility] Last Admin: 09/04/20 09:19 Dose: 5 mg Documented by: Aspirin (Aspirin 81 Mg Tab.Chew) 81 mg PO DAILY@0800 [facility] Last Admin: 09/04/20 09:20 Dose: 81 mg Documented by: Atorvastatin Calcium (Atorvastatin Calcium 80 Mg Tablet) 80 mg PO QHS [facility] Last Admin: 09/03/20 22:06 Dose: 80 mg Documented by: Ciprofloxacin HCl (Ciprofloxacin 0.3% 2.5ml Bottle) 1 drop EACH EYE Q4HWA [facility] Last Admin: 09/04/20 13:06 Dose: 1 drop Documented by: Donepezil HCl (Donepezil Hcl 5 Mg Tablet) 5 mg PO QHS [facility] Last Admin: 09/03/20 22:06 Dose: 5 mg Documented by: Duloxetine HCl (Duloxetine Hcl 30 Mg Capsule) 30 mg PO DAILY [facility] Last Admin: 09/04/20 09:19 Dose: 30 mg Documented by: Gabapentin (Gabapentin 300 Mg Capsule) 300 mg PO 4X/DAYCM [facility] Last Admin: 09/04/20 13:06 Dose: 300 mg Documented by: Hydralazine HCl (Hydralazine 20 Mg/Ml Vial) 5 mg IV Q30M PRN PRN Reason: to maintain BP goals Labetalol HCl (Labetalol (Prefilled) 20 Mg/4 Ml) 10 - 20 mg IV Q10M PRN PRN PRN Reason: to Maintain BP Goals Losartan Potassium (Losartan Potassium 100 Mg Tablet) 100 mg PO DAILY [facility] Last Admin: 09/04/20 09:20 Dose: 100 mg Documented by: Ondansetron HCl (Ondansetron 4 Mg/2 Ml Vial) 4 mg IV Q8H PRN PRN PRN Reason: NAUSEA/VOMITING Pantoprazole Sodium (Pantoprazole Sodium 40 Mg Tablet) 40 mg PO DAILY [facility] Last Admin: 09/04/20 09:20 Dose: 40 mg Documented by: Senna/Docusate Sodium (Senna/Docusate Sodium 1 Tablet) 2 tablet PO BID PRN PRN PRN Reason: Constipation Sodium Chloride (0.9% Saline Lock 10 Ml Syringe) 10 - 40 ml IV UD PRN PRN Reason: SALINE FLUSH Discharge Activity: May Not Drive Call your doctor if you observe: Dizziness, Fainting spells, - - change in mental status Home Medications: Medications to take at Discharge Cholecalciferol (Vitamin D3) [Vitamin D3] 2,000 unit PO DAILY 03/24/19 losartan 100 mg tablet 100 mg PO DAILY 10/16/19 gabapentin 300 mg capsule 300 mg PO 4X/DAY cap 10/30/19 nitroglycerin 0.4 mg sublingual tablet 0.4 mg SUBLINGUAL Q5-15M PRN #25 tab 11/24/19 Aspirin [Aspirin, Baby] 81 mg PO DAILY@0800 02/26/20 Omeprazole 40 mg PO DAILY 02/26/20 Acetaminophen [Tylenol] 1,000 mg PO Q6H PRN PRN tab 03/09/20 Cyclobenzaprine HCl 5 mg PO DAILY PRN #30 tab 03/09/20 ALPRAZolam [Xanax] 0.25 mg PO BID PRN PRN 08/03/20 Amlodipine [Norvasc] 5 mg PO DAILY 08/03/20 Apixaban [Eliquis] 5 mg PO BID 08/03/20 Atorvastatin Calcium 80 mg PO QHS 08/03/20 Baclofen [Lioresal] 5 - 10 mg PO TID PRN PRN 08/03/20 Donepezil HCl [Aricept] 5 mg PO QHS 08/03/20 Duloxetine HCl 30 mg PO DAILY 08/03/20 Lorazepam [Ativan] 0.5 mg PO BID PRN PRN 08/03/20 Menthol/Lanolin/Calamine/Znox [Calmoseptine Ointment] 1 applic TOPICAL BID PRN PRN 08/03/20 Tramadol HCl [Ultram] 25 - 50 mg PO TID PRN PRN 08/03/20 Primary Care Physician: Zayda Peace PA [Primary Care Provider] - Please follow up with your Primary Care Physician in: 1-2 weeks Please Follow Up With: Efrain Drake MD When: 2 weeks Medical Necessity - Tobacco Use Smoking Status: Never smoker Tobacco Use: Non-smoker Meaningful Use Info Meaningful Use Diagnoses (Choose all that apply): Ischemic CVA - CVA Therapy Assessed for PT,OT and/or ST?: Yes - Ischemic Stroke Antithrombotic order at d/c?: Yes Dx of Atrial fib/flutter?: Yes Anticoagulant at discharge?: Yes Statins at discharge?: Yes Primary Dx Acute Ischemic CVA?: Yes IV tPA ordered during stay?: No Reason IV t-PA not ordered: Procedure not Indicated <[place] - Last Filed: 09/05/20 08:17> Discharge Date and Diagnosis - Primary Discharge Diagnosis Acute Problems: Active Problems (Last Updated 05/20/20 @ 20:[address] Cassy Cruz MD) Acute alteration in mental status (Acute) Dysarthria (Acute) Generalized weakness (Acute) Hypokalemia (Acute) Dehydration (Acute) Conjunctivitis, acute, bilateral (Acute) Unable to ambulate (Acute) - Secondary Discharge Diagnosis Chronic Problems: Chronic Problems (Last Updated 05/20/20 @ 20:[address] Cassy Cruz MD) CKD (chronic kidney disease), stage III (Chronic) CVA (cerebral vascular accident) (Chronic) Debility (Chronic) Left hemiparesis (Chronic) Systemic lupus erythematosus (Chronic) Coronary artery disease (Chronic) Chronic kidney disease (Chronic) Hypertension (Chronic) Pulmonary embolism (Chronic) Vitamin D deficiency (Chronic) Overactive bladder (Chronic) Depression (Chronic) Neuropathic pain (Chronic) Insomnia (Chronic) Vascular dementia (Chronic) Vertigo (Chronic) Atherosclerotic heart disease of [place] coronary artery without angina pectoris (Chronic ~05/09/17) Mild; Left Main: mild calcification, angiographically normal; LAD: prox: Mild calcification, mild luminal irregularities;CX: prox: Mild luminal irregularities; RCA: angiographically normal per cath 05/09/17 Diastolic dysfunction (Chronic) Hyperlipidemia (Chronic) Benign essential hypertension (Chronic) GERD (gastroesophageal reflux disease) (Chronic) History of pulmonary embolism (Chronic) Hospital Course and Treatment Summary of Care Provided: This patient was seen in conjunction with CONNIE Matt. I have independently interviewed and examined the patient and reviewed pertinent historical, laboratory, and other data. Please refer to CONNIE Matt note for his patient's presentation, findings, and recommendations. I have reviewed and his note and concur with his documentation 79-year-old female with multiple comorbidities including a recent cerebellar stroke a couple of months ago who comes in with altered mental status and progressive slurred speech. Patient's stated that she was found around 11 AM on the day of admission to be slurring her speech and that became progressively worse. They had an outpatient appointment with the primary care doctor who referred him to the emergency room. Stroke team was called, she was not a TPA candidate, CT of the head and neck showed atherosclerotic plaque at the origin of the right internal carotid artery less than 50%. CT of the head showed chronic involutional changes. Patient was admitted to the PCU for stroke work-up. Over the course of her stay, patient was stable, no acute events, vitals were stable. MRI of the brain showed new linear infarct in the right parietal cortex, punctate left pontine infarct. EEG done showed mild diffuse encephalopathy with no seizure pattern. It was felt that patient was not taking the pills right and her does not know how to set up her pills. Recommended that she takes all her pills especially Eliquis and aspirin right. She will be followed up by home health. On the day of discharge, patient was seen and examined. She was eager to be discharged to go and watch Cards [employer]. She denied any new complaints. 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, mild right-sided weakness - Physical Exam Vitals/I&O's: Vital Signs Temp Pulse Resp BP Pulse Ox 98.2 F 103 H 18 131/101 H 98 09/04/20 11:48 09/04/20 11:48 09/04/20 11:48 09/04/20 11:48 09/04/20 11:48 Oxygen Delivery Method Room Air Weight: 81.7 kg Body Mass Index (BMI) 31.2 Finger Stick Blood Glucose 124 Intake and Output for Last 24 Hours 09/02/20 09/03/20 09/04/20 23:59 23:59 23:59 Intake Total 439.65 / 559.65 220 / 220 Output Total 225 / 225 Balance 439.65 / 559.65 -5 / -5 Laboratory Results 09/03/20 14:36: Lactic Acid 2.7 H* 09/03/20 16:00: Urine Color Yellow, Urine Clarity Clear, Urine pH 6.5, Ur Specific Stanton 1.010, Urine Protein 30 H, Urine Glucose (UA) Normal, Urine Ketones 15 H, Urine Occult Blood Negative, Urine Nitrite Negative, Urine Bilirubin Negative, Urine Urobilinogen 4 H, Ur Leukocyte Esterase 25 H, Urine RBC 0 SEEN, Urine WBC 0 SEEN, Ur Squamous Epith Cells 0 SEEN, Urine Bacteria RARE, Urine Mucus 0 SEEN 09/03/20 18:35: Lactic Acid 2.0 09/04/20 06:56: WBC 5.2, RBC 4.26, Hgb 12.4, Hct 38.4, MCV 90.1, MCH 29.1, MCHC 32.3, RDW Std Deviation 45.4 H, RDW Coeff of Elmer 13.8, Plt Count 219, MPV 12.2 H, Immature Gran % (Auto) 0.400, Neut % (Auto) 50.6, Lymph % (Auto) 37.6, [place] % (Auto) 8.5, Eos % (Auto) 1.9, Baso % (Auto) 1.0, Absolute Neuts (auto) 2.6, Absolute Lymphs (auto) 1.95, Nucleated RBC % 0 09/04/20 06:56: Sodium 141, Potassium 4.1, Chloride 111 H, Carbon Dioxide 20.0 L, Anion Gap 10, BUN 15, Creatinine 0.86, Estim Creat Clear Calc 39.35, Est GFR (MDRD) Af Amer 82, Est GFR (MDRD) Non-Af 68, BUN/Creatinine Ratio 17.4, Glucose 88, Calcium 8.5, Phosphorus 3.9, Magnesium 1.8, Total Bilirubin 0.80, AST 19, ALT 10 L, Alkaline Phosphatase 67, Troponin I 0.016, Total Protein 5.3 L, Albumin 2.8 L, Globulin 2.5, Albumin/Globulin Ratio 1.1, Triglycerides 132, Cholesterol 127, LDL Cholesterol 66, VLDL Cholesterol 26, HDL Cholesterol 35 L, TSH 3.49 Current Medications Acetaminophen (Acetaminophen 325 Mg Tablet) 650 mg PO Q6H PRN PRN PRN Reason: Pain Score 1-10/Temp > 100.7 F Al Hydroxide/Mg Hydroxide (Mag Hydrox/Al Hydrox/Simeth 30 Ml Udc) 30 ml PO Q6H PRN PRN PRN Reason: Gastric Burning Albuterol Sulfate (Albuterol 2.5 Mg/3 Ml Vial.Neb.) 2.5 mg INHALATION Q2H PRN PRN PRN Reason: SOB/Wheezing Alprazolam (Alprazolam 0.25 Mg Tablet) 0.25 mg PO BID PRN PRN PRN Reason: ANXIETY Amlodipine Besylate (Amlodipine 5 Mg Tablet) 5 mg PO DAILY [facility] Last Admin: 09/04/20 09:19 Dose: 5 mg Documented by: Apixaban (Apixaban 5 Mg Tablet) 5 mg PO BID [facility] Last Admin: 09/04/20 09:19 Dose: 5 mg Documented by: Aspirin (Aspirin 81 Mg Tab.Chew) 81 mg PO DAILY@0800 [facility] Last Admin: 09/04/20 09:20 Dose: 81 mg Documented by: Atorvastatin Calcium (Atorvastatin Calcium 80 Mg Tablet) 80 mg PO QHS [facility] Last Admin: 09/03/20 22:06 Dose: 80 mg Documented by: Ciprofloxacin HCl (Ciprofloxacin 0.3% 2.5ml Bottle) 1 drop EACH EYE Q4HWA [facility] Last Admin: 09/04/20 13:06 Dose: 1 drop Documented by: Donepezil HCl (Donepezil Hcl 5 Mg Tablet) 5 mg PO QHS [facility] Last Admin: 09/03/20 22:06 Dose: 5 mg Documented by: Duloxetine HCl (Duloxetine Hcl 30 Mg Capsule) 30 mg PO DAILY [facility] Last Admin: 09/04/20 09:19 Dose: 30 mg Documented by: Gabapentin (Gabapentin 300 Mg Capsule) 300 mg PO 4X/DAYCM [facility] Last Admin: 09/04/20 13:06 Dose: 300 mg Documented by: Hydralazine HCl (Hydralazine 20 Mg/Ml Vial) 5 mg IV Q30M PRN PRN Reason: to maintain BP goals Labetalol HCl (Labetalol (Prefilled) 20 Mg/4 Ml) 10 - 20 mg IV Q10M PRN PRN PRN Reason: to Maintain BP Goals Losartan Potassium (Losartan Potassium 100 Mg Tablet) 100 mg PO DAILY [facility] Last Admin: 09/04/20 09:20 Dose: 100 mg Documented by: Ondansetron HCl (Ondansetron 4 Mg/2 Ml Vial) 4 mg IV Q8H PRN PRN PRN Reason: NAUSEA/VOMITING Pantoprazole Sodium (Pantoprazole Sodium 40 Mg Tablet) 40 mg PO DAILY [facility] Last Admin: 09/04/20 09:20 Dose: 40 mg Documented by: Senna/Docusate Sodium (Senna/Docusate Sodium 1 Tablet) 2 tablet PO BID PRN PRN PRN Reason: Constipation Sodium Chloride (0.9% Saline Lock 10 Ml Syringe) 10 - 40 ml IV UD PRN PRN Reason: SALINE FLUSH OBSV E&M: 65072 Observation care discharge
--- NOTE | 2020-09-04 15:40 | CASEMGMT ---
SOCIAL WORK Patient positive for CVA. PHQ9 completed with patient. Patient score=1. No further needs. Se Peters MSW, [employer]
== END 2020-09-04 11:48 | disposition home or self-care (01) ==
LOC: ED 17:40 → PCU 20:05
PROVIDERS: Admitting Provider Internal Medicine; Emergency Provider Emergency Medicine; PCP Physician Assistant; Visit Provider Internal Medicine
DX: I65.21 Occlusion and stenosis of right carotid artery (principal); Z79.01 Long term (current) use of anticoagulants; I48.0 Paroxysmal atrial fibrillation; R47.1 Dysarthria and anarthria; I25.10 Atherosclerotic heart disease of native coronary artery without angina pectoris; I13.0 Hypertensive heart and chronic kidney disease with heart failure and stage 1 through stage 4 chronic kidney disease, or unspecified chronic kidney disease; N18.30 Chronic kidney disease, stage 3 unspecified; K21.9 Gastro-esophageal reflux disease without esophagitis; F32.9 Major depressive disorder, single episode, unspecified; E78.5 Hyperlipidemia, unspecified; M32.14 Glomerular disease in systemic lupus erythematosus; F02.80 Dementia in other diseases classified elsewhere, unspecified severity, without behavioral disturbance, psychotic disturbance, mood disturbance, and anxiety; G30.9 Alzheimer's disease, unspecified; F01.50 Vascular dementia, unspecified severity, without behavioral disturbance, psychotic disturbance, mood disturbance, and anxiety; E55.9 Vitamin D deficiency, unspecified; E86.0 Dehydration; E87.6 Hypokalemia; H10.33 Unspecified acute conjunctivitis, bilateral; N32.81 Overactive bladder; Z86.73 Personal history of transient ischemic attack (TIA), and cerebral infarction without residual deficits; Z93.2 Ileostomy status; Z86.711 Personal history of pulmonary embolism; Z79.899 Other long term (current) drug therapy; Z79.82 Long term (current) use of aspirin; M06.9 Rheumatoid arthritis, unspecified; I73.00 Raynaud's syndrome without gangrene; M79.7 Fibromyalgia; G62.9 Polyneuropathy, unspecified; E66.9 Obesity, unspecified; Z68.31 Body mass index [BMI] 31.0-31.9, adult
CPT/HCPCS: 36415; 70450; 70496; 70498; 70551; 71045; 80048; 80053; 80061; 81001; 82962; 83605; 83735; 84100; 84443; 84484; 85025; 85610; 85730; 87040; 93005; 94762; 95819; 96360; 96361; 97162; 97166; 99218; 99251; 99285; J7030; P9612; Q9967; A4216; G0378; G0463